=== PATIENT | male | born 1945 ===

== ENCOUNTER 2017-11-20 13:46 | Inpatient (IN) | payer MEDICARE, MEDICAID ==
[2017-11-20 13:47] VITALS: BMI 21.8
--- NOTE | 2017-11-20 14:28 | ED PDOC ---
HPI: General Adult Time Seen by Provider: 11/20/17 13:55 Chief Complaint (Nursing): GI Problem Chief Complaint (Provider): GI Problem History Per: Patient History/Exam Limitations: no limitations Onset/Duration Of Symptoms: Days Current Symptoms Are (Timing): Still Present Additional Complaint(s): 72 y/o male presents to the emergency department after he was sent from rehab for difficulty swallowing, failed video swallow evaluation, and unsuccessful nasogastric tube (NGT) insertion prior to arrival. Patient had cervical spine surgery for spinal central cord syndrome and admitted to incentive care unit ( ICU) under the care of Dr. Aren Dolan MD on 11/15/2017. Patient was seen in this facility on 11/17/2017 and diagnosed with cord compression syndrome after fall with syncope (resolved) post traumatic cervical myelopathy with quadriparesis and found with aspiration pneumonia. At this time, patient has neck pain, inability to swallow or eat due to cervical cord dysfunction and tetraplegia. Denies fever, chills, or weakness. Past Medical History Reviewed: Historical Data, Nursing Documentation, Vital Signs Vital Signs: Last Vital Signs Temp 98.3 F 11/21/17 07:21 Pulse 63 11/21/17 07:21 Resp 20 11/21/17 07:21 BP 184/74 H 11/21/17 07:21 Pulse Ox 98 11/21/17 07:21 - Medical History PMH: Seizures Denies: Chronic Kidney Disease (hx unknown) Comment Only: HIV (unknown) - Surgical History Other surgeries: Spine surgery - Family History Family History: States: Unknown Family Hx - Social History Current smoker - smoking cessation education provided: No Alcohol: None Drugs: Denies - Home Medications Home Medications: Ambulatory Orders Medication Instructions Recorded Ciprofloxacin 0.3% [Ciloxan 0.3% 1 drop OU Q4 bottle 11/17/17 Ophth SOLN] Enoxaparin [Lovenox] 40 mg SC DAILY syr 11/17/17 Polyethylene Glycol/Polyvinyl 2 drop OU Q2 PRN bottle 11/17/17 [Artificial Tears] Bisacodyl [Dulcolax] 10 mg RC PRN PRN 11/20/17 Nicotine [Nicoderm Cq] 1 patch TD DAILY 11/20/17 - Allergies Allergies/Adverse Reactions: Allergies Allergy/AdvReac Type Severity Reaction Status Date / Time No Known Allergies Allergy Verified 11/11/17 06:09 Review of Systems ROS Statement: Except As Marked, All Systems Reviewed And Found Negative (As per HPI, otherwise negative) Constitutional: Negative for: Fever, Chills ENT: Positive for: Other (Difficulty swallowing due to neurological dysphagia) Musculoskeletal: Positive for: Neck Pain (Inability to move due to fracture) Neurological: Negative for: Weakness Physical Exam - Reviewed Nursing Documentation Reviewed: Yes Vital Signs Reviewed: Yes - Physical Exam Appears: Positive for: Non-toxic, No Acute Distress Head Exam: Positive for: ATRAUMATIC, NORMAL INSPECTION, NORMOCEPHALIC Skin: Positive for: Normal Color, Warm, Dry Eye Exam: Positive for: Normal appearance, EOMI, PERRL Neck: Positive for: Limited ROM (due to fracture and decompressions of the cervical region). Negative for: Normal Cardiovascular/Chest: Positive for: Regular Rate, Rhythm. Negative for: Tachycardia Respiratory: Positive for: Normal Breath Sounds. Negative for: Rales, Wheezing , Respiratory Distress Gastrointestinal/Abdominal: Positive for: Soft. Negative for: Tenderness Extremity: Positive for: Other (Limited range of motion with a 1/5 strength to the upper and lower extremities bilaterally). Negative for: Normal ROM ( Limited range of motion with a 1/5 strength to the upper and lower extremities bilaterally) Neurologic/Psych: Positive for: Alert, Oriented (x3), Motor/Sensory Deficits (1/ 5 strenght on all extremities). Negative for: Cerebellar Tests, Aphasia, Facial Droop - Laboratory Results Result Diagrams: 11/20/17 14:35 11/20/17 14:35 - ECG O2 Sat by Pulse Oximetry: 99 (RA) Pulse Ox Interpretation: Normal Medical Decision Making Medical Decision Making: Time: 1420 Initial Impression: Neurological dysphagia, Failure to eat or swallow due to neurological dysphagia, Aspiration pneumonia, Tetraparesis, and cervical cord dysfunction status post cervical decompression. Initial Plan: --BMP --CBC w/ diff --Blood Culture --Chest x-ray --Reevaluation --Admission criteria include dysphagia, poor nutrition, and need for GI evaluation (consult will be requested by Dr Wang himself ) and need for IV nutrition TPN as well as IV antibiotics for aspiration pneumonia. Time: 1435 --Spoke to Dr. Wang who is covering for Dr. Dolan, who patient was admitted to originally, and agrees to admit the patient as inpatient in Med/Surg under his care. --Prealbumin --Clindamycin 600 mg in 50 ml IVPB --Dextrose 125 mls/hr IV --Admit to hospital routine: As inpatient in Med/Surg for Aspiration pneumonia, cervical cord dysfunctions, dyphagia, poor nutrition under the care of Dr. Isma Wang MD Scribe~Attestation: Documented by Sammie Villalpando, acting as a scribe for Summer Santillan MD. Provider Scribe~Attestation: All medical record entries made by the Scribe were at my direction and personally dictated by me. I have reviewed the chart and agree that the record accurately reflects my personal performance of the history, physical exam, medical decision making, and the department course for this patient. I have also personally directed, reviewed, and agree with the discharge instructions and disposition. Disposition - Clinical Impression Clinical Impression: Dysphagia, Aspiration pneumonia - Patient ED Disposition Is Patient to be Admitted: Yes (As inpatient in Med/Surg) Discussed With Dr.: Isma Wang Doctor Will See Patient In The: Hospital Counseled Patient/Family Regarding: Studies Performed, Diagnosis, Need For Followup - Disposition Disposition Time: 14:33 Condition: FAIR - Pt Status Changed To: Hospital Disposition Of: Inpatient - Admit Certification Admit to Inpatient:: After my assessment, the patient will require hospitalization for at least two midnights. This is because of the severity of symptoms shown, intensity of services needed, and/or the medical risk in this patient being treated as an outpatient. - POA Present On Arrival: None
[2017-11-20] MEDS ORDERED: Clindamycin 600mg/50ml NS 600 MG/50 ML BAG IVPB STA (14:29)
[2017-11-20] MEDS ORDERED: levoFLOXacin 500 mg in D5W 500 MG/100 ML BAG IVPB STA (14:38)
[2017-11-20] MEDS ORDERED: levoFLOXacin 500 mg in D5W 500 MG/100 ML BAG IVPB ONE (14:45)
[2017-11-20] MEDS: Dextrose 5%/0.45% NS 1,000 ML IV SCH ×2 (14:45→22:56)
--- NOTE | 2017-11-20 15:37 | RAD ---
PROCEDURE: CHEST RADIOGRAPH, 1 VIEW HISTORY: aspiration COMPARISON: Chest radiograph dated 11/19/2017. FINDINGS: LUNGS: Bibasilar atelectasis. PLEURA: Trace bilateral pleural effusions. CARDIOVASCULAR: Normal. OSSEOUS STRUCTURES: No significant abnormalities. VISUALIZED UPPER ABDOMEN: Normal. OTHER FINDINGS: None. IMPRESSION: Trace bilateral pleural effusions and/or atelectasis.
[2017-11-20 15:40] LABS: BASO # 0.1 K/uL (0.0-0.2); EOS # 0.1 K/uL (0.0-0.7); EOS % 0.7 % (0.0-4.0); LYMPH # 1.1 K/uL (1.0-4.3); LYMPH % 13.6 % (20.0-40.0); MEAN CELL VOLUME 87.8 fl (80.0-94.0); MEAN CORPUSCULAR HEMOGLOBIN 28.8 pg (27.0-31.0); MEAN CORPUSCULAR HGB CONC 32.8 g/dL (33.0-37.0); MEAN PLATELET VOLUME 7.3 fl (7.2-11.7); MONO % 12.2 % (0.0-10.0); NEUT # 5.9 K/uL (1.8-7.0); NEUT % 72.5 % (50.0-75.0); NRBC % 0.1 % (0.0-0.0); RBC 3.48 Mil/uL (4.40-5.90); RED CELL DISTRIBUTION WIDTH 13.4 % (11.5-14.5); WHITE BLOOD COUNT 8.2 K/uL (4.8-10.8)
[2017-11-20 15:51] LABS: ALBUMIN 2.7 g/dL (3.5-5.0); ALT/SGPT 25 U/L (21-72); AST/SGOT 27 U/L (17-59); BLOOD UREA NITROGEN 9 mg/dl (9-20); CALCIUM 8.4 mg/dL (8.4-10.2); GFR AFRICAN-AMERICAN > 60; GFR NON-AFRICAN AMERICAN > 60
[2017-11-20 16:11] LABS: ALB/GLOB RATIO 0.9 (1.0-2.1)
[2017-11-20] MEDS: Artificial Tears Opht Soln OU PRN (19:57)
[2017-11-20] MEDS: Ciprofloxacin 0.3% OPTH SOLN OU SCH (21:35)
[2017-11-21] MEDS: Ciprofloxacin 0.3% OPTH SOLN OU SCH ×6 (00:02→21:29)
[2017-11-21] MEDS: Dextrose 5%/0.45% NS 1,000 ML IV SCH ×3 (00:59→15:46)
[2017-11-21] MEDS ORDERED: levoFLOXacin 500 mg in D5W 500 MG/100 ML BAG IVPB SCH (09:00)
[2017-11-21] MEDS: levoFLOXacin 500 mg in D5W 500 MG/100 ML BAG IVPB SCH (09:17)
[2017-11-21] MEDS: Enoxaparin 40 mg Syringe SC SCH (09:18)
[2017-11-21] MEDS ORDERED: Multivitamin (MVI) 10 ML, Chromium/Copper/Manganese/Zinc 3 ML in Amino Acids/Dextrose 1... IV ONE (10:45)
[2017-11-21] MEDS: Enalaprilat 2.5 MG/2 ML IVP PRN (18:16)
--- NOTE | 2017-11-21 21:32 | HP ---
CHIEF COMPLAINT: Found with dysphagia in acute rehab unit. HISTORY OF PRESENT ILLNESS: This is a 72-year-old male who was recently admitted to acute rehab unit after suffering a seizure and fall and having fracture of cervical spine, which patient underwent surgery and after surgery, patient was transferred for acute rehab. In acute rehab unit, patient had swallowing evaluation done which they felt that patient to be n.p.o. as patient was aspirating. NG tube was attempted for patient's feeding, but was not successful. GI consult was requested to place NG tube, which was also unsuccessful in inserting NG tube and patient needed nutrition to participate in rehab. Also patient was found to have pneumonia, so patient was sent to the acute medical unit for further treatment. REVIEW OF SYSTEMS: Positive for feeling hungry and occasional cough. Review of systems, otherwise, is negative for headache, dizziness, syncope, loss of consciousness, chest pain, shortness of breath, nausea, vomiting, diarrhea, constipation. Review of systems also is positive for paraplegia related to cervical spine and basal ganglia infarct medical issue. Review of systems of all other organ systems is unremarkable. 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 PAST MEDICAL HISTORY: Significant for paraplegia and hypertension. PAST SURGICAL HISTORY: Remarkable for recent cervical spine surgery. PERSONAL HISTORY: Patient is currently nonsmoker, nondrinker. No substance abuse, but has history of the same in the past before hospital admission. FAMILY HISTORY: Noncontributory. MEDICATIONS: As per reconciliation sheet. ALLERGIES: THE PATIENT IS NOT ALLERGIC TO ANY MEDICATION. PHYSICAL EXAMINATION: GENERAL: Well-built, well-nourished 72-year-old male, in no acute distress. VITAL SIGNS: Temperature afebrile, pulse 80, respirations 18, blood pressure 183/77. HEENT: Patient is status post recent cervical spine surgery. No JVD. No thyromegaly. No lymphadenopathy. No nystagmus. Normocephalic, atraumatic skull, otherwise. HEART: S1 and S2 normal and regular. No significant murmur, gallop, or rub is heard. LUNGS: Exam showed good bilateral air exchange. No rales or rhonchi. ABDOMEN: Soft, nontender. No organomegaly. No fluid. Bowel sounds are plus. EXTREMITIES: No edema. No calf swelling. No tenderness. No acute ischemia. CENTRAL NERVOUS SYSTEM: Essentially unchanged and patient has functional paraplegia, although does have some movement in all the extremities, but it is essentially unchanged from patient's exam in acute rehab unit. DIAGNOSTIC DATA: Available diagnostic data reviewed. ADMITTING IMPRESSION: Dysphagia, pneumonia, paraplegia, cervical spine injury, basal ganglia infarct, hypertension uncontrolled. PLAN: As ordered. Case and plan discussed with patient. Isma Wang MD
[2017-11-22] MEDS: Enalaprilat 2.5 MG/2 ML IVP PRN (00:49)
[2017-11-22] MEDS: Ciprofloxacin 0.3% OPTH SOLN OU SCH ×6 (00:50→21:46)
[2017-11-22] MEDS ORDERED: Amino/Dex E 4.25/10 1000 ML 1,000 ML IV ONE ×2 (02:00→11:45)
[2017-11-22 06:20] LABS: HEMOGLOBIN 10.4 g/dL (12.0-18.0); MEAN CELL VOLUME 86.1 fl (80.0-94.0); MEAN CORPUSCULAR HEMOGLOBIN 29.6 pg (27.0-31.0); MEAN CORPUSCULAR HGB CONC 34.3 g/dL (33.0-37.0); RBC 3.51 Mil/uL (4.40-5.90); RED CELL DISTRIBUTION WIDTH 13.4 % (11.5-14.5)
[2017-11-22 07:18] LABS: ALT/SGPT 30 U/L (21-72); AST/SGOT 29 U/L (17-59); BLOOD UREA NITROGEN 10 mg/dl (9-20); CALCIUM 8.7 mg/dL (8.4-10.2); GFR AFRICAN-AMERICAN > 60; GFR NON-AFRICAN AMERICAN > 60
[2017-11-22 07:19] LABS: ALB/GLOB RATIO 0.8 (1.0-2.1)
[2017-11-22] MEDS: levoFLOXacin 500 mg in D5W 500 MG/100 ML BAG IVPB SCH (09:23)
[2017-11-22] MEDS: Enoxaparin 40 mg Syringe SC SCH (09:35)
[2017-11-22] MEDS ORDERED: Multivitamin (MVI) 10 ML, Chromium/Copper/Manganese/Zinc 3 ML in Amino/Dex E 4.25/10 10... IV ONE (11:45)
[2017-11-23] MEDS: Ciprofloxacin 0.3% OPTH SOLN OU SCH ×6 (00:18→21:36)
[2017-11-23 06:46] LABS: HEMOGLOBIN 10.4 g/dL (12.0-18.0); MEAN CELL VOLUME 87.6 fl (80.0-94.0); MEAN CORPUSCULAR HEMOGLOBIN 29.3 pg (27.0-31.0); MEAN CORPUSCULAR HGB CONC 33.5 g/dL (33.0-37.0); RBC 3.56 Mil/uL (4.40-5.90); RED CELL DISTRIBUTION WIDTH 13.6 % (11.5-14.5); WHITE BLOOD COUNT 9.5 K/uL (4.8-10.8)
[2017-11-23 07:12] LABS: ALB/GLOB RATIO 0.9 (1.0-2.1); ALT/SGPT 28 U/L (21-72); AST/SGOT 31 U/L (17-59); BLOOD UREA NITROGEN 14 mg/dl (9-20); CALCIUM 8.7 mg/dL (8.4-10.2); GFR AFRICAN-AMERICAN > 60; GFR NON-AFRICAN AMERICAN > 60
[2017-11-23] MEDS: levoFLOXacin 500 mg in D5W 500 MG/100 ML BAG IVPB SCH (08:19)
[2017-11-23] MEDS: Enoxaparin 40 mg Syringe SC SCH (08:21)
--- NOTE | 2017-11-23 08:55 | PN ---
DATE: 11/22/2017 SUBJECTIVE: The patient is seen and examined. Interim events noted. The patient feels okay. Feels hungry, but denies any specific complaint. Pain is adequately controlled. PHYSICAL EXAMINATION GENERAL: The patient is in no acute distress. VITAL SIGNS: Stable. HEART: S1 and S2 normal, regular. LUNGS: Good bilateral air exchange. ABDOMEN: Soft and nontender. EXTREMITIES: No calf swelling. No tenderness. No acute ischemia. CENTRAL NERVOUS SYSTEM: Essentially unchanged and the patient does have some movements in all four extremitates, but generalized weakness persists. DIAGNOSTIC DATA: Available diagnostic data reviewed. ASSESSMENT AND PLAN: Case was discussed with the patient and again with today. Overall, the patient is clinically stable. Case was also discussed with Gastroenterology. The patient might need a PEG if repeat swallowing evaluation is coming fail. Plan as ordered. Isma Wang MD
--- NOTE | 2017-11-23 09:11 | CP.PCM.PN ---
<Blanca Pimentel - Last Filed: 11/23/17 09:11> Subjective - Date & Time of Evaluation Date of Evaluation: 11/23/17 Time of Evaluation: 08:00 - Subjective Subjective: PGY 4 GI Follow-up Pt seen and examined bedside No complaints overnight Lethargic gettubf narcotics as inpt still NPO ROS: 10 point ROS conducted, neg other than above Objective - Vital Signs/Intake and Output Vital Signs (last 24 hours): Temp Pulse Resp BP Pulse Ox 97.7 F 53 L 18 135/61 98 11/23/17 08:17 11/23/17 08:17 11/23/17 08:17 11/23/17 08:17 11/23/17 08:17 Intake and Output: 11/23/17 11/23/17 06:59 18:59 Intake Total 920 Output Total 1250 Balance -330 - Medications Medications: Current Medications Artificial Tears (Artificial Tears) 2 drop OU Q2 PRN PRN Reason: Dry eyes Last Admin: 11/20/17 19:57 Dose: 2 drop Ciprofloxacin (Ciloxan 0.3% Ophth Soln) 1 drop OU Q4 [facility] Last Admin: 11/23/17 08:20 Dose: 1 drop Clonidine HCl (Catapres-Tts3 0.3 Mg/24 Hr) 1 patch TD Q7D [facility] Last Admin: 11/22/17 09:26 Dose: 1 patch Enalaprilat (Vasotec) 5 mg IVP Q6 PRN PRN Reason: hpn Last Admin: 11/22/17 00:49 Dose: 5 mg Enoxaparin Sodium (Lovenox) 40 mg SC DAILY DAILY PRN Reason: Protocol Last Admin: 11/23/17 08:21 Dose: 40 mg Fentanyl (Duragesic) 1 patch TD Q3D DAILY PRN Reason: Protocol Last Admin: 11/21/17 18:13 Dose: 1 patch Levofloxacin/Dextrose (Levaquin 500mg) 500 mg in 100 mls @ 100 mls/hr IVPB DAILY DAILY PRN Reason: Protocol Last Admin: 11/23/17 08:19 Dose: 100 mls/hr Nicotine (Nicoderm Cq) 1 patch TD DAILY [facility] Last Admin: 11/23/17 08:21 Dose: 1 patch - Labs Labs: 11/23/17 05:40 11/23/17 05:40 - Constitutional Appears: Well, No Acute Distress, Other (lethargic) - Head Exam Head Exam: ATRAUMATIC, NORMOCEPHALIC - Eye Exam Eye Exam: Normal appearance - ENT Exam ENT Exam: Mucous Membranes Moist - Neck Exam Additional comments: c- collar in place - Respiratory Exam Respiratory Exam: Clear to Ausculation Bilateral, NORMAL BREATHING PATTERN. absent: Rales, Rhonchi, Wheezes, Respiratory Distress - Cardiovascular Exam Cardiovascular Exam: REGULAR RHYTHM, +S1, +S2 - GI/Abdominal Exam GI & Abdominal Exam: Soft, Normal Bowel Sounds. absent: Guarding, Rigid, Tenderness, Organomegaly - Extremities Exam Extremities Exam: Full ROM, Normal Inspection. absent: Joint Swelling, Pedal Edema - Neurological Exam Neurological Exam: Oriented x3 Additional comments: lethargic - Psychiatric Exam Psychiatric exam: Normal Affect, Normal Mood - Skin Skin Exam: Dry, Intact, Normal Color, Warm Assessment and Plan - Assessment and Plan (Free Text) Assessment: This is a 72yM with difficulty swallowing and aspiration. 1. Aspiration 2. Poor nutrition 3. Posttraumatic cervical myelopathy s/p C4 cordectomy and C3-4 spinal fusion with instrumentation cervical decompression Plan: -Continue supportive care with aspiration precautions, pain control, physical therapy -Attempted to place NGT at bedside, not successful as pt unable to swallow and aspirating on water, NGT coiling in neck likely from edema -Continue TPN -Pt may need usp PEG tube if still aspirating and unable to place NGT or eat my mouth -decrease frequency or amount of narcotics so pt can be more alert therefore decrease incidence of aspiration -will sign off -please reconsult if PEG is needed D/W Dr. Desai <Mathew Desai - Last Filed: 11/23/17 11:42> Objective - Vital Signs/Intake and Output Vital Signs (last 24 hours): Temp Pulse Resp BP Pulse Ox 97.7 F 62 18 111/58 L 97 11/23/17 08:17 11/23/17 11:35 11/23/17 08:17 11/23/17 11:35 11/23/17 11:35 Intake and Output: 11/23/17 11/23/17 06:59 18:59 Intake Total 920 Output Total 1250 Balance -330 - Medications Medications: Current Medications Artificial Tears (Artificial Tears) 2 drop OU Q2 PRN PRN Reason: Dry eyes Last Admin: 11/20/17 19:57 Dose: 2 drop Ciprofloxacin (Ciloxan 0.3% Ophth Soln) 1 drop OU Q4 DAILY Last Admin: 11/23/17 08:20 Dose: 1 drop Clonidine HCl (Catapres-Tts3 0.3 Mg/24 Hr) 1 patch TD Q7D DAILY Last Admin: 11/22/17 09:26 Dose: 1 patch Enalaprilat (Vasotec) 5 mg IVP Q6 PRN PRN Reason: hpn Last Admin: 11/22/17 00:49 Dose: 5 mg Enoxaparin Sodium (Lovenox) 40 mg SC DAILY DAILY PRN Reason: Protocol Last Admin: 11/23/17 08:21 Dose: 40 mg Fentanyl (Duragesic) 1 patch TD Q3D DAILY PRN Reason: Protocol Last Admin: 11/21/17 18:13 Dose: 1 patch Levofloxacin/Dextrose (Levaquin 500mg) 500 mg in 100 mls @ 100 mls/hr IVPB DAILY DAILY PRN Reason: Protocol Last Admin: 11/23/17 08:19 Dose: 100 mls/hr Nicotine (Nicoderm Cq) 1 patch TD DAILY DAILY Last Admin: 11/23/17 08:21 Dose: 1 patch - Labs Labs: 11/23/17 05:40 11/23/17 05:40 Attending/Attestation - Attestation I have personally seen and examined this patient.: Yes I have fully participated in the care of the patient.: Yes I have reviewed all pertinent clinical information, including history, physical exam and plan: Yes Notes (Text): 11/23/17 11:41 72 year old male with dysphagia and aspiration due to cervical cord injury admitted for TPN. Per speech therapy, he may improve within the week and be able to eat a diet. Continue TPN in the short term. If the patient needs a PEG while he recovers, let us know. Thank you.
--- NOTE | 2017-11-23 10:59 | CP.PCM.PN ---
<Kelvin Knight - Last Filed: 11/23/17 21:54> Subjective - Date & Time of Evaluation Date of Evaluation: 11/23/17 Time of Evaluation: 07:40 - Subjective Subjective: Patient seen and examined bedside with Dr Wang, Patient lethargic, able to move left arm, more than right arm. Pt on TPN. no overnight events. Pending GI Peg tube by GI. Objective - Vital Signs/Intake and Output Vital Signs (last 24 hours): Temp Pulse Resp BP Pulse Ox 97.7 F 53 L 18 135/61 98 11/23/17 08:17 11/23/17 08:17 11/23/17 08:17 11/23/17 08:17 11/23/17 08:17 Intake and Output: 11/23/17 11/23/17 06:59 18:59 Intake Total 920 Output Total 1250 Balance -330 - Medications Medications: Current Medications Artificial Tears (Artificial Tears) 2 drop OU Q2 PRN PRN Reason: Dry eyes Last Admin: 11/20/17 19:57 Dose: 2 drop Ciprofloxacin (Ciloxan 0.3% Ophth Soln) 1 drop OU Q4 [facility] Last Admin: 11/23/17 08:20 Dose: 1 drop Clonidine HCl (Catapres-Tts3 0.3 Mg/24 Hr) 1 patch TD Q7D [facility] Last Admin: 11/22/17 09:26 Dose: 1 patch Enalaprilat (Vasotec) 5 mg IVP Q6 PRN PRN Reason: hpn Last Admin: 11/22/17 00:49 Dose: 5 mg Enoxaparin Sodium (Lovenox) 40 mg SC DAILY DAILY PRN Reason: Protocol Last Admin: 11/23/17 08:21 Dose: 40 mg Fentanyl (Duragesic) 1 patch TD Q3D DAILY PRN Reason: Protocol Last Admin: 11/21/17 18:13 Dose: 1 patch Levofloxacin/Dextrose (Levaquin 500mg) 500 mg in 100 mls @ 100 mls/hr IVPB DAILY DAILY PRN Reason: Protocol Last Admin: 11/23/17 08:19 Dose: 100 mls/hr Nicotine (Nicoderm Cq) 1 patch TD DAILY [facility] Last Admin: 11/23/17 08:21 Dose: 1 patch - Labs Labs: 11/23/17 05:40 11/23/17 05:40 - Constitutional Appears: Non-toxic, No Acute Distress - Eye Exam Eye Exam: Normal appearance - ENT Exam ENT Exam: Mucous Membranes Moist - Neck Exam Additional comments: neck collar in place - Respiratory Exam Respiratory Exam: Decreased Breath Sounds. absent: Rales, Rhonchi, Wheezes - Cardiovascular Exam Cardiovascular Exam: REGULAR RHYTHM, +S1, +S2 - GI/Abdominal Exam GI & Abdominal Exam: Soft, Normal Bowel Sounds. absent: Tenderness - Extremities Exam Extremities Exam: Normal Inspection. absent: Calf Tenderness, Pedal Edema - Neurological Exam Neuro motor strength exam: Left Upper Extremity: 2/1, Right Upper Extremity: 4, Left Lower Extremity: 4, Right Lower Extremity: 2/1 - Skin Skin Exam: Intact Assessment and Plan - Assessment and Plan (Free Text) Plan: (1) Cord compression syndrome Assessment & Plan: -secondary to posttraumatic cervical myelopathy with quadriparesis s/p C4 cordectomy and C3-4 spinal fusion with instrumentation cervical decompression -Neurology consult appreciated -Ortho surgery consult appreciated: Acute rehab -Continue PT Status: Acute 2) Aspiration PNA -during video swallow test -levaquin -NPO, TPN -GI Consult appreciated (3) DVT prophylaxis Assessment & Plan: Lovenox Status: Acute <Wang,Isma K - Last Filed: 12/07/17 11:59> Objective - Vital Signs/Intake and Output Vital Signs (last 24 hours): Temp Pulse Resp BP Pulse Ox 98.9 F 78 18 142/73 96 12/07/17 08:13 12/07/17 08:13 12/07/17 08:13 12/07/17 08:13 12/07/17 08:13 Intake and Output: 12/07/17 12/07/17 06:59 18:59 Intake Total 480 Output Total 400 Balance 80 - Medications Medications: Current Medications Clonidine HCl (Catapres-Tts3 0.3 Mg/24 Hr) 1 patch TD Q7D DAILY Last Admin: 12/06/17 13:35 Dose: 1 patch Dextrose (Dextrose 50% Inj) 25 ml IVP ONCE PRN PRN Reason: Hypoglycemia Diphenhydramine HCl (Benadryl) 25 mg IVP HS PRN PRN Reason: Insomnia Last Admin: 11/27/17 22:22 Dose: 25 mg Enalaprilat (Vasotec) 5 mg IVP Q6 PRN PRN Reason: hpn Last Admin: 11/22/17 00:49 Dose: 5 mg Heparin Sodium (Porcine) (Heparin) 5,000 units SC Q8 DAILY PRN Reason: Protocol Last Admin: 12/06/17 01:09 Dose: Not Given Pantoprazole Sodium (Protonix Susp) 40 mg PEG DAILY [facility] Last Admin: 12/07/17 08:41 Dose: Not Given Vitamin A (Vitamin A & D Oint Ud Foilpak) 1 ea TOP BID DAILY Last Admin: 12/07/17 08:17 Dose: 1 ea - Labs Labs: 12/07/17 05:55 12/07/17 05:55 PT 13.9 Seconds (9.8-13.1) H 12/06/17 05:55 INR 1.3 (0.9-1.2) H 12/06/17 05:55 Assessment and Plan - Assessment and Plan (Free Text) Assessment: Patient was personally seen and examined by me in rounds with residents. Available labs and diagnostic data reviewed. Case, Patient's condition and management plan discussed with residents in rounds. Agree with resident's progress note. Plan: As ordered.
--- NOTE | 2017-11-23 11:03 | RAD ---
HISTORY: f/u COMPARISON: Chest radiograph dated 11/20/2017 FINDINGS: LUNGS: No active pulmonary disease. PLEURA: No significant pleural effusion identified, no pneumothorax apparent. CARDIOVASCULAR: Normal. OSSEOUS STRUCTURES: No significant abnormalities. VISUALIZED UPPER ABDOMEN: Normal. OTHER FINDINGS: None. IMPRESSION: No active disease.
[2017-11-23] MEDS ORDERED: Multivitamin (MVI) 10 ML, Chromium/Copper/Manganese/Zinc 3 ML in Amino/Dex E 4.25/10 10... IV ONE (12:30)
[2017-11-24] MEDS: Ciprofloxacin 0.3% OPTH SOLN OU SCH ×6 (00:59→21:16)
[2017-11-24] MEDS ORDERED: Amino/Dex E 4.25/10 1000 ML 1,000 ML IV ONE (01:00)
[2017-11-24 06:04] LABS: MEAN CELL VOLUME 87.4 fl (80.0-94.0); MEAN CORPUSCULAR HEMOGLOBIN 28.7 pg (27.0-31.0); MEAN CORPUSCULAR HGB CONC 32.8 g/dL (33.0-37.0); RBC 3.47 Mil/uL (4.40-5.90); RED CELL DISTRIBUTION WIDTH 13.8 % (11.5-14.5); WHITE BLOOD COUNT 8.6 K/uL (4.8-10.8)
[2017-11-24 06:50] LABS: BLOOD UREA NITROGEN 23 mg/dl (9-20); CALCIUM 8.7 mg/dL (8.4-10.2); GFR AFRICAN-AMERICAN > 60; GFR NON-AFRICAN AMERICAN > 60; MAGNESIUM 2.2 MG/DL (1.6-2.3)
[2017-11-24] MEDS: levoFLOXacin 500 mg in D5W 500 MG/100 ML BAG IVPB SCH (09:45)
[2017-11-24] MEDS: Enoxaparin 40 mg Syringe SC SCH (09:46)
--- NOTE | 2017-11-24 10:03 | PQF GENQUE ---
Dr. Wang, Please clarify the etiology of the Dysphagia: if known; ie. >Condition is due to Basal Ganglia Infarct > Condition is a complication of surgery > Condition occurred in the post operative period, cause documented (please specify cause): i.e. due to Post Traumatic Cervical Myelopathy > Condition occurred in the post operative period, cause clinically unable to be determined > Condition incidental to surgery OR: Clinically unable to determine OR: Unknown ER note: ER: presents to the emergency department after he was sent from rehab for difficulty swallowing, failed video swallow evaluation, and unsuccessful nasogastric tube (NGT) insertion---At this time, patient has neck pain, inability to swallow or eat due to cervical cord dysfunction and tetraplegia H and P: --paraplegia related to cervical spine and basal ganglia infarct medical issue. 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 Impression: Dysphagia, pneumonia, paraplegia, cervical spine injury, basal ganglia infarct, hypertension uncontrolled. GI consult : 11/23 GI; with difficulty swallowing and aspiration. 1. Aspiration 2. Poor nutrition 3. Posttraumatic cervical myelopathy s/p C4 cordectomy and C3-4 spinal fusion with instrumentation cervical decompression This form is a permanent part of the medical record Clarification of your documentation is requested to better reflect the severity of illness and intensity of treatment of your patient. Indicators present [] Specify: [] [] Specify: [] [] Specify: [] [] Specify: [] Location in the medical record that reflects the above clinical findings: [] Treatment Provided: [] PHYSICIAN'S RESPONSE Based on your medical judgment of the clinical indicators outlined above please clarify the following: [] Practitioner response [] If unable to determine, please check the box, sign and date. Present On Admission (POA) Indicator: [] Present at the time of admission [] Not present at the time of admission [] Clinically Undetermined In responding to this query, please exercise your independent professional judgment. The fact that a question is asked does not imply that any particular answer is desired or expected. Thank you for your clarification on this documentation. If you have any questions please call. * Thank you, Annie Pina RN ext. #[phone] MTDD
[2017-11-24] MEDS ORDERED: AMINO ACIDS IV ONE (14:00)
[2017-11-24] MEDS ORDERED: MULTIVITAMIN IV ONE ×3 (14:00→14:15)
[2017-11-24] MEDS ORDERED: AMINO IV ONE (14:00)
[2017-11-24] MEDS ORDERED: ELECTROLYTES IV ONE ×2 (14:00→14:15)
[2017-11-24] MEDS ORDERED: DEXTROSE IV ONE (14:00)
[2017-11-24] MEDS ORDERED: DEX E IV ONE (14:00)
[2017-11-24] MEDS ORDERED: ZINC IV ONE (14:15)
[2017-11-24] MEDS ORDERED: MANGANESE IV ONE (14:15)
[2017-11-24] MEDS ORDERED: CHROMIUM IV ONE (14:15)
[2017-11-24] MEDS ORDERED: [UNRECOGNIZED DRUG - OTHER] IV ONE (14:15)
[2017-11-24] MEDS ORDERED: COPPER IV ONE (14:15)
[2017-11-24] MEDS: Vitamins A & D Oint UD Foilpak TOP SCH (18:06)
[2017-11-25] MEDS: Ciprofloxacin 0.3% OPTH SOLN OU SCH ×6 (02:22→20:32)
[2017-11-25] MEDS ORDERED: ELECTROLYTES IV ONE ×2 (02:30→16:00)
[2017-11-25] MEDS ORDERED: AMINO ACIDS IV ONE (02:30)
[2017-11-25] MEDS ORDERED: DEXTROSE IV ONE (02:30)
--- NOTE | 2017-11-25 07:50 | CP.PCM.PN ---
<Kelvin Knight - Last Filed: 11/25/17 14:40> Subjective - Date & Time of Evaluation Date of Evaluation: 11/25/17 Time of Evaluation: 07:30 - Subjective Subjective: Patient seen and examined bedside with Dr Wang, Patient awake, alert. Patient with mild improvement of movement for 4 ext. He denies chest pain, sOB, vomiting , dysuria, fever. Patient was explained that he did not pass swallow test yesterday and patient will need peg tube to feed him. Patient verbalized understanding and is agree to have peg tube. GI reconsulted. Objective - Vital Signs/Intake and Output Vital Signs (last 24 hours): Temp Pulse Resp BP Pulse Ox 97.7 F 66 20 116/66 99 11/25/17 07:21 11/25/17 07:21 11/25/17 07:21 11/25/17 07:21 11/25/17 07:21 Intake and Output: 11/25/17 11/25/17 06:59 18:59 Intake Total 984 Output Total 400 Balance 584 - Medications Medications: Current Medications Artificial Tears (Artificial Tears) 2 drop OU Q2 PRN PRN Reason: Dry eyes Last Admin: 11/20/17 19:57 Dose: 2 drop Ciprofloxacin (Ciloxan 0.3% Ophth Soln) 1 drop OU Q4 DAILY Last Admin: 11/25/17 05:32 Dose: 1 drop Clonidine HCl (Catapres-Tts3 0.3 Mg/24 Hr) 1 patch TD Q7D DAILY Last Admin: 11/22/17 09:26 Dose: 1 patch Enalaprilat (Vasotec) 5 mg IVP Q6 PRN PRN Reason: hpn Last Admin: 11/22/17 00:49 Dose: 5 mg Fentanyl (Duragesic) 1 patch TD Q3D DAILY PRN Reason: Protocol Last Admin: 11/24/17 20:34 Dose: 1 patch Levofloxacin/Dextrose (Levaquin 500mg) 500 mg in 100 mls @ 100 mls/hr IVPB DAILY DAILY PRN Reason: Protocol Last Admin: 11/24/17 09:45 Dose: 100 mls/hr Parenteral Electrolytes 20 ml/ (Amino Acids) 1,020 mls @ 82 mls/hr IV .[id number] ONE Stop: 11/25/17 14:56 Last Admin: 11/25/17 03:39 Dose: 82 mls/hr Nicotine (Nicoderm Cq) 1 patch TD DAILY [facility] Last Admin: 11/24/17 09:46 Dose: 1 patch Vitamin A (Vitamin A & D Oint Ud Foilpak) 1 ea TOP BID [facility] Last Admin: 11/24/17 18:06 Dose: 1 ea - Labs Labs: 11/24/17 05:55 11/24/17 04:00 - Constitutional Appears: Non-toxic, No Acute Distress - Head Exam Head Exam: ATRAUMATIC, NORMOCEPHALIC - Eye Exam Eye Exam: Normal appearance - ENT Exam ENT Exam: Mucous Membranes Moist - Neck Exam Additional comments: Collar neck placed - Respiratory Exam Respiratory Exam: Clear to Ausculation Bilateral. absent: Rales, Rhonchi - Cardiovascular Exam Cardiovascular Exam: REGULAR RHYTHM, +S1, +S2 - GI/Abdominal Exam GI & Abdominal Exam: Soft, Normal Bowel Sounds. absent: Tenderness - Extremities Exam Extremities Exam: Normal Inspection. 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 C3-4 spinal fusion with instrumentation POD # 10 cervical decompression -Neurology consult appreciated -Ortho surgery consult appreciated: Acute rehab -Continue PT Status: Acute 2) Aspiration PNA -during video swallow test -s/p levaquin -NPO, TPN -GI Consult suggested 3) Dysphagia -secondary to cervical spine trauma and quadriparesis --NPO, TPN -swallow test yesterday -GI Consult suggested (4) DVT prophylaxis Assessment & Plan: Lovenox <Wang,Isma K - Last Filed: 12/07/17 12:17> Objective - Vital Signs/Intake and Output Vital Signs (last 24 hours): Temp Pulse Resp BP Pulse Ox 98.9 F 78 18 142/73 96 12/07/17 08:13 12/07/17 08:13 12/07/17 08:13 12/07/17 08:13 12/07/17 08:13 Intake and Output: 12/07/17 12/07/17 06:59 18:59 Intake Total 480 Output Total 400 Balance 80 - Medications Medications: Current Medications Clonidine HCl (Catapres-Tts3 0.3 Mg/24 Hr) 1 patch TD Q7D [facility] Last Admin: 12/06/17 13:35 Dose: 1 patch Dextrose (Dextrose 50% Inj) 25 ml IVP ONCE PRN PRN Reason: Hypoglycemia Diphenhydramine HCl (Benadryl) 25 mg IVP HS PRN PRN Reason: Insomnia Last Admin: 11/27/17 22:22 Dose: 25 mg Enalaprilat (Vasotec) 5 mg IVP Q6 PRN PRN Reason: hpn Last Admin: 11/22/17 00:49 Dose: 5 mg Heparin Sodium (Porcine) (Heparin) 5,000 units SC Q8 DAILY PRN Reason: Protocol Last Admin: 12/06/17 01:09 Dose: Not Given Chromium/Copper/Manganese/Zinc 3 ml/ Multivitamins/Vitamin C 10 ml/ Amino Acids/ Electrolytes/Dextrose 1,013 mls @ 40 mls/hr IV .Q24H ONE Stop: 12/08/17 12:14 Pantoprazole Sodium (Protonix Susp) 40 mg PEG DAILY [facility] Last Admin: 12/07/17 08:41 Dose: Not Given Vitamin A (Vitamin A & D Oint Ud Foilpak) 1 ea TOP BID [facility] Last Admin: 12/07/17 08:17 Dose: 1 ea - Labs Labs: 12/07/17 05:55 12/07/17 05:55 PT 13.9 Seconds (9.8-13.1) H 12/06/17 05:55 INR 1.3 (0.9-1.2) H 12/06/17 05:55 Assessment and Plan - Assessment and Plan (Free Text) Assessment: Patient was personally seen and examined by me in rounds with residents. Available labs and diagnostic data reviewed. Case, Patient's condition and management plan discussed with residents in rounds. Agree with resident's progress note. Plan: As ordered.
[2017-11-25 08:01] LABS: HEMOGLOBIN 9.7 g/dL (12.0-18.0); MEAN CELL VOLUME 86.6 fl (80.0-94.0); MEAN CORPUSCULAR HEMOGLOBIN 29.3 pg (27.0-31.0); MEAN CORPUSCULAR HGB CONC 33.8 g/dL (33.0-37.0); RBC 3.32 Mil/uL (4.40-5.90); RED CELL DISTRIBUTION WIDTH 13.7 % (11.5-14.5)
[2017-11-25 08:23] LABS: LDL CHOLESTEROL 80 mg/dL (0-129)
[2017-11-25 08:28] LABS: BLOOD UREA NITROGEN 25 mg/dl (9-20); GFR AFRICAN-AMERICAN > 60; GFR NON-AFRICAN AMERICAN > 60; HDL CHOLESTEROL 25 MG/DL (30-70)
[2017-11-25 08:51] LABS: CALCIUM 8.8 mg/dL (8.4-10.2)
[2017-11-25] MEDS: levoFLOXacin 500 mg in D5W 500 MG/100 ML BAG IVPB SCH (09:16)
[2017-11-25] MEDS: Vitamins A & D Oint UD Foilpak TOP SCH ×2 (09:17→17:32)
[2017-11-25] MEDS ORDERED: Amino/Dex E 4.25/10 1000 ML 1,000 ML IV ONE (13:15)
[2017-11-25] MEDS ORDERED: Multivitamin (MVI) 10 ML, Chromium/Copper/Manganese/Zinc 3 ML in Amino/Dex E 4.25/10 10... IV ONE (13:15)
[2017-11-25 13:20] LABS: INR 1.3 (0.9-1.2); PROTHROMBIN TIME 14.2 Seconds (9.8-13.1)
--- NOTE | 2017-11-25 15:12 | CP.PCM.PN ---
<Blanca Pimentel - Last Filed: 11/25/17 15:12> Subjective - Date & Time of Evaluation Date of Evaluation: 11/25/17 Time of Evaluation: 13:00 - Subjective Subjective: PGY4 GI Follow-up/reconsult Pt seen and examined bedside denies any abd pain +BM no overnight events ROS: 10 point ROS conducted neg other than above Objective - Vital Signs/Intake and Output Vital Signs (last 24 hours): Temp Pulse Resp BP Pulse Ox 97.7 F 66 20 116/66 99 11/25/17 07:21 11/25/17 07:21 11/25/17 07:21 11/25/17 07:21 11/25/17 07:21 Intake and Output: 11/25/17 11/25/17 06:59 18:59 Intake Total 984 Output Total 400 Balance 584 - Medications Medications: Current Medications Artificial Tears (Artificial Tears) 2 drop OU Q2 PRN PRN Reason: Dry eyes Last Admin: 11/20/17 19:57 Dose: 2 drop Ciprofloxacin (Ciloxan 0.3% Ophth Soln) 1 drop OU Q4 DAILY Last Admin: 11/25/17 09:17 Dose: 1 drop Clonidine HCl (Catapres-Tts3 0.3 Mg/24 Hr) 1 patch TD Q7D DAILY Last Admin: 11/22/17 09:26 Dose: 1 patch Enalaprilat (Vasotec) 5 mg IVP Q6 PRN PRN Reason: hpn Last Admin: 11/22/17 00:49 Dose: 5 mg Fentanyl (Duragesic) 1 patch TD Q3D DAILY PRN Reason: Protocol Last Admin: 11/24/17 20:34 Dose: 1 patch Levofloxacin/Dextrose (Levaquin 500mg) 500 mg in 100 mls @ 100 mls/hr IVPB DAILY DAILY PRN Reason: Protocol Last Admin: 11/25/17 09:16 Dose: 100 mls/hr Multivitamins/Vitamin C 10 ml/Chromium/Copper/Manganese/Zinc 3 ml/ Amino Acids/ Electrolytes/Dextrose 1,013 mls @ 82 mls/hr IV .[id number] ONE Stop: 11/26/17 01:36 Amino Acids/Electrolytes/Dextrose (Clinimix E 4.25/10 1000 Ml) 1,000 mls @ 82 mls/hr IV .[id number] ONE Stop: 11/26/17 01:26 Nicotine (Nicoderm Cq) 1 patch TD DAILY [facility] Last Admin: 11/25/17 09:16 Dose: 1 patch Vitamin A (Vitamin A & D Oint Ud Foilpak) 1 ea TOP BID [facility] Last Admin: 11/25/17 09:17 Dose: 1 ea - Labs Labs: 11/25/17 07:08 11/25/17 07:08 PT 14.2 Seconds (9.8-13.1) H 11/25/17 13:02 INR 1.3 (0.9-1.2) H 11/25/17 13:02 - Constitutional Appears: Non-toxic, No Acute Distress - Head Exam Head Exam: ATRAUMATIC, NORMOCEPHALIC - Eye Exam Eye Exam: Normal appearance - ENT Exam ENT Exam: Mucous Membranes Moist, Normal Exam - Neck Exam Neck Exam: Normal Inspection - Respiratory Exam Respiratory Exam: Clear to Ausculation Bilateral, NORMAL BREATHING PATTERN. absent: Rales, Rhonchi, Wheezes - Cardiovascular Exam Cardiovascular Exam: REGULAR RHYTHM, +S1, +S2 - GI/Abdominal Exam GI & Abdominal Exam: Soft, Normal Bowel Sounds. absent: Guarding, Rigid, Tenderness - Neurological Exam Neurological Exam: Alert, Awake, Oriented x3 - Psychiatric Exam Psychiatric exam: Normal Affect, Normal Mood - Skin Skin Exam: Dry, Intact, Normal Color, Warm Assessment and Plan - Assessment and Plan (Free Text) Assessment: This is a 72yM with difficulty swallowing and aspiration. 1. Aspiration 2. Poor nutrition 3. Posttraumatic cervical myelopathy s/p C4 cordectomy and C3-4 spinal fusion with instrumentation cervical decompression Plan: -Continue supportive care with aspiration precautions, pain control, physical therapy -PEG placement tomorrow -Continue TPN -continue NPO -decrease frequency or amount of narcotics so pt can be more alert therefore decrease incidence of aspiration -check INR -consent given by pt and son D/W Dr. Desai <Mathew Desai - Last Filed: 11/25/17 15:26> Objective - Vital Signs/Intake and Output Vital Signs (last 24 hours): Temp Pulse Resp BP Pulse Ox 97.7 F 66 20 116/66 99 11/25/17 07:21 11/25/17 07:21 11/25/17 07:21 11/25/17 07:21 11/25/17 07:21 Intake and Output: 11/25/17 11/25/17 06:59 18:59 Intake Total 984 Output Total 400 Balance 584 - Medications Medications: Current Medications Artificial Tears (Artificial Tears) 2 drop OU Q2 PRN PRN Reason: Dry eyes Last Admin: 11/20/17 19:57 Dose: 2 drop Ciprofloxacin (Ciloxan 0.3% Ophth Soln) 1 drop OU Q4 DAILY Last Admin: 11/25/17 09:17 Dose: 1 drop Clonidine HCl (Catapres-Tts3 0.3 Mg/24 Hr) 1 patch TD Q7D DAILY Last Admin: 11/22/17 09:26 Dose: 1 patch Enalaprilat (Vasotec) 5 mg IVP Q6 PRN PRN Reason: hpn Last Admin: 11/22/17 00:49 Dose: 5 mg Fentanyl (Duragesic) 1 patch TD Q3D DAILY PRN Reason: Protocol Last Admin: 11/24/17 20:34 Dose: 1 patch Levofloxacin/Dextrose (Levaquin 500mg) 500 mg in 100 mls @ 100 mls/hr IVPB DAILY DAILY PRN Reason: Protocol Last Admin: 11/25/17 09:16 Dose: 100 mls/hr Multivitamins/Vitamin C 10 ml/Chromium/Copper/Manganese/Zinc 3 ml/ Amino Acids/ Electrolytes/Dextrose 1,013 mls @ 82 mls/hr IV .[id number] ONE Stop: 11/26/17 01:36 Amino Acids/Electrolytes/Dextrose (Clinimix E 4.25/10 1000 Ml) 1,000 mls @ 82 mls/hr IV .[id number] ONE Stop: 11/26/17 01:26 Nicotine (Nicoderm Cq) 1 patch TD DAILY DAILY Last Admin: 11/25/17 09:16 Dose: 1 patch Vitamin A (Vitamin A & D Oint Ud Foilpak) 1 ea TOP BID DAILY Last Admin: 11/25/17 09:17 Dose: 1 ea - Labs Labs: 11/25/17 07:08 11/25/17 07:08 PT 14.2 Seconds (9.8-13.1) H 11/25/17 13:02 INR 1.3 (0.9-1.2) H 11/25/17 13:02 Attending/Attestation - Attestation I have personally seen and examined this patient.: Yes I have fully participated in the care of the patient.: Yes I have reviewed all pertinent clinical information, including history, physical exam and plan: Yes Notes (Text): 11/25/17 15:24 72 year old male admitted with cervical cord injury c/b dysphagia and aspiration now in need of PEG. 1. Dysphagia Plan: -recommend PEG tomorrow -discussed the risks/benefits/alternatives of procedure with the patient and his son, including risks of bleeding, infection, perforation, as well as anasthesia -the patient is unable to sign for consent due to quadriplegia from cervical injury, he understands the procedure and would like to proceed -discussed with his son Emmanuel also who also agrees
[2017-11-25] MEDS ORDERED: COPPER IV ONE (16:00)
[2017-11-25] MEDS ORDERED: MANGANESE IV ONE (16:00)
[2017-11-25] MEDS ORDERED: CHROMIUM IV ONE (16:00)
[2017-11-25] MEDS ORDERED: [UNRECOGNIZED DRUG - OTHER] IV ONE (16:00)
[2017-11-25] MEDS ORDERED: MULTIVITAMIN IV ONE (16:00)
[2017-11-25] MEDS ORDERED: ZINC IV ONE (16:00)
[2017-11-25] MEDS ORDERED: Dextrose 5%/0.45% NS 1,000 ML IV SCH (16:30)
[2017-11-26] MEDS: Ciprofloxacin 0.3% OPTH SOLN OU SCH ×6 (01:00→21:21)
--- NOTE | 2017-11-26 08:27 | CP.PCM.PN ---
<Kelvin Knight - Last Filed: 11/26/17 13:08> Subjective - Date & Time of Evaluation Date of Evaluation: 11/26/17 Time of Evaluation: 07:15 - Subjective Subjective: Patient seen and examined bedside with Dr Wang, Patient awake, alert. Patient waiting for PEG tube placement today. He denies chest pain, SOB, vomiting, dysuria, fever. no overnight events Objective - Vital Signs/Intake and Output Vital Signs (last 24 hours): Temp Pulse Resp BP Pulse Ox 98.1 F 64 20 128/65 99 11/26/17 08:10 11/26/17 08:10 11/26/17 08:10 11/26/17 08:10 11/26/17 08:10 Intake and Output: 11/26/17 11/26/17 06:59 18:59 Intake Total 1100 902 Output Total 1500 1800 Balance -400 -898 - Medications Medications: Current Medications Artificial Tears (Artificial Tears) 2 drop OU Q2 PRN PRN Reason: Dry eyes Last Admin: 11/20/17 19:57 Dose: 2 drop Ciprofloxacin (Ciloxan 0.3% Ophth Soln) 1 drop OU Q4 [facility] Last Admin: 11/26/17 05:30 Dose: 1 drop Clonidine HCl (Catapres-Tts3 0.3 Mg/24 Hr) 1 patch TD Q7D DAILY Last Admin: 11/22/17 09:26 Dose: 1 patch Enalaprilat (Vasotec) 5 mg IVP Q6 PRN PRN Reason: hpn Last Admin: 11/22/17 00:49 Dose: 5 mg Fentanyl (Duragesic) 1 patch TD Q3D DAILY PRN Reason: Protocol Last Admin: 11/24/17 20:34 Dose: 1 patch Levofloxacin/Dextrose (Levaquin 500mg) 500 mg in 100 mls @ 100 mls/hr IVPB DAILY DAILY PRN Reason: Protocol Last Admin: 11/25/17 09:16 Dose: 100 mls/hr Nicotine (Nicoderm Cq) 1 patch TD DAILY DAILY Last Admin: 11/25/17 09:16 Dose: 1 patch Vitamin A (Vitamin A & D Oint Ud Foilpak) 1 ea TOP BID DAILY Last Admin: 11/25/17 17:32 Dose: 1 ea - Labs Labs: 11/25/17 07:08 11/25/17 07:08 PT 14.2 Seconds (9.8-13.1) H 11/25/17 13:02 INR 1.3 (0.9-1.2) H 11/25/17 13:02 - Constitutional Appears: Non-toxic, No Acute Distress - Head Exam Head Exam: ATRAUMATIC, NORMOCEPHALIC - Eye Exam Eye Exam: Normal appearance - ENT Exam ENT Exam: Mucous Membranes Moist - Neck Exam Additional comments: collar neck placed - Respiratory Exam Respiratory Exam: Clear to Ausculation Bilateral. absent: Rales, Wheezes, Stridor - Cardiovascular Exam Cardiovascular Exam: REGULAR RHYTHM, +S1, +S2 - GI/Abdominal Exam GI & Abdominal Exam: Soft. absent: Tenderness, Normal Bowel Sounds - Extremities Exam Extremities Exam: Normal Inspection. 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 and C3-4 spinal fusion with instrumentation POD # 10 cervical decompression -Neurology consult appreciated -Ortho surgery consult appreciated: Acute rehab -Continue PT Status: Acute 2) Aspiration PNA -during video swallow test -s/p levaquin -NPO, TPN -GI Consult suggested 3) Dysphagia -secondary to cervical spine trauma and quadriparesis --NPO, TPN -GI consult appreciated: Will go for PEG tube today (4) DVT prophylaxis Assessment & Plan: Lovenox <Wang,Isma K - Last Filed: 12/07/17 12:21> Objective - Vital Signs/Intake and Output Vital Signs (last 24 hours): Temp Pulse Resp BP Pulse Ox 98.9 F 78 18 142/73 96 12/07/17 08:13 12/07/17 08:13 12/07/17 08:13 12/07/17 08:13 12/07/17 08:13 Intake and Output: 12/07/17 12/07/17 06:59 18:59 Intake Total 480 Output Total 400 Balance 80 - Medications Medications: Current Medications Clonidine HCl (Catapres-Tts3 0.3 Mg/24 Hr) 1 patch TD Q7D [facility] Last Admin: 12/06/17 13:35 Dose: 1 patch Dextrose (Dextrose 50% Inj) 25 ml IVP ONCE PRN PRN Reason: Hypoglycemia Diphenhydramine HCl (Benadryl) 25 mg IVP HS PRN PRN Reason: Insomnia Last Admin: 11/27/17 22:22 Dose: 25 mg Enalaprilat (Vasotec) 5 mg IVP Q6 PRN PRN Reason: hpn Last Admin: 11/22/17 00:49 Dose: 5 mg Fat Emulsion Intravenous (Intralipid 20%) 250 ml IV DAILY [facility] Heparin Sodium (Porcine) (Heparin) 5,000 units SC Q8 DAILY PRN Reason: Protocol Last Admin: 12/06/17 01:09 Dose: Not Given Chromium/Copper/Manganese/Zinc 3 ml/ Multivitamins/Vitamin C 10 ml/ Amino Acids/ Electrolytes/Dextrose 1,013 mls @ 40 mls/hr IV .Q24H ONE Stop: 12/08/17 12:14 Pantoprazole Sodium (Protonix Susp) 40 mg PEG DAILY [facility] Last Admin: 12/07/17 08:41 Dose: Not Given Vitamin A (Vitamin A & D Oint Ud Foilpak) 1 ea TOP BID [facility] Last Admin: 12/07/17 08:17 Dose: 1 ea - Labs Labs: 12/07/17 05:55 12/07/17 05:55 PT 13.9 Seconds (9.8-13.1) H 12/06/17 05:55 INR 1.3 (0.9-1.2) H 12/06/17 05:55 Assessment and Plan - Assessment and Plan (Free Text) Assessment: Patient was personally seen and examined by me in rounds with residents. Available labs and diagnostic data reviewed. Case, Patient's condition and management plan discussed with residents in rounds. Agree with resident's progress note. Plan: As ordered.
[2017-11-26] MEDS: levoFLOXacin 500 mg in D5W 500 MG/100 ML BAG IVPB SCH (09:00)
[2017-11-26] MEDS: Vitamins A & D Oint UD Foilpak TOP SCH ×2 (09:00→17:20)
[2017-11-26] MEDS ORDERED: Sodium Chloride 0.9% 500 ML IV ONE (10:59)
[2017-11-26] MEDS ORDERED: cefTRIAXone (Rocephin) 2 gm Inj IVPB ONE (11:00)
--- NOTE | 2017-11-26 11:00 | PN ---
DATE: 11/24/2017 SUBJECTIVE: Patient is seen and examined. Interim events noted. Consults noted and appreciated. Gastroenterology followup and intervention noted and appreciated. The patient remains in regular medical floor on TPN. Feels okay. Denies any specific complaints. No chest pain. No shortness of breath. PHYSICAL EXAMINATION: GENERAL: The patient is in no acute distress. VITAL SIGNS: Stable. HEART: S1 and S2 normal and regular. LUNGS: Good bilateral air exchange. ABDOMEN: Soft and nontender. EXTREMITIES: No edema. No calf swelling. No tenderness. No acute ischemia. CENTRAL NERVOUS SYSTEM: Essentially unchanged. DIAGNOSTIC DATA: Available diagnostic data reviewed. ASSESSMENT AND PLAN: Overall, the patient is clinically stable, tolerating total parenteral nutrition without any complications. Plan as ordered. Isma Wang MD
[2017-11-26] MEDS ORDERED: Etomidate 20 mg/10ml Inj IV ONE (11:01)
[2017-11-26] MEDS ORDERED: Midazolam 2 MG/2 ML VIAL ONE (11:08)
--- NOTE | 2017-11-26 11:46 | CP.PCM.PN ---
<Blanca Pimentel - Last Filed: 11/26/17 11:48> Subjective - Date & Time of Evaluation Date of Evaluation: 11/26/17 Time of Evaluation: 11:30 - Subjective Subjective: PGY 4 GI Follow-up Pt seen and examined in endo suite No events overnight Keep NPO ROS: 10 point ROS conducted, neg other than above Objective - Vital Signs/Intake and Output Vital Signs (last 24 hours): Temp Pulse Resp BP Pulse Ox 97.4 F L 81 17 138/55 L 100 11/26/17 11:27 11/26/17 11:27 11/26/17 11:27 11/26/17 11:27 11/26/17 11:27 Intake and Output: 11/26/17 11/26/17 06:59 18:59 Intake Total 1100 1052 Output Total 1500 1800 Balance -400 -748 - Medications Medications: Current Medications Artificial Tears (Artificial Tears) 2 drop OU Q2 PRN PRN Reason: Dry eyes Last Admin: 11/20/17 19:57 Dose: 2 drop Ciprofloxacin (Ciloxan 0.3% Ophth Soln) 1 drop OU Q4 [facility] Last Admin: 11/26/17 09:01 Dose: 1 drop Clonidine HCl (Catapres-Tts3 0.3 Mg/24 Hr) 1 patch TD Q7D [facility] Last Admin: 11/22/17 09:26 Dose: 1 patch Enalaprilat (Vasotec) 5 mg IVP Q6 PRN PRN Reason: hpn Last Admin: 11/22/17 00:49 Dose: 5 mg Fentanyl (Duragesic) 1 patch TD Q3D DAILY PRN Reason: Protocol Last Admin: 11/24/17 20:34 Dose: 1 patch Levofloxacin/Dextrose (Levaquin 500mg) 500 mg in 100 mls @ 100 mls/hr IVPB DAILY DAILY PRN Reason: Protocol Last Admin: 11/26/17 09:00 Dose: 100 mls/hr Ceftriaxone Sodium 2 gm/ (Sodium Chloride) 100 mls @ 100 mls/hr IVPB ONCE ONE PRN Reason: Protocol Stop: 11/26/17 12:59 Nicotine (Nicoderm Cq) 1 patch TD DAILY [facility] Last Admin: 11/26/17 09:00 Dose: 1 patch Vitamin A (Vitamin A & D Oint Ud Foilpak) 1 ea TOP BID [facility] Last Admin: 11/26/17 09:00 Dose: 1 ea - Labs Labs: 11/25/17 07:08 11/25/17 07:08 PT 14.2 Seconds (9.8-13.1) H 11/25/17 13:02 INR 1.3 (0.9-1.2) H 11/25/17 13:02 - Constitutional Appears: Non-toxic, No Acute Distress - Head Exam Head Exam: ATRAUMATIC, NORMOCEPHALIC - Eye Exam Eye Exam: Normal appearance - ENT Exam Additional comments: c-collar present - Respiratory Exam Respiratory Exam: Clear to Ausculation Bilateral, NORMAL BREATHING PATTERN. absent: Rales, Rhonchi, Wheezes, Respiratory Distress - Cardiovascular Exam Cardiovascular Exam: REGULAR RHYTHM, +S1, +S2 - GI/Abdominal Exam GI & Abdominal Exam: Soft, Normal Bowel Sounds. absent: Guarding, Rigid, Tenderness, Organomegaly Additional comments: surgical scar below the epigastrum - Extremities Exam Extremities Exam: absent: Joint Swelling, Pedal Edema - Neurological Exam Neurological Exam: Awake - Psychiatric Exam Psychiatric exam: Normal Affect, Normal Mood - Skin Skin Exam: Dry, Intact, Normal Color, Warm Assessment and Plan - Assessment and Plan (Free Text) Assessment: This is a 72yM with difficulty swallowing and aspiration. POD #1 EGD; gastritis , severe pyloric stenosis, could not place PEG Pyloric stenosis Aspiration Poor nutrition Posttraumatic cervical myelopathy s/p C4 cordectomy and C3-4 spinal fusion with instrumentation cervical decompression Plan: -Continue supportive care with aspiration precautions, pain control, physical therapy -will need surgical eval -will get CT abd w/ IV contrast -DO NOT PLACE NG TUBE AND TUBE -if unable to get a surgical consult will reattempt 12/03/16 with possible dilatation -Protonix 40mg BID D/W Dr. Proctor <Jody Proctor MD - Last Filed: 11/26/17 17:02> Objective - Vital Signs/Intake and Output Vital Signs (last 24 hours): Temp Pulse Resp BP Pulse Ox 97.8 F 61 20 137/65 98 11/26/17 16:06 11/26/17 16:06 11/26/17 16:06 11/26/17 16:06 11/26/17 16:06 Intake and Output: 11/26/17 11/26/17 06:59 18:59 Intake Total 1100 1052 Output Total 1500 1800 Balance -400 -748 - Medications Medications: Current Medications Artificial Tears (Artificial Tears) 2 drop OU Q2 PRN PRN Reason: Dry eyes Last Admin: 11/20/17 19:57 Dose: 2 drop Ciprofloxacin (Ciloxan 0.3% Ophth Soln) 1 drop OU Q4 [facility] Last Admin: 11/26/17 13:22 Dose: 1 drop Clonidine HCl (Catapres-Tts3 0.3 Mg/24 Hr) 1 patch TD Q7D DAILY Last Admin: 11/22/17 09:26 Dose: 1 patch Enalaprilat (Vasotec) 5 mg IVP Q6 PRN PRN Reason: hpn Last Admin: 11/22/17 00:49 Dose: 5 mg Fentanyl (Duragesic) 1 patch TD Q3D DAILY PRN Reason: Protocol Last Admin: 11/24/17 20:34 Dose: 1 patch Levofloxacin/Dextrose (Levaquin 500mg) 500 mg in 100 mls @ 100 mls/hr IVPB DAILY DAILY PRN Reason: Protocol Last Admin: 11/26/17 09:00 Dose: 100 mls/hr Multivitamins/Vitamin C 10 ml/Chromium/Copper/Manganese/Zinc 3 ml/ Amino Acids/ Electrolytes/Dextrose 1,013 mls @ 82 mls/hr IV .[id number] ONE Stop: 11/27/17 03:51 Nicotine (Nicoderm Cq) 1 patch TD DAILY DAILY Last Admin: 11/26/17 09:00 Dose: 1 patch Pantoprazole Sodium (Protonix Inj) 40 mg IVP BID [facility] Vitamin A (Vitamin A & D Oint Ud Foilpak) 1 ea TOP BID DAILY Last Admin: 11/26/17 09:00 Dose: 1 ea - Labs Labs: 11/25/17 07:08 11/25/17 07:08 PT 14.2 Seconds (9.8-13.1) H 11/25/17 13:02 INR 1.3 (0.9-1.2) H 11/25/17 13:02 Attending/Attestation - Attestation I have personally seen and examined this patient.: Yes I have fully participated in the care of the patient.: Yes I have reviewed all pertinent clinical information, including history, physical exam and plan: Yes Notes (Text): 11/26/17 16:58 Patient s/p EGD for elective gastrostomy tube placement. Please see full report in chart. In a nutshell 72 yr old M with cervical decompression two weeks ago scheduled for PEG placement which was not placed when severe pyloric obstruction found during EGD. Likely due to PUD. Will need balloon dilatation prior to endoscopic PEJ placement which will be done next week. Alternatively surgical jejunostomy may be attempted. Pyloric and random gastric biopsies done to rule out H pylori. Will start PPI IV bid and use alternate means of nutrition like TPN/PPN. NGT placement will be futile as has pyloric obstruction from stenosis and edema. Discussed with surgery and primary attending. NPO.
[2017-11-26] MEDS ORDERED: cefTRIAXone 2 GM in Sodium Chloride 0.9% 100 ML IVPB ONE (12:00)
[2017-11-26] MEDS ORDERED: Lidocaine 1% Inj (20ml) ONE (14:16)
--- NOTE | 2017-11-26 14:42 | CP.PCM.CON ---
History of Present Illness - History of Present Illness History of Present Illness: General Surgery consult note for Dr. Andrea Oneal, PGY-1 Pt S & E at bedside. 72M w/PMH sig for recent cervical spine surgery consulted for enteral nutrition access. Pt with recent seizure/fall, cervical central cord syndrome s/p cervical spine surgery and discharged to rehab with noted dysphagia, aspiration pneumonia and re-admission to hospital. Pt recently taken for EGD by GI with findings of pyloric stenosis. General surgery consulted for possible Jejunostomy tube placement. Pt reports he has not been given anything to eat, inability to raise upper extremities, minimal movement of lower extremities. Denies N & V, F & C, cough, chest pain, SOB, changes in bowel or bladder habits , other complaints. PMH: HTN, hx DVT in bilateral legs, cervical central cord syndrome, hx seizure PSH: Cervical spine surgery, angioplasty of lower extremities, kidney surgery at age 7 (does not remember why) All: NKDA SH: Denies ETOH or illicit drug use, admits to tobacco use #2-3 cigarettes per day x 40 yrs Review of Systems - Review of Systems All systems: reviewed and no additional remarkable complaints except - Constitutional Constitutional: Weakness. absent: Chills, Fever, Headache - EENT Eyes: absent: Change in Vision Nose/Mouth/Throat: absent: Sore Throat - Cardiovascular Cardiovascular: absent: Chest Pain - Respiratory Respiratory: absent: Cough - Gastrointestinal Gastrointestinal: absent: Abdominal Pain, Change in Stool Character, Constipation, Diarrhea, Nausea, Vomiting - Genitourinary Genitourinary: absent: Change in Urinary Stream, Dysuria - Musculoskeletal Musculoskeletal: Muscle Weakness, Neck Pain (s/p surgery) - Integumentary Integumentary: absent: Rash - Neurological Neurological: Focal Weakness (upper extremities) Past Patient History - Past Medical History & Family History Past Medical History?: Yes - Past Social History Alcohol: None Drugs: Denies - CARDIAC Hx Hypertension: Yes - PULMONARY Hx Respiratory Disorders: No - NEUROLOGICAL Hx Seizures: Yes - HEENT Hx HEENT Problems: No (hx unknown) - RENAL Hx Chronic Kidney Disease: No (hx unknown) - ENDOCRINE/METABOLIC Hx Endocrine Disorders: No (hx unknown) - HEMATOLOGICAL/ONCOLOGICAL Hx Human Immunodeficiency Virus (HIV): (unknown) - INTEGUMENTARY Hx Dermatological Problems: No - MUSCULOSKELETAL/RHEUMATOLOGICAL Hx Falls: Yes (fell on the street) - GASTROINTESTINAL Hx Gastrointestinal Disorders: No - GENITOURINARY/GYNECOLOGICAL Hx Genitourinary Disorders: Yes Other/Comment: urinary retention - PSYCHIATRIC Hx Psychophysiologic Disorder: No Hx Substance Use: Yes (cocaine, marijuana) - SURGICAL HISTORY Hx Surgeries: No - ANESTHESIA Hx Anesthesia: No Meds Allergies/Adverse Reactions: Allergies Allergy/AdvReac Type Severity Reaction Status Date / Time No Known Allergies Allergy Verified 11/11/17 06:09 - Medications Medications: Current Medications Artificial Tears (Artificial Tears) 2 drop OU Q2 PRN PRN Reason: Dry eyes Last Admin: 11/20/17 19:57 Dose: 2 drop Ciprofloxacin (Ciloxan 0.3% Ophth Soln) 1 drop OU Q4 DAILY Last Admin: 11/26/17 13:22 Dose: 1 drop Clonidine HCl (Catapres-Tts3 0.3 Mg/24 Hr) 1 patch TD Q7D DAILY Last Admin: 11/22/17 09:26 Dose: 1 patch Enalaprilat (Vasotec) 5 mg IVP Q6 PRN PRN Reason: hpn Last Admin: 11/22/17 00:49 Dose: 5 mg Fentanyl (Duragesic) 1 patch TD Q3D DAILY PRN Reason: Protocol Last Admin: 11/24/17 20:34 Dose: 1 patch Levofloxacin/Dextrose (Levaquin 500mg) 500 mg in 100 mls @ 100 mls/hr IVPB DAILY DAILY PRN Reason: Protocol Last Admin: 11/26/17 09:00 Dose: 100 mls/hr Nicotine (Nicoderm Cq) 1 patch TD DAILY [facility] Last Admin: 11/26/17 09:00 Dose: 1 patch Pantoprazole Sodium (Protonix Inj) 40 mg IVP BID [facility] Vitamin A (Vitamin A & D Oint Ud Foilpak) 1 ea TOP BID [facility] Last Admin: 11/26/17 09:00 Dose: 1 ea Physical Exam - Constitutional Appears: Non-toxic, Cachectic - Head Exam Head Exam: ATRAUMATIC, NORMAL INSPECTION, NORMOCEPHALIC - Eye Exam Eye Exam: EOMI, Normal appearance - ENT Exam ENT Exam: Mucous Membranes Moist, Normal Exam - Neck Exam Neck exam: Negative for: Full Rom Additional comments: Neck with cervical soft collar in place, dressing visible under collar on anterior aspect of neck, with dried sanguinous strike through - Respiratory Exam Respiratory Exam: NORMAL BREATHING PATTERN - Cardiovascular Exam Cardiovascular Exam: REGULAR RHYTHM, +S1, +S2 - GI/Abdominal Exam GI & Abdominal Exam: Soft. absent: Distended, Firm, Guarding, Tenderness - Exam Additional comments: Mcgarry in place - Extremities Exam Extremities exam: Negative for: tenderness - Neurological Exam Neurological exam: Alert, Oriented x3 Additional comments: inability to move upper extremities, minimal movement of lower extremities - Psychiatric Exam Psychiatric exam: Normal Affect, Normal Mood - Skin Skin Exam: Dry, Intact, Normal Color, Warm Results - Vital Signs Recent Vital Signs: Last Vital Signs Temp 98 F 11/26/17 12:00 Pulse 70 11/26/17 12:00 Resp 20 11/26/17 12:00 BP 128/54 L 11/26/17 12:00 Pulse Ox 96 11/26/17 12:00 - Labs Result Diagrams: 11/25/17 07:08 11/25/17 07:08 Labs: Laboratory Results - last 24 hr 11/25/17 11/25/17 11/26/17 15:54 21:26 06:57 POC Glucose (mg/dL) 107 100 89 Assessment & Plan - Assessment and Plan (Free Text) Assessment: 72M w/PMH sig for recent cervical spine surgery consulted for enteral nutrition access- J tube placement Plan: FU CT ab Cont PPN Further recs as per attending and imaging results Will DW attending Kimmy, PGY-1 - Date & Time Date: 11/26/17 Time: 12:45
[2017-11-26] MEDS ORDERED: Multivitamin (MVI) 10 ML, Chromium/Copper/Manganese/Zinc 3 ML in Amino/Dex E 4.25/10 10... IV ONE (15:15)
[2017-11-26] MEDS ORDERED: Multivitamin (MVI) 10 ML, Trace Elements-Cr/Cu/Mn/Zn 3 ML in Amino/Dex E 4.25/10 1000 M... IV ONE (15:30)
[2017-11-26] MEDS ORDERED: Sodium Chloride 0.9% 50 ML IV ONE (21:16)
[2017-11-26] MEDS ORDERED: Iohexol 300 100 ML IJ ONE (21:16)
[2017-11-26] MEDS: DiphenhydrAMINE 50 mg/ml Inj IVP PRN (22:19)
--- NOTE | 2017-11-26 23:01 | CT ---
EXAM: CT Abdomen and Pelvis With Intravenous Contrast EXAM DATE/TIME: 11/26/2017 11:52 AM CLINICAL HISTORY: 72 years old, male; Signs and symptoms; Other: Aspiration pneumonia; Patient HX: Paraplegia. Dyspagia; Additional info: Pyloric stenosis. Sent patient , chuck. Doc. TECHNIQUE: Axial computed tomography images of the abdomen and pelvis with intravenous contrast. All CT scans at this facility use one or more dose reduction techniques, viz.: automated exposure control; ma/kV adjustment per patient size (including targeted exams where dose is matched to indication; i.e. head); or iterative reconstruction technique. Coronal and sagittal reformatted images were created and reviewed. CONTRAST: 90 mL of [id number] administered intravenously. COMPARISON: There are no prior studies for comparison. FINDINGS: Lower thorax: Heart size is normal. Lung bases are mildly hyperinflated. There is scarring at the lung bases. There is a small granuloma in left lower lobe ABDOMEN: Liver: There is fatty infiltration of the liver. Gallbladder and bile ducts: Gallbladder is partially distended.There is prominence of the common duct. Pancreas: unremarkable Spleen: There are capsular calcifications in the spleen. Adrenals: There is mild thickening of both adrenals Kidneys and ureters: There is focal renal scarring bilaterally. Kidneys and ureters are otherwise unremarkable. .There is no pelvocaliectasis or ureterectasis. Stomach and bowel: Stomach is partially distended with fluid and air. Antrum and duodenum are collapsed which limits evaluation. Bowel rotation is normal. Small bowel is mildly distended with air and fluid. Terminal ileum is mildly distended with air.There is no pericecal inflammation. There is moderate contrast and stool in the right and transverse colon. Left colon is incompletely opacified. There is moderate stool in the sigmoid and rectum. Appendix: See stomach and bowel PELVIS: Bladder: Urinary bladder is partially distended. There is a Mcgarry catheter. Reproductive: Prostate is enlarged. Seminal vessels are unremarkable. ABDOMEN and PELVIS: Intraperitoneal space: There is no free air or free fluid. Bones/joints: There are degenerative changes in the bony structures. Soft tissues: There is mild body wall edema. Vasculature: There are atherosclerotic calcifications in the aorta and iliacs. Aorta is mildly tortuous. There is noncalcified plaque in the distal aorta. Maximal infrarenal diameter is only 2.2 cm. Lymph nodes: There is no pathologic adenopathy. IMPRESSION: No acute solid visceral abnormality; distended small bowel more suggestive of ileus than obstruction; partially distended bladder with Mcgarry catheter; atherosclerotic disease; minimal dependent airspace disease at the lung bases, no focal consolidation Additional findings as described above.
[2017-11-27] MEDS: Ciprofloxacin 0.3% OPTH SOLN OU SCH ×6 (01:53→20:49)
--- NOTE | 2017-11-27 08:08 | CP.PCM.PN ---
<Melissa Oneal - Last Filed: 11/27/17 08:06> Subjective - Date & Time of Evaluation Date of Evaluation: 11/27/17 Time of Evaluation: 06:30 - Subjective Subjective: General Surgery progress note for Dr. Andrea Oneal, PGY-1 Pt S & E at bedside. Pt with neck pain overnight, hunger. Asking for solid food. Denies N & V, F & C, ab pain, other complaints overnight. Objective - Vital Signs/Intake and Output Vital Signs (last 24 hours): Temp Pulse Resp BP Pulse Ox 97.9 F 68 19 127/64 96 11/27/17 01:00 11/27/17 01:00 11/27/17 01:00 11/27/17 01:00 11/27/17 01:00 - Medications Medications: Current Medications Artificial Tears (Artificial Tears) 2 drop OU Q2 PRN PRN Reason: Dry eyes Last Admin: 11/20/17 19:57 Dose: 2 drop Ciprofloxacin (Ciloxan 0.3% Ophth Soln) 1 drop OU Q4 DAILY Last Admin: 11/27/17 05:27 Dose: 1 drop Clonidine HCl (Catapres-Tts3 0.3 Mg/24 Hr) 1 patch TD Q7D DAILY Last Admin: 11/22/17 09:26 Dose: 1 patch Diphenhydramine HCl (Benadryl) 25 mg IVP HS PRN PRN Reason: Insomnia Last Admin: 11/26/17 22:19 Dose: 25 mg Enalaprilat (Vasotec) 5 mg IVP Q6 PRN PRN Reason: hpn Last Admin: 11/22/17 00:49 Dose: 5 mg Fentanyl (Duragesic) 1 patch TD Q3D DAILY PRN Reason: Protocol Last Admin: 11/24/17 20:34 Dose: 1 patch Levofloxacin/Dextrose (Levaquin 500mg) 500 mg in 100 mls @ 100 mls/hr IVPB DAILY DAILY PRN Reason: Protocol Last Admin: 11/26/17 09:00 Dose: 100 mls/hr Nicotine (Nicoderm Cq) 1 patch TD DAILY DAILY Last Admin: 11/26/17 09:00 Dose: 1 patch Pantoprazole Sodium (Protonix Inj) 40 mg IVP BID DAILY Last Admin: 11/26/17 17:21 Dose: 40 mg Vitamin A (Vitamin A & D Oint Ud Foilpak) 1 ea TOP BID DAILY Last Admin: 11/26/17 17:20 Dose: 1 ea - Labs Labs: 11/25/17 07:08 11/25/17 07:08 PT 14.2 Seconds (9.8-13.1) H 11/25/17 13:02 INR 1.3 (0.9-1.2) H 11/25/17 13:02 - Constitutional Appears: Non-toxic, No Acute Distress, Cachectic - Head Exam Head Exam: ATRAUMATIC, NORMAL INSPECTION, NORMOCEPHALIC - Eye Exam Eye Exam: EOMI, Normal appearance - ENT Exam ENT Exam: Mucous Membranes Moist, Normal Exam - Neck Exam Additional comments: soft collar in place around neck. Anterior aspect of neck with dressing- some dried sanguinous strike through noted at edges. - Respiratory Exam Respiratory Exam: NORMAL BREATHING PATTERN. absent: Respiratory Distress - Cardiovascular Exam Cardiovascular Exam: REGULAR RHYTHM, +S1, +S2 - GI/Abdominal Exam GI & Abdominal Exam: Soft, Normal Bowel Sounds. absent: Distended, Firm, Guarding, Rigid Additional comments: well healed linear scar from umblicus to suprapubic area - Extremities Exam Extremities Exam: absent: Full ROM, Pedal Edema Additional comments: minimal movement of lower and upper extremities - Neurological Exam Neurological Exam: Alert, Awake, CN II-XII Intact, Oriented x3 - Psychiatric Exam Psychiatric exam: Normal Affect, Normal Mood - Skin Skin Exam: Dry, Intact, Normal Color, Warm Assessment and Plan - Assessment and Plan (Free Text) Assessment: 72M w/PMH sig for recent cervical spine surgery consulted for enteral nutrition access- J tube placement, currently on PPN Plan: CT ab neg for solid viscera abnormality, dilated small bowel, possible ileus Cont PPN No surgical indication for J-tube placement at this time Recommend dilatation of pyloric stricture as per GI Further recs as per attending GUERO attending Kimmy, PGY-1 <Carlos A Florence - Last Filed: 11/27/17 10:10> Objective - Vital Signs/Intake and Output Vital Signs (last 24 hours): Temp Pulse Resp BP Pulse Ox 98.6 F 66 18 136/63 97 11/27/17 08:19 11/27/17 08:19 11/27/17 08:19 11/27/17 08:19 11/27/17 08:19 - Medications Medications: Current Medications Artificial Tears (Artificial Tears) 2 drop OU Q2 PRN PRN Reason: Dry eyes Last Admin: 11/20/17 19:57 Dose: 2 drop Ciprofloxacin (Ciloxan 0.3% Ophth Soln) 1 drop OU Q4 [facility] Last Admin: 11/27/17 08:50 Dose: 1 drop Clonidine HCl (Catapres-Tts3 0.3 Mg/24 Hr) 1 patch TD Q7D DAILY Last Admin: 11/22/17 09:26 Dose: 1 patch Diphenhydramine HCl (Benadryl) 25 mg IVP HS PRN PRN Reason: Insomnia Last Admin: 11/26/17 22:19 Dose: 25 mg Enalaprilat (Vasotec) 5 mg IVP Q6 PRN PRN Reason: hpn Last Admin: 11/22/17 00:49 Dose: 5 mg Fentanyl (Duragesic) 1 patch TD Q3D DAILY PRN Reason: Protocol Last Admin: 11/24/17 20:34 Dose: 1 patch Levofloxacin/Dextrose (Levaquin 500mg) 500 mg in 100 mls @ 100 mls/hr IVPB DAILY DAILY PRN Reason: Protocol Last Admin: 11/27/17 08:51 Dose: 100 mls/hr Nicotine (Nicoderm Cq) 1 patch TD DAILY DAILY Last Admin: 11/27/17 08:51 Dose: 1 patch Pantoprazole Sodium (Protonix Inj) 40 mg IVP BID [facility] Last Admin: 11/27/17 08:52 Dose: 40 mg Vitamin A (Vitamin A & D Oint Ud Foilpak) 1 ea TOP BID DAILY Last Admin: 11/27/17 08:52 Dose: 1 ea - Labs Labs: 11/25/17 07:08 11/25/17 07:08 PT 14.2 Seconds (9.8-13.1) H 11/25/17 13:02 INR 1.3 (0.9-1.2) H 11/25/17 13:02 Assessment and Plan - Assessment and Plan (Free Text) Plan: as above, discussed at length and pt understands, needs to also decompress the stomach. jejunostomy tube will not resolve his issue with resolving the gastric outlet obstruction
[2017-11-27] MEDS: levoFLOXacin 500 mg in D5W 500 MG/100 ML BAG IVPB SCH (08:51)
[2017-11-27] MEDS: Vitamins A & D Oint UD Foilpak TOP SCH ×2 (08:52→16:40)
--- NOTE | 2017-11-27 10:59 | CP.PCM.PN ---
<Blanca Pimentel - Last Filed: 11/27/17 13:39> Subjective - Date & Time of Evaluation Date of Evaluation: 11/27/17 Time of Evaluation: 10:00 - Subjective Subjective: PGY4 GI Follow-up Pt seen and examined bedside complaining of hunger CT reviewed still NPO denies BM ROSL 10 point ROS conducted, neg other than above Objective - Vital Signs/Intake and Output Vital Signs (last 24 hours): Temp Pulse Resp BP Pulse Ox 98.6 F 66 18 136/63 97 11/27/17 08:19 11/27/17 08:19 11/27/17 08:19 11/27/17 08:19 11/27/17 08:19 - Medications Medications: Current Medications Artificial Tears (Artificial Tears) 2 drop OU Q2 PRN PRN Reason: Dry eyes Last Admin: 11/20/17 19:57 Dose: 2 drop Ciprofloxacin (Ciloxan 0.3% Ophth Soln) 1 drop OU Q4 [facility] Last Admin: 11/27/17 08:50 Dose: 1 drop Clonidine HCl (Catapres-Tts3 0.3 Mg/24 Hr) 1 patch TD Q7D [facility] Last Admin: 11/22/17 09:26 Dose: 1 patch Diphenhydramine HCl (Benadryl) 25 mg IVP HS PRN PRN Reason: Insomnia Last Admin: 11/26/17 22:19 Dose: 25 mg Enalaprilat (Vasotec) 5 mg IVP Q6 PRN PRN Reason: hpn Last Admin: 11/22/17 00:49 Dose: 5 mg Fentanyl (Duragesic) 1 patch TD Q3D DAILY PRN Reason: Protocol Last Admin: 11/24/17 20:34 Dose: 1 patch Levofloxacin/Dextrose (Levaquin 500mg) 500 mg in 100 mls @ 100 mls/hr IVPB DAILY DAILY PRN Reason: Protocol Last Admin: 11/27/17 08:51 Dose: 100 mls/hr Nicotine (Nicoderm Cq) 1 patch TD DAILY [facility] Last Admin: 11/27/17 08:51 Dose: 1 patch Pantoprazole Sodium (Protonix Inj) 40 mg IVP BID [facility] Last Admin: 11/27/17 08:52 Dose: 40 mg Vitamin A (Vitamin A & D Oint Ud Foilpak) 1 ea TOP BID [facility] Last Admin: 11/27/17 08:52 Dose: 1 ea - Labs Labs: 11/25/17 07:08 11/25/17 07:08 PT 14.2 Seconds (9.8-13.1) H 11/25/17 13:02 INR 1.3 (0.9-1.2) H 11/25/17 13:02 - Constitutional Appears: No Acute Distress, Cachectic, Chronically Ill - Head Exam Head Exam: ATRAUMATIC, NORMOCEPHALIC - Eye Exam Eye Exam: Normal appearance - ENT Exam ENT Exam: Mucous Membranes Moist - Neck Exam Neck Exam: Normal Inspection - Respiratory Exam Respiratory Exam: Clear to Ausculation Bilateral, NORMAL BREATHING PATTERN. absent: Rales, Rhonchi, Wheezes, Respiratory Distress - Cardiovascular Exam Cardiovascular Exam: REGULAR RHYTHM, +S1, +S2 - GI/Abdominal Exam GI & Abdominal Exam: Soft, Normal Bowel Sounds. absent: Guarding, Rigid, Tenderness, Organomegaly Additional comments: abd scar midabdomen - Extremities Exam Extremities Exam: absent: Joint Swelling, Pedal Edema - Neurological Exam Neurological Exam: Alert, Awake, Oriented x3 - Psychiatric Exam Psychiatric exam: Normal Affect, Normal Mood - Skin Skin Exam: Dry, Intact, Normal Color, Warm Assessment and Plan - Assessment and Plan (Free Text) Assessment: This is a 72yM with difficulty swallowing and aspiration. 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 Proctor <[facility] - Last Filed: 11/27/17 14:16> Objective - Vital Signs/Intake and Output Vital Signs (last 24 hours): Temp Pulse Resp BP Pulse Ox 98.6 F 66 18 136/63 97 11/27/17 08:19 11/27/17 08:19 11/27/17 08:19 11/27/17 08:19 11/27/17 08:19 - Medications Medications: Current Medications Artificial Tears (Artificial Tears) 2 drop OU Q2 PRN PRN Reason: Dry eyes Last Admin: 11/20/17 19:57 Dose: 2 drop Ciprofloxacin (Ciloxan 0.3% Ophth Soln) 1 drop OU Q4 [facility] Last Admin: 11/27/17 12:11 Dose: 1 drop Clonidine HCl (Catapres-Tts3 0.3 Mg/24 Hr) 1 patch TD Q7D [facility] Last Admin: 11/22/17 09:26 Dose: 1 patch Diphenhydramine HCl (Benadryl) 25 mg IVP HS PRN PRN Reason: Insomnia Last Admin: 11/26/17 22:19 Dose: 25 mg Enalaprilat (Vasotec) 5 mg IVP Q6 PRN PRN Reason: hpn Last Admin: 11/22/17 00:49 Dose: 5 mg Enoxaparin Sodium (Lovenox) 40 mg SC DAILY DAILY PRN Reason: Protocol Last Admin: 11/27/17 12:10 Dose: 40 mg Fentanyl (Duragesic) 1 patch TD Q3D DAILY PRN Reason: Protocol Last Admin: 11/24/17 20:34 Dose: 1 patch Levofloxacin/Dextrose (Levaquin 500mg) 500 mg in 100 mls @ 100 mls/hr IVPB DAILY DAILY PRN Reason: Protocol Last Admin: 11/27/17 08:51 Dose: 100 mls/hr Nicotine (Nicoderm Cq) 1 patch TD DAILY DAILY Last Admin: 11/27/17 08:51 Dose: 1 patch Pantoprazole Sodium (Protonix Inj) 40 mg IVP BID [facility] Last Admin: 11/27/17 08:52 Dose: 40 mg Vitamin A (Vitamin A & D Oint Ud Foilpak) 1 ea TOP BID [facility] Last Admin: 11/27/17 08:52 Dose: 1 ea - Labs Labs: 11/25/17 07:08 11/25/17 07:08 PT 14.2 Seconds (9.8-13.1) H 11/25/17 13:02 INR 1.3 (0.9-1.2) H 11/25/17 13:02 Attending/Attestation - Attestation I have personally seen and examined this patient.: Yes I have fully participated in the care of the patient.: Yes I have reviewed all pertinent clinical information, including history, physical exam and plan: Yes Notes (Text): 11/27/17 14:15 Patient seen at bedside this am and discussed with surgical service, primary attending and nursing staff. This is a 72 yr old M with cervical decompression two weeks ago scheduled for PEG placement which was not placed when severe pyloric obstruction found during EGD. Likely due to PUD. Will need balloon dilatation prior to endoscopic PEJ placement which will be done next week. Surgcal consult noted. Pyloric and random gastric biopsies done to rule out H pylori. Will start PPI IV bid and use alternate means of nutrition like TPN/ PPN. NGT placement will be futile as has pyloric obstruction from stenosis and edema. Will schedule for pyloric balloon expansion and J tube placement. DVT prophylaxis
[2017-11-27] MEDS ORDERED: Enoxaparin 40 mg Syringe SC SCH (12:00)
--- NOTE | 2017-11-27 13:51 | PN ---
DATE: 11/27/2017 SUBJECTIVE: The patient is seen and examined. Interim events noted. Consults noted and appreciated. Case was discussed with multiple consultants. Yesterday, the patient could not have PEG tube in. Case also discussed with surgeon today. The patient denies any specific medical complaint. No chest pain. No shortness of breath. PHYSICAL EXAMINATION: GENERAL: The patient is in no acute distress. VITAL SIGNS: Stable. HEART: S1 and S2, normal and regular. LUNGS: Good bilateral air exchange. ABDOMEN: Soft, nontender. No organomegaly. No fluids. Bowel sounds are plus. EXTREMITIES: No edema. No calf swelling. No tenderness. No acute ischemia. CENTRAL NERVOUS SYSTEM: Essentially unchanged. ASSESSMENT AND PLAN: The patient has peripherally inserted central catheter line done and we will continue total parenteral nutrition. According to surgeon, the patient has pyloric stenosis. The patient probably needs gastrojejunostomy and at this point, the patient is not planning for any surgery. Case also discussed with locomotive boilermaker. There will be a re-attempt made with pyloroplasty and then probably gastrostomy tube insertion. the patient will need total parenteral nutrition. Plan as ordered. This case and plan discussed with the patient. Isma Wang MD
[2017-11-27] MEDS ORDERED: Multivitamin (MVI) 10 ML, Chromium/Copper/Manganese/Zinc 3 ML in Amino/Dex E 4.25/10 10... IV ONE (15:30)
--- NOTE | 2017-11-27 20:42 | US ---
EXAM: US Duplex Left Upper Extremity Veins CLINICAL HISTORY: 72 years old, male; Device placement; Other: Immobile pt; Additional info: Rule out dvt TECHNIQUE: Real-time ultrasound scan of the veins of the left upper extremity with color Doppler flow, spectral waveform analysis and compression. COMPARISON: No relevant prior studies available. FINDINGS: Deep veins: Internal jugular vein not visualized due to neck brace. No DVT in the subclavian, axillary, or brachial veins. The veins demonstrate normal color flow, are normally compressible, with normal phasic flow and/or augmentation response. Superficial veins: Partial thrombosis of the left cephalic vein. IMPRESSION: Positive superficial venous thrombosis involving the left cephalic vein.
[2017-11-27] MEDS: DiphenhydrAMINE 50 mg/ml Inj IVP PRN (22:22)
[2017-11-27] MEDS ORDERED: Dextrose 50% SYRINGE Inj (50 ml) IVP PRN (22:24)
[2017-11-27] MEDS ORDERED: Enoxaparin 40 mg Syringe SC STA (23:00)
[2017-11-28] MEDS: Ciprofloxacin 0.3% OPTH SOLN OU SCH ×6 (01:26→21:14)
[2017-11-28] MEDS ORDERED: Amino/Dex E 4.25/10 1000 ML 1,000 ML IV ONE (04:00)
[2017-11-28] MEDS ORDERED: Enoxaparin 60 mg Syringe SC SCH (09:00)
[2017-11-28] MEDS: levoFLOXacin 500 mg in D5W 500 MG/100 ML BAG IVPB SCH (09:01)
[2017-11-28] MEDS: Enoxaparin 60 mg Syringe SC SCH ×2 (09:03→21:16)
[2017-11-28] MEDS: Vitamins A & D Oint UD Foilpak TOP SCH ×2 (09:03→16:55)
[2017-11-28] MEDS: Artificial Tears Opht Soln OU PRN (09:05)
--- NOTE | 2017-11-28 09:42 | PN ---
DATE: 11/28/2017 SUBJECTIVE: The patient is seen and examined. Interim events noted. Consults noted and appreciated. Gastroenterology and Surgery followup and intervention noted and appreciated. The patient remains in regular medical floor on TPN. The patient feels okay. Denies any new complaint of chest pain or shortness of breath. PHYSICAL EXAMINATION: GENERAL: The patient is in no acute distress. VITAL SIGNS: Stable. HEART: S1 and S2, normal and regular. LUNGS: Good bilateral air exchange. ABDOMEN: Soft, nontender. EXTREMITIES: No edema. No calf swelling. No tenderness. No acute ischemia. CENTRAL NERVOUS SYSTEM: Essentially unchanged. DIAGNOSTIC DATA: Available diagnostic data reviewed. ASSESSMENT AND PLAN: Overall, the patient's general medical condition is essentially unchanged. Tolerating total parenteral nutrition without any problem. The patient might need pyloroplasty and then gastrostomy tube placement. Case and plan discussed with the patient. Isma Wang MD
--- NOTE | 2017-11-28 14:16 | CP.PCM.PCO ---
Physician Communication Note - Physician Communication Note Physician Communication Note: Scheduled for EGD and balloon dilatation of pylorus with jejunostomy Wednesday
[2017-11-29] MEDS: Ciprofloxacin 0.3% OPTH SOLN OU SCH ×6 (00:27→22:46)
[2017-11-29] MEDS ORDERED: Multivitamin (MVI) 10 ML, Chromium/Copper/Manganese/Zinc 3 ML in Amino/Dex E 4.25/10 10... IV ONE (04:00)
[2017-11-29 06:40] LABS: HEMOGLOBIN 9.4 g/dL (12.0-18.0); MEAN CORPUSCULAR HEMOGLOBIN 29.6 pg (27.0-31.0); MEAN CORPUSCULAR HGB CONC 31.5 g/dL (33.0-37.0); RBC 3.17 Mil/uL (4.40-5.90); RED CELL DISTRIBUTION WIDTH 14.2 % (11.5-14.5); WHITE BLOOD COUNT 5.6 K/uL (4.8-10.8)
[2017-11-29 07:00] LABS: ALBUMIN 2.8 g/dL (3.5-5.0); ALT/SGPT 35 U/L (21-72); AST/SGOT 40 U/L (17-59); BLOOD UREA NITROGEN 13 mg/dl (9-20); CALCIUM 8.1 mg/dL (8.4-10.2); GFR AFRICAN-AMERICAN > 60; GFR NON-AFRICAN AMERICAN > 60
[2017-11-29 08:45] LABS: BLOOD UREA NITROGEN 16 mg/dl (9-20); CALCIUM 9.2 mg/dL (8.4-10.2); GFR AFRICAN-AMERICAN > 60; GFR NON-AFRICAN AMERICAN > 60
[2017-11-29] MEDS: Enoxaparin 60 mg Syringe SC SCH ×2 (09:19→22:48)
[2017-11-29] MEDS: Vitamins A & D Oint UD Foilpak TOP SCH ×2 (09:19→16:40)
[2017-11-29] MEDS: levoFLOXacin 500 mg in D5W 500 MG/100 ML BAG IVPB SCH (09:24)
[2017-11-29] MEDS: Artificial Tears Opht Soln OU PRN (13:48)
[2017-11-30] MEDS: Ciprofloxacin 0.3% OPTH SOLN OU SCH ×6 (01:51→20:54)
[2017-11-30] MEDS ORDERED: Multivitamin (MVI) 10 ML, Chromium/Copper/Manganese/Zinc 3 ML in Amino/Dex E 4.25/10 10... IV ONE (04:00)
[2017-11-30 06:35] LABS: HEMOGLOBIN 10.3 g/dL (12.0-18.0); MEAN CELL VOLUME 86.1 fl (80.0-94.0); MEAN CORPUSCULAR HEMOGLOBIN 29.6 pg (27.0-31.0); MEAN CORPUSCULAR HGB CONC 34.4 g/dL (33.0-37.0); RBC 3.49 Mil/uL (4.40-5.90); RED CELL DISTRIBUTION WIDTH 13.1 % (11.5-14.5); WHITE BLOOD COUNT 6.2 K/uL (4.8-10.8)
[2017-11-30 06:43] LABS: ALB/GLOB RATIO 0.9 (1.0-2.1); ALBUMIN 3.2 g/dL (3.5-5.0); ALT/SGPT 36 U/L (21-72); AST/SGOT 34 U/L (17-59); BLOOD UREA NITROGEN 16 mg/dl (9-20); CALCIUM 9.1 mg/dL (8.4-10.2); GFR AFRICAN-AMERICAN > 60; GFR NON-AFRICAN AMERICAN > 60
[2017-11-30] MEDS: Vitamins A & D Oint UD Foilpak TOP SCH ×2 (08:54→16:17)
[2017-11-30] MEDS: Enoxaparin 60 mg Syringe SC SCH ×2 (08:55→20:53)
[2017-11-30] MEDS: levoFLOXacin 500 mg in D5W 500 MG/100 ML BAG IVPB SCH (08:55)
--- NOTE | 2017-11-30 09:02 | VASCULAR ---
PROCEDURE: PERIPHERALLY INSERTED CENTRAL VENOUS CATHETER INSERTION CLINICAL HISTORY: 72-year-old male requiring TPN and intravenous antibiotics is referred to Interventional Radiology for PICC insertion. PROCEDURE: 1. Focused ultrasound of the right upper extremity vasculature. 2. Ultrasound-guided access. 3. Insertion of peripherally inserted central venous catheter. 4. Fluoroscopic localization of catheter tip. PRE-PROCEDURE FINDINGS: 1. Patent right basilic vein. POST-PROCEDURE FINDINGS: 1. Placement of 5 Mexican double lumen PICC. 2. Catheter length: 46 cm. 3. Catheter tip at cavoatrial junction. INTERVENTIONAL RADIOLOGIST: Harinder Dorman M.D. (the attending was present for the entire procedure) ANESTHESIA: None. MEDICATION: Lidocaine 1% for local subcutaneous analgesia. COMPLICATIONS: None. RADIATION DOSE: Fluoroscopy Time: 9.7 Cumulative Dose: 0.97 mGy PROCEDURE DESCRIPTION AND FINDINGS: The risks, benefits, alternatives and possible complications of the procedure were fully discussed; all questions were answered and informed consent was obtained. The patient was brought into the interventional suite and a pre-procedure 'time-out' was performed. The patient was placed on the fluoroscopy table in the supine position. The right upper extremity was prepped and draped in the usual sterile fashion. Maximum sterile barrier precautions were maintained throughout the entire procedure. Preliminary ultrasound images of the right upper extremity vasculature demonstrate patency of the right basilic vein. Following subcutaneous infiltration of 1% lidocaine for local analgesia, under ultrasound guidance, a 21-gauge needle was advanced into the right basilic vein with real-time visualization of needle entry. The ultrasound images were permanently recorded and submitted to the PACS. A 0.018 guidewire was advanced centrally to the cavoatrial junction. A 5.55 Mexican peel-away sheath was advanced over the guidewire. After obtaining length measurement, a 5 Mexican double-lumen PICC was placed with the tip of the catheter at the cavoatrial junction. The total length of the catheter is 46 cm. The hub of the PICC was secured to the skin using a sterile adhesive bandage. The patient tolerated the procedure well without immediate post-procedure complications and was transferred back to the floor in stable condition. IMPRESSION: SUCCESSFUL INSERTION OF RIGHT UPPER EXTREMITY PICC. PICC OK TO USE.
--- NOTE | 2017-11-30 09:59 | PN ---
DATE: 11/29/2017 SUBJECTIVE: Patient seen and examined. Interim events noted. Consults noted and appreciated. Gastroenterology followup and plan noted and appreciated. Patient is tentatively scheduled for pyloroplasty and PEG placement on Wednesday. Patient is awake, responsive. Feels okay. Denies any specific complaints of chest pain or shortness of breath. Moves all extremities, although generalized weakness persists. PHYSICAL EXAMINATION: GENERAL: Patient is in no acute distress. VITAL SIGNS: Stable. HEART: S1 and S2, normal and regular. LUNGS: Good bilateral air exchange. ABDOMEN: Soft, nontender. EXTREMITIES: No edema. No calf swelling. No tenderness. No acute ischemia. CENTRAL NERVOUS SYSTEM: Essentially unchanged. 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 DIAGNOSTIC DATA: Available diagnostic data reviewed. Sugar is , which obviously is a and correspondingly sodium is also 124, less likely in spite of the infusion. Patient looks clinically stable. ASSESSMENT AND PLAN: Overall, patient is clinically stable. Plan as ordered. Isma Wang MD
--- NOTE | 2017-11-30 18:00 | CP.PCM.PN ---
<Lazara Cazares - Last Filed: 11/30/17 17:44> Subjective - Date & Time of Evaluation Date of Evaluation: 11/30/17 Time of Evaluation: 07:35 - Subjective Subjective: Patient seen and examined at bedside with Dr. Wang. Awake, alert, follows commands. Objective - Vital Signs/Intake and Output Vital Signs (last 24 hours): Temp Pulse Resp BP Pulse Ox 97.6 F 63 14 107/60 98 11/30/17 17:00 11/30/17 17:00 11/30/17 17:00 11/30/17 17:00 11/30/17 17:00 Intake and Output: 11/30/17 11/30/17 06:59 18:59 Output Total 1250 Balance -1250 - Medications Medications: Current Medications Artificial Tears (Artificial Tears) 2 drop OU Q2 PRN PRN Reason: Dry eyes Last Admin: 11/29/17 13:48 Dose: 2 drop Ciprofloxacin (Ciloxan 0.3% Ophth Soln) 1 drop OU Q4 [facility] Last Admin: 11/30/17 16:17 Dose: 1 drop Clonidine HCl (Catapres-Tts3 0.3 Mg/24 Hr) 1 patch TD Q7D [facility] Last Admin: 11/29/17 10:11 Dose: 1 patch Dextrose (Dextrose 50% Inj) 25 ml IVP ONCE PRN PRN Reason: Hypoglycemia Diphenhydramine HCl (Benadryl) 25 mg IVP HS PRN PRN Reason: Insomnia Last Admin: 11/27/17 22:22 Dose: 25 mg Enalaprilat (Vasotec) 5 mg IVP Q6 PRN PRN Reason: hpn Last Admin: 11/22/17 00:49 Dose: 5 mg Enoxaparin Sodium (Lovenox) 60 mg SC Q12 DAILY PRN Reason: Protocol Last Admin: 11/30/17 08:55 Dose: 60 mg Levofloxacin/Dextrose (Levaquin 500mg) 500 mg in 100 mls @ 100 mls/hr IVPB DAILY DAILY PRN Reason: Protocol Last Admin: 11/30/17 08:55 Dose: 100 mls/hr Lorazepam (Ativan) 0.5 mg IM PRN PRN PRN Reason: Agitation Nicotine (Nicoderm Cq) 1 patch TD DAILY [facility] Last Admin: 01/02/18 08:54 Dose: 1 patch Pantoprazole Sodium (Protonix Inj) 40 mg IVP BID [facility] Last Admin: 11/30/17 16:17 Dose: 40 mg Vitamin A (Vitamin A & D Oint Ud Foilpak) 1 ea TOP BID [facility] Last Admin: 11/30/17 16:17 Dose: 1 ea - Labs Labs: 11/30/17 05:55 11/30/17 05:55 PT 14.2 Seconds (9.8-13.1) H 11/25/17 13:02 INR 1.3 (0.9-1.2) H 11/25/17 13:02 - Constitutional Appears: Chronically Ill - Head Exam Head Exam: ATRAUMATIC, NORMOCEPHALIC - Eye Exam Eye Exam: EOMI - ENT Exam ENT Exam: Mucous Membranes Moist - Neck Exam Neck Exam: Full ROM - Respiratory Exam Respiratory Exam: NORMAL BREATHING PATTERN. absent: Respiratory Distress - Cardiovascular Exam Cardiovascular Exam: REGULAR RHYTHM, +S1, +S2 - GI/Abdominal Exam GI & Abdominal Exam: Soft. absent: Tenderness - Extremities Exam Additional comments: lower extremities strenght 4/5, can bend knees and move bilateral lower extremities against gravity; Upper extremities: strength 2/5, left forearm contracted - Neurological Exam Neurological Exam: Alert, Awake - Psychiatric Exam Psychiatric exam: Normal Affect, Normal Mood - Skin Skin Exam: Dry, Warm Assessment and Plan - Assessment and Plan (Free Text) Assessment: Assessment/Plan 1. 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 Aspiration Pneumonia -observed: video swallow test -Levofloxacin 500mg IVP QD -NPO, TPN 3. Dysphagia -secondary to cervical spine trauma and quadriparesis -EGD showed gastritis, severe pyloric stenosis, could not place PEG -continue with NPO, TPN, aspiration precautions, pain control, physical therapy , PPI 40mg IV BID -GI Consult appreciated: Do not place NG tube; patient scheduled for EGD and balloon dilatation of pylorus with jejunostomy 12/03/17 4. DVT prophylaxis -Lovenox 60mg SC Q12 <Wang,Isma K - Last Filed: 12/07/17 12:27> Objective - Vital Signs/Intake and Output Vital Signs (last 24 hours): Temp Pulse Resp BP Pulse Ox 98.9 F 78 18 142/73 96 12/07/17 08:13 12/07/17 08:13 12/07/17 08:13 12/07/17 08:13 12/07/17 08:13 Intake and Output: 12/07/17 12/07/17 06:59 18:59 Intake Total 480 Output Total 400 Balance 80 - Medications Medications: Current Medications Clonidine HCl (Catapres-Tts3 0.3 Mg/24 Hr) 1 patch TD Q7D [facility] Last Admin: 12/06/17 13:35 Dose: 1 patch Dextrose (Dextrose 50% Inj) 25 ml IVP ONCE PRN PRN Reason: Hypoglycemia Diphenhydramine HCl (Benadryl) 25 mg IVP HS PRN PRN Reason: Insomnia Last Admin: 11/27/17 22:22 Dose: 25 mg Enalaprilat (Vasotec) 5 mg IVP Q6 PRN PRN Reason: hpn Last Admin: 11/22/17 00:49 Dose: 5 mg Fat Emulsion Intravenous (Intralipid 20%) 250 ml IV DAILY [facility] Heparin Sodium (Porcine) (Heparin) 5,000 units SC Q8 DAILY PRN Reason: Protocol Last Admin: 12/06/17 01:09 Dose: Not Given Chromium/Copper/Manganese/Zinc 3 ml/ Multivitamins/Vitamin C 10 ml/ Amino Acids/ Electrolytes/Dextrose 1,013 mls @ 40 mls/hr IV .Q24H ONE Stop: 12/08/17 12:14 Pantoprazole Sodium (Protonix Susp) 40 mg PEG DAILY [facility] Last Admin: 12/07/17 08:41 Dose: Not Given Vitamin A (Vitamin A & D Oint Ud Foilpak) 1 ea TOP BID [facility] Last Admin: 12/07/17 08:17 Dose: 1 ea - Labs Labs: 12/07/17 05:55 12/07/17 05:55 PT 13.9 Seconds (9.8-13.1) H 12/06/17 05:55 INR 1.3 (0.9-1.2) H 12/06/17 05:55 Assessment and Plan - Assessment and Plan (Free Text) Assessment: Patient was personally seen and examined by me in rounds with residents. Available labs and diagnostic data reviewed. Case, Patient's condition and management plan discussed with residents in rounds. Agree with resident's progress note. Plan: As ordered.
--- NOTE | 2017-11-30 18:28 | CP.PCM.PN ---
<Blanca Pimentel - Last Filed: 11/30/17 18:35> Subjective - Date & Time of Evaluation Date of Evaluation: 11/30/17 Time of Evaluation: 18:30 - Subjective Subjective: PGY4 GI Follow-up Pt seen and examined bedside complaining of hunger still NPO denies BM ROSL 10 point ROS conducted, neg other than above Objective - Vital Signs/Intake and Output Vital Signs (last 24 hours): Temp Pulse Resp BP Pulse Ox 97.6 F 63 14 107/60 98 11/30/17 17:00 11/30/17 17:00 11/30/17 17:00 11/30/17 17:00 11/30/17 17:00 Intake and Output: 11/30/17 11/30/17 06:59 18:59 Intake Total 851 Output Total 1250 400 Balance -1250 451 - Medications Medications: Current Medications Artificial Tears (Artificial Tears) 2 drop OU Q2 PRN PRN Reason: Dry eyes Last Admin: 11/29/17 13:48 Dose: 2 drop Ciprofloxacin (Ciloxan 0.3% Ophth Soln) 1 drop OU Q4 DAILY Last Admin: 11/30/17 16:17 Dose: 1 drop Clonidine HCl (Catapres-Tts3 0.3 Mg/24 Hr) 1 patch TD Q7D DAILY Last Admin: 11/29/17 10:11 Dose: 1 patch Dextrose (Dextrose 50% Inj) 25 ml IVP ONCE PRN PRN Reason: Hypoglycemia Diphenhydramine HCl (Benadryl) 25 mg IVP HS PRN PRN Reason: Insomnia Last Admin: 11/27/17 22:22 Dose: 25 mg Enalaprilat (Vasotec) 5 mg IVP Q6 PRN PRN Reason: hpn Last Admin: 11/22/17 00:49 Dose: 5 mg Enoxaparin Sodium (Lovenox) 60 mg SC Q12 DAILY PRN Reason: Protocol Last Admin: 11/30/17 08:55 Dose: 60 mg Levofloxacin/Dextrose (Levaquin 500mg) 500 mg in 100 mls @ 100 mls/hr IVPB DAILY DAILY PRN Reason: Protocol Last Admin: 11/30/17 08:55 Dose: 100 mls/hr Lorazepam (Ativan) 0.5 mg IM PRN PRN PRN Reason: Agitation Nicotine (Nicoderm Cq) 1 patch TD DAILY [facility] Last Admin: 11/30/17 08:54 Dose: 1 patch Pantoprazole Sodium (Protonix Inj) 40 mg IVP BID [facility] Last Admin: 11/30/17 16:17 Dose: 40 mg Vitamin A (Vitamin A & D Oint Ud Foilpak) 1 ea TOP BID [facility] Last Admin: 11/30/17 16:17 Dose: 1 ea - Labs Labs: 11/30/17 05:55 11/30/17 05:55 PT 14.2 Seconds (9.8-13.1) H 11/25/17 13:02 INR 1.3 (0.9-1.2) H 11/25/17 13:02 - Constitutional Appears: Well, No Acute Distress, Chronically Ill - Head Exam Head Exam: ATRAUMATIC, NORMOCEPHALIC - Eye Exam Eye Exam: Normal appearance - ENT Exam ENT Exam: Mucous Membranes Moist - Respiratory Exam Respiratory Exam: Clear to Ausculation Bilateral, NORMAL BREATHING PATTERN. absent: Rhonchi, Wheezes, Respiratory Distress - Cardiovascular Exam Cardiovascular Exam: REGULAR RHYTHM, +S1, +S2 - GI/Abdominal Exam GI & Abdominal Exam: Soft, Normal Bowel Sounds. absent: Tenderness, Diminished Bowel Sounds, Hyperactive Bowel Sounds - Extremities Exam Extremities Exam: absent: Joint Swelling, Pedal Edema - Neurological Exam Neurological Exam: Alert, Awake, Oriented x3 - Psychiatric Exam Psychiatric exam: Normal Affect, Normal Mood - Skin Skin Exam: Dry, Intact, Normal Color, Warm Assessment and Plan - Assessment and Plan (Free Text) Assessment: this is a 72yM with difficulty swallowing and aspiration. s/p EGD; gastritis, severe pyloric stenosis, could not place PEG Pyloric stenosis Aspiration Poor nutrition Posttraumatic cervical myelopathy s/p C4 cordectomy and C3-4 spinal fusion with instrumentation cervical decompression Acute DVT Plan: -Continue supportive care with aspiration precautions, pain control, physical therapy -continue PPI 40mg IV BID -CT abd reviewed: no obvious pyloric lesion noted or obstruction -DO NOT PLACE NG TUBE AND TUBE -continue TPN for now -will have to reattempt PEG with possible pylorus dilatation this wednesday -will have to stop anticoag prior to procedure, risk and benefits will need to be discussed with pt D/W Dr. Proctor <Jody Proctor MD - Last Filed: 11/30/17 19:00> Objective - Vital Signs/Intake and Output Vital Signs (last 24 hours): Temp Pulse Resp BP Pulse Ox 97.6 F 63 14 107/60 98 11/30/17 17:00 11/30/17 17:00 11/30/17 17:00 11/30/17 17:00 11/30/17 17:00 Intake and Output: 11/30/17 11/30/17 06:59 18:59 Intake Total 851 Output Total 1250 400 Balance -1250 451 - Medications Medications: Current Medications Artificial Tears (Artificial Tears) 2 drop OU Q2 PRN PRN Reason: Dry eyes Last Admin: 11/29/17 13:48 Dose: 2 drop Ciprofloxacin (Ciloxan 0.3% Ophth Soln) 1 drop OU Q4 [facility] Last Admin: 11/30/17 16:17 Dose: 1 drop Clonidine HCl (Catapres-Tts3 0.3 Mg/24 Hr) 1 patch TD Q7D [facility] Last Admin: 11/29/17 10:11 Dose: 1 patch Dextrose (Dextrose 50% Inj) 25 ml IVP ONCE PRN PRN Reason: Hypoglycemia Diphenhydramine HCl (Benadryl) 25 mg IVP HS PRN PRN Reason: Insomnia Last Admin: 11/27/17 22:22 Dose: 25 mg Enalaprilat (Vasotec) 5 mg IVP Q6 PRN PRN Reason: hpn Last Admin: 11/22/17 00:49 Dose: 5 mg Enoxaparin Sodium (Lovenox) 60 mg SC Q12 DAILY PRN Reason: Protocol Last Admin: 11/30/17 08:55 Dose: 60 mg Levofloxacin/Dextrose (Levaquin 500mg) 500 mg in 100 mls @ 100 mls/hr IVPB DAILY DAILY PRN Reason: Protocol Last Admin: 11/30/17 08:55 Dose: 100 mls/hr Lorazepam (Ativan) 0.5 mg IM PRN PRN PRN Reason: Agitation Nicotine (Nicoderm Cq) 1 patch TD DAILY [facility] Last Admin: 11/30/17 08:54 Dose: 1 patch Pantoprazole Sodium (Protonix Inj) 40 mg IVP BID [facility] Last Admin: 11/30/17 16:17 Dose: 40 mg Vitamin A (Vitamin A & D Oint Ud Foilpak) 1 ea TOP BID [facility] Last Admin: 11/30/17 16:17 Dose: 1 ea - Labs Labs: 11/30/17 05:55 11/30/17 05:55 PT 14.2 Seconds (9.8-13.1) H 11/25/17 13:02 INR 1.3 (0.9-1.2) H 11/25/17 13:02 Attending/Attestation - Attestation I have personally seen and examined this patient.: Yes I have fully participated in the care of the patient.: Yes I have reviewed all pertinent clinical information, including history, physical exam and plan: Yes Notes (Text): 11/30/17 18:59 Patient seen at bedside this am with GI fellow. This is a 72 yr old M with cervical decompression two weeks ago scheduled for PEG placement which was not placed when severe pyloric obstruction found during EGD last week. Likely due to PUD. Will need balloon dilatation prior to endoscopic PEJ placement which will be later this week. Surgical consult noted. Pyloric and random gastric biopsies done to rule out H pylori. Will start PPI IV bid and use alternate means of nutrition like TPN/PPN. NGT placement will be futile as has pyloric obstruction from stenosis and edema. Will schedule for pyloric balloon expansion and J tube placement. DVT prophylaxis
[2017-12-01] MEDS: Ciprofloxacin 0.3% OPTH SOLN OU SCH ×6 (01:40→21:37)
[2017-12-01 07:04] LABS: HEMOGLOBIN 9.8 g/dL (12.0-18.0); MEAN CELL VOLUME 86.9 fl (80.0-94.0); MEAN CORPUSCULAR HEMOGLOBIN 29.5 pg (27.0-31.0); RBC 3.3 Mil/uL (4.40-5.90); RED CELL DISTRIBUTION WIDTH 13.5 % (11.5-14.5); WHITE BLOOD COUNT 5.3 K/uL (4.8-10.8)
[2017-12-01 07:18] LABS: ALB/GLOB RATIO 0.9 (1.0-2.1); ALBUMIN 3.1 g/dL (3.5-5.0); ALT/SGPT 37 U/L (21-72); AST/SGOT 33 U/L (17-59); BLOOD UREA NITROGEN 20 mg/dl (9-20); CALCIUM 9.2 mg/dL (8.4-10.2); GFR AFRICAN-AMERICAN > 60; GFR NON-AFRICAN AMERICAN > 60
[2017-12-01] MEDS: Vitamins A & D Oint UD Foilpak TOP SCH ×2 (08:36→16:42)
[2017-12-01] MEDS: Enoxaparin 60 mg Syringe SC SCH (08:36)
[2017-12-01] MEDS: levoFLOXacin 500 mg in D5W 500 MG/100 ML BAG IVPB SCH (08:38)
[2017-12-01] MEDS ORDERED: CHROMIUM IV ONE (09:00)
[2017-12-01] MEDS ORDERED: ZINC IV ONE (09:00)
[2017-12-01] MEDS ORDERED: MANGANESE IV ONE (09:00)
[2017-12-01] MEDS ORDERED: MULTIVITAMIN IV ONE (09:00)
[2017-12-01] MEDS ORDERED: COPPER IV ONE (09:00)
[2017-12-01] MEDS ORDERED: [UNRECOGNIZED DRUG - OTHER] IV ONE (09:00)
--- NOTE | 2017-12-01 09:07 | PN ---
DATE: 11/28/2017 SUBJECTIVE: The patient is seen and examined. Interim events noted. The patient feels much better. Complains of joint pain right shoulder, but no chest pain or shortness of breath. PHYSICAL EXAMINATION: GENERAL: The patient is in no acute distress. VITAL SIGNS: Stable. HEART: S1 and S2, normal and regular. LUNGS: Good bilateral air exchange. ABDOMEN: Soft, nontender. EXTREMITIES: No edema. No calf swelling. No tenderness. No acute ischemia. The patient has chronic arthritis. There is no sign of acute joint injury. ASSESSMENT AND PLAN: Overall, the patient is medically stable. Plan as ordered. Isma Wang MD
--- NOTE | 2017-12-01 09:42 | CP.PCM.PN ---
<Blanca Pimentel - Last Filed: 12/01/17 09:59> Subjective - Date & Time of Evaluation Date of Evaluation: 12/01/17 Time of Evaluation: 09:30 - Subjective Subjective: PGY4 GI Follow-up Pt seen and examined bedside No overnight events Still NPO ROS: 10 point ROS conducted, neg other than above Objective - Vital Signs/Intake and Output Vital Signs (last 24 hours): Temp Pulse Resp BP Pulse Ox 98.2 F 61 18 117/52 L 99 12/01/17 08:25 12/01/17 08:25 12/01/17 08:25 12/01/17 08:25 12/01/17 08:25 - Medications Medications: Current Medications Artificial Tears (Artificial Tears) 2 drop OU Q2 PRN PRN Reason: Dry eyes Last Admin: 11/29/17 13:48 Dose: 2 drop Ciprofloxacin (Ciloxan 0.3% Ophth Soln) 1 drop OU Q4 [facility] Last Admin: 12/01/17 08:37 Dose: 1 drop Clonidine HCl (Catapres-Tts3 0.3 Mg/24 Hr) 1 patch TD Q7D [facility] Last Admin: 11/29/17 10:11 Dose: 1 patch Dextrose (Dextrose 50% Inj) 25 ml IVP ONCE PRN PRN Reason: Hypoglycemia Diphenhydramine HCl (Benadryl) 25 mg IVP HS PRN PRN Reason: Insomnia Last Admin: 11/27/17 22:22 Dose: 25 mg Enalaprilat (Vasotec) 5 mg IVP Q6 PRN PRN Reason: hpn Last Admin: 11/22/17 00:49 Dose: 5 mg Enoxaparin Sodium (Lovenox) 60 mg SC Q12 DAILY PRN Reason: Protocol Last Admin: 12/01/17 08:36 Dose: 60 mg Fentanyl (Duragesic) 1 patch TD Q3D DAILY PRN Reason: Protocol Levofloxacin/Dextrose (Levaquin 500mg) 500 mg in 100 mls @ 100 mls/hr IVPB DAILY DAILY PRN Reason: Protocol Last Admin: 12/01/17 08:38 Dose: 100 mls/hr Chromium/Copper/Manganese/Zinc 3 ml/ Multivitamins/Vitamin C 10 ml/ Amino Acids/ Electrolytes/Dextrose 1,013 mls @ 82 mls/hr IV .[id number] ONE Stop: 12/01/17 21:21 Lorazepam (Ativan) 0.5 mg IM PRN PRN PRN Reason: Agitation Nicotine (Nicoderm Cq) 1 patch TD DAILY [facility] Last Admin: 12/01/17 08:37 Dose: 1 patch Pantoprazole Sodium (Protonix Inj) 40 mg IVP BID [facility] Last Admin: 12/01/17 08:36 Dose: 40 mg Vitamin A (Vitamin A & D Oint Ud Foilpak) 1 ea TOP BID [facility] Last Admin: 12/01/17 08:36 Dose: 1 ea - Labs Labs: 12/01/17 06:20 12/01/17 06:20 PT 14.2 Seconds (9.8-13.1) H 11/25/17 13:02 INR 1.3 (0.9-1.2) H 11/25/17 13:02 - Constitutional Appears: Well, No Acute Distress - Head Exam Head Exam: ATRAUMATIC, NORMOCEPHALIC - Eye Exam Eye Exam: Normal appearance - ENT Exam ENT Exam: Mucous Membranes Moist - Respiratory Exam Respiratory Exam: Clear to Ausculation Bilateral, NORMAL BREATHING PATTERN. absent: Rales, Rhonchi, Wheezes, Respiratory Distress - Cardiovascular Exam Cardiovascular Exam: REGULAR RHYTHM, +S1, +S2 - GI/Abdominal Exam GI & Abdominal Exam: Soft, Normal Bowel Sounds. absent: Guarding, Rigid, Tenderness, Organomegaly Additional comments: scar on the right midclavicular line - Extremities Exam Extremities Exam: absent: Joint Swelling, Pedal Edema - Neurological Exam Neurological Exam: Alert, Awake, Oriented x3 - Psychiatric Exam Psychiatric exam: Flat Affect, Normal Mood - Skin Skin Exam: Dry, Intact, Normal Color, Warm Assessment and Plan - Assessment and Plan (Free Text) Assessment: This is a 72yM with difficulty swallowing and aspiration. s/p EGD; gastritis, severe pyloric stenosis, could not place PEG Pyloric stenosis Aspiration Poor nutrition Posttraumatic cervical myelopathy s/p C4 cordectomy and C3-4 spinal fusion with instrumentation cervical decompression Acute DVT Plan: -Continue supportive care with aspiration precautions, pain control, physical therapy -continue PPI 40mg IV BID -CT abd reviewed: no obvious pyloric lesion noted or obstruction -DO NOT PLACE NG TUBE AND TUBE -continue TPN for now -will have to reattempt PEG with possible pylorus dilatation this wednesday or PEJ -spoke with primary team and recommended stopping lovenox, risk and benefits explained to the pt, as well as by the primary team D/W Dr. Proctor <Jody Proctor MD - Last Filed: 12/01/17 12:42> Objective - Vital Signs/Intake and Output Vital Signs (last 24 hours): Temp Pulse Resp BP Pulse Ox 98.2 F 61 18 117/52 L 99 12/01/17 08:25 12/01/17 08:25 12/01/17 08:25 12/01/17 08:25 12/01/17 08:25 - Medications Medications: Current Medications Artificial Tears (Artificial Tears) 2 drop OU Q2 PRN PRN Reason: Dry eyes Last Admin: 11/29/17 13:48 Dose: 2 drop Ciprofloxacin (Ciloxan 0.3% Ophth Soln) 1 drop OU Q4 [facility] Last Admin: 12/01/17 08:37 Dose: 1 drop Clonidine HCl (Catapres-Tts3 0.3 Mg/24 Hr) 1 patch TD Q7D [facility] Last Admin: 11/29/17 10:11 Dose: 1 patch Dextrose (Dextrose 50% Inj) 25 ml IVP ONCE PRN PRN Reason: Hypoglycemia Diphenhydramine HCl (Benadryl) 25 mg IVP HS PRN PRN Reason: Insomnia Last Admin: 11/27/17 22:22 Dose: 25 mg Enalaprilat (Vasotec) 5 mg IVP Q6 PRN PRN Reason: hpn Last Admin: 11/22/17 00:49 Dose: 5 mg Fentanyl (Duragesic) 1 patch TD Q3D DAILY PRN Reason: Protocol Last Admin: 12/01/17 10:35 Dose: 1 patch Heparin Sodium (Porcine) (Heparin) 5,000 units SC Q8 DAILY PRN Reason: Protocol Levofloxacin/Dextrose (Levaquin 500mg) 500 mg in 100 mls @ 100 mls/hr IVPB DAILY DAILY PRN Reason: Protocol Last Admin: 12/01/17 08:38 Dose: 100 mls/hr Chromium/Copper/Manganese/Zinc 3 ml/ Multivitamins/Vitamin C 10 ml/ Amino Acids/ Electrolytes/Dextrose 1,013 mls @ 82 mls/hr IV .[id number] ONE Stop: 12/01/17 21:21 Last Admin: 12/01/17 10:11 Dose: 82 mls/hr Lorazepam (Ativan) 0.5 mg IM PRN PRN PRN Reason: Agitation Nicotine (Nicoderm Cq) 1 patch TD DAILY [facility] Last Admin: 12/01/17 08:37 Dose: 1 patch Pantoprazole Sodium (Protonix Inj) 40 mg IVP BID [facility] Last Admin: 12/01/17 08:36 Dose: 40 mg Vitamin A (Vitamin A & D Oint Ud Foilpak) 1 ea TOP BID [facility] Last Admin: 12/01/17 08:36 Dose: 1 ea - Labs Labs: 12/01/17 06:20 12/01/17 06:20 PT 14.2 Seconds (9.8-13.1) H 11/25/17 13:02 INR 1.3 (0.9-1.2) H 11/25/17 13:02 Attending/Attestation - Attestation I have personally seen and examined this patient.: Yes I have fully participated in the care of the patient.: Yes I have reviewed all pertinent clinical information, including history, physical exam and plan: Yes Notes (Text): 12/01/17 12:41 Patient seen at bedside this am with GI fellow. This is a 72 yr old M with cervical decompression two weeks ago scheduled for PEG placement which was not placed when severe pyloric obstruction found during EGD last week. Likely due to PUD. Will need balloon dilatation prior to endoscopic PEJ placement which will be later this week. Surgical consult noted. Pyloric and random gastric biopsies done to rule out H pylori. Will start PPI IV bid and use alternate means of nutrition like TPN/PPN. NGT placement will be futile as has pyloric obstruction from stenosis and edema. Will schedule for pyloric balloon expansion and J tube placement. DVT prophylaxis
--- NOTE | 2017-12-01 12:18 | CP.PCM.PN ---
Subjective - Date & Time of Evaluation Date of Evaluation: 12/01/17 Time of Evaluation: 07:10 - Subjective Subjective: Patient seen and examined at bedside with attending-Dr. Wang. Patient awake, alert, verbal, following commands. Denies chest pain, SOB or dizziness. Objective - Vital Signs/Intake and Output Vital Signs (last 24 hours): Temp Pulse Resp BP Pulse Ox 98.2 F 61 18 117/52 L 99 12/01/17 08:25 12/01/17 08:25 12/01/17 08:25 12/01/17 08:25 12/01/17 08:25 - Medications Medications: Current Medications Artificial Tears (Artificial Tears) 2 drop OU Q2 PRN PRN Reason: Dry eyes Last Admin: 11/29/17 13:48 Dose: 2 drop Ciprofloxacin (Ciloxan 0.3% Ophth Soln) 1 drop OU Q4 [facility] Last Admin: 12/01/17 08:37 Dose: 1 drop Clonidine HCl (Catapres-Tts3 0.3 Mg/24 Hr) 1 patch TD Q7D [facility] Last Admin: 11/29/17 10:11 Dose: 1 patch Dextrose (Dextrose 50% Inj) 25 ml IVP ONCE PRN PRN Reason: Hypoglycemia Diphenhydramine HCl (Benadryl) 25 mg IVP HS PRN PRN Reason: Insomnia Last Admin: 11/27/17 22:22 Dose: 25 mg Enalaprilat (Vasotec) 5 mg IVP Q6 PRN PRN Reason: hpn Last Admin: 11/22/17 00:49 Dose: 5 mg Fentanyl (Duragesic) 1 patch TD Q3D DAILY PRN Reason: Protocol Last Admin: 12/01/17 10:35 Dose: 1 patch Heparin Sodium (Porcine) (Heparin) 5,000 units SC Q8 DAILY PRN Reason: Protocol Levofloxacin/Dextrose (Levaquin 500mg) 500 mg in 100 mls @ 100 mls/hr IVPB DAILY DAILY PRN Reason: Protocol Last Admin: 12/01/17 08:38 Dose: 100 mls/hr Chromium/Copper/Manganese/Zinc 3 ml/ Multivitamins/Vitamin C 10 ml/ Amino Acids/ Electrolytes/Dextrose 1,013 mls @ 82 mls/hr IV .[id number] ONE Stop: 12/01/17 21:21 Last Admin: 12/01/17 10:11 Dose: 82 mls/hr Lorazepam (Ativan) 0.5 mg IM PRN PRN PRN Reason: Agitation Nicotine (Nicoderm Cq) 1 patch TD DAILY [facility] Last Admin: 12/01/17 08:37 Dose: 1 patch Pantoprazole Sodium (Protonix Inj) 40 mg IVP BID [facility] Last Admin: 12/01/17 08:36 Dose: 40 mg Vitamin A (Vitamin A & D Oint Ud Foilpak) 1 ea TOP BID [facility] Last Admin: 12/01/17 08:36 Dose: 1 ea - Labs Labs: 12/01/17 06:20 12/01/17 06:20 PT 14.2 Seconds (9.8-13.1) H 11/25/17 13:02 INR 1.3 (0.9-1.2) H 11/25/17 13:02 - Constitutional Appears: Chronically Ill - Head Exam Head Exam: ATRAUMATIC, NORMOCEPHALIC - Eye Exam Eye Exam: EOMI, PERRL - ENT Exam ENT Exam: Mucous Membranes Moist - Neck Exam Additional comments: in neck brace - Respiratory Exam Respiratory Exam: Clear to Ausculation Bilateral, NORMAL BREATHING PATTERN - Cardiovascular Exam Cardiovascular Exam: REGULAR RHYTHM, +S1, +S2 - GI/Abdominal Exam GI & Abdominal Exam: Soft, Normal Bowel Sounds. absent: Tenderness - Extremities Exam Extremities Exam: absent: Pedal Edema Additional comments: bilateral lower extremities strength 4/5, bilateral upper extremities strength 2 /5 - Neurological Exam Neurological Exam: Alert, Awake, Oriented x3 - Psychiatric Exam Psychiatric exam: Flat Affect, Normal Mood - Skin Skin Exam: Dry, Intact, Normal Color, Warm Assessment and Plan - Assessment and Plan (Free Text) Assessment: 1. 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 Aspiration Pneumonia -observed: video swallow test -Levofloxacin 500mg IVP QD -NPO, TPN 3. Dysphagia -secondary to cervical spine trauma and quadriparesis -EGD showed gastritis, severe pyloric stenosis, could not place PEG -continue with NPO, TPN, aspiration precautions, pain control, physical therapy , PPI 40mg IV BID -GI Consult appreciated: Do not place NG tube; patient scheduled for reattempt PEG with possible pylorus dilatation or PEJ 12/03/17 4. Acute superficial venous thrombus of left cephalic vein -stable, patient s/p therapeutic Lovenox treatment -per GI recommendation and in preparation for scheduled GI procedure 12/03/16, discontinued Lovenox 5. DVT prophylaxis -Heparin 5,000 units SC Q8, will hold dose 12/02/16 at night in due to GI procedure scheduled for 12/03/16
[2017-12-02] MEDS: Ciprofloxacin 0.3% OPTH SOLN OU SCH ×6 (00:36→20:45)
[2017-12-02 06:43] LABS: HEMOGLOBIN 9.6 g/dL (12.0-18.0); MEAN CELL VOLUME 87.6 fl (80.0-94.0); MEAN CORPUSCULAR HEMOGLOBIN 28.9 pg (27.0-31.0); MEAN CORPUSCULAR HGB CONC 32.9 g/dL (33.0-37.0); RBC 3.32 Mil/uL (4.40-5.90); RED CELL DISTRIBUTION WIDTH 13.6 % (11.5-14.5); WHITE BLOOD COUNT 5.8 K/uL (4.8-10.8)
[2017-12-02 07:01] LABS: ALB/GLOB RATIO 0.9 (1.0-2.1); ALT/SGPT 39 U/L (21-72); AST/SGOT 29 U/L (17-59); BLOOD UREA NITROGEN 17 mg/dl (9-20); GFR AFRICAN-AMERICAN > 60; GFR NON-AFRICAN AMERICAN > 60
[2017-12-02] MEDS: Vitamins A & D Oint UD Foilpak TOP SCH ×2 (08:28→16:18)
[2017-12-02] MEDS: levoFLOXacin 500 mg in D5W 500 MG/100 ML BAG IVPB SCH (08:31)
--- NOTE | 2017-12-02 11:18 | RAD ---
HISTORY: f/u COMPARISON: 11/23/2017 FINDINGS: LUNGS: No active pulmonary disease. PLEURA: No significant pleural effusion identified, no pneumothorax apparent. CARDIOVASCULAR: Normal heart size. Right PICC catheter appears to terminate in the region of the juncture of the superior vena cava and brachiocephalic vein. OSSEOUS STRUCTURES: No significant abnormalities. VISUALIZED UPPER ABDOMEN: Normal. OTHER FINDINGS: None. IMPRESSION: Right PICC catheter as above. No infiltrate.
[2017-12-02] MEDS ORDERED: Multivitamin (MVI) 10 ML, Chromium/Copper/Manganese/Zinc 3 ML in Amino/Dex E 4.25/25 10... IV ONE (11:30)
--- NOTE | 2017-12-02 12:15 | CP.PCM.PN ---
<Blanca Pimentel - Last Filed: 12/02/17 12:17> Subjective - Date & Time of Evaluation Date of Evaluation: 12/02/17 Time of Evaluation: 12:15 - Subjective Subjective: PGY4 GI Follow-up Pt seen and examined bedside No overnight events Still NPO ROS: 10 point ROS conducted, neg other than above Objective - Vital Signs/Intake and Output Vital Signs (last 24 hours): Temp Pulse Resp BP Pulse Ox 97.5 F L 58 L 20 102/50 L 99 12/02/17 08:01 12/02/17 08:01 12/02/17 08:01 12/02/17 08:01 12/02/17 08:01 Intake and Output: 12/02/17 12/02/17 06:59 18:59 Intake Total 1082 Output Total 450 Balance 632 - Medications Medications: Current Medications Artificial Tears (Artificial Tears) 2 drop OU Q2 PRN PRN Reason: Dry eyes Last Admin: 11/29/17 13:48 Dose: 2 drop Ciprofloxacin (Ciloxan 0.3% Ophth Soln) 1 drop OU Q4 DAILY Last Admin: 12/02/17 08:30 Dose: 1 drop Clonidine HCl (Catapres-Tts3 0.3 Mg/24 Hr) 1 patch TD Q7D DAILY Last Admin: 11/29/17 10:11 Dose: 1 patch Dextrose (Dextrose 50% Inj) 25 ml IVP ONCE PRN PRN Reason: Hypoglycemia Diphenhydramine HCl (Benadryl) 25 mg IVP HS PRN PRN Reason: Insomnia Last Admin: 11/27/17 22:22 Dose: 25 mg Enalaprilat (Vasotec) 5 mg IVP Q6 PRN PRN Reason: hpn Last Admin: 11/22/17 00:49 Dose: 5 mg Fentanyl (Duragesic) 1 patch TD Q3D DAILY PRN Reason: Protocol Last Admin: 12/01/17 10:35 Dose: 1 patch Heparin Sodium (Porcine) (Heparin) 5,000 units SC Q8 DAILY PRN Reason: Protocol Last Admin: 12/02/17 08:23 Dose: 5,000 units Levofloxacin/Dextrose (Levaquin 500mg) 500 mg in 100 mls @ 100 mls/hr IVPB DAILY DAILY PRN Reason: Protocol Last Admin: 12/02/17 08:31 Dose: 100 mls/hr Dextrose/Sodium Chloride (Dextrose 5%-0.9% Ns 500 Ml) 1,000 mls @ 100 mls/hr IV .Q10H [facility] Stop: 12/03/17 10:27 Last Admin: 12/02/17 11:15 Dose: 100 mls/hr Multivitamins/Vitamin C 10 ml/Chromium/Copper/Manganese/Zinc 3 ml/ Amino Acids/ Electrolytes/Dextrose 1,013 mls @ 40 mls/hr IV .Q24H [facility] Stop: 12/03/17 11:29 Lorazepam (Ativan) 0.5 mg IM PRN PRN PRN Reason: Agitation Nicotine (Nicoderm Cq) 1 patch TD DAILY [facility] Last Admin: 12/02/17 08:24 Dose: 1 patch Pantoprazole Sodium (Protonix Inj) 40 mg IVP BID [facility] Last Admin: 12/02/17 08:25 Dose: 40 mg Vitamin A (Vitamin A & D Oint Ud Foilpak) 1 ea TOP BID [facility] Last Admin: 12/02/17 08:28 Dose: 1 ea - Labs Labs: 12/02/17 06:15 12/02/17 06:15 PT 14.2 Seconds (9.8-13.1) H 11/25/17 13:02 INR 1.3 (0.9-1.2) H 11/25/17 13:02 - Constitutional Appears: Non-toxic, No Acute Distress - Head Exam Head Exam: ATRAUMATIC, NORMOCEPHALIC - Eye Exam Eye Exam: Normal appearance - ENT Exam ENT Exam: Mucous Membranes Moist - Respiratory Exam Respiratory Exam: Clear to Ausculation Bilateral, NORMAL BREATHING PATTERN. absent: Rales, Rhonchi, Wheezes, Respiratory Distress - Cardiovascular Exam Cardiovascular Exam: REGULAR RHYTHM, +S1, +S2 - GI/Abdominal Exam GI & Abdominal Exam: Soft, Normal Bowel Sounds. absent: Guarding, Rigid, Tenderness, Hyperactive Bowel Sounds, Organomegaly - Extremities Exam Extremities Exam: absent: Joint Swelling, Pedal Edema - Neurological Exam Neurological Exam: Alert, Awake, Oriented x3 - Psychiatric Exam Psychiatric exam: Normal Affect, Normal Mood - Skin Skin Exam: Dry, Intact, Normal Color, Warm Assessment and Plan - Assessment and Plan (Free Text) Assessment: This is a 72yM with difficulty swallowing and aspiration. s/p EGD; gastritis, severe pyloric stenosis, could not place PEG Pyloric stenosis Aspiration Poor nutrition Posttraumatic cervical myelopathy s/p C4 cordectomy and C3-4 spinal fusion with instrumentation cervical decompression Acute DVT Plan: -Continue supportive care with aspiration precautions, pain control, physical therapy -continue PPI 40mg IV BID -CT abd reviewed: no obvious pyloric lesion noted or obstruction -DO NOT PLACE NG TUBE AND TUBE -continue TPN for now -PEG vs PEJ scheduled for tomorrow 12pm -will get phone consent from son and him -risk and benefits explained and he verbalizes understanding D/W Dr. Proctor <Jody Proctor MD - Last Filed: 12/02/17 16:29> Objective - Vital Signs/Intake and Output Vital Signs (last 24 hours): Temp Pulse Resp BP Pulse Ox 98.2 F 53 L 20 112/66 100 12/02/17 16:25 12/02/17 16:25 12/02/17 16:25 12/02/17 16:25 12/02/17 16:25 Intake and Output: 12/02/17 12/02/17 06:59 18:59 Intake Total 1082 Output Total 450 Balance 632 - Medications Medications: Current Medications Artificial Tears (Artificial Tears) 2 drop OU Q2 PRN PRN Reason: Dry eyes Last Admin: 11/29/17 13:48 Dose: 2 drop Ciprofloxacin (Ciloxan 0.3% Ophth Soln) 1 drop OU Q4 [facility] Last Admin: 12/02/17 16:18 Dose: 1 drop Clonidine HCl (Catapres-Tts3 0.3 Mg/24 Hr) 1 patch TD Q7D [facility] Last Admin: 11/29/17 10:11 Dose: 1 patch Dextrose (Dextrose 50% Inj) 25 ml IVP ONCE PRN PRN Reason: Hypoglycemia Diphenhydramine HCl (Benadryl) 25 mg IVP HS PRN PRN Reason: Insomnia Last Admin: 11/27/17 22:22 Dose: 25 mg Enalaprilat (Vasotec) 5 mg IVP Q6 PRN PRN Reason: hpn Last Admin: 11/22/17 00:49 Dose: 5 mg Fentanyl (Duragesic) 1 patch TD Q3D DAILY PRN Reason: Protocol Last Admin: 12/01/17 10:35 Dose: 1 patch Heparin Sodium (Porcine) (Heparin) 5,000 units SC Q8 [facility] PRN Reason: Protocol Last Admin: 12/02/17 16:17 Dose: 5,000 units Levofloxacin/Dextrose (Levaquin 500mg) 500 mg in 100 mls @ 100 mls/hr IVPB DAILY DAILY PRN Reason: Protocol Last Admin: 12/02/17 08:31 Dose: 100 mls/hr Dextrose/Sodium Chloride (Dextrose 5%-0.9% Ns 500 Ml) 1,000 mls @ 100 mls/hr IV .Q10H [facility] Stop: 12/03/17 10:27 Last Admin: 12/02/17 11:15 Dose: 100 mls/hr Multivitamins/Vitamin C 10 ml/Chromium/Copper/Manganese/Zinc 3 ml/ Amino Acids/ Electrolytes/Dextrose 1,013 mls @ 40 mls/hr IV .Q24H [facility] Stop: 12/03/17 11:29 Last Admin: 12/02/17 12:08 Dose: 40 mls/hr Lorazepam (Ativan) 0.5 mg IM PRN PRN PRN Reason: Agitation Nicotine (Nicoderm Cq) 1 patch TD DAILY [facility] Last Admin: 12/02/17 08:24 Dose: 1 patch Pantoprazole Sodium (Protonix Inj) 40 mg IVP BID [facility] Last Admin: 12/02/17 16:18 Dose: 40 mg Vitamin A (Vitamin A & D Oint Ud Foilpak) 1 ea TOP BID [facility] Last Admin: 12/02/17 16:18 Dose: 1 ea - Labs Labs: 12/02/17 06:15 12/02/17 06:15 PT 14.2 Seconds (9.8-13.1) H 11/25/17 13:02 INR 1.3 (0.9-1.2) H 11/25/17 13:02 Attending/Attestation - Attestation I have personally seen and examined this patient.: Yes I have fully participated in the care of the patient.: Yes I have reviewed all pertinent clinical information, including history, physical exam and plan: Yes Notes (Text): 12/02/17 16:28 Patient seen at bedside this am with GI fellow. This is a 72 yr old M with cervical decompression two weeks ago scheduled for PEG placement which was not placed when severe pyloric obstruction found during EGD last week. Likely due to PUD. Will need balloon dilatation prior to endoscopic PEJ placement which will be later this week. Surgical consult noted. Pyloric and random gastric biopsies done to rule out H pylori which are unremarkable. Continue PPI IV bid and continue alternate means of nutrition like TPN/PPN. Will schedule for pyloric balloon expansion and J tube placement for am. NPO past midnight. Hold lovenox. Discussed with CHANGE ADVISOR. DVT prophylaxis
--- NOTE | 2017-12-02 12:34 | CP.PCM.PN ---
<Lazara Cazares - Last Filed: 12/02/17 17:22> Subjective - Date & Time of Evaluation Date of Evaluation: 12/02/17 Time of Evaluation: 07:25 - Subjective Subjective: Patient seen and examined at bedside with attending Dr. Wang. Patient alert, awake, verbal, following commands, displayed minimal increase in strength if bilateral upper extremities when prompted-able to lift against gravity only. No other concerns or complaints at this time. Objective - Vital Signs/Intake and Output Vital Signs (last 24 hours): Temp Pulse Resp BP Pulse Ox 97.5 F L 58 L 20 102/50 L 99 12/02/17 08:01 12/02/17 08:01 12/02/17 08:01 12/02/17 08:01 12/02/17 08:01 Intake and Output: 12/02/17 12/02/17 06:59 18:59 Intake Total 1082 Output Total 450 Balance 632 - Medications Medications: Current Medications Artificial Tears (Artificial Tears) 2 drop OU Q2 PRN PRN Reason: Dry eyes Last Admin: 11/29/17 13:48 Dose: 2 drop Ciprofloxacin (Ciloxan 0.3% Ophth Soln) 1 drop OU Q4 DAILY Last Admin: 12/02/17 12:22 Dose: 1 drop Clonidine HCl (Catapres-Tts3 0.3 Mg/24 Hr) 1 patch TD Q7D DAILY Last Admin: 11/29/17 10:11 Dose: 1 patch Dextrose (Dextrose 50% Inj) 25 ml IVP ONCE PRN PRN Reason: Hypoglycemia Diphenhydramine HCl (Benadryl) 25 mg IVP HS PRN PRN Reason: Insomnia Last Admin: 11/27/17 22:22 Dose: 25 mg Enalaprilat (Vasotec) 5 mg IVP Q6 PRN PRN Reason: hpn Last Admin: 11/22/17 00:49 Dose: 5 mg Fentanyl (Duragesic) 1 patch TD Q3D DAILY PRN Reason: Protocol Last Admin: 12/01/17 10:35 Dose: 1 patch Heparin Sodium (Porcine) (Heparin) 5,000 units SC Q8 DAILY PRN Reason: Protocol Last Admin: 12/02/17 08:23 Dose: 5,000 units Levofloxacin/Dextrose (Levaquin 500mg) 500 mg in 100 mls @ 100 mls/hr IVPB DAILY DAILY PRN Reason: Protocol Last Admin: 12/02/17 08:31 Dose: 100 mls/hr Dextrose/Sodium Chloride (Dextrose 5%-0.9% Ns 500 Ml) 1,000 mls @ 100 mls/hr IV .Q10H [facility] Stop: 12/03/17 10:27 Last Admin: 12/02/17 11:15 Dose: 100 mls/hr Multivitamins/Vitamin C 10 ml/Chromium/Copper/Manganese/Zinc 3 ml/ Amino Acids/ Electrolytes/Dextrose 1,013 mls @ 40 mls/hr IV .Q24H [facility] Stop: 12/03/17 11:29 Last Admin: 12/02/17 12:08 Dose: 40 mls/hr Lorazepam (Ativan) 0.5 mg IM PRN PRN PRN Reason: Agitation Nicotine (Nicoderm Cq) 1 patch TD DAILY [facility] Last Admin: 12/02/17 08:24 Dose: 1 patch Pantoprazole Sodium (Protonix Inj) 40 mg IVP BID [facility] Last Admin: 12/02/17 08:25 Dose: 40 mg Vitamin A (Vitamin A & D Oint Ud Foilpak) 1 ea TOP BID [facility] Last Admin: 12/02/17 08:28 Dose: 1 ea - Labs Labs: 12/02/17 06:15 12/02/17 06:15 PT 14.2 Seconds (9.8-13.1) H 11/25/17 13:02 INR 1.3 (0.9-1.2) H 11/25/17 13:02 - Constitutional Appears: Chronically Ill - Head Exam Head Exam: ATRAUMATIC, NORMOCEPHALIC - Eye Exam Eye Exam: EOMI, PERRL - ENT Exam ENT Exam: Mucous Membranes Moist - Neck Exam Additional comments: in neck brace - Respiratory Exam Respiratory Exam: Clear to Ausculation Bilateral, NORMAL BREATHING PATTERN - Cardiovascular Exam Cardiovascular Exam: REGULAR RHYTHM, +S1, +S2 - GI/Abdominal Exam GI & Abdominal Exam: Soft, Normal Bowel Sounds. absent: Tenderness - Extremities Exam Extremities Exam: absent: Pedal Edema Additional comments: bilateral upper extremities strength 3/5, bilateral lower extremities 4/5 - Neurological Exam Neurological Exam: Alert, Awake, CN II-XII Intact, Oriented x3 - Psychiatric Exam Psychiatric exam: Normal Affect, Normal Mood - Skin Skin Exam: Dry, Normal Color, Warm Assessment and Plan - Assessment and Plan (Free Text) Assessment: 1. 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 Aspiration Pneumonia -observed: video swallow test -Levofloxacin 500mg IVP QD -NPO, TPN 3. Dysphagia -secondary to cervical spine trauma and quadriparesis -EGD showed gastritis, severe pyloric stenosis, could not place PEG -continue with NPO, TPN, aspiration precautions, pain control, physical therapy , PPI 40mg IV BID -GI Consult appreciated: Do not place NG tube; patient scheduled for reattempt PEG with possible pylorus dilatation or PEJ 12/03/17 4. Acute superficial venous thrombus of left cephalic vein -stable, patient s/p therapeutic Lovenox treatment -per GI recommendation and in preparation for scheduled GI procedure 12/03/16, discontinued Lovenox 5. DVT prophylaxis -Heparin 5,000 units SC Q8, will hold today in evening due to GI procedure scheduled for 12/03/16 <Isma Wang K - Last Filed: 12/07/17 12:52> Objective - Vital Signs/Intake and Output Vital Signs (last 24 hours): Temp Pulse Resp BP Pulse Ox 98.9 F 78 18 142/73 96 12/07/17 08:13 12/07/17 08:13 12/07/17 08:13 12/07/17 08:13 12/07/17 08:13 Intake and Output: 12/07/17 12/07/17 06:59 18:59 Intake Total 480 Output Total 400 Balance 80 - Medications Medications: Current Medications Clonidine HCl (Catapres-Tts3 0.3 Mg/24 Hr) 1 patch TD Q7D DAILY Last Admin: 12/06/17 13:35 Dose: 1 patch Dextrose (Dextrose 50% Inj) 25 ml IVP ONCE PRN PRN Reason: Hypoglycemia Diphenhydramine HCl (Benadryl) 25 mg IVP HS PRN PRN Reason: Insomnia Last Admin: 11/27/17 22:22 Dose: 25 mg Enalaprilat (Vasotec) 5 mg IVP Q6 PRN PRN Reason: hpn Last Admin: 11/22/17 00:49 Dose: 5 mg Fat Emulsion Intravenous (Intralipid 20%) 250 ml IV DAILY [facility] Heparin Sodium (Porcine) (Heparin) 5,000 units SC Q8 DAILY PRN Reason: Protocol Last Admin: 12/06/17 01:09 Dose: Not Given Chromium/Copper/Manganese/Zinc 3 ml/ Multivitamins/Vitamin C 10 ml/ Amino Acids/ Electrolytes/Dextrose 1,013 mls @ 40 mls/hr IV .Q24H [facility] Stop: 12/08/17 12:14 Pantoprazole Sodium (Protonix Susp) 40 mg PEG DAILY [facility] Last Admin: 12/07/17 08:41 Dose: Not Given Vitamin A (Vitamin A & D Oint Ud Foilpak) 1 ea TOP BID [facility] Last Admin: 12/07/17 08:17 Dose: 1 ea - Labs Labs: 12/07/17 05:55 12/07/17 05:55 PT 13.9 Seconds (9.8-13.1) H 12/06/17 05:55 INR 1.3 (0.9-1.2) H 12/06/17 05:55
[2017-12-03] MEDS: Ciprofloxacin 0.3% OPTH SOLN OU SCH ×6 (01:00→21:02)
--- NOTE | 2017-12-03 07:52 | CP.PCM.PN ---
Subjective - Date & Time of Evaluation Date of Evaluation: 12/03/17 Time of Evaluation: 07:35 - Subjective Subjective: Patient seen and examined at bedside with attending -Dr. Dolan. Awake, alert, cooperative, verbal. No concerns or complaints at this time. Objective - Vital Signs/Intake and Output Vital Signs (last 24 hours): Temp Pulse Resp BP Pulse Ox 98.5 F 64 18 121/62 98 12/03/17 00:32 12/03/17 00:32 12/03/17 00:32 12/03/17 00:32 12/03/17 00:32 Intake and Output: 12/03/17 12/03/17 06:59 18:59 Intake Total 480 Output Total 350 Balance 130 - Medications Medications: Current Medications Artificial Tears (Artificial Tears) 2 drop OU Q2 PRN PRN Reason: Dry eyes Last Admin: 11/29/17 13:48 Dose: 2 drop Ciprofloxacin (Ciloxan 0.3% Ophth Soln) [address] [facility] Last Admin: 12/03/17 05:32 Dose: 1 drop Clonidine HCl (Catapres-Tts3 0.3 Mg/24 Hr) 1 patch TD Q7D DAILY Last Admin: 11/29/17 10:11 Dose: 1 patch Dextrose (Dextrose 50% Inj) 25 ml IVP ONCE PRN PRN Reason: Hypoglycemia Diphenhydramine HCl (Benadryl) 25 mg IVP HS PRN PRN Reason: Insomnia Last Admin: 11/27/17 22:22 Dose: 25 mg Enalaprilat (Vasotec) 5 mg IVP Q6 PRN PRN Reason: hpn Last Admin: 11/22/17 00:49 Dose: 5 mg Fentanyl (Duragesic) 1 patch TD Q3D DAILY PRN Reason: Protocol Last Admin: 12/01/17 10:35 Dose: 1 patch Heparin Sodium (Porcine) (Heparin) 5,000 units SC Q8 DAILY PRN Reason: Protocol Last Admin: 12/02/17 16:17 Dose: 5,000 units Levofloxacin/Dextrose (Levaquin 500mg) 500 mg in 100 mls @ 100 mls/hr IVPB DAILY DAILY PRN Reason: Protocol Last Admin: 12/02/17 08:31 Dose: 100 mls/hr Dextrose/Sodium Chloride (Dextrose 5%-0.9% Ns 500 Ml) 1,000 mls @ 100 mls/hr IV .Q10H [facility] Stop: 12/03/17 10:27 Last Admin: 12/02/17 20:30 Dose: Not Given Multivitamins/Vitamin C 10 ml/Chromium/Copper/Manganese/Zinc 3 ml/ Amino Acids/ Electrolytes/Dextrose 1,013 mls @ 40 mls/hr IV .Q24H [facility] Stop: 12/03/17 11:29 Last Admin: 12/02/17 12:08 Dose: 40 mls/hr Lorazepam (Ativan) 0.5 mg IM PRN PRN PRN Reason: Agitation Nicotine (Nicoderm Cq) [address] [facility] Last Admin: 12/02/17 08:24 Dose: 1 patch Pantoprazole Sodium (Protonix Inj) [address] [facility] Last Admin: 12/02/17 16:18 Dose: 40 mg Vitamin A (Vitamin A & D Oint Ud Foilpak) [address] [facility] Last Admin: 12/02/17 16:18 Dose: 1 ea - Labs Labs: 12/02/17 06:15 12/02/17 06:15 PT 14.2 Seconds (9.8-13.1) H 11/25/17 13:02 INR 1.3 (0.9-1.2) H 11/25/17 13:02 - Constitutional Appears: Chronically Ill - Head Exam Head Exam: ATRAUMATIC, NORMOCEPHALIC - Eye Exam Eye Exam: EOMI, PERRL - ENT Exam ENT Exam: Mucous Membranes Moist - Neck Exam Additional comments: in neck brace - Respiratory Exam Respiratory Exam: NORMAL BREATHING PATTERN - Cardiovascular Exam Cardiovascular Exam: REGULAR RHYTHM, +S1, +S2 - GI/Abdominal Exam GI & Abdominal Exam: Soft, Normal Bowel Sounds. absent: Tenderness - Extremities Exam Extremities Exam: absent: Pedal Edema Additional comments: bilateral upper extremities strength 3/5, bilateral lower extremities 4/5 - Neurological Exam Neurological Exam: Alert, Awake, Oriented x3 - Psychiatric Exam Psychiatric exam: Normal Affect, Normal Mood - Skin Skin Exam: Dry, Normal Color, Warm Assessment and Plan - Assessment and Plan (Free Text) Assessment: 1. 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 Aspiration Pneumonia -observed: video swallow test -Levofloxacin 500mg IVP QD -NPO, TPN 3. Dysphagia -secondary to cervical spine trauma and quadriparesis -EGD showed gastritis, severe pyloric stenosis, could not place PEG -continue with NPO, TPN, aspiration precautions, pain control, physical therapy , PPI 40mg IV BID -GI Consult appreciated: Do not place NG tube; patient scheduled for reattempt PEG with possible pylorus dilatation or PEJ 12/03/17 4. Acute superficial venous thrombus of left cephalic vein -stable, patient s/p therapeutic Lovenox treatment -per GI recommendation and in preparation for scheduled GI procedure 12/03/16, discontinued Lovenox 5. DVT prophylaxis -Heparin 5,000 units SC Q8, held today due to GI procedure scheduled for today
[2017-12-03] MEDS: Vitamins A & D Oint UD Foilpak TOP SCH ×2 (08:13→16:06)
[2017-12-03] MEDS: levoFLOXacin 500 mg in D5W 500 MG/100 ML BAG IVPB SCH (08:14)
[2017-12-03 08:25] LABS: INR 1.2 (0.9-1.2); PROTHROMBIN TIME 13.6 Seconds (9.8-13.1)
[2017-12-03] MEDS ORDERED: Iohexol 240 (50 ml) ONE (12:36)
[2017-12-03] MEDS ORDERED: Multivitamin (MVI) 10 ML, Trace Elements-Cr/Cu/Mn/Zn 3 ML in Amino/Dex E 4.25/25 1000ml... IV ONE (12:45)
[2017-12-03] MEDS ORDERED: Desflurane Inhalation Anesthetic Liq (240 ml) ONE (12:52)
[2017-12-03] MEDS ORDERED: Benzocaine/Butamben/Tetracai 14-2-2% TOP Spray TOP ONE (12:53)
[2017-12-03] MEDS ORDERED: Phenylephrine 10 mg/ml Inj ONE (12:53)
[2017-12-03] MEDS ORDERED: Succinylcholine 200 mg/10 ml Inj IV ONE (13:23)
[2017-12-03] MEDS ORDERED: Etomidate 20 mg/10ml Inj IV ONE (13:24)
[2017-12-03] MEDS ORDERED: Propofol 10 mg/ml Inj (20 ML) ONE (13:28)
[2017-12-03] MEDS: Multivitamin (MVI) 10 ML, Trace Elements-Cr/Cu/Mn/Zn 3 ML in Amino/Dex E 4.25/25 1000ml... IV ONE ×2 (13:40→15:55)
[2017-12-03] MEDS ORDERED: Rocuronium 10 mg/ml (5 ml) ONE (13:43)
[2017-12-03] MEDS ORDERED: Lactated Ringer's 1,000 ML IV ONE (13:44)
--- NOTE | 2017-12-03 17:57 | CP.PCM.PCO ---
Physician Communication Note - Physician Communication Note Physician Communication Note: Procedure cancelled today. Rescheduled for Wednesday at [facility]
[2017-12-04] MEDS: Ciprofloxacin 0.3% OPTH SOLN OU SCH ×6 (00:29→21:00)
[2017-12-04 08:15] LABS: HEMOGLOBIN 8.6 g/dL (12.0-18.0); MEAN CELL VOLUME 87.3 fl (80.0-94.0); MEAN CORPUSCULAR HEMOGLOBIN 29.5 pg (27.0-31.0); MEAN CORPUSCULAR HGB CONC 33.8 g/dL (33.0-37.0); RBC 2.93 Mil/uL (4.40-5.90); RED CELL DISTRIBUTION WIDTH 13.3 % (11.5-14.5)
[2017-12-04 08:31] LABS: ALB/GLOB RATIO 0.8 (1.0-2.1); ALBUMIN 2.3 g/dL (3.5-5.0); ALT/SGPT 34 U/L (21-72); AST/SGOT 23 U/L (17-59); BLOOD UREA NITROGEN 10 mg/dl (9-20); CALCIUM 7.4 mg/dL (8.4-10.2); GFR AFRICAN-AMERICAN > 60; GFR NON-AFRICAN AMERICAN > 60
[2017-12-04] MEDS: Vitamins A & D Oint UD Foilpak TOP SCH ×2 (09:27→17:20)
[2017-12-04] MEDS: levoFLOXacin 500 mg in D5W 500 MG/100 ML BAG IVPB SCH (11:02)
[2017-12-04] MEDS ORDERED: Multivitamin (MVI) 10 ML, Chromium/Copper/Manganese/Zinc 3 ML in Amino/Dex E 4.25/25 10... IV ONE (12:00)
--- NOTE | 2017-12-04 17:51 | CP.PCM.PN ---
Subjective - Date & Time of Evaluation Date of Evaluation: 12/04/17 Time of Evaluation: 11:00 - Subjective Subjective: Patient remains stable Awaiting for pEG insertion Has no chest pain or SOB. Noted slightly low potassium. Objective - Vital Signs/Intake and Output Vital Signs (last 24 hours): Temp Pulse Resp BP Pulse Ox 94 F L 65 20 103/54 L 100 12/04/17 17:14 12/04/17 17:14 12/04/17 17:14 12/04/17 17:14 12/04/17 17:14 Intake and Output: 12/04/17 12/04/17 06:59 18:59 Intake Total 130 Output Total 400 Balance -270 - Medications Medications: Current Medications Artificial Tears (Artificial Tears) 2 drop OU Q2 PRN PRN Reason: Dry eyes Last Admin: 11/29/17 13:48 Dose: 2 drop Ciprofloxacin (Ciloxan 0.3% Ophth Soln) 1 drop OU Q4 [facility] Last Admin: 12/04/17 17:15 Dose: 1 drop Clonidine HCl (Catapres-Tts3 0.3 Mg/24 Hr) 1 patch TD Q7D [facility] Last Admin: 11/29/17 10:11 Dose: 1 patch Dextrose (Dextrose 50% Inj) 25 ml IVP ONCE PRN PRN Reason: Hypoglycemia Diphenhydramine HCl (Benadryl) 25 mg IVP HS PRN PRN Reason: Insomnia Last Admin: 11/27/17 22:22 Dose: 25 mg Enalaprilat (Vasotec) 5 mg IVP Q6 PRN PRN Reason: hpn Last Admin: 11/22/17 00:49 Dose: 5 mg Heparin Sodium (Porcine) (Heparin) 5,000 units SC Q8 DAILY PRN Reason: Protocol Last Admin: 12/04/17 17:15 Dose: 5,000 units Levofloxacin/Dextrose (Levaquin 500mg) 500 mg in 100 mls @ 100 mls/hr IVPB DAILY DAILY PRN Reason: Protocol Last Admin: 12/04/17 11:02 Dose: 100 mls/hr Multivitamins/Vitamin C 10 ml/Chromium/Copper/Manganese/Zinc 3 ml/ Amino Acids/ Electrolytes/Dextrose 1,013 mls @ 40 mls/hr IV .Q24H ONE Stop: 12/05/17 11:59 Last Admin: 12/04/17 17:13 Dose: 40 mls/hr Lorazepam (Ativan) 0.5 mg IM PRN PRN PRN Reason: Agitation Nicotine (Nicoderm Cq) 1 patch TD DAILY [facility] Last Admin: 12/04/17 09:18 Dose: 1 patch Pantoprazole Sodium (Protonix Inj) 40 mg IVP BID [facility] Last Admin: 12/04/17 17:20 Dose: 40 mg Vitamin A (Vitamin A & D Oint Ud Foilpak) 1 ea TOP BID [facility] Last Admin: 12/04/17 17:20 Dose: 1 ea - Labs Labs: 12/04/17 05:30 12/04/17 05:30 PT 13.6 Seconds (9.8-13.1) H 12/03/17 07:28 INR 1.2 (0.9-1.2) 12/03/17 07:28
[2017-12-05] MEDS: Ciprofloxacin 0.3% OPTH SOLN OU SCH ×6 (00:54→20:48)
[2017-12-05] MEDS: Vitamins A & D Oint UD Foilpak TOP SCH ×2 (10:03→16:51)
[2017-12-05] MEDS: levoFLOXacin 500 mg in D5W 500 MG/100 ML BAG IVPB SCH (10:15)
--- NOTE | 2017-12-05 12:05 | CP.PCM.PN ---
Subjective - Date & Time of Evaluation Date of Evaluation: 12/05/17 Time of Evaluation: 12:02 - Subjective Subjective: Patient remains stable Anxious about tomorrow's procedure. Objective - Vital Signs/Intake and Output Vital Signs (last 24 hours): Temp Pulse Resp BP Pulse Ox 97.6 F 65 18 157/76 H 100 12/05/17 08:21 12/05/17 08:21 12/05/17 08:21 12/05/17 08:21 12/05/17 08:21 Intake and Output: 12/05/17 12/05/17 06:59 18:59 Intake Total 980 Output Total 700 Balance 280 - Medications Medications: Current Medications Artificial Tears (Artificial Tears) 2 drop OU Q2 PRN PRN Reason: Dry eyes Last Admin: 11/29/17 13:48 Dose: 2 drop Ciprofloxacin (Ciloxan 0.3% Ophth Soln) 1 drop OU Q4 [facility] Last Admin: 12/05/17 10:02 Dose: 1 drop Clonidine HCl (Catapres-Tts3 0.3 Mg/24 Hr) 1 patch TD Q7D [facility] Last Admin: 11/29/17 10:11 Dose: 1 patch Dextrose (Dextrose 50% Inj) 25 ml IVP ONCE PRN PRN Reason: Hypoglycemia Diphenhydramine HCl (Benadryl) 25 mg IVP HS PRN PRN Reason: Insomnia Last Admin: 11/27/17 22:22 Dose: 25 mg Enalaprilat (Vasotec) 5 mg IVP Q6 PRN PRN Reason: hpn Last Admin: 11/22/17 00:49 Dose: 5 mg Heparin Sodium (Porcine) (Heparin) 5,000 units SC Q8 DAILY PRN Reason: Protocol Last Admin: 12/05/17 10:06 Dose: 5,000 units Levofloxacin/Dextrose (Levaquin 500mg) 500 mg in 100 mls @ 100 mls/hr IVPB DAILY DAILY PRN Reason: Protocol Last Admin: 12/05/17 10:15 Dose: 100 mls/hr Lorazepam (Ativan) 0.5 mg IM PRN PRN PRN Reason: Agitation Nicotine (Nicoderm Cq) 1 patch TD DAILY [facility] Last Admin: 12/05/17 10:03 Dose: 1 patch Pantoprazole Sodium (Protonix Inj) 40 mg IVP BID [facility] Last Admin: 12/05/17 10:06 Dose: 40 mg Vitamin A (Vitamin A & D Oint Ud Foilpak) 1 ea TOP BID [facility] Last Admin: 12/05/17 10:03 Dose: 1 ea - Labs Labs: 12/04/17 05:30 12/04/17 05:30 PT 13.6 Seconds (9.8-13.1) H 12/03/17 07:28 INR 1.2 (0.9-1.2) 12/03/17 07:28
[2017-12-05 12:52] LABS: IRON 16 ug/dL (49-181)
[2017-12-05 13:02] LABS: TOTAL IRON BINDING CAPACITY 178 ug/dL (250-450)
[2017-12-05 13:06] LABS: % IRON SATURATION 9 % (20-55)
[2017-12-05] MEDS: Multivitamin (MVI) 10 ML, Trace Elements-Cr/Cu/Mn/Zn 3 ML in Amino/Dex E 4.25/25 1000ml... IV ONE (16:58)
[2017-12-05] MEDS: Dextrose 5%/0.45% NS 1,000 ML IV SCH (22:27)
[2017-12-06 06:27] LABS: BASO % 0.4 % (0.0-2.0); EOS # 0.3 K/uL (0.0-0.7); LYMPH # 1.6 K/uL (1.0-4.3); LYMPH % 30.2 % (20.0-40.0); MEAN CELL VOLUME 87.2 fl (80.0-94.0); MEAN CORPUSCULAR HGB CONC 33.3 g/dL (33.0-37.0); MEAN PLATELET VOLUME 7.8 fl (7.2-11.7); MONO # 0.8 K/uL (0.0-0.8); MONO % 15.2 % (0.0-10.0); NEUT # 2.6 K/uL (1.8-7.0); NEUT % 49.2 % (50.0-75.0); RBC 3.1 Mil/uL (4.40-5.90); RED CELL DISTRIBUTION WIDTH 13.3 % (11.5-14.5); WHITE BLOOD COUNT 5.2 K/uL (4.8-10.8)
[2017-12-06 06:31] LABS: ALB/GLOB RATIO 0.9 (1.0-2.1); ALBUMIN 2.9 g/dL (3.5-5.0); ALT/SGPT 34 U/L (21-72); AST/SGOT 26 U/L (17-59); BLOOD UREA NITROGEN 9 mg/dl (9-20); CALCIUM 8.9 mg/dL (8.4-10.2); GFR AFRICAN-AMERICAN > 60; GFR NON-AFRICAN AMERICAN > 60
[2017-12-06 06:40] LABS: INR 1.3 (0.9-1.2); PROTHROMBIN TIME 13.9 Seconds (9.8-13.1)
[2017-12-06] MEDS: Vitamins A & D Oint UD Foilpak TOP SCH ×2 (08:11→16:35)
[2017-12-06] MEDS: Dextrose 5%/0.45% NS 1,000 ML IV SCH (11:09)
[2017-12-06] MEDS: levoFLOXacin 500 mg in D5W 500 MG/100 ML BAG IVPB SCH (12:35)
[2017-12-06] MEDS: Multivitamin (MVI) 10 ML, Trace Elements-Cr/Cu/Mn/Zn 3 ML in Amino/Dex E 4.25/25 1000ml... IV ONE (12:49)
[2017-12-06] MEDS ORDERED: DiphenhydrAMINE 50 mg/ml Inj IVP STA (22:43)
[2017-12-07 06:28] LABS: BASO # 0.1 K/uL (0.0-0.2); BASO % 0.8 % (0.0-2.0); EOS % 0.6 % (0.0-4.0); HEMOGLOBIN 10.4 g/dL (12.0-18.0); LYMPH # 0.6 K/uL (1.0-4.3); LYMPH % 7.4 % (20.0-40.0); MEAN CELL VOLUME 87.1 fl (80.0-94.0); MEAN CORPUSCULAR HEMOGLOBIN 28.3 pg (27.0-31.0); MEAN CORPUSCULAR HGB CONC 32.5 g/dL (33.0-37.0); MEAN PLATELET VOLUME 7.9 fl (7.2-11.7); MONO # 0.8 K/uL (0.0-0.8); MONO % 9.1 % (0.0-10.0); NEUT # 6.9 K/uL (1.8-7.0); NEUT % 82.1 % (50.0-75.0); PLATELET COUNT 272 K/uL (130-400); RBC 3.67 Mil/uL (4.40-5.90); RED CELL DISTRIBUTION WIDTH 13.5 % (11.5-14.5); WHITE BLOOD COUNT 8.4 K/uL (4.8-10.8)
[2017-12-07 06:57] LABS: ALB/GLOB RATIO 0.9 (1.0-2.1); ALBUMIN 3.2 g/dL (3.5-5.0); ALT/SGPT 34 U/L (21-72); AST/SGOT 27 U/L (17-59); BLOOD UREA NITROGEN 12 mg/dl (9-20); CALCIUM 9.2 mg/dL (8.4-10.2); GFR AFRICAN-AMERICAN > 60; GFR NON-AFRICAN AMERICAN > 60
--- NOTE | 2017-12-07 08:10 | CP.PCM.PN ---
<Blanca Pimentel - Last Filed: 12/07/17 08:16> Subjective - Date & Time of Evaluation Date of Evaluation: 12/07/17 Time of Evaluation: 07:30 - Subjective Subjective: PGY 4 GI Follow-up Pt seen and examined bedside complaining of abd discomfort Denies any pain No other complaints Denies any BM ROS: 10 point ROS conducted neg other than above Objective - Vital Signs/Intake and Output Vital Signs (last 24 hours): Temp Pulse Resp BP Pulse Ox 97.9 F 80 20 130/72 97 12/06/17 23:26 12/06/17 23:26 12/06/17 23:26 12/06/17 23:26 12/06/17 23:26 Intake and Output: 12/07/17 12/07/17 06:59 18:59 Intake Total 480 Output Total 400 Balance 80 - Medications Medications: Current Medications Clonidine HCl (Catapres-Tts3 0.3 Mg/24 Hr) 1 patch TD Q7D [facility] Last Admin: 12/06/17 13:35 Dose: 1 patch Dextrose (Dextrose 50% Inj) 25 ml IVP ONCE PRN PRN Reason: Hypoglycemia Diphenhydramine HCl (Benadryl) 25 mg IVP HS PRN PRN Reason: Insomnia Last Admin: 11/27/17 22:22 Dose: 25 mg Enalaprilat (Vasotec) 5 mg IVP Q6 PRN PRN Reason: hpn Last Admin: 11/22/17 00:49 Dose: 5 mg Heparin Sodium (Porcine) (Heparin) 5,000 units SC Q8 DAILY PRN Reason: Protocol Last Admin: 12/06/17 01:09 Dose: Not Given Levofloxacin/Dextrose (Levaquin 500mg) 500 mg in 100 mls @ 100 mls/hr IVPB DAILY DAILY PRN Reason: Protocol Last Admin: 12/06/17 12:35 Dose: 100 mls/hr Pantoprazole Sodium (Protonix Inj) 40 mg IVP BID [facility] Last Admin: 12/06/17 16:35 Dose: 40 mg Vitamin A (Vitamin A & D Oint Ud Foilpak) 1 ea TOP BID [facility] Last Admin: 12/06/17 16:35 Dose: 1 ea - Labs Labs: 12/07/17 05:55 12/07/17 05:55 PT 13.9 Seconds (9.8-13.1) H 12/06/17 05:55 INR 1.3 (0.9-1.2) H 12/06/17 05:55 - Constitutional Appears: Well, No Acute Distress - Head Exam Head Exam: ATRAUMATIC, NORMOCEPHALIC - Eye Exam Eye Exam: Normal appearance - ENT Exam ENT Exam: Mucous Membranes Moist - Neck Exam Neck Exam: Normal Inspection - Respiratory Exam Respiratory Exam: Clear to Ausculation Bilateral, NORMAL BREATHING PATTERN. absent: Rales, Rhonchi, Wheezes, Respiratory Distress - Cardiovascular Exam Cardiovascular Exam: REGULAR RHYTHM, +S1, +S2 - GI/Abdominal Exam GI & Abdominal Exam: Soft, Normal Bowel Sounds. absent: Guarding, Rigid, Tenderness Additional comments: PEJ in place, at 3cm, no induration or discharge from site - Extremities Exam Extremities Exam: absent: Joint Swelling, Pedal Edema - Neurological Exam Neurological Exam: Alert, Awake, Oriented x3 - Psychiatric Exam Psychiatric exam: Normal Affect, Normal Mood - Skin Skin Exam: Dry, Intact, Normal Color, Warm Assessment and Plan - Assessment and Plan (Free Text) Assessment: This is a 72yM with difficulty swallowing and aspiration. 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 Proctor <Hitesh ZAMORANO,[facility] - Last Filed: 12/07/17 13:55> Objective - Vital Signs/Intake and Output Vital Signs (last 24 hours): Temp Pulse Resp BP Pulse Ox 98.9 F 78 18 142/73 96 12/07/17 08:13 12/07/17 08:13 12/07/17 08:13 12/07/17 08:13 12/07/17 08:13 Intake and Output: 12/07/17 12/07/17 06:59 18:59 Intake Total 480 Output Total 400 Balance 80 - Medications Medications: Current Medications Clonidine HCl (Catapres-Tts3 0.3 Mg/24 Hr) 1 patch TD Q7D [facility] Last Admin: 12/06/17 13:35 Dose: 1 patch Dextrose (Dextrose 50% Inj) 25 ml IVP ONCE PRN PRN Reason: Hypoglycemia Diphenhydramine HCl (Benadryl) 25 mg IVP HS PRN PRN Reason: Insomnia Last Admin: 11/27/17 22:22 Dose: 25 mg Enalaprilat (Vasotec) 5 mg IVP Q6 PRN PRN Reason: hpn Last Admin: 11/22/17 00:49 Dose: 5 mg Enoxaparin Sodium (Lovenox) 60 mg SC Q12 DAILY PRN Reason: Protocol Fat Emulsion Intravenous (Intralipid 20%) 250 ml IV DAILY [facility] Chromium/Copper/Manganese/Zinc 3 ml/ Multivitamins/Vitamin C 10 ml/ Amino Acids/ Electrolytes/Dextrose 1,013 mls @ 40 mls/hr IV .Q24H ONE Stop: 12/08/17 12:14 Pantoprazole Sodium (Protonix Susp) 40 mg PEG DAILY [facility] Last Admin: 12/07/17 08:41 Dose: Not Given Vitamin A (Vitamin A & D Oint Ud Foilpak) 1 ea TOP BID [facility] Last Admin: 12/07/17 08:17 Dose: 1 ea - Labs Labs: 12/07/17 05:55 12/07/17 05:55 PT 13.9 Seconds (9.8-13.1) H 12/06/17 05:55 INR 1.3 (0.9-1.2) H 12/06/17 05:55 Attending/Attestation - Attestation I have personally seen and examined this patient.: Yes I have fully participated in the care of the patient.: Yes I have reviewed all pertinent clinical information, including history, physical exam and plan: Yes Notes (Text): 12/07/17 13:53 Patient seen with GI fellow on rounds this am. This is a 72 yr old M with difficulty swallowing and aspiration, s/p PEJ POD #1 due to Posttraumatic cervical myelopathy s/p C4 cordectomy and C3-4 spinal fusion with instrumentation cervical decompression. Aspiration precautions and local PEJ care. H pylori biopsies normal. Start feeds at 20cc/hr and advance as tolerated as per nutrition. Local PEJ care. Thnak you for letting us participate in the care of your patient
[2017-12-07] MEDS: levoFLOXacin 500 mg in D5W 500 MG/100 ML BAG IVPB SCH (08:16)
[2017-12-07] MEDS: Vitamins A & D Oint UD Foilpak TOP SCH ×2 (08:17→17:17)
[2017-12-07] MEDS: Pantoprazole 40 mg Susp UD PEG SCH (08:41)
[2017-12-07 11:18] LABS: EOSINOPHIL 2 % (0-7); LYMPHOCYTE 5 % (20-50); MONOCYTE 11 % (0-10); NEUTROPHIL 81 % (42-75); REACTIVE LYMPHOCYTES 1 % (0-0); TOTAL CELLS COUNTED 100
[2017-12-07 11:21] LABS: PLATELET ESTIMATE NORMAL (NORMAL)
[2017-12-07 11:22] LABS: HYPOCHROMIC SLIGHT; OVALOCYTES SLIGHT; PLATELET CLUMPS PRESENT; SCHISTOCYTES SLIGHT; TARGET CELLS SLIGHT; TEARDROP CELLS SLIGHT
[2017-12-07] MEDS ORDERED: CHROMIUM IV ONE (12:15)
[2017-12-07] MEDS ORDERED: MULTIVITAMIN IV ONE (12:15)
[2017-12-07] MEDS ORDERED: [UNRECOGNIZED DRUG - OTHER] IV ONE (12:15)
[2017-12-07] MEDS ORDERED: MANGANESE IV ONE (12:15)
[2017-12-07] MEDS ORDERED: COPPER IV ONE (12:15)
[2017-12-07] MEDS ORDERED: ZINC IV ONE (12:15)
--- NOTE | 2017-12-07 12:54 | CP.PCM.PN ---
Subjective - Date & Time of Evaluation Date of Evaluation: 12/07/17 Time of Evaluation: 11:20 - Subjective Subjective: Patient seen and examined at bedside with attending-Dr. Dolan. Awake, alert, cooperative, reports he feels a little better after having PEJ placed . Denies abdominal pain, SOB, chest pain, nausea or dizziness. Objective - Vital Signs/Intake and Output Vital Signs (last 24 hours): Temp Pulse Resp BP Pulse Ox 98.9 F 78 18 142/73 96 12/07/17 08:13 12/07/17 08:13 12/07/17 08:13 12/07/17 08:13 12/07/17 08:13 Intake and Output: 12/07/17 12/07/17 06:59 18:59 Intake Total 480 Output Total 400 Balance 80 - Medications Medications: Current Medications Clonidine HCl (Catapres-Tts3 0.3 Mg/24 Hr) 1 patch TD Q7D [facility] Last Admin: 12/06/17 13:35 Dose: 1 patch Dextrose (Dextrose 50% Inj) 25 ml IVP ONCE PRN PRN Reason: Hypoglycemia Diphenhydramine HCl (Benadryl) 25 mg IVP HS PRN PRN Reason: Insomnia Last Admin: 11/27/17 22:22 Dose: 25 mg Enalaprilat (Vasotec) 5 mg IVP Q6 PRN PRN Reason: hpn Last Admin: 11/22/17 00:49 Dose: 5 mg Fat Emulsion Intravenous (Intralipid 20%) 250 ml IV DAILY [facility] Heparin Sodium (Porcine) (Heparin) 5,000 units SC Q8 DAILY PRN Reason: Protocol Last Admin: 12/06/17 01:09 Dose: Not Given Chromium/Copper/Manganese/Zinc 3 ml/ Multivitamins/Vitamin C 10 ml/ Amino Acids/ Electrolytes/Dextrose 1,013 mls @ 40 mls/hr IV .Q24H ONE Stop: 12/08/17 12:14 Pantoprazole Sodium (Protonix Susp) 40 mg PEG DAILY [facility] Last Admin: 12/07/17 08:41 Dose: Not Given Vitamin A (Vitamin A & D Oint Ud Foilpak) 1 ea TOP BID [facility] Last Admin: 12/07/17 08:17 Dose: 1 ea - Labs Labs: 12/07/17 05:55 12/07/17 05:55 PT 13.9 Seconds (9.8-13.1) H 12/06/17 05:55 INR 1.3 (0.9-1.2) H 12/06/17 05:55 - Constitutional Appears: No Acute Distress - Head Exam Head Exam: ATRAUMATIC, NORMOCEPHALIC - Eye Exam Eye Exam: EOMI, PERRL - ENT Exam ENT Exam: Mucous Membranes Moist - Neck Exam Neck Exam: absent: Lymphadenopathy (increased range of motion) - Respiratory Exam Respiratory Exam: Clear to Ausculation Bilateral, NORMAL BREATHING PATTERN - Cardiovascular Exam Cardiovascular Exam: REGULAR RHYTHM, +S1, +S2 - GI/Abdominal Exam GI & Abdominal Exam: Soft (PEJ in place, no discharge from insertion site), Normal Bowel Sounds - Extremities Exam Extremities Exam: absent: Calf Tenderness, Pedal Edema Additional comments: bilateral upper extremities strength 3/5, bilateral lower extremities strength 4 /5. - Neurological Exam Neurological Exam: Alert, Awake, Oriented x3 - Psychiatric Exam Psychiatric exam: Normal Affect, Normal Mood - Skin Skin Exam: Dry, Intact, Warm Assessment and Plan - Assessment and Plan (Free Text) Assessment: 1. Cord compression syndrome -secondary to posttraumatic cervical myelopathy with quadriparesis -s/p C4 cordectomy and C3-4 spinal fusion with instrumentation POD # 20 cervical decompression -Neurology consult appreciated: continue present management, when patient clinically stable, may start PO diet -Continue physical and occupational therapy, out of bed to chair 2. Dysphagia -secondary to cervical spine trauma and quadriparesis -patient is POD # 1 s/p PEJ placement -will start PEJ feeds today, will repeat swallow at later date 3. Aspiration Pneumonia -observed: video swallow test -s/p Levofloxacin 500mg IVP QD x 14 days -NPO, will start PEJ feed and repeat swallow at later date 4. Acute superficial venous thrombus of left cephalic vein -stable, patient s/p therapeutic Lovenox treatment 5. DVT prophylaxis -Heparin 5,000 units SC Q8
[2017-12-07] MEDS: Enoxaparin 60 mg Syringe SC SCH (21:19)
[2017-12-08] MEDS: DiphenhydrAMINE 50 mg/ml Inj IVP PRN (00:32)
[2017-12-08 06:22] LABS: HEMOGLOBIN 10.3 g/dL (12.0-18.0); MEAN CELL VOLUME 87.3 fl (80.0-94.0); MEAN CORPUSCULAR HEMOGLOBIN 28.6 pg (27.0-31.0); MEAN CORPUSCULAR HGB CONC 32.7 g/dL (33.0-37.0); RBC 3.59 Mil/uL (4.40-5.90); RED CELL DISTRIBUTION WIDTH 13.5 % (11.5-14.5)
[2017-12-08 06:36] LABS: ALB/GLOB RATIO 0.9 (1.0-2.1); ALBUMIN 3.2 g/dL (3.5-5.0); ALT/SGPT 34 U/L (21-72); AST/SGOT 26 U/L (17-59); BLOOD UREA NITROGEN 16 mg/dl (9-20); CALCIUM 9.1 mg/dL (8.4-10.2); GFR AFRICAN-AMERICAN > 60; GFR NON-AFRICAN AMERICAN > 60; MAGNESIUM 1.8 MG/DL (1.6-2.3)
[2017-12-08] MEDS: Vitamins A & D Oint UD Foilpak TOP SCH ×2 (08:46→17:41)
[2017-12-08] MEDS: Enoxaparin 60 mg Syringe SC SCH ×2 (08:46→21:32)
[2017-12-08] MEDS: Pantoprazole 40 mg Susp UD PEG SCH (08:46)
[2017-12-09] MEDS: Vitamins A & D Oint UD Foilpak TOP SCH ×2 (08:31→16:18)
[2017-12-09] MEDS: Enoxaparin 60 mg Syringe SC SCH (08:31)
[2017-12-09] MEDS: Pantoprazole 40 mg Susp UD PEG SCH (09:00)
[2017-12-09] MEDS ORDERED: Enoxaparin 60 mg Syringe SC SCH (10:45)
[2017-12-09] MEDS ORDERED: Sodium Chloride 0.9% 1,000 ML IV SCH (10:45)
[2017-12-09 16:20] VITALS: BP 116/63; PULSE 73; RESP 20; TEMP 98.1; O2SAT 95
== END 2017-12-09 18:00 | DRG 177 ==
LOC: H.ER 13:46 → H.ERHOLD 14:33 → H.MEDSURG1 16:40
PROVIDERS: ADMIT Family Medicine; ATTEND Family Medicine
PROC: 0DB48ZX Excision of Esophagogastric Junction, Via Natural or Artificial Opening Endoscopic, Diagnostic (ICD-10-PCS; 2017-11-26)
PROC: 02HV33Z Insertion of Infusion Device into Superior Vena Cava, Percutaneous Approach (ICD-10-PCS; 2017-11-26)
PROC: B518ZZA Fluoroscopy of Superior Vena Cava, Guidance (ICD-10-PCS; 2017-11-26)
PROC: B548ZZA Ultrasonography of Superior Vena Cava, Guidance (ICD-10-PCS; 2017-11-26)
PROC: 3E04329 Introduction of Other Anti-infective into Central Vein, Percutaneous Approach (ICD-10-PCS; 2017-11-26)
PROC: 0DH63UZ Insertion of Feeding Device into Stomach, Percutaneous Approach (ICD-10-PCS; principal; 2017-12-03)
PROC: 3E0G76Z Introduction of Nutritional Substance into Upper GI, Via Natural or Artificial Opening (ICD-10-PCS; 2017-12-03)
DX: J69.0 Pneumonitis due to inhalation of food and vomit (principal); S14.124A Central cord syndrome at C4 level of cervical spinal cord, initial encounter; G82.52 Quadriplegia, C1-C4 incomplete; G95.89 Other specified diseases of spinal cord; K31.1 Adult hypertrophic pyloric stenosis; I82.612 Acute embolism and thrombosis of superficial veins of left upper extremity; I69.391 Dysphagia following cerebral infarction; R13.19 Other dysphagia; K29.50 Unspecified chronic gastritis without bleeding; K27.9 Peptic ulcer, site unspecified, unspecified as acute or chronic, without hemorrhage or perforation; I10 Essential (primary) hypertension; R33.8 Other retention of urine; Z91.81 History of falling; Z86.718 Personal history of other venous thrombosis and embolism; Z87.891 Personal history of nicotine dependence

== ENCOUNTER 2017-12-09 17:08 | Inpatient (IN) | payer MEDICARE, MEDICAID ==
[2017-12-09] MEDS ORDERED: DiphenhydrAMINE 50 mg/ml Inj IVP PRN (18:47)
[2017-12-09] MEDS ORDERED: Sodium Chloride 0.9% 1,000 ML IV SCH (19:00)
[2017-12-09] MEDS: Sodium Chloride 0.9% 1,000 ML IV SCH (21:02)
[2017-12-09] MEDS: Enoxaparin 60 mg Syringe SC SCH (21:03)
[2017-12-10] MEDS: Pantoprazole 40 mg Susp UD PEG SCH (08:00)
[2017-12-10] MEDS: Vitamin A/D oint 60G TP SCH ×2 (08:00→16:38)
[2017-12-10] MEDS: Enoxaparin 60 mg Syringe SC SCH ×2 (08:00→21:05)
[2017-12-10] MEDS: Sodium Chloride 0.9% 1,000 ML IV SCH ×2 (08:53→22:22)
[2017-12-10] MEDS ORDERED: Barium Sulfate Susp 0.1% w/v, 0.1% w/w 450 mL Bottle PO ONE (13:00)
--- NOTE | 2017-12-10 14:35 | CP.PCM.HP ---
History of Present Illness - History of Present Illness History of Present Illness: 72 yr old M POD # 23 s/p C4 cordectomy and C3-4 spinal fusion with instrumentation/cervical decompression secondary to posttraumatic cervical myelopathy with quadriparesis. PMHx includes seizure disorder and drug abuse. Patient is POD # 4 s/p PEJ placement. Patient is admitted to acute rehab for PT/ OT and deconditioning. PMHx: seizure disorder and drug abuse SurgHx: Appendectomy, Right knee, C3-4 spinal fusion with instrumentation/ cervical decompression, PEJ FMHx: non-contributory SocHx: Denies ETOH, uses cocaine for the last 4 years, last time 11/08/17, smoker 6-7 cig for 60 yrs Medications: see medication reconciliation Allergies: NKDA Present on Admission - Present on Admission Any Indicators Present on Admission: No History of DVT/PE: No History of Uncontrolled Diabetes: No Urinary Catheter: No Decubitus Ulcer Present: No History Surgical Site Infection Following: None Review of Systems - Review of Systems All systems: reviewed and no additional remarkable complaints except (for what is mentioned in the HPI) - Constitutional Constitutional: absent: Chills, Fatigue - EENT Eyes: absent: Blurred Vision, Change in Vision Ears: absent: Dizziness Nose/Mouth/Throat: absent: Nasal Congestion, Nasal Discharge - Cardiovascular Cardiovascular: absent: Chest Pain, Dyspnea - Respiratory Respiratory: absent: Cough, Hemoptysis - Gastrointestinal Gastrointestinal: absent: Abdominal Pain - Genitourinary Genitourinary: absent: Difficulty Urinating, Dysuria - Musculoskeletal Musculoskeletal: absent: Neck Pain - Integumentary Integumentary: absent: Bleeding Lesions - Neurological Neurological: absent: Headaches, Syncope - Psychiatric Psychiatric: absent: Anxiety - Hematologic/Lymphatic Hematologic: absent: Easy Bleeding, Easy Bruising Past Patient History - Past Medical History & Family History Past Medical History?: Yes - Past Social History Smoking Status: Former Smoker - CARDIAC Hx Congestive Heart Failure: No Hx Hypercholesterolemia: No - PULMONARY Hx Chronic Obstructive Pulmonary Disease (COPD): No Other/Comment: Aspiration Pneumonia - NEUROLOGICAL Hx Neurological Disorder: Yes HX Cerebrovascular Accident: Yes Hx Seizures: Yes Other/Comment: Cervical spine surgery - HEENT Hx HEENT Problems: No (hx unknown) - RENAL Hx Renal Failure: No - ENDOCRINE/METABOLIC Hx Diabetes Mellitus Type 1: No Hx Diabetes Mellitus Type 2: No Hx Hypothyroidism: No - HEMATOLOGICAL/ONCOLOGICAL Hx Blood Disorders: Yes Hx AIDS: (unknown) Hx Anemia: Yes Hx Human Immunodeficiency Virus (HIV): (unknown) - INTEGUMENTARY Hx Dermatological Problems: No - MUSCULOSKELETAL/RHEUMATOLOGICAL Hx Arthritis: No Hx Falls: No Hx Rheumatoid Arthritis: No - GASTROINTESTINAL Hx Ileostomy: Yes Other/Comment: s/p appendectomy - GENITOURINARY/GYNECOLOGICAL Hx Genitourinary Disorders: Yes Other/Comment: urinary retention - PSYCHIATRIC Hx Psychophysiologic Disorder: Yes Hx Depression: Yes Hx Substance Use: Yes (Cocaine, Marijuana) - SURGICAL HISTORY Hx Appendectomy: Yes - ANESTHESIA Hx Anesthesia: Yes Hx Anesthesia Reactions: No Hx Malignant Hyperthermia: No Meds Allergies/Adverse Reactions: Allergies Allergy/AdvReac Type Severity Reaction Status Date / Time No Known Allergies Allergy Verified 18 18:20 Physical Exam - Constitutional Appears: No Acute Distress - Head Exam Head Exam: ATRAUMATIC, NORMOCEPHALIC - Eye Exam Eye Exam: EOMI, PERRL - ENT Exam ENT Exam: Mucous Membranes Moist - Neck Exam Additional comments: neck in soft brace - Respiratory Exam Respiratory Exam: Clear to Auscultation Bilateral, NORMAL BREATHING PATTERN - Cardiovascular Exam Cardiovascular Exam: REGULAR RHYTHM, +S1, +S2 - GI/Abdominal Exam GI & Abdominal Exam: Normal Bowel Sounds, Soft (PEJ in place, no discharge or erythema) - Extremities Exam Extremities exam: Negative for: pedal edema Additional comments: bilateral upper extremities strength 3/5, bilateral lower extremities 4/5 - Neurological Exam Neurological exam: Alert, CN II-XII Intact, Oriented x3 - Psychiatric Exam Psychiatric exam: Normal Affect, Normal Mood - Skin Skin Exam: Dry, Warm Results - Vital Signs Recent Vital Signs: Last Vital Signs Temp 98.4 F 12/10/17 07:42 Pulse 69 12/10/17 07:42 Resp 18 12/10/17 07:42 BP 125/56 L 12/10/17 07:42 Pulse Ox 95 12/10/17 07:42 Assessment & Plan - Assessment and Plan (Free Text) Assessment: 72 yr old M admitted to acute rehab on POD # 23 s/p C4 cordectomy and C3-4 spinal fusion with instrumentation/cervical decompression secondary to posttraumatic cervical myelopathy with quadriparesis and POD# 4 s/p PEJ placement. Patient is medically stable for PT/OT. 1. Cord compression syndrome -secondary to posttraumatic cervical myelopathy with quadriparesis -s/p C4 cordectomy and C3-4 spinal fusion with instrumentation POD # 23 cervical decompression -Neurology consult appreciated: continue present management, when patient clinically stable, may start PO diet -Continue physical and occupational therapy, out of bed to chair 2. Dysphagia -secondary to cervical spine trauma and quadriparesis -patient is POD # 4 s/p PEJ placement -continuous PEJ feeds, today patient passed repeat video swallow evaluation -additional nutrition with PO pureed diet, nectar thick fluids, will do calorie count and d/c TPN if patient can tolerate PO diet well 3. Acute superficial venous thrombus of left cephalic vein -stable, patient s/p therapeutic Lovenox treatment 4. DVT prophylaxis -Lovenox 45mg SC Q12 - Date & Time Date: 12/10/17 Time: 10:00
[2017-12-10] MEDS: Ammonium Lactate 12% Cream (140 g) TOP SCH ×2 (14:51→16:38)
--- NOTE | 2017-12-10 16:26 | CP.PCM.CON ---
History of Present Illness - History of Present Illness History of Present Illness: Dr Spencer PMR consultation on Nic Jeffers born 1945 who has been admitted again to [facility] acute rehabilitation following seizure activity with a fall. He was unresponsive and intubated in the field. Diagnosed with cervical cord compression and underwent a C3-[address] Pang. 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 On aspiration precautions and video swallow is to be done. + Mcgarry cath is present. Incontinent of stool. Had been NPO and was unstable and transferred to acute floor and now back. Just cleared by speech to begin food. +PEG and IV Review of Systems - Constitutional Constitutional: absent: Chills, Excessive Sweating - EENT Eyes: absent: Blurred Vision Ears: absent: Decreased Hearing, Ear Discharge Nose/Mouth/Throat: absent: Nasal Congestion - Cardiovascular Cardiovascular: absent: Chest Pain - Respiratory Respiratory: absent: Dyspnea, Hemoptysis - Gastrointestinal Gastrointestinal: Fecal Incontinence. absent: Belching - Musculoskeletal Musculoskeletal: absent: Back Pain - Integumentary Integumentary: absent: Bleeding Lesions - Neurological Neurological: Numbness, Weakness. absent: Memory Loss - Psychiatric Psychiatric: absent: Visual Hallucinations Past Patient History - Past Medical History & Family History Past Medical History?: Yes - Past Social History Smoking Status: Former Smoker Home Situation {Lives}: With Family - CARDIAC Hx Hypertension: Yes - PULMONARY Hx Chronic Obstructive Pulmonary Disease (COPD): No Other/Comment: Aspiration Pneumonia - NEUROLOGICAL Hx Neurological Disorder: Yes HX Cerebrovascular Accident: Yes Hx Seizures: Yes Other/Comment: Cervical spine surgery - HEENT Hx HEENT Problems: No (hx unknown) - RENAL Hx Renal Failure: No - ENDOCRINE/METABOLIC Hx Diabetes Mellitus Type 1: No Hx Diabetes Mellitus Type 2: No Hx Hypothyroidism: No - HEMATOLOGICAL/ONCOLOGICAL Hx Blood Disorders: Yes Hx AIDS: (unknown) Hx Anemia: Yes Hx Human Immunodeficiency Virus (HIV): (unknown) - INTEGUMENTARY Hx Dermatological Problems: No - MUSCULOSKELETAL/RHEUMATOLOGICAL Hx Arthritis: No Hx Falls: No Hx Rheumatoid Arthritis: No - GASTROINTESTINAL Hx Ileostomy: Yes Other/Comment: s/p appendectomy - GENITOURINARY/GYNECOLOGICAL Hx Genitourinary Disorders: Yes Other/Comment: urinary retention - PSYCHIATRIC Hx Psychophysiologic Disorder: Yes Hx Depression: Yes Hx Substance Use: Yes (Cocaine, Marijuana) - SURGICAL HISTORY Hx Appendectomy: Yes - ANESTHESIA Hx Anesthesia: Yes Hx Anesthesia Reactions: No Hx Malignant Hyperthermia: No Meds Allergies/Adverse Reactions: Allergies Allergy/AdvReac Type Severity Reaction Status Date / Time No Known Allergies Allergy Verified 12/09/17 18:20 - Medications Medications: Current Medications Clonidine HCl (Catapres-Tts3 0.3 Mg/24 Hr) 1 patch TD Q7D [facility] Last Admin: 12/09/17 20:59 Dose: 1 patch Diphenhydramine HCl (Benadryl) 25 mg IVP HS PRN PRN Reason: Insomnia Enalapril Maleate (Vasotec) 10 mg GT BID PRN PRN Reason: FOR SBP > 160/90 Enoxaparin Sodium (Lovenox) 45 mg SC Q12 [facility] PRN Reason: Protocol Last Admin: 12/10/17 08:00 Dose: 45 mg Sodium Chloride (Sodium Chloride 0.9%) 1,000 mls @ 75 mls/hr IV .[id number] [facility] Stop: 12/16/17 20:16 Last Admin: 12/10/17 08:53 Dose: 75 mls/hr Lactic Acid (Lac-Hydrin 12% Cream (140 G)) 2 ea TOP BID [facility] Last Admin: 12/10/17 14:51 Dose: 1 applic Pantoprazole Sodium (Protonix Susp) 40 mg PEG DAILY [facility] Last Admin: 12/10/17 08:00 Dose: 40 mg Vitamin A (Vitamin A&D) 1 applic TP BID [facility] Last Admin: 12/10/17 08:00 Dose: 1 applic Physical Exam - Constitutional Appears: Non-toxic - Head Exam Head Exam: ATRAUMATIC, NORMAL INSPECTION - Eye Exam Eye Exam: EOMI - ENT Exam ENT Exam: Mucous Membranes Moist - Respiratory Exam Respiratory Exam: NORMAL BREATHING PATTERN - Cardiovascular Exam Cardiovascular Exam: Tachycardia (mild) - GI/Abdominal Exam GI & Abdominal Exam: Soft (+PEG). absent: Distended - Extremities Exam Extremities exam: Negative for: calf tenderness - Neurological Exam Neurological exam: Alert, CN II-XII Intact, Oriented x3 - Psychiatric Exam Psychiatric exam: Normal Affect, Normal Mood Results - Vital Signs Recent Vital Signs: Last Vital Signs Temp 98.4 F 12/10/17 07:42 Pulse 69 12/10/17 07:42 Resp 18 12/10/17 07:42 BP 125/56 L 12/10/17 07:42 Pulse Ox 95 12/10/17 07:42 Assessment & Plan - Assessment and Plan (Free Text) Assessment: left shoulder3-/5 right shoulder 1/5 bilateral hands with trace movement and some swelling. will get isotoner gloves and do massage trace movemet in LE as well can get heels off the bed bilaterally. PT/OT to continue to help increase functional independence Team conference for d/c planning Pain: controlled Vascular: no evidence of DVT GI: No evidence of constipation or diarrhea. +PEG. Patient is an excellent acute rehabilitation candidate and will have focused pain management, , PT, OT and recreational therapy to help facilitate a safe and appropriate d/c plan impairment code 04.230
--- NOTE | 2017-12-10 16:42 | PCM.OPOC ---
Physiatry Overall Plan of Care - Overall Plan of Care Estimated Length of Stay in Weeks: 3 Rehab Impairment: Mobility, Gait, Speech, Balance, Coordination Etiologic Diagnosis: Other (SCI) - Anticipated Interventions Physical Therapy:: Yes Occupational Therapy:: Yes Speech Therapy:: Yes Recreational Therapy:: Yes - Therapy Goals Bed Mobility: Minimal Assistance Ambulation: Moderate Assistance Functional Positional Changes:: Minimal Assistance - Discharge Plan Identification of Barriers to Discharge: Home Situation Discharge Destination: Subacute
--- NOTE | 2017-12-10 18:08 | RAD ---
PROCEDURE: Modified barium swallow study. HISTORY: dysphagia COMPARISON: None available. TECHNIQUE: Under fluoroscopic guidance, barium meals of various consistency were administered to the patient by the speech pathologist. 119 seconds of fluoro time was utilized with a total DLP dose of 7.12 mGy. FINDINGS: A significant improvement in cervical prevertebral postoperative edema was encountered parotid initiating the examination. A [id number] oral delay was encountered. No penetration or aspiration was observed during this study. IMPRESSION: No penetration or aspiration observed. Please refer to the detailed report and recommendations of the speech pathologist.
[2017-12-10] MEDS: Artificial Tears Opht Soln OU PRN (22:22)
[2017-12-11] MEDS: Pantoprazole 40 mg Susp UD PEG SCH (08:19)
[2017-12-11] MEDS: Vitamin A/D oint 60G TP SCH ×2 (08:19→16:48)
[2017-12-11] MEDS: Enoxaparin 60 mg Syringe SC SCH ×2 (08:20→20:43)
[2017-12-11] MEDS: Ammonium Lactate 12% Cream (140 g) TOP SCH ×2 (08:20→16:48)
[2017-12-11 08:23] LABS: HEMOGLOBIN 8.7 g/dL (12.0-18.0); MEAN CELL VOLUME 87.2 fl (80.0-94.0); MEAN CORPUSCULAR HEMOGLOBIN 29.3 pg (27.0-31.0); MEAN CORPUSCULAR HGB CONC 33.6 g/dL (33.0-37.0); RBC 2.98 Mil/uL (4.40-5.90); RED CELL DISTRIBUTION WIDTH 13.8 % (11.5-14.5)
[2017-12-11 08:37] LABS: BLOOD UREA NITROGEN 15 mg/dl (9-20); CALCIUM 8.1 mg/dL (8.4-10.2); GFR AFRICAN-AMERICAN > 60; GFR NON-AFRICAN AMERICAN > 60
[2017-12-11] MEDS: Sodium Chloride 0.9% 1,000 ML IV SCH (14:25)
[2017-12-11] MEDS: Artificial Tears Opht Soln OU PRN (14:59)
[2017-12-12] MEDS: Sodium Chloride 0.9% 1,000 ML IV SCH ×2 (04:08→17:42)
[2017-12-12] MEDS: Vitamin A/D oint 60G TP SCH ×2 (09:13→17:11)
[2017-12-12] MEDS: Enoxaparin 60 mg Syringe SC SCH ×2 (09:13→21:26)
[2017-12-12] MEDS: Ammonium Lactate 12% Cream (140 g) TOP SCH ×2 (09:13→17:09)
[2017-12-12] MEDS: Ferrous Sulfate 300 mg/5 mL Liq UD GT SCH (09:14)
[2017-12-12] MEDS: Pantoprazole 40 mg Susp UD PEG SCH (09:15)
[2017-12-12] MEDS: CYANOCOBALAMIN 500 MCG TAB PO SCH (09:15)
[2017-12-12 13:51] VITALS: BMI 19.4
[2017-12-12] MEDS: Artificial Tears Opht Soln OU PRN (17:09)
--- NOTE | 2017-12-12 22:48 | CP.PCM.PN ---
Subjective - Date & Time of Evaluation Date of Evaluation: 12/11/17 Time of Evaluation: 15:00 - Subjective Subjective: patient has shown good improvement. Tolerates current food consistency Able to raise upper ext but still remains weak. Objective - Vital Signs/Intake and Output Vital Signs (last 24 hours): Temp Pulse Resp BP Pulse Ox 98.1 F 72 20 132/66 100 12/12/17 20:38 12/12/17 20:38 12/12/17 20:38 12/12/17 20:38 12/12/17 20:38 Intake and Output: 12/12/17 12/13/17 18:59 06:59 Intake Total 4180 Output Total 2780 Balance 1400 - Medications Medications: Current Medications Artificial Tears (Artificial Tears) 2 drop OU Q2 PRN PRN Reason: Dry eyes Last Admin: 12/12/17 17:09 Dose: 2 drop Clonidine HCl (Catapres-Tts3 0.3 Mg/24 Hr) 1 patch TD Q7D [facility] Last Admin: 12/09/17 20:59 Dose: 1 patch Cyanocobalamin (Vitamin B12) 250 mcg PO DAILY [facility] Last Admin: 12/12/17 09:15 Dose: 250 mcg Diphenhydramine HCl (Benadryl) 25 mg IVP HS PRN PRN Reason: Insomnia Enalapril Maleate (Vasotec) 10 mg GT BID PRN PRN Reason: FOR SBP > 160/90 Enoxaparin Sodium (Lovenox) 45 mg SC Q12 DAILY PRN Reason: Protocol Last Admin: 12/12/17 21:26 Dose: 45 mg Ferrous Sulfate (Feosol Liq) 300 mg GT DAILY [facility] Last Admin: 12/12/17 09:14 Dose: 300 mg Sodium Chloride (Sodium Chloride 0.9%) 1,000 mls @ 75 mls/hr IV .[id number] [facility] Stop: 12/16/17 20:16 Last Admin: 12/12/17 17:42 Dose: 75 mls/hr Lactic Acid (Lac-Hydrin 12% Cream (140 G)) 2 ea TOP BID [facility] Last Admin: 12/12/17 17:09 Dose: 1 applic Nicotine (Nicoderm Cq) 1 patch TD DAILY [facility] Last Admin: 12/12/17 09:14 Dose: 1 patch Pantoprazole Sodium (Protonix Susp) 40 mg PEG DAILY [facility] Last Admin: 12/12/17 09:15 Dose: 40 mg Vitamin A (Vitamin A&D) 1 applic TP BID [facility] Last Admin: 12/12/17 17:11 Dose: 1 applic - Labs Labs: 12/11/17 08:03 12/11/17 08:03
--- NOTE | 2017-12-12 22:49 | CP.PCM.PN ---
Subjective - Date & Time of Evaluation Date of Evaluation: 12/12/17 Time of Evaluation: 15:30 - Subjective Subjective: Patient remains stable Has no chest pain or SOB. Objective - Vital Signs/Intake and Output Vital Signs (last 24 hours): Temp Pulse Resp BP Pulse Ox 98.1 F 72 20 132/66 100 12/12/17 20:38 12/12/17 20:38 12/12/17 20:38 12/12/17 20:38 12/12/17 20:38 Intake and Output: 12/12/17 12/13/17 18:59 06:59 Intake Total 4180 Output Total 2780 Balance 1400 - Medications Medications: Current Medications Artificial Tears (Artificial Tears) 2 drop OU Q2 PRN PRN Reason: Dry eyes Last Admin: 12/12/17 17:09 Dose: 2 drop Clonidine HCl (Catapres-Tts3 0.3 Mg/24 Hr) 1 patch TD Q7D [facility] Last Admin: 12/09/17 20:59 Dose: 1 patch Cyanocobalamin (Vitamin B12) 250 mcg PO DAILY [facility] Last Admin: 12/12/17 09:15 Dose: 250 mcg Diphenhydramine HCl (Benadryl) 25 mg IVP HS PRN PRN Reason: Insomnia Enalapril Maleate (Vasotec) 10 mg GT BID PRN PRN Reason: FOR SBP > 160/90 Enoxaparin Sodium (Lovenox) 45 mg SC Q12 DAILY PRN Reason: Protocol Last Admin: 12/12/17 21:26 Dose: 45 mg Ferrous Sulfate (Feosol Liq) 300 mg GT DAILY [facility] Last Admin: 12/12/17 09:14 Dose: 300 mg Sodium Chloride (Sodium Chloride 0.9%) 1,000 mls @ 75 mls/hr IV .[id number] [facility] Stop: 12/16/17 20:16 Last Admin: 12/12/17 17:42 Dose: 75 mls/hr Lactic Acid (Lac-Hydrin 12% Cream (140 G)) 2 ea TOP BID [facility] Last Admin: 12/12/17 17:09 Dose: 1 applic Nicotine (Nicoderm Cq) 1 patch TD DAILY [facility] Last Admin: 12/12/17 09:14 Dose: 1 patch Pantoprazole Sodium (Protonix Susp) 40 mg PEG DAILY [facility] Last Admin: 12/12/17 09:15 Dose: 40 mg Vitamin A (Vitamin A&D) 1 applic TP BID DAILY Last Admin: 12/12/17 17:11 Dose: 1 applic - Labs Labs: 12/11/17 08:03 12/11/17 08:03
[2017-12-13] MEDS: Sodium Chloride 0.9% 1,000 ML IV SCH ×2 (04:24→17:05)
[2017-12-13] MEDS: Artificial Tears Opht Soln OU PRN ×2 (08:32→21:31)
[2017-12-13] MEDS: Enoxaparin 60 mg Syringe SC SCH ×2 (08:33→21:30)
[2017-12-13] MEDS: Vitamin A/D oint 60G TP SCH ×2 (08:33→17:25)
[2017-12-13] MEDS: CYANOCOBALAMIN 500 MCG TAB PO SCH (08:34)
[2017-12-13] MEDS: Ammonium Lactate 12% Cream (140 g) TOP SCH ×2 (08:34→17:25)
[2017-12-13] MEDS: Pantoprazole 40 mg Susp UD PEG SCH (08:35)
[2017-12-13] MEDS: Ferrous Sulfate 300 mg/5 mL Liq UD GT SCH (08:36)
[2017-12-14 06:10] LABS: HEMOGLOBIN 8.9 g/dL (12.0-18.0); MEAN CELL VOLUME 87.9 fl (80.0-94.0); MEAN CORPUSCULAR HEMOGLOBIN 29.3 pg (27.0-31.0); MEAN CORPUSCULAR HGB CONC 33.3 g/dL (33.0-37.0); RBC 3.05 Mil/uL (4.40-5.90); RED CELL DISTRIBUTION WIDTH 13.5 % (11.5-14.5); WHITE BLOOD COUNT 5.8 K/uL (4.8-10.8)
[2017-12-14 06:23] LABS: BLOOD UREA NITROGEN 10 mg/dl (9-20); CALCIUM 8.5 mg/dL (8.4-10.2); GFR AFRICAN-AMERICAN > 60; GFR NON-AFRICAN AMERICAN > 60
[2017-12-14] MEDS: Sodium Chloride 0.9% 1,000 ML IV SCH ×3 (06:33→20:18)
[2017-12-14] MEDS: Artificial Tears Opht Soln OU PRN (09:07)
[2017-12-14] MEDS: Vitamin A/D oint 60G TP SCH ×2 (09:08→17:44)
[2017-12-14] MEDS: Ammonium Lactate 12% Cream (140 g) TOP SCH ×2 (09:08→17:44)
[2017-12-14] MEDS: Enoxaparin 60 mg Syringe SC SCH ×2 (09:08→21:12)
[2017-12-14] MEDS: Pantoprazole 40 mg Susp UD PEG SCH (09:09)
[2017-12-14] MEDS: Ferrous Sulfate 300 mg/5 mL Liq UD GT SCH (09:09)
[2017-12-14] MEDS: CYANOCOBALAMIN 500 MCG TAB PO SCH (09:10)
--- NOTE | 2017-12-14 12:19 | CP.PCM.PN ---
Subjective - Date & Time of Evaluation Date of Evaluation: 12/14/17 Time of Evaluation: 10:00 - Subjective Subjective: Patient seen and examined with attending-Dr. Dolan. Patient in PT area, alert, awake, cooperative with PT, was able to perform standing exercises with assistance from 2 PT staff members. Tolerating soft PO diet and nectar thick liquids. Objective - Vital Signs/Intake and Output Vital Signs (last 24 hours): Temp Pulse Resp BP Pulse Ox 97.7 F 61 20 145/66 99 12/14/17 09:00 12/14/17 09:00 12/14/17 09:00 12/14/17 09:00 12/13/17 20:22 Intake and Output: 12/14/17 12/14/17 06:59 18:59 Intake Total 2120 Output Total 1800 Balance 320 - Medications Medications: Current Medications Artificial Tears (Artificial Tears) 2 drop OU Q2 PRN PRN Reason: Dry eyes Last Admin: 12/14/17 09:07 Dose: 2 drop Clonidine HCl (Catapres-Tts3 0.3 Mg/24 Hr) 1 patch TD Q7D [facility] Last Admin: 12/09/17 20:59 Dose: 1 patch Cyanocobalamin (Vitamin B12) 250 mcg PO DAILY [facility] Last Admin: 12/14/17 09:10 Dose: 250 mcg Diphenhydramine HCl (Benadryl) 25 mg IVP HS PRN PRN Reason: Insomnia Enalapril Maleate (Vasotec) 10 mg GT BID PRN PRN Reason: FOR SBP > 160/90 Enoxaparin Sodium (Lovenox) 45 mg SC Q12 DAILY PRN Reason: Protocol Last Admin: 12/14/17 09:08 Dose: 45 mg Ferrous Sulfate (Feosol Liq) 300 mg GT DAILY [facility] Last Admin: 12/14/17 09:09 Dose: 300 mg Sodium Chloride (Sodium Chloride 0.9%) 1,000 mls @ 75 mls/hr IV .[id number] [facility] Stop: 12/16/17 20:16 Last Admin: 12/14/17 06:33 Dose: 75 mls/hr Lactic Acid (Lac-Hydrin 12% Cream (140 G)) 2 ea TOP BID [facility] Last Admin: 12/14/17 09:08 Dose: 1 applic Nicotine (Nicoderm Cq) 1 patch TD DAILY [facility] Last Admin: 12/14/17 09:09 Dose: 1 patch Pantoprazole Sodium (Protonix Susp) 40 mg PEG DAILY [facility] Last Admin: 12/14/17 09:09 Dose: 40 mg Vitamin A (Vitamin A&D) 1 applic TP BID [facility] Last Admin: 12/14/17 09:08 Dose: 1 applic - Labs Labs: 12/14/17 05:30 12/14/17 05:30 - Constitutional Appears: No Acute Distress - Head Exam Head Exam: ATRAUMATIC, NORMOCEPHALIC - Eye Exam Eye Exam: EOMI - ENT Exam ENT Exam: Mucous Membranes Moist - Neck Exam Additional comments: in soft neck brace - Respiratory Exam Respiratory Exam: NORMAL BREATHING PATTERN - Cardiovascular Exam Cardiovascular Exam: REGULAR RHYTHM, +S1, +S2 - GI/Abdominal Exam GI & Abdominal Exam: Soft, Normal Bowel Sounds. absent: Tenderness Additional comments: PEJ tube in place, no discharge, no erythema - Extremities Exam Additional comments: strength 3/5 in bilateral lower and upper extremities - Neurological Exam Neurological Exam: Alert, Awake, CN II-XII Intact, Oriented x3 - Psychiatric Exam Psychiatric exam: Normal Affect, Normal Mood - Skin Skin Exam: Dry, Normal Color, Warm Assessment and Plan - Assessment and Plan (Free Text) Assessment: 72 yr old M admitted to acute rehab on POD # 27 s/p C4 cordectomy and C3-4 spinal fusion with instrumentation/cervical decompression secondary to posttraumatic cervical myelopathy with quadriparesis and POD# 8 s/p PEJ placement. Patient is participating in daily PT/OT. 1. Cord compression syndrome -secondary to posttraumatic cervical myelopathy with quadriparesis -s/p C4 cordectomy and C3-4 spinal fusion with instrumentation POD # 27 cervical decompression -Continue physical and occupational therapy, out of bed to chair 2. Dysphagia -secondary to cervical spine trauma and quadriparesis -patient is POD # 8 s/p PEJ placement -continuous PEJ feeds, today patient passed repeat video swallow evaluation -additional nutrition with PO pureed diet, nectar thick fluids, will do calorie count and d/c TPN if patient can tolerate PO diet well -Pantoprazole 40mg PEG QD 3. Acute superficial venous thrombus of left cephalic vein -stable, patient s/p therapeutic Lovenox treatment 4. DVT prophylaxis -Lovenox 45mg SC Q12
--- NOTE | 2017-12-14 13:07 | PSY.TMCNF ---
Nursing - Vital Signs Vital Signs (Last 8 hours): Vital Signs 12/14/17 09:00 Temperature 97.7 F Pulse Rate 61 Respiratory 20 Rate Blood Pressure 145/66 Pain: 0 - Precautions: Precautions: Fall Prevention, Aspiration, Pressure Ulcer - Medications/Other Issues Comment: Pt at high nutritional risk. goals: 1. Tube feeding to meet at least 75% of nutrient needs - MET, continue. 2. PT to consume at least 50% meals without s/s aspiration or GI upset x 3-5 days (met, continue). Follow-up due on 12/19/2017 - Consults Comment: Dr. Spencer - Skin Incision Site: anterior cervical Incision: Healing Well, Sutures Intact Incision Line Treatment: HARRIET - Bladder Management Bladder Pattern: Retention Voiding Method: Indwelling Catheter Bladder Management: Dependent Frequency of Accidents: 0 - Bowel Management Bowel Pattern: Incontinent Bowel Management: Dependent Frequency of Accidents: >5 - Transfers Transfers: Dependent - ADL's ADL's: Dependent - Patient/Family Teaching Comments: Care post SCI , aspiration precautions, Skin care and safety precautions - Goals/Time Frame Comments: Per multidisciplinaty care plan and goals - Provider Provider: Torri MOHRN RN CRRN Physical Therapy - Bed Mobility Bed Mobility: Verbal Cues, Maximum Assistance - Transfers Wheelchair to Mat: Verbal Cues, Maximum Assistance Sit to Stand: Verbal Cues, Maximum Assistance Comment: lateral t/f mod/max. SPT max A/dep. pull to stand max A in // bars. Pt is currently unable to propel w/c secondary to sensorimotor deficits BUE, laine hands - Ambulation Level of Assistance: Dependent - Stair Negotiation Stairs: Level of Assistance: Not Tested Stairs: Assistive Devices: Francisco walker - Standing Balance Static Stand: Moderate Assistance Dynamic Stand: Maximal Assistance, Dependent - Pain Pain (assessed during therapy session): 0 - Insight/Carryover Insight/Carryover: Fair - Patient/Family Education Comment: -educated on OT/rehab goals/program. -adls/transfers/mobility training. -BUE management/positioning. -bed/w/c positioning - Assessment/Plan Assessment: Pt is a 72 year old male with dx: C4-C5 spinal cord dysfunction, CVA. *Precautions: w/c and bed alarms/falls, cardiac, cervical collar at all times, B laptray. Pt is limited by impaired BUE/BLES AROM/strength/impaired gross motor function, impaired sitting/standing balance/endurance, impaired sensation BUES/BLES, impaired safety awareness, impaired endurance/activity tolerance---which impact on self care, functional transfers/mobility and Iadls. Pt will continue skilled OT to address functional impairments as needed to maxmize function in self care using adaptive/compensatory strategies/devices. Pt continues to make steady gains in BUE strength/postural control, functional mobility/transfers, feeding. Goal: Min assist and verbal cues overall with adls , transfers/mobility with assistive devices - Goals Timeframe: 10 days Goals: -FEEDING: CS/setup with assistive devices. -TRANSFERS: bed<->w/c<-> commode<->other surfaces with Modertae assist andverbal cues. -BED MOBILITY: supine<->sit with min assist and verbal cues; roll B sides with CS/ Supervision with bedrails. -UPPER BODY DRESSING: Moderate assist and verbal cues. - STATIC SITTING, unsupported: CS/Supervision and verbal cues as needed for adls/ mobility/transfer function. -DYNAMIC SITTING: Min assist and verbal cues for min displacement for adl function. -BUE strength: increase to 1/2 grade throughout to 3-/5 to 3+/5 throughout respectively for improved adls - Provider Therapist: Ana Lucero PT, DPT License Number: [id number] Occupational Therapy - Arousal/Attention/Orientation Patient Orientation: Person, Place, Time, Appropriate to Age, Appropriate to Situation - ADL/IADL Self Feeding: Minimal Assistance, Moderate Assistance Grooming: Verbal Cues, Set-up Help, Maximum Assistance Bathing-Upper Extremity: Dependent Bathing-Lower Extremity: Dependent Dressing-Upper Extremity: Dependent Dressing-Lower Extremity: Dependent - Sitting Balance Static Sitting: Minimal Assistance Dynamic Sitting: Reaches across midline, Reaches within base of support, Minimal Assistance, Moderate Assistance Comment: setaed at edge of bed - Transfers Wheelchair to Bed Transfers: Verbal Cues, Set-up Help, Maximum Assistance Toilet Transfers: Verbal Cues, Set-up Help, Maximum Assistance Comment: shower transfers not assessed - Pain Pain (assessed during therapy session): 0 - Insight/Carryover Insight/Carryover: Fair - Patient/Family Education Comment: -educated on OT/rehab goals/program. -adls/transfers/mobility training. -BUE management/positioning. -bed/w/c positioning - Assessment/Plan Assessment: Pt is a 72 year old male with dx: C4-C5 spinal cord dysfunction, CVA. *Precautions: w/c and bed alarms/falls, cardiac, cervical collar at all times, B laptray. Pt is limited by impaired BUE/BLES AROM/strength/impaired gross motor function, impaired sitting/standing balance/endurance, impaired sensation BUES/BLES, impaired safety awareness, impaired endurance/activity tolerance---which impact on self care, functional transfers/mobility and Iadls. Pt will continue skilled OT to address functional impairments as needed to maxmize function in self care using adaptive/compensatory strategies/devices. Pt continues to make steady gains in BUE strength/postural control, functional mobility/transfers, feeding. Goal: Min assist and verbal cues overall with adls , transfers/mobility with assistive devices - Goals Timeframe: 10 days Goals: -FEEDING: CS/setup with assistive devices. -TRANSFERS: bed<->w/c<-> commode<->other surfaces with Modertae assist andverbal cues. -BED MOBILITY: supine<->sit with min assist and verbal cues; roll B sides with CS/ Supervision with bedrails. -UPPER BODY DRESSING: Moderate assist and verbal cues. - STATIC SITTING, unsupported: CS/Supervision and verbal cues as needed for adls/ mobility/transfer function. -DYNAMIC SITTING: Min assist and verbal cues for min displacement for adl function. -BUE strength: increase to 1/2 grade throughout to 3-/5 to 3+/5 throughout respectively for improved adls - Provider Therapist: Tatyana Rudd OTR/L License Number: [id number] Speech Therapy - Consult Information Patient on Program: Yes Medical Diagnosis: cervical cord compression s/p C3-C5 ACDF Treatment Diagnosis: -mild-moderate cognitive linguistic deficits. -moderate voice disorder. -moderate pharyngeal dysphagia - Assessment Problem Solving Impairment: Mild Memory Impairment: Mild Speech/Articulation Impairment: Moderate Comment: voice deficits Dysphagia/Swallowing Impairment: Moderate - Plan Assessment: Pt is a 72 year old male with dx: C4-C5 spinal cord dysfunction, CVA. *Precautions: w/c and bed alarms/falls, cardiac, cervical collar at all times, B laptray. Pt is limited by impaired BUE/BLES AROM/strength/impaired gross motor function, impaired sitting/standing balance/endurance, impaired sensation BUES/BLES, impaired safety awareness, impaired endurance/activity tolerance---which impact on self care, functional transfers/mobility and Iadls. Pt will continue skilled OT to address functional impairments as needed to maxmize function in self care using adaptive/compensatory strategies/devices. Pt continues to make steady gains in BUE strength/postural control, functional mobility/transfers, feeding. Goal: Min assist and verbal cues overall with adls , transfers/mobility with assistive devices - Provider Therapist: Sahra Yuen License Number: [id number] Recreational Therapy - Participation Participation: Participates in Individual and/or Group Sessions - Attendance Attendance: Daily - Activities Leisure Activities: Television - Socialization Level of Socialization: Initiates/interacts freely with care givers and peer - Diversional Time Diversional Time: television - Assessment Assessment/Plan: Pt is a 72 year old male with dx: C4-C5 spinal cord dysfunction , CVA. *Precautions: w/c and bed alarms/falls, cardiac, cervical collar at all times, B laptray. Pt is limited by impaired BUE/BLES AROM/strength/impaired gross motor function, impaired sitting/standing balance/endurance, impaired sensation BUES/BLES, impaired safety awareness, impaired endurance/activity tolerance---which impact on self care, functional transfers/mobility and Iadls. Pt will continue skilled OT to address functional impairments as needed to maxmize function in self care using adaptive/compensatory strategies/devices. Pt continues to make steady gains in BUE strength/postural control, functional mobility/transfers, feeding. Goal: Min assist and verbal cues overall with adls , transfers/mobility with assistive devices - Provider Therapist: Vickie Ogden, [employer] MONITOR #[id number] Nutrition - Current Diet Current Diet/ Supplement/ Feedings: pureed nectar thick liquids heart healthy diet. Jevity 1.2 40 ml/hr via Jejunostomy tube continous from 8 PM to 6 AM. 200 ml water flush every 6 hours hours 0600, 1200,1800, 0000. - Appetite Percent Meal Consumed: 75-100% - Comments Comments: Care post SCI , aspiration precautions, Skin care and safety precautions - Assessment/Goals/Time Frame Assessment/Goals/Time Frame: Pt at high nutritional risk. goals: 1. Tube feeding to meet at least 75% of nutrient needs - MET, continue. 2. PT to consume at least 50% meals without s/s aspiration or GI upset x 3-5 days (met, continue). Follow-up due on 12/19/2017 - Provider Provider: Muriel Melgar RD Case Management - Discharge Plan Discharge Plan: Subacute care Rehabilitation Plan - Discharge Plan Estimated Date of Discharge: 01/14/18 Discharge to: Subacute
--- NOTE | 2017-12-14 13:29 | CP.PCM.PN ---
Subjective - Date & Time of Evaluation Date of Evaluation: 12/14/17 Time of Evaluation: 13:28 - Subjective Subjective: Patient seen in room in good spirits denies sob/cp or fever minimal gains in strength but some functional improvements continue current care Objective - Vital Signs/Intake and Output Vital Signs (last 24 hours): Temp Pulse Resp BP Pulse Ox 97.7 F 61 20 145/66 99 12/14/17 09:00 12/14/17 09:00 12/14/17 09:00 12/14/17 09:00 12/13/17 20:22 Intake and Output: 12/14/17 12/14/17 06:59 18:59 Intake Total 2120 Output Total 1800 Balance 320 - Medications Medications: Current Medications Artificial Tears (Artificial Tears) 2 drop OU Q2 PRN PRN Reason: Dry eyes Last Admin: 12/14/17 09:07 Dose: 2 drop Clonidine HCl (Catapres-Tts3 0.3 Mg/24 Hr) 1 patch TD Q7D [facility] Last Admin: 12/09/17 20:59 Dose: 1 patch Cyanocobalamin (Vitamin B12) 250 mcg PO DAILY [facility] Last Admin: 12/14/17 09:10 Dose: 250 mcg Diphenhydramine HCl (Benadryl) 25 mg IVP HS PRN PRN Reason: Insomnia Enalapril Maleate (Vasotec) 10 mg GT BID PRN PRN Reason: FOR SBP > 160/90 Enoxaparin Sodium (Lovenox) 45 mg SC Q12 DAILY PRN Reason: Protocol Last Admin: 12/14/17 09:08 Dose: 45 mg Ferrous Sulfate (Feosol Liq) 300 mg GT DAILY [facility] Last Admin: 12/14/17 09:09 Dose: 300 mg Sodium Chloride (Sodium Chloride 0.9%) 1,000 mls @ 75 mls/hr IV .[id number] [facility] Stop: 12/16/17 20:16 Last Admin: 12/14/17 06:33 Dose: 75 mls/hr Lactic Acid (Lac-Hydrin 12% Cream (140 G)) 2 ea TOP BID [facility] Last Admin: 12/14/17 09:08 Dose: 1 applic Nicotine (Nicoderm Cq) 1 patch TD DAILY [facility] Last Admin: 12/14/17 09:09 Dose: 1 patch Pantoprazole Sodium (Protonix Susp) 40 mg PEG DAILY [facility] Last Admin: 12/14/17 09:09 Dose: 40 mg Vitamin A (Vitamin A&D) 1 applic TP BID [facility] Last Admin: 12/14/17 09:08 Dose: 1 applic - Labs Labs: 12/14/17 05:30 12/14/17 05:30
[2017-12-15] MEDS: Ammonium Lactate 12% Cream (140 g) TOP SCH ×2 (08:26→16:44)
[2017-12-15] MEDS: Enoxaparin 60 mg Syringe SC SCH ×2 (08:26→21:51)
[2017-12-15] MEDS: Pantoprazole 40 mg Susp UD PEG SCH (08:27)
[2017-12-15] MEDS: CYANOCOBALAMIN 500 MCG TAB PO SCH (08:27)
[2017-12-15] MEDS: Vitamin A/D oint 60G TP SCH ×2 (08:27→16:43)
[2017-12-15] MEDS: Ferrous Sulfate 300 mg/5 mL Liq UD GT SCH (08:28)
--- NOTE | 2017-12-15 14:47 | CP.PCM.PN ---
Subjective - Date & Time of Evaluation Date of Evaluation: 12/15/17 Time of Evaluation: 10:15 - Subjective Subjective: Patient seen and examined at bedside with attending-Dr. Dolan. Awake, alert, cooperative with exam. Denies chest pain, SOB, dizziness, nausea or vomiting. Objective - Vital Signs/Intake and Output Vital Signs (last 24 hours): Temp Pulse Resp BP Pulse Ox 97.5 F L 55 L 19 148/55 L 98 12/15/17 08:38 12/15/17 08:38 12/15/17 08:38 12/15/17 08:38 12/15/17 08:38 Intake and Output: 12/15/17 12/15/17 06:59 18:59 Intake Total 1700 Output Total 2000 Balance -300 - Medications Medications: Current Medications Artificial Tears (Artificial Tears) 2 drop OU Q2 PRN PRN Reason: Dry eyes Last Admin: 12/14/17 09:07 Dose: 2 drop Clonidine HCl (Catapres-Tts3 0.3 Mg/24 Hr) 1 patch TD Q7D [facility] Last Admin: 12/09/17 20:59 Dose: 1 patch Cyanocobalamin (Vitamin B12) 250 mcg PO DAILY [facility] Last Admin: 12/15/17 08:27 Dose: 250 mcg Diphenhydramine HCl (Benadryl) 25 mg IVP HS PRN PRN Reason: Insomnia Enalapril Maleate (Vasotec) 10 mg GT BID PRN PRN Reason: FOR SBP > 160/90 Enoxaparin Sodium (Lovenox) 45 mg SC Q12 DAILY PRN Reason: Protocol Last Admin: 12/15/17 08:26 Dose: 45 mg Ferrous Sulfate (Feosol Liq) 300 mg GT DAILY [facility] Last Admin: 12/15/17 08:28 Dose: 300 mg Sodium Chloride (Sodium Chloride 0.9%) 1,000 mls @ 75 mls/hr IV .[id number] [facility] Stop: 12/16/17 20:16 Last Admin: 12/14/17 20:18 Dose: Not Given Lactic Acid (Lac-Hydrin 12% Cream (140 G)) 2 ea TOP BID [facility] Last Admin: 12/15/17 08:26 Dose: 1 applic Nicotine (Nicoderm Cq) 1 patch TD DAILY [facility] Last Admin: 12/15/17 08:27 Dose: 1 patch Pantoprazole Sodium (Protonix Susp) 40 mg PEG DAILY [facility] Last Admin: 12/15/17 08:27 Dose: 40 mg Vitamin A (Vitamin A&D) 1 applic TP BID [facility] Last Admin: 12/15/17 08:27 Dose: 1 applic - Labs Labs: 12/14/17 05:30 12/14/17 05:30 - Constitutional Appears: No Acute Distress - Head Exam Head Exam: ATRAUMATIC, NORMOCEPHALIC - Eye Exam Eye Exam: EOMI - ENT Exam ENT Exam: Mucous Membranes Moist - Neck Exam Additional comments: in soft neck brace - Respiratory Exam Respiratory Exam: NORMAL BREATHING PATTERN - Cardiovascular Exam Cardiovascular Exam: REGULAR RHYTHM, +S1, +S2 - GI/Abdominal Exam GI & Abdominal Exam: Soft, Normal Bowel Sounds Additional comments: no discharge or tenderness surrounding PEJ tube - Extremities Exam Extremities Exam: absent: Pedal Edema Additional comments: bilaterally upper and lower extremity strength 3/5 - Neurological Exam Neurological Exam: Alert, Awake, Oriented x3 - Psychiatric Exam Psychiatric exam: Normal Affect, Normal Mood - Skin Skin Exam: Dry, Warm Assessment and Plan - Assessment and Plan (Free Text) Assessment: 72 yr old M admitted to acute rehab on POD # 28 s/p C4 cordectomy and C3-4 spinal fusion with instrumentation/cervical decompression 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 Patient is participating in daily PT/OT. 1. Cord compression syndrome -secondary to posttraumatic cervical myelopathy with quadriparesis -s/p C4 cordectomy and C3-4 spinal fusion with instrumentation, cervical decompression -Continue physical and occupational therapy, out of bed to chair 2. Dysphagia -secondary to cervical spine trauma and quadriparesis -patient is s/p PEJ placement -continuous PEJ feeds, today patient passed repeat video swallow evaluation -additional nutrition with PO pureed diet, nectar thick fluids, will do calorie count and repeat swallow e-vals in a few days -Pantoprazole 40mg PEG QD 3. Acute superficial venous thrombus of left cephalic vein -stable, patient s/p therapeutic Lovenox treatment 4. DVT prophylaxis -Lovenox 45mg SC Q12
--- NOTE | 2017-12-15 16:07 | CP.PCM.PN ---
Subjective - Date & Time of Evaluation Date of Evaluation: 12/15/17 Time of Evaluation: 16:06 - Subjective Subjective: Patient is doing nicely and has improved standing endurance and skill pain is controlled making daily gains excellent acute rehab candidate Objective - Vital Signs/Intake and Output Vital Signs (last 24 hours): Temp Pulse Resp BP Pulse Ox 97.5 F L 55 L 19 148/55 L 98 12/15/17 08:38 12/15/17 08:38 12/15/17 08:38 12/15/17 08:38 12/15/17 08:38 Intake and Output: 12/15/17 12/15/17 06:59 18:59 Intake Total 1700 Output Total 2000 Balance -300 - Medications Medications: Current Medications Artificial Tears (Artificial Tears) 2 drop OU Q2 PRN PRN Reason: Dry eyes Last Admin: 12/14/17 09:07 Dose: 2 drop Clonidine HCl (Catapres-Tts3 0.3 Mg/24 Hr) 1 patch TD Q7D [facility] Last Admin: 12/09/17 20:59 Dose: 1 patch Cyanocobalamin (Vitamin B12) 250 mcg PO DAILY [facility] Last Admin: 12/15/17 08:27 Dose: 250 mcg Diphenhydramine HCl (Benadryl) 25 mg IVP HS PRN PRN Reason: Insomnia Enalapril Maleate (Vasotec) 10 mg GT BID PRN PRN Reason: FOR SBP > 160/90 Enoxaparin Sodium (Lovenox) 45 mg SC Q12 DAILY PRN Reason: Protocol Last Admin: 12/15/17 08:26 Dose: 45 mg Ferrous Sulfate (Feosol Liq) 300 mg GT DAILY [facility] Last Admin: 12/15/17 08:28 Dose: 300 mg Sodium Chloride (Sodium Chloride 0.9%) 1,000 mls @ 75 mls/hr IV .[id number] [facility] Stop: 12/16/17 20:16 Last Admin: 12/14/17 20:18 Dose: Not Given Lactic Acid (Lac-Hydrin 12% Cream (140 G)) 2 ea TOP BID [facility] Last Admin: 12/15/17 08:26 Dose: 1 applic Nicotine (Nicoderm Cq) 1 patch TD DAILY [facility] Last Admin: 12/15/17 08:27 Dose: 1 patch Pantoprazole Sodium (Protonix Susp) 40 mg PEG DAILY [facility] Last Admin: 12/15/17 08:27 Dose: 40 mg Vitamin A (Vitamin A&D) 1 applic TP BID [facility] Last Admin: 12/15/17 08:27 Dose: 1 applic - Labs Labs: 12/14/17 05:30 12/14/17 05:30
[2017-12-15] MEDS: Sodium Chloride 0.9% 1,000 ML IV SCH (16:40)
[2017-12-16] MEDS: Sodium Chloride 0.9% 1,000 ML IV SCH ×2 (00:33→10:53)
[2017-12-16] MEDS: Enoxaparin 60 mg Syringe SC SCH ×2 (08:32→21:35)
[2017-12-16] MEDS: Ferrous Sulfate 300 mg/5 mL Liq UD GT SCH (08:32)
[2017-12-16] MEDS: Ammonium Lactate 12% Cream (140 g) TOP SCH ×2 (08:33→16:49)
[2017-12-16] MEDS: Pantoprazole 40 mg Susp UD PEG SCH (08:34)
[2017-12-16] MEDS: CYANOCOBALAMIN 500 MCG TAB PO SCH (08:36)
[2017-12-16] MEDS: Vitamin A/D oint 60G TP SCH ×2 (08:58→16:49)
[2017-12-16] MEDS ORDERED: Vitamins A & D Oint UD Foilpak TOP SCH (09:00)
--- NOTE | 2017-12-16 15:17 | CP.PCM.PN ---
Subjective - Date & Time of Evaluation Date of Evaluation: 12/16/17 Time of Evaluation: 10:47 - Subjective Subjective: Patient seen and examined at bedside with attending- Dr. Dolan. Awake and alert. Reports he feels more tired today but will do PT. Has minimal appetite. Denies chest pain, SOB or dizziness. Objective - Vital Signs/Intake and Output Vital Signs (last 24 hours): Temp Pulse Resp BP Pulse Ox 97.3 F L 78 21 157/72 H 96 12/16/17 09:09 12/16/17 09:09 12/16/17 09:09 12/16/17 09:09 12/16/17 09:09 Intake and Output: 12/16/17 12/16/17 06:59 18:59 Intake Total 1700 Output Total 2700 Balance -1000 - Medications Medications: Current Medications Artificial Tears (Artificial Tears) 2 drop OU Q2 PRN PRN Reason: Dry eyes Last Admin: 12/14/17 09:07 Dose: 2 drop Clonidine HCl (Catapres-Tts3 0.3 Mg/24 Hr) 1 patch TD Q7D [facility] Last Admin: 12/09/17 20:59 Dose: 1 patch Cyanocobalamin (Vitamin B12) 250 mcg PO DAILY [facility] Last Admin: 12/16/17 08:36 Dose: 250 mcg Diphenhydramine HCl (Benadryl) 25 mg IVP HS PRN PRN Reason: Insomnia Enalapril Maleate (Vasotec) 10 mg GT BID PRN PRN Reason: FOR SBP > 160/90 Enoxaparin Sodium (Lovenox) 45 mg SC Q12 DAILY PRN Reason: Protocol Last Admin: 12/16/17 08:32 Dose: 45 mg Ferrous Sulfate (Feosol Liq) 300 mg GT DAILY [facility] Last Admin: 12/16/17 08:32 Dose: 300 mg Sodium Chloride (Sodium Chloride 0.9%) 1,000 mls @ 75 mls/hr IV .[id number] [facility] Stop: 12/17/17 10:47 Last Admin: 12/16/17 10:53 Dose: Not Given Lactic Acid (Lac-Hydrin 12% Cream (140 G)) 2 ea TOP BID [facility] Last Admin: 12/16/17 08:33 Dose: 1 applic Nicotine (Nicoderm Cq) 1 patch TD DAILY [facility] Last Admin: 12/16/17 08:33 Dose: 1 patch Pantoprazole Sodium (Protonix Susp) 40 mg PEG DAILY [facility] Last Admin: 12/16/17 08:34 Dose: 40 mg Vitamin A (Vitamin A&D) 1 applic TP BID [facility] Last Admin: 12/16/17 08:58 Dose: 1 applic - Labs Labs: 12/14/17 05:30 12/14/17 05:30 - Constitutional Appears: No Acute Distress, Cachectic - Head Exam Head Exam: ATRAUMATIC, NORMOCEPHALIC - Eye Exam Eye Exam: EOMI - ENT Exam ENT Exam: Mucous Membranes Moist - Neck Exam Additional comments: in soft neck brace - Respiratory Exam Respiratory Exam: NORMAL BREATHING PATTERN - Cardiovascular Exam Cardiovascular Exam: REGULAR RHYTHM, +S1, +S2 - GI/Abdominal Exam GI & Abdominal Exam: Soft, Normal Bowel Sounds Additional comments: PEJ tube in place, no discharge or erythema - Extremities Exam Extremities Exam: absent: Pedal Edema Additional comments: BL upper and lower extremity strength 3/5 - Neurological Exam Neurological Exam: Alert, Awake, Oriented x3 - Psychiatric Exam Psychiatric exam: Normal Affect, Normal Mood - Skin Skin Exam: Dry, Warm Assessment and Plan - Assessment and Plan (Free Text) Assessment: 72 yr old M admitted to acute rehab on POD # 29 s/p C4 cordectomy and C3-4 spinal fusion with instrumentation/cervical decompression 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 Patient was more fatigued today but participated in PT/OT. 1. Cord compression syndrome -secondary to posttraumatic cervical myelopathy with quadriparesis -s/p C4 cordectomy and C3-4 spinal fusion with instrumentation, cervical decompression -Continue physical and occupational therapy, out of bed to chair 2. Dysphagia -secondary to cervical spine trauma and quadriparesis -patient is s/p PEJ placement -continuous PEJ feeds, patient passed repeat video swallow evaluation -additional nutrition with PO pureed diet, nectar thick fluids, will do calorie count and repeat swallow e-vals at later time -Pantoprazole 40mg PEG QD 3. Acute superficial venous thrombus of left cephalic vein -stable, patient s/p therapeutic Lovenox treatment 4. DVT prophylaxis -Lovenox 45mg SC Q12
--- NOTE | 2017-12-16 16:50 | CP.PCM.PN ---
Subjective - Date & Time of Evaluation Date of Evaluation: 12/16/17 Time of Evaluation: 16:49 - Subjective Subjective: patient seen in the room doing ok could lift up arm to shake my hand increased finger strength He is very thin and I discussed with him to starting on anabolic steroids Objective - Vital Signs/Intake and Output Vital Signs (last 24 hours): Temp Pulse Resp BP Pulse Ox 97.3 F L 78 21 157/72 H 96 12/16/17 09:09 12/16/17 09:09 12/16/17 09:09 12/16/17 09:09 12/16/17 09:09 Intake and Output: 12/16/17 12/16/17 06:59 18:59 Intake Total 1700 Output Total 2700 Balance -1000 - Medications Medications: Current Medications Artificial Tears (Artificial Tears) 2 drop OU Q2 PRN PRN Reason: Dry eyes Last Admin: 12/14/17 09:07 Dose: 2 drop Clonidine HCl (Catapres-Tts3 0.3 Mg/24 Hr) 1 patch TD Q7D [facility] Last Admin: 12/09/17 20:59 Dose: 1 patch Cyanocobalamin (Vitamin B12) 250 mcg PO DAILY [facility] Last Admin: 12/16/17 08:36 Dose: 250 mcg Diphenhydramine HCl (Benadryl) 25 mg IVP HS PRN PRN Reason: Insomnia Enalapril Maleate (Vasotec) 10 mg GT BID PRN PRN Reason: FOR SBP > 160/90 Enoxaparin Sodium (Lovenox) 45 mg SC Q12 DAILY PRN Reason: Protocol Last Admin: 12/16/17 08:32 Dose: 45 mg Ferrous Sulfate (Feosol Liq) 300 mg GT DAILY [facility] Last Admin: 12/16/17 08:32 Dose: 300 mg Sodium Chloride (Sodium Chloride 0.9%) 1,000 mls @ 75 mls/hr IV .[id number] [facility] Stop: 12/17/17 10:47 Last Admin: 12/16/17 10:53 Dose: Not Given Lactic Acid (Lac-Hydrin 12% Cream (140 G)) 2 ea TOP BID [facility] Last Admin: 12/16/17 08:33 Dose: 1 applic Nicotine (Nicoderm Cq) 1 patch TD DAILY [facility] Last Admin: 12/16/17 08:33 Dose: 1 patch Pantoprazole Sodium (Protonix Susp) 40 mg PEG DAILY [facility] Last Admin: 12/16/17 08:34 Dose: 40 mg Vitamin A (Vitamin A&D) 1 applic TP BID [facility] Last Admin: 12/16/17 08:58 Dose: 1 applic - Labs Labs: 12/14/17 05:30 12/14/17 05:30
[2017-12-17] MEDS: Sodium Chloride 0.9% 1,000 ML IV SCH (03:52)
[2017-12-17 07:39] LABS: HEMOGLOBIN 8.7 g/dL (12.0-18.0); MEAN CELL VOLUME 88.4 fl (80.0-94.0); MEAN CORPUSCULAR HGB CONC 32.8 g/dL (33.0-37.0); RED CELL DISTRIBUTION WIDTH 13.9 % (11.5-14.5); WHITE BLOOD COUNT 4.8 K/uL (4.8-10.8)
[2017-12-17] MEDS: Enoxaparin 60 mg Syringe SC SCH ×2 (08:00→20:47)
[2017-12-17] MEDS: Pantoprazole 40 mg Susp UD PEG SCH (08:01)
[2017-12-17] MEDS: Ferrous Sulfate 300 mg/5 mL Liq UD GT SCH (08:02)
[2017-12-17] MEDS: CYANOCOBALAMIN 500 MCG TAB PO SCH (08:04)
[2017-12-17] MEDS: Ammonium Lactate 12% Cream (140 g) TOP SCH ×2 (08:04→17:05)
[2017-12-17] MEDS: Vitamin A/D oint 60G TP SCH ×2 (08:04→17:05)
[2017-12-17 08:20] LABS: BLOOD UREA NITROGEN 8 mg/dl (9-20); CALCIUM 8.6 mg/dL (8.4-10.2); GFR AFRICAN-AMERICAN > 60; GFR NON-AFRICAN AMERICAN > 60
--- NOTE | 2017-12-17 13:56 | CP.PCM.PN ---
Subjective - Date & Time of Evaluation Date of Evaluation: 12/17/17 Time of Evaluation: 09:00 - Subjective Subjective: Patient seen and examined at bedside with attending-Dr. Dolan. In no acute distress. Denies SOB, chest pain, nausea or vomiting. Reports appetite is gradually increasing. Tolerating PT. Objective - Vital Signs/Intake and Output Vital Signs (last 24 hours): Temp Pulse Resp BP Pulse Ox 97.5 F L 59 L 18 156/69 H 100 12/17/17 08:00 12/17/17 08:00 12/17/17 08:00 12/17/17 08:00 12/17/17 08:00 Intake and Output: 12/17/17 12/17/17 06:59 18:59 Intake Total 1980 Output Total 1600 Balance 380 - Medications Medications: Current Medications Artificial Tears (Artificial Tears) 2 drop OU Q2 PRN PRN Reason: Dry eyes Last Admin: 12/14/17 09:07 Dose: 2 drop Clonidine HCl (Catapres-Tts3 0.3 Mg/24 Hr) 1 patch TD Q7D [facility] Last Admin: 12/16/17 18:42 Dose: 1 patch Cyanocobalamin (Vitamin B12) 250 mcg PO DAILY [facility] Last Admin: 12/17/17 08:04 Dose: 250 mcg Diphenhydramine HCl (Benadryl) 25 mg IVP HS PRN PRN Reason: Insomnia Enalapril Maleate (Vasotec) 10 mg PO BID PRN PRN Reason: FOR SBP > 160/90 Enoxaparin Sodium (Lovenox) 45 mg SC Q12 [facility] PRN Reason: Protocol Last Admin: 12/17/17 08:00 Dose: 45 mg Ferrous Sulfate (Feosol Liq) 300 mg PO DAILY [facility] Lactic Acid (Lac-Hydrin 12% Cream (140 G)) 2 ea TOP BID [facility] Last Admin: 12/17/17 08:04 Dose: 1 applic Nicotine (Nicoderm Cq) 1 patch TD DAILY [facility] Last Admin: 12/17/17 08:01 Dose: 1 patch Oxandrolone (Oxandrin) 5 mg PO BID [facility] Last Admin: 12/17/17 07:59 Dose: 5 mg Pantoprazole Sodium (Protonix Susp) 40 mg PO DAILY [facility] Vitamin A (Vitamin A&D) 1 applic TP BID [facility] Last Admin: 12/17/17 08:04 Dose: 1 applic - Labs Labs: 12/17/17 07:00 12/17/17 04:00 - Constitutional Appears: Non-toxic, Cachectic - Head Exam Head Exam: ATRAUMATIC, NORMOCEPHALIC - Eye Exam Eye Exam: EOMI - ENT Exam ENT Exam: Mucous Membranes Moist - Neck Exam Additional comments: able to turn head towards left and right, almost full 90 degrees - Respiratory Exam Respiratory Exam: NORMAL BREATHING PATTERN - Cardiovascular Exam Cardiovascular Exam: REGULAR RHYTHM, +S1, +S2 - GI/Abdominal Exam GI & Abdominal Exam: Soft, Normal Bowel Sounds. absent: Tenderness Additional comments: PEJ tube in place, no discharge or erythema - Extremities Exam Extremities Exam: absent: Pedal Edema Additional comments: gradual increased in ROM of bilateral upper extremities, strength in b/l upper and lower extremities is 3/5. - Neurological Exam Neurological Exam: Alert, Awake, Oriented x3 - Psychiatric Exam Psychiatric exam: Normal Affect, Normal Mood - Skin Skin Exam: Dry, Normal Color, Warm Assessment and Plan - Assessment and Plan (Free Text) Assessment: 72 yr old M admitted to acute rehab on POD # 29 s/p C4 cordectomy and C3-4 spinal fusion with instrumentation/cervical decompression 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 Patient was more fatigued today but participated in PT/OT. 1. Cord compression syndrome -secondary to posttraumatic cervical myelopathy with quadriparesis -s/p C4 cordectomy and C3-4 spinal fusion with instrumentation, cervical decompression -Continue physical and occupational therapy, out of bed to chair 2. Dysphagia -secondary to cervical spine trauma and quadriparesis -patient is s/p PEJ placement -patient passed repeat video swallow evaluation -continue with PO pureed diet, liquid advanced to thin liquids, will do calorie count and repeat swallow e-vals at later time -Pantoprazole 40mg PO QD 3. Acute superficial venous thrombus of left cephalic vein -stable, patient s/p therapeutic Lovenox treatment 4. DVT prophylaxis -Lovenox 45mg SC Q12
[2017-12-18] MEDS: Enoxaparin 60 mg Syringe SC SCH ×2 (08:37→21:24)
[2017-12-18] MEDS: Ferrous Sulfate 300 mg/5 mL Liq UD PO SCH (08:37)
[2017-12-18] MEDS: Pantoprazole 40 mg Susp UD PO SCH (08:38)
[2017-12-18] MEDS: Ammonium Lactate 12% Cream (140 g) TOP SCH ×2 (08:38→17:28)
[2017-12-18] MEDS: Vitamin A/D oint 60G TP SCH ×2 (08:38→17:28)
[2017-12-18] MEDS: CYANOCOBALAMIN 500 MCG TAB PO SCH (08:40)
--- NOTE | 2017-12-18 14:40 | CP.PCM.PN ---
Subjective - Date & Time of Evaluation Date of Evaluation: 12/18/17 Time of Evaluation: 14:31 - Subjective Subjective: patient seen in room doing ok no untoward side effects with oxandrin notes an early increase in PO intake continue current care Objective - Vital Signs/Intake and Output Vital Signs (last 24 hours): Temp Pulse Resp BP Pulse Ox 96.4 F L 68 18 148/71 99 12/18/17 08:02 12/18/17 08:02 12/18/17 08:02 12/18/17 08:02 12/18/17 08:02 Intake and Output: 12/18/17 12/18/17 06:59 18:59 Intake Total 800 Output Total 1200 Balance -400 - Medications Medications: Current Medications Artificial Tears (Artificial Tears) 2 drop OU Q2 PRN PRN Reason: Dry eyes Last Admin: 12/14/17 09:07 Dose: 2 drop Clonidine HCl (Catapres-Tts3 0.3 Mg/24 Hr) 1 patch TD Q7D [facility] Last Admin: 12/16/17 18:42 Dose: 1 patch Cyanocobalamin (Vitamin B12) 250 mcg PO DAILY [facility] Last Admin: 12/18/17 08:40 Dose: 250 mcg Diphenhydramine HCl (Benadryl) 25 mg IVP HS PRN PRN Reason: Insomnia Enalapril Maleate (Vasotec) 10 mg PO BID PRN PRN Reason: FOR SBP > 160/90 Enoxaparin Sodium (Lovenox) 45 mg SC Q12 DAILY PRN Reason: Protocol Last Admin: 12/18/17 08:37 Dose: 45 mg Ferrous Sulfate (Feosol Liq) 300 mg PO DAILY [facility] Last Admin: 12/18/17 08:37 Dose: 300 mg Lactic Acid (Lac-Hydrin 12% Cream (140 G)) 2 ea TOP BID [facility] Last Admin: 12/18/17 08:38 Dose: 1 applic Nicotine (Nicoderm Cq) 1 patch TD DAILY [facility] Last Admin: 12/18/17 08:38 Dose: 1 patch Oxandrolone (Oxandrin) 5 mg PO BID [facility] Last Admin: 12/18/17 08:37 Dose: 5 mg Pantoprazole Sodium (Protonix Susp) 40 mg PO DAILY [facility] Last Admin: 12/18/17 08:38 Dose: 40 mg Vitamin A (Vitamin A&D) 1 applic TP BID [facility] Last Admin: 12/18/17 08:38 Dose: 1 applic - Labs Labs: 12/17/17 07:00 12/17/17 04:00
[2017-12-19] MEDS: Ferrous Sulfate 300 mg/5 mL Liq UD PO SCH (08:35)
[2017-12-19] MEDS: Enoxaparin 60 mg Syringe SC SCH ×2 (08:35→21:46)
[2017-12-19] MEDS: Vitamin A/D oint 60G TP SCH ×2 (08:35→16:59)
[2017-12-19] MEDS: CYANOCOBALAMIN 500 MCG TAB PO SCH (08:35)
[2017-12-19] MEDS: Pantoprazole 40 mg Susp UD PO SCH (08:35)
[2017-12-19] MEDS: Ammonium Lactate 12% Cream (140 g) TOP SCH ×2 (08:35→16:59)
--- NOTE | 2017-12-19 14:51 | CP.PCM.PN ---
Subjective - Date & Time of Evaluation Date of Evaluation: 12/18/17 Time of Evaluation: 10:10 - Subjective Subjective: Patient remains stable Has no chest pain or SOB Tolerates po feeding Objective - Vital Signs/Intake and Output Vital Signs (last 24 hours): Temp Pulse Resp BP Pulse Ox 97.2 F L 58 L 18 153/62 H 100 12/19/17 07:51 12/19/17 07:51 12/19/17 07:51 12/19/17 07:51 12/19/17 07:51 Intake and Output: 12/19/17 12/19/17 06:59 18:59 Intake Total 400 Output Total 2300 Balance -1900 - Medications Medications: Current Medications Artificial Tears (Artificial Tears) 2 drop OU Q2 PRN PRN Reason: Dry eyes Last Admin: 12/14/17 09:07 Dose: 2 drop Clonidine HCl (Catapres-Tts3 0.3 Mg/24 Hr) 1 patch TD Q7D [facility] Last Admin: 12/16/17 18:42 Dose: 1 patch Cyanocobalamin (Vitamin B12) 250 mcg PO DAILY [facility] Last Admin: 12/19/17 08:35 Dose: 250 mcg Diphenhydramine HCl (Benadryl) 25 mg IVP HS PRN PRN Reason: Insomnia Enalapril Maleate (Vasotec) 10 mg PO BID PRN PRN Reason: FOR SBP > 160/90 Enoxaparin Sodium (Lovenox) 45 mg SC Q12 [facility] PRN Reason: Protocol Last Admin: 12/19/17 08:35 Dose: 45 mg Ferrous Sulfate (Feosol Liq) 300 mg PO DAILY [facility] Last Admin: 12/19/17 08:35 Dose: 300 mg Lactic Acid (Lac-Hydrin 12% Cream (140 G)) 2 ea TOP BID [facility] Last Admin: 12/19/17 08:35 Dose: 1 applic Nicotine (Nicoderm Cq) 1 patch TD DAILY [facility] Last Admin: 12/19/17 08:34 Dose: 1 patch Oxandrolone (Oxandrin) 5 mg PO BID [facility] Last Admin: 12/19/17 08:35 Dose: 5 mg Pantoprazole Sodium (Protonix Susp) 40 mg PO DAILY [facility] Last Admin: 12/19/17 08:35 Dose: 40 mg Vitamin A (Vitamin A&D) 1 applic TP BID [facility] Last Admin: 12/19/17 08:35 Dose: 1 applic - Labs Labs: 12/17/17 07:00 12/17/17 04:00 - Head Exam Head Exam: NORMAL INSPECTION - Eye Exam Eye Exam: Normal appearance - ENT Exam ENT Exam: Mucous Membranes Moist - Respiratory Exam Respiratory Exam: Clear to Ausculation Bilateral - Cardiovascular Exam Cardiovascular Exam: REGULAR RHYTHM - GI/Abdominal Exam GI & Abdominal Exam: Normal Bowel Sounds Assessment and Plan (1) Gait abnormality Status: Acute (2) Dysphagia Status: Acute - Assessment and Plan (Free Text) Plan: Cont meds Cont tx Cont PT advance diet
--- NOTE | 2017-12-19 14:53 | CP.PCM.PN ---
Subjective - Date & Time of Evaluation Date of Evaluation: 12/19/17 Time of Evaluation: 14:51 - Subjective Subjective: Patient remains stable Has no chest pain or SOB afebrile tolerates po feeding Objective - Vital Signs/Intake and Output Vital Signs (last 24 hours): Temp Pulse Resp BP Pulse Ox 97.2 F L 58 L 18 153/62 H 100 12/19/17 07:51 12/19/17 07:51 12/19/17 07:51 12/19/17 07:51 12/19/17 07:51 Intake and Output: 12/19/17 12/19/17 06:59 18:59 Intake Total 400 Output Total 2300 Balance -1900 - Medications Medications: Current Medications Artificial Tears (Artificial Tears) 2 drop OU Q2 PRN PRN Reason: Dry eyes Last Admin: 12/14/17 09:07 Dose: 2 drop Clonidine HCl (Catapres-Tts3 0.3 Mg/24 Hr) 1 patch TD Q7D [facility] Last Admin: 12/16/17 18:42 Dose: 1 patch Cyanocobalamin (Vitamin B12) 250 mcg PO DAILY [facility] Last Admin: 12/19/17 08:35 Dose: 250 mcg Diphenhydramine HCl (Benadryl) 25 mg IVP HS PRN PRN Reason: Insomnia Enalapril Maleate (Vasotec) 10 mg PO BID PRN PRN Reason: FOR SBP > 160/90 Enoxaparin Sodium (Lovenox) 45 mg SC Q12 DAILY PRN Reason: Protocol Last Admin: 12/19/17 08:35 Dose: 45 mg Ferrous Sulfate (Feosol Liq) 300 mg PO DAILY [facility] Last Admin: 12/19/17 08:35 Dose: 300 mg Lactic Acid (Lac-Hydrin 12% Cream (140 G)) 2 ea TOP BID [facility] Last Admin: 12/19/17 08:35 Dose: 1 applic Nicotine (Nicoderm Cq) 1 patch TD DAILY [facility] Last Admin: 12/19/17 08:34 Dose: 1 patch Oxandrolone (Oxandrin) 5 mg PO BID [facility] Last Admin: 12/19/17 08:35 Dose: 5 mg Pantoprazole Sodium (Protonix Susp) 40 mg PO DAILY [facility] Last Admin: 12/19/17 08:35 Dose: 40 mg Vitamin A (Vitamin A&D) 1 applic TP BID [facility] Last Admin: 12/19/17 08:35 Dose: 1 applic - Labs Labs: 12/17/17 07:00 12/17/17 04:00 - Head Exam Head Exam: NORMAL INSPECTION - Eye Exam Eye Exam: Normal appearance - ENT Exam ENT Exam: Mucous Membranes Moist - Respiratory Exam Respiratory Exam: Clear to Ausculation Bilateral - Cardiovascular Exam Cardiovascular Exam: REGULAR RHYTHM - GI/Abdominal Exam GI & Abdominal Exam: Normal Bowel Sounds - Neurological Exam Neurological Exam: CN II-XII Intact, Oriented x3 - Psychiatric Exam Psychiatric exam: Normal Mood Assessment and Plan (1) Gait abnormality Status: Acute (2) Dysphagia Status: Acute - Assessment and Plan (Free Text) Plan: Cont med Cont tx cont PT po feeding
[2017-12-20 06:11] LABS: HEMOGLOBIN 9.7 g/dL (12.0-18.0); MEAN CELL VOLUME 88.8 fl (80.0-94.0); MEAN CORPUSCULAR HEMOGLOBIN 28.5 pg (27.0-31.0); MEAN CORPUSCULAR HGB CONC 32.1 g/dL (33.0-37.0); RBC 3.4 Mil/uL (4.40-5.90); RED CELL DISTRIBUTION WIDTH 14.1 % (11.5-14.5); WHITE BLOOD COUNT 5.5 K/uL (4.8-10.8)
[2017-12-20 06:22] LABS: BLOOD UREA NITROGEN 8 mg/dl (9-20); CALCIUM 8.9 mg/dL (8.4-10.2); GFR AFRICAN-AMERICAN > 60; GFR NON-AFRICAN AMERICAN > 60
[2017-12-20] MEDS: Vitamin A/D oint 60G TP SCH ×2 (08:55→17:36)
[2017-12-20] MEDS: Ammonium Lactate 12% Cream (140 g) TOP SCH ×2 (08:55→17:36)
[2017-12-20] MEDS: Enoxaparin 60 mg Syringe SC SCH ×2 (08:55→21:48)
[2017-12-20] MEDS: Pantoprazole 40 mg Susp UD PO SCH (08:56)
[2017-12-20] MEDS: CYANOCOBALAMIN 500 MCG TAB PO SCH (08:56)
[2017-12-20] MEDS: Ferrous Sulfate 300 mg/5 mL Liq UD PO SCH (08:57)
[2017-12-21] MEDS: Pantoprazole 40 mg Susp UD PO SCH (08:13)
[2017-12-21] MEDS: CYANOCOBALAMIN 500 MCG TAB PO SCH (08:13)
[2017-12-21] MEDS: Vitamin A/D oint 60G TP SCH ×2 (08:13→17:26)
[2017-12-21] MEDS: Ammonium Lactate 12% Cream (140 g) TOP SCH ×2 (08:13→17:26)
[2017-12-21] MEDS: Ferrous Sulfate 300 mg/5 mL Liq UD PO SCH (08:14)
[2017-12-21] MEDS: Enoxaparin 60 mg Syringe SC SCH ×2 (08:14→21:19)
--- NOTE | 2017-12-21 13:19 | PSY.TMCNF ---
Nursing - Vital Signs Vital Signs (Last 8 hours): Vital Signs 12/21/17 12/21/17 08:50 09:00 Temperature 98.0 F 98.0 F Pulse Rate 52 L 52 L Respiratory 19 19 Rate Blood Pressure 137/61 137/61 O2 Sat by Pulse 97 Oximetry Pain: 0 - Precautions: Precautions: Fall Prevention, Aspiration, Pressure Ulcer - Medications/Other Issues Comment: -Refuses to wear Z Boots when in bed. - Refuses to wear AE Hose - Consults Comment: Dr. Spencer - Skin Incision Site: anterior cervical Incision: Healing Well, Sutures Intact Incision Line Treatment: HARRIET - Wound Upper Buttock Wound Type: Other Wound Shape: Irregular Wound Edges: Closed Periwound: Intact Wound General Appearance: Asymptomatic, Open to air, Clean/Dry Wound Dressing Status: Open to air - Toileting Toileting: Dependent - Bladder Management Bladder Pattern: Retention Voiding Method: Indwelling Catheter Bladder Management: Dependent Frequency of Accidents: 0 - Bowel Management Bowel Pattern: Incontinent Bowel Management: Dependent Frequency of Accidents: >5 - Transfers Transfers: Dependent - ADL's ADL's: Dependent - Patient/Family Teaching Comments: - Care post spinal injury and safety precautions, aspiration , safety and spinal precautions. - Skin breakdown prevention - Goals/Time Frame Comments: Per multidisciplinary care plan and goals. - Provider Provider: Torri YEPEZ RN CRRN Physical Therapy - Bed Mobility Bed Mobility: Supervision, Verbal Cues, Contact Guard, Maximum Assistance Comment: -rolling with use of bed rails and technique of lifting contralateral LE into flexion to assist to generate motion. -able to bridge but requires assistance to stabilize knees to prevent LE external rotation. -pull to industrial relations representative // bars with mod to max A; patient able to assist with initiation and terminal extension but requires increased assistance during middle portion of stand due to weakness. -poor eccentric control on descent requiring max A for stand to sit. -max A for SPT without device; patient assist with reaching and weight acceptance - Transfers Wheelchair to Mat: Maximum Assistance Sit to Stand: Moderate Assistance, Maximum Assistance Comment: pull to stand // bars - Ambulation Level of Assistance: Maximum Assistance Distance (ft.): 6 Orthoses: n/a Comment: 6 feet with maximal assistance of 1 in // bars with close WC follow. - requires assistance to weight shift, stabilize stance LE and to generate adequate swing good foot positioning upon contact. -increased assistance on LLE for flexion in swing compared to RLE; patient assisting with initiation and effort of gait. -close WC follow for safety - Stair Negotiation Stairs: Level of Assistance: Not Tested - Standing Balance Static Stand: Moderate Assistance Dynamic Stand: Moderate Assistance, Maximal Assistance - Pain Pain (assessed during therapy session): 3 Comment: -intermittent BUE/shoulder soreness - Insight/Carryover Insight/Carryover: Fair - Patient/Family Education Comment: -safety, therapy schedule, therapy goals, POC, importance of OOB, deleterious effects of bed rest, SCI recovery, spinal precautions, benefits of FRANSISCO tights, repositioning - Assessment/Plan Assessment: Mr. Jeffers continues to make progress in therapy. Patient has improving activation in LEs and is tolerating e-stim to B tibialis anterior region well. Patient has improving independence with bed/mat mobility and improved standing tolerance in // bars. Pt is limited by fatigue and poor motivation. PT continues to recommend skilled therapy services to maximize safety and independence with all mobility s/p SCI and decompression procedure. - Goals Timeframe: 10 days Goals: propel WC x 25 feet with max A. ambulate in // bars x 10 feet with mod A. sit to/from stand with mod A. SPT with mod A of 1. rolling with distant supervision. supine to sit with mod A of 1. sit to supine with max A of 1. scooting via bridging with mod A of 1 - Provider License Number: [id number] Occupational Therapy - Arousal/Attention/Orientation Patient Orientation: Person, Place, Time, Appropriate to Age, Appropriate to Situation - ADL/IADL Self Feeding: Supervision, Verbal Cues, Set-up Help, Minimal Assistance Grooming: Verbal Cues, Set-up Help, Moderate Assistance, Maximum Assistance Bathing-Upper Extremity: Dependent Bathing-Lower Extremity: Dependent Dressing-Upper Extremity: Verbal Cues, Set-up Help, Moderate Assistance, Maximum Assistance Dressing-Lower Extremity: Dependent - Sitting Balance Static Sitting: Minimal Assistance Dynamic Sitting: Reaches across midline, Reaches within base of support, Minimal Assistance, Moderate Assistance Comment: setaed at edge of bed - Transfers Wheelchair to Bed Transfers: Verbal Cues, Set-up Help, Maximum Assistance Toilet Transfers: Verbal Cues, Set-up Help, Maximum Assistance Comment: shower transfers/bench: max assist and verbal cues for pivot transfers - Wheelchair Management Level of Assistance: Dependent - Upper Extremity Status Right Upper Extremity Comment: PROM is WFLS, but AROM limited by impaired strength/gross motor coordination Left Upper Extremity Comment: PROM is WFLS, but AROM limited by impaired strength/gross motor coordination - Pain Pain (assessed during therapy session): 3 Comment: -intermittent BUE/shoulder soreness - Insight/Carryover Insight/Carryover: Fair - Patient/Family Education Comment: -safety, therapy schedule, therapy goals, POC, importance of OOB, deleterious effects of bed rest, SCI recovery, spinal precautions, benefits of FRANSISCO tights, repositioning - Assessment/Plan Assessment: Mr. Jeffers continues to make progress in therapy. Patient has improving activation in LEs and is tolerating e-stim to B tibialis anterior region well. Patient has improving independence with bed/mat mobility and improved standing tolerance in // bars. Pt is limited by fatigue and poor motivation. PT continues to recommend skilled therapy services to maximize safety and independence with all mobility s/p SCI and decompression procedure. - Goals Timeframe: 10 days Goals: propel WC x 25 feet with max A. ambulate in // bars x 10 feet with mod A. sit to/from stand with mod A. SPT with mod A of 1. rolling with distant supervision. supine to sit with mod A of 1. sit to supine with max A of 1. 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 -mild-moderate pharyngeal dysphagia - Assessment Problem Solving Impairment: Mild Memory Impairment: Mild Speech/Articulation Impairment: Moderate Comment: voice deficits Dysphagia/Swallowing Impairment: Moderate Comment: finely chopped solids/thin liquids - Plan Assessment: Mr. Jeffers continues to make progress in therapy. Patient has improving activation in LEs and is tolerating e-stim to B tibialis anterior region well. Patient has improving independence with bed/mat mobility and improved standing tolerance in // bars. Pt is limited by fatigue and poor motivation. PT continues to recommend skilled therapy services to maximize safety and independence with all mobility s/p SCI and decompression procedure. - Provider Therapist: Sahra Yuen License Number: [id number] Recreational Therapy - Participation Participation: Participates in Individual and/or Group Sessions - Attendance Attendance: Daily - Activities Leisure Activities: Cards and Games - Socialization Level of Socialization: Initiates/interacts freely with care givers and peer - Diversional Time Diversional Time: television - Assessment Assessment/Plan: Mr. Jeffers continues to make progress in therapy. Patient has improving activation in LEs and is tolerating e-stim to B tibialis anterior region well. Patient has improving independence with bed/mat mobility and improved standing tolerance in // bars. Pt is limited by fatigue and poor motivation. PT continues to recommend skilled therapy services to maximize safety and independence with all mobility s/p SCI and decompression procedure. - Provider Therapist: Vickie Ogden, FORENSIC ANALYST #[id number] Nutrition - Current Diet Current Diet/ Supplement/ Feedings: pureed heart healtlhy thin liquids - Appetite Percent Meal Consumed: 75-100% - Comments Comments: - Care post spinal injury and safety precautions, aspiration , safety and spinal precautions. - Skin breakdown prevention - Assessment/Goals/Time Frame Assessment/Goals/Time Frame: -Refuses to wear Z Boots when in bed. - Refuses to wear AE Hose - Provider Provider: Muriel Melgar RD Case Management - Psychosocial Assessment Support Systems: Emmanuel Jeffers (cox monett)- [phone] Psychological Interventions/Needs: Patient is alert and oriented x3 and able to verbalize needs. Discharge Concerns: Patient currently requiring mod-max A for all functional mobility and on mechanically altered diet with PEG still in place. Patient/Family Meeting: CM met with patient and rehab team Intervention/Goal/Outcome:: 1. Plan: JOHNIE > LTC? dependent on progress in acute rehab. 2. Tentative discharge date: 01/14/2018. 3. continued emotional support - Discharge Plan Discharge Plan: Subacute care, [facility] - Provider Provider: MIKE Funk, LOAN SERVICING REPRESENTATIVE License Number: [id number] Rehabilitation Plan - Treatment Plan Treatment Plan: Physical Therapy, Occupational Therapy, Speech, Dietary, Patient /Family Education - Discharge Plan Estimated Date of Discharge: 01/14/18 Discharge to: Subacute
--- NOTE | 2017-12-21 13:32 | CP.PCM.PN ---
Subjective - Date & Time of Evaluation Date of Evaluation: 12/21/17 Time of Evaluation: 13:31 - Subjective Subjective: Patient seen in PT doing ok discussed importance to be patient with progress he is making tangible gains daily greatly improved PO intake with the steroid as well continue current care Objective - Vital Signs/Intake and Output Vital Signs (last 24 hours): Temp Pulse Resp BP Pulse Ox 98.0 F 52 L 19 137/61 97 12/21/17 09:00 12/21/17 09:00 12/21/17 09:00 12/21/17 09:00 12/21/17 08:50 Intake and Output: 12/21/17 12/21/17 06:59 18:59 Intake Total 500 Output Total 1200 Balance -700 - Medications Medications: Current Medications Artificial Tears (Artificial Tears) 2 drop OU Q2 PRN PRN Reason: Dry eyes Last Admin: 12/14/17 09:07 Dose: 2 drop Clonidine HCl (Catapres-Tts3 0.3 Mg/24 Hr) 1 patch TD Q7D [facility] Last Admin: 12/16/17 18:42 Dose: 1 patch Cyanocobalamin (Vitamin B12) 250 mcg PO DAILY [facility] Last Admin: 12/21/17 08:13 Dose: 250 mcg Diphenhydramine HCl (Benadryl) 25 mg IVP HS PRN PRN Reason: Insomnia Enalapril Maleate (Vasotec) 10 mg PO BID PRN PRN Reason: FOR SBP > 160/90 Enoxaparin Sodium (Lovenox) 45 mg SC Q12 DAILY PRN Reason: Protocol Last Admin: 12/21/17 08:14 Dose: 45 mg Ferrous Sulfate (Feosol Liq) 300 mg PO DAILY [facility] Last Admin: 12/21/17 08:14 Dose: 300 mg Lactic Acid (Lac-Hydrin 12% Cream (140 G)) 2 ea TOP BID [facility] Last Admin: 12/21/17 08:13 Dose: 1 applic Nicotine (Nicoderm Cq) 1 patch TD DAILY [facility] Last Admin: 12/21/17 08:14 Dose: 1 patch Oxandrolone (Oxandrin) 5 mg PO BID [facility] Last Admin: 12/21/17 08:13 Dose: 5 mg Pantoprazole Sodium (Protonix Susp) 40 mg PO DAILY [facility] Last Admin: 12/21/17 08:13 Dose: 40 mg Vitamin A (Vitamin A&D) 1 applic TP BID DAILY Last Admin: 12/21/17 08:13 Dose: 1 applic - Labs Labs: 12/20/17 05:35 12/20/17 05:35
[2017-12-22] MEDS: Ferrous Sulfate 300 mg/5 mL Liq UD PO SCH (08:47)
[2017-12-22] MEDS: Ammonium Lactate 12% Cream (140 g) TOP SCH ×2 (08:47→17:02)
[2017-12-22] MEDS: Pantoprazole 40 mg Susp UD PO SCH (08:49)
[2017-12-22] MEDS: Vitamin A/D oint 60G TP SCH ×2 (08:49→17:02)
[2017-12-22] MEDS: CYANOCOBALAMIN 500 MCG TAB PO SCH (08:49)
[2017-12-22] MEDS: Enoxaparin 60 mg Syringe SC SCH (08:50)
--- NOTE | 2017-12-22 16:32 | CP.PCM.PN ---
Subjective - Date & Time of Evaluation Date of Evaluation: 12/22/17 Time of Evaluation: 11:05 - Subjective Subjective: Patient seen and examined with attending- Dr. Dolan. Patient participating in PT, has good appetite. Objective - Vital Signs/Intake and Output Vital Signs (last 24 hours): Temp Pulse Resp BP Pulse Ox 97.5 F L 82 21 113/50 L 96 12/22/17 10:00 12/22/17 10:00 12/22/17 10:00 12/22/17 10:00 12/22/17 10:00 Intake and Output: 12/22/17 12/22/17 06:59 18:59 Intake Total 600 Output Total 1000 Balance -400 - Medications Medications: Current Medications Artificial Tears (Artificial Tears) 2 drop OU Q2 PRN PRN Reason: Dry eyes Last Admin: 12/14/17 09:07 Dose: 2 drop Clonidine HCl (Catapres-Tts3 0.3 Mg/24 Hr) 1 patch TD Q7D [facility] Last Admin: 12/16/17 18:42 Dose: 1 patch Cyanocobalamin (Vitamin B12) 250 mcg PO DAILY [facility] Last Admin: 12/22/17 08:49 Dose: 250 mcg Diphenhydramine HCl (Benadryl) 25 mg IVP HS PRN PRN Reason: Insomnia Enalapril Maleate (Vasotec) 10 mg PO BID PRN PRN Reason: FOR SBP > 160/90 Ferrous Sulfate (Feosol Liq) 300 mg PO DAILY [facility] Last Admin: 12/22/17 08:47 Dose: 300 mg Lactic Acid (Lac-Hydrin 12% Cream (140 G)) 2 ea TOP BID [facility] Last Admin: 12/22/17 08:47 Dose: 1 applic Nicotine (Nicoderm Cq) 1 patch TD DAILY [facility] Last Admin: 12/22/17 08:48 Dose: 1 patch Oxandrolone (Oxandrin) 5 mg PO BID [facility] Last Admin: 12/22/17 08:51 Dose: 5 mg Pantoprazole Sodium (Protonix Susp) 40 mg PO DAILY [facility] Last Admin: 12/22/17 08:49 Dose: 40 mg Vitamin A (Vitamin A&D) 1 applic TP BID [facility] Last Admin: 12/22/17 08:49 Dose: 1 applic - Labs Labs: 12/20/17 05:35 12/20/17 05:35 - Constitutional Appears: No Acute Distress - Head Exam Head Exam: ATRAUMATIC - Eye Exam Eye Exam: EOMI Pupil Exam: PERRL - ENT Exam ENT Exam: Mucous Membranes Moist - Respiratory Exam Respiratory Exam: NORMAL BREATHING PATTERN - Cardiovascular Exam Cardiovascular Exam: REGULAR RHYTHM - GI/Abdominal Exam GI & Abdominal Exam: Soft, Normal Bowel Sounds - Extremities Exam Additional comments: left heel stage 1 pressure ulcer - Neurological Exam Neurological Exam: Alert, Awake, Oriented x3 - Psychiatric Exam Psychiatric exam: Normal Affect, Normal Mood - Skin Skin Exam: Dry, Warm Assessment and Plan - Assessment and Plan (Free Text) Assessment: 72 yr old M admitted to acute rehab s/p C4 cordectomy and C3-4 spinal fusion with instrumentation/cervical decompression 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 Patient doing well with PT/OT. 1. Cord compression syndrome -secondary to posttraumatic cervical myelopathy with quadriparesis -s/p C4 cordectomy and C3-4 spinal fusion with instrumentation, cervical decompression -Continue physical and occupational therapy, out of bed to chair 2. Dysphagia -secondary to cervical spine trauma and quadriparesis -patient is s/p PEJ placement -patient passed repeat video swallow evaluation -diet advanced to finely chopped, liquid advanced to thin liquids, will do calorie count and repeat swallow e-vals at later time -Pantoprazole 40mg PO QD 3. Acute superficial venous thrombus of left cephalic vein -stable, patient s/p therapeutic Lovenox treatment 4. Left heel stage 1 pressure ulcer -wound care -reemphasized to patient importance of soft booties while in bed 5. DVT prophylaxis -Lovenox 45mg SC Q12
[2017-12-22] MEDS: Enoxaparin 40 mg Syringe SC SCH (21:39)
[2017-12-23] MEDS ORDERED: Silver Sulfadiazine 1% Cream (20 gm) TOP SCH (06:00)
[2017-12-23 06:34] LABS: HEMOGLOBIN 9.4 g/dL (12.0-18.0); MEAN CELL VOLUME 88.6 fl (80.0-94.0); MEAN CORPUSCULAR HEMOGLOBIN 29.2 pg (27.0-31.0); MEAN CORPUSCULAR HGB CONC 32.9 g/dL (33.0-37.0); RBC 3.23 Mil/uL (4.40-5.90); RED CELL DISTRIBUTION WIDTH 14.9 % (11.5-14.5); WHITE BLOOD COUNT 5.5 K/uL (4.8-10.8)
[2017-12-23 07:00] LABS: BLOOD UREA NITROGEN 16 mg/dl (9-20); CALCIUM 8.9 mg/dL (8.4-10.2); GFR AFRICAN-AMERICAN > 60; GFR NON-AFRICAN AMERICAN > 60
[2017-12-23] MEDS: Ferrous Sulfate 300 mg/5 mL Liq UD PO SCH (08:55)
[2017-12-23] MEDS: CYANOCOBALAMIN 500 MCG TAB PO SCH (08:55)
[2017-12-23] MEDS: Enoxaparin 40 mg Syringe SC SCH ×2 (08:55→21:45)
[2017-12-23] MEDS: Vitamin A/D oint 60G TP SCH ×2 (08:56→17:35)
[2017-12-23] MEDS: Pantoprazole 40 mg Susp UD PO SCH (08:56)
[2017-12-23] MEDS: Ammonium Lactate 12% Cream (140 g) TOP SCH ×2 (08:56→17:34)
--- NOTE | 2017-12-23 14:17 | CP.PCM.PN ---
Subjective - Date & Time of Evaluation Date of Evaluation: 12/23/17 Time of Evaluation: 10:30 - Subjective Subjective: Patient seen and examined at bedside with attending- Dr. Dolan. Awake, alert, reports good appetite. Discussed with patient importance of positional changes and being out of bed to chair. Patient agreeable to staying out of bed longer. Tolerating PT well. Objective - Vital Signs/Intake and Output Vital Signs (last 24 hours): Temp Pulse Resp BP Pulse Ox 97.6 F 59 L 21 143/58 L 100 12/23/17 09:42 12/23/17 09:42 12/23/17 09:42 12/23/17 09:42 12/23/17 09:42 Intake and Output: 12/23/17 12/23/17 06:59 18:59 Intake Total 600 Output Total 1000 Balance -400 - Medications Medications: Current Medications Artificial Tears (Artificial Tears) 2 drop OU Q2 PRN PRN Reason: Dry eyes Last Admin: 12/14/17 09:07 Dose: 2 drop Clonidine HCl (Catapres-Tts3 0.3 Mg/24 Hr) 1 patch TD Q7D [facility] Last Admin: 12/16/17 18:42 Dose: 1 patch Cyanocobalamin (Vitamin B12) 250 mcg PO DAILY [facility] Last Admin: 12/23/17 08:55 Dose: 250 mcg Diphenhydramine HCl (Benadryl) 25 mg IVP HS PRN PRN Reason: Insomnia Enalapril Maleate (Vasotec) 10 mg PO BID PRN PRN Reason: FOR SBP > 160/90 Enoxaparin Sodium (Lovenox) 40 mg SC Q12 [facility] PRN Reason: Protocol Last Admin: 12/23/17 08:55 Dose: 40 mg Ferrous Sulfate (Feosol Liq) 300 mg PO DAILY [facility] Last Admin: 12/23/17 08:55 Dose: 300 mg Lactic Acid (Lac-Hydrin 12% Cream (140 G)) 2 ea TOP BID [facility] Last Admin: 12/23/17 08:56 Dose: 1 applic Nicotine (Nicoderm Cq) 1 patch TD DAILY [facility] Last Admin: 12/23/17 08:54 Dose: 1 patch Oxandrolone (Oxandrin) 5 mg PO BID [facility] Last Admin: 12/23/17 08:56 Dose: 5 mg Pantoprazole Sodium (Protonix Susp) 40 mg PO DAILY [facility] Last Admin: 12/23/17 08:56 Dose: 40 mg Silver Sulfadiazine (Silvadene 1% 20 Gm) 1 ea TOP 0600,1800 [facility] Last Admin: 12/23/17 06:40 Dose: 1 ea Vitamin A (Vitamin A&D) 1 applic TP BID [facility] Last Admin: 12/23/17 08:56 Dose: 1 applic - Labs Labs: 12/23/17 05:20 12/23/17 05:20 - Constitutional Appears: No Acute Distress, Cachectic - Head Exam Head Exam: ATRAUMATIC, NORMOCEPHALIC - Eye Exam Eye Exam: EOMI - ENT Exam ENT Exam: Mucous Membranes Moist - Neck Exam Neck Exam: Full ROM - Respiratory Exam Respiratory Exam: NORMAL BREATHING PATTERN - Cardiovascular Exam Cardiovascular Exam: REGULAR RHYTHM, +S1, +S2 - GI/Abdominal Exam GI & Abdominal Exam: Soft, Normal Bowel Sounds. 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 Patient doing well with PT/OT. 1. Cord compression syndrome -secondary to posttraumatic cervical myelopathy with quadriparesis -s/p C4 cordectomy and C3-4 spinal fusion with instrumentation, cervical decompression -Continue physical and occupational therapy, out of bed to chair 2. Dysphagia -secondary to cervical spine trauma and quadriparesis -patient is s/p PEJ placement -patient passed repeat video swallow evaluation -diet advanced to finely chopped, liquid advanced to thin liquids, will do calorie count and repeat swallow e-vals at later time -Pantoprazole 40mg PO QD 3. Acute superficial venous thrombus of left cephalic vein -stable, patient s/p therapeutic Lovenox treatment 4. Sacral decubitus ulcer stage 2 and Left heel stage 1 pressure ulcer -wound care -silver sulfadiazine, out of bed to chair -reemphasized to patient importance of pillows behind back, positional changes Q2 and soft booties while in bed 5. DVT prophylaxis -Lovenox 45mg SC Q12
--- NOTE | 2017-12-23 17:40 | CP.PCM.PN ---
Subjective - Date & Time of Evaluation Date of Evaluation: 12/23/17 Time of Evaluation: 17:39 - Subjective Subjective: Patient seen in room improved UE and LE strength noted left unstageable heel. some mild bogginess. There is no erythema or odor I do not want to deroof at this point. No need for active treatment outside of pressure relief The sacrum has a stage II and will treat with Proshield q shift continue PT/OT Objective - Vital Signs/Intake and Output Vital Signs (last 24 hours): Temp Pulse Resp BP Pulse Ox 97.6 F 59 L 21 143/58 L 100 12/23/17 09:42 12/23/17 09:42 12/23/17 09:42 12/23/17 09:42 12/23/17 09:42 Intake and Output: 12/23/17 12/23/17 06:59 18:59 Intake Total 600 Output Total 1000 Balance -400 - Medications Medications: Current Medications Artificial Tears (Artificial Tears) 2 drop OU Q2 PRN PRN Reason: Dry eyes Last Admin: 12/14/17 09:07 Dose: 2 drop Clonidine HCl (Catapres-Tts3 0.3 Mg/24 Hr) 1 patch TD Q7D [facility] Last Admin: 12/16/17 18:42 Dose: 1 patch Cyanocobalamin (Vitamin B12) 250 mcg PO DAILY [facility] Last Admin: 12/23/17 08:55 Dose: 250 mcg Diphenhydramine HCl (Benadryl) 25 mg IVP HS PRN PRN Reason: Insomnia Enalapril Maleate (Vasotec) 10 mg PO BID PRN PRN Reason: FOR SBP > 160/90 Enoxaparin Sodium (Lovenox) 40 mg SC Q12 [facility] PRN Reason: Protocol Last Admin: 12/23/17 08:55 Dose: 40 mg Ferrous Sulfate (Feosol Liq) 300 mg PO DAILY [facility] Last Admin: 12/23/17 08:55 Dose: 300 mg Lactic Acid (Lac-Hydrin 12% Cream (140 G)) 2 ea TOP BID [facility] Last Admin: 12/23/17 08:56 Dose: 1 applic Nicotine (Nicoderm Cq) 1 patch TD DAILY [facility] Last Admin: 12/23/17 08:54 Dose: 1 patch Oxandrolone (Oxandrin) 5 mg PO BID [facility] Last Admin: 12/23/17 08:56 Dose: 5 mg Pantoprazole Sodium (Protonix Susp) 40 mg PO DAILY [facility] Last Admin: 12/23/17 08:56 Dose: 40 mg Silver Sulfadiazine (Silvadene 1% 20 Gm) 1 ea TOP 0600,1800 [facility] Last Admin: 12/23/17 06:40 Dose: 1 ea Vitamin A (Vitamin A&D) 1 applic TP BID [facility] Last Admin: 12/23/17 08:56 Dose: 1 applic - Labs Labs: 12/23/17 05:20 12/23/17 05:20
[2017-12-23] MEDS: Proshield Plus GEL TOP SCH (18:33)
[2017-12-24] MEDS: Proshield Plus GEL TOP SCH ×2 (07:02→17:21)
[2017-12-24] MEDS: Vitamin A/D oint 60G TP SCH ×2 (08:16→17:22)
[2017-12-24] MEDS: Ammonium Lactate 12% Cream (140 g) TOP SCH ×2 (08:18→17:22)
[2017-12-24] MEDS: Enoxaparin 40 mg Syringe SC SCH ×2 (08:18→21:33)
[2017-12-24] MEDS: Ferrous Sulfate 300 mg/5 mL Liq UD PO SCH (08:18)
[2017-12-24] MEDS: Pantoprazole 40 mg Susp UD PO SCH (08:19)
[2017-12-24] MEDS: CYANOCOBALAMIN 500 MCG TAB PO SCH (08:20)
--- NOTE | 2017-12-24 14:36 | CP.PCM.PN ---
Subjective - Date & Time of Evaluation Date of Evaluation: 12/24/17 Time of Evaluation: 11:00 - Subjective Subjective: Patient seen and examined at bedside with attending-Dr. Dolan. Patient reports left shoulder pain and stiffness, has good appetite, is participating in PT, normal urine and stool output. Objective - Vital Signs/Intake and Output Vital Signs (last 24 hours): Temp Pulse Resp BP Pulse Ox 97.9 F 62 20 139/61 99 12/24/17 09:09 12/24/17 09:09 12/24/17 09:09 12/24/17 09:09 12/24/17 09:09 Intake and Output: 12/24/17 12/24/17 06:59 18:59 Intake Total 360 Output Total 1200 Balance -840 - Medications Medications: Current Medications Artificial Tears (Artificial Tears) 2 drop OU Q2 PRN PRN Reason: Dry eyes Last Admin: 12/14/17 09:07 Dose: 2 drop Clonidine HCl (Catapres-Tts3 0.3 Mg/24 Hr) 1 patch TD Q7D [facility] Last Admin: 12/23/17 18:32 Dose: 1 patch Cyanocobalamin (Vitamin B12) 250 mcg PO DAILY [facility] Last Admin: 12/24/17 08:20 Dose: 250 mcg Dimethicone (Proshield Plus Skin Protectant) 1 applic TOP 0600,1800 [facility] Last Admin: 12/24/17 07:02 Dose: 1 applic Diphenhydramine HCl (Benadryl) 25 mg IVP HS PRN PRN Reason: Insomnia Enalapril Maleate (Vasotec) 10 mg PO BID PRN PRN Reason: FOR SBP > 160/90 Enoxaparin Sodium (Lovenox) 40 mg SC Q12 [facility] PRN Reason: Protocol Last Admin: 12/24/17 08:18 Dose: 40 mg Ferrous Sulfate (Feosol Liq) 300 mg PO DAILY [facility] Last Admin: 12/24/17 08:18 Dose: 300 mg Lactic Acid (Lac-Hydrin 12% Cream (140 G)) 2 ea TOP BID [facility] Last Admin: 12/24/17 08:18 Dose: 1 applic Nicotine (Nicoderm Cq) 1 patch TD DAILY [facility] Last Admin: 12/24/17 08:18 Dose: 1 patch Oxandrolone (Oxandrin) 5 mg PO BID [facility] Last Admin: 12/24/17 08:15 Dose: 5 mg Pantoprazole Sodium (Protonix Susp) 40 mg PO DAILY [facility] Last Admin: 12/24/17 08:19 Dose: 40 mg Vitamin A (Vitamin A&D) 1 applic TP BID [facility] Last Admin: 12/24/17 08:16 Dose: 1 applic - Labs Labs: 12/23/17 05:20 12/23/17 05:20 - Constitutional Appears: No Acute Distress, Cachectic, Chronically Ill - Head Exam Head Exam: ATRAUMATIC, NORMOCEPHALIC - Eye Exam Eye Exam: EOMI - ENT Exam ENT Exam: Mucous Membranes Moist - Neck Exam Neck Exam: Full ROM - Respiratory Exam Respiratory Exam: Clear to Ausculation Bilateral, NORMAL BREATHING PATTERN - Cardiovascular Exam Cardiovascular Exam: REGULAR RHYTHM, +S1, +S2 - GI/Abdominal Exam GI & Abdominal Exam: Soft, Normal Bowel Sounds. absent: Tenderness - Extremities Exam Extremities Exam: absent: Calf Tenderness, Pedal Edema Additional comments: strength and ROM improving - Neurological Exam Neurological Exam: Alert, Awake, CN II-XII Intact, Oriented x3 - Psychiatric Exam Psychiatric exam: Normal Affect, Normal Mood - Skin Skin Exam: Dry, Warm Additional comments: left heel ulcer stage 1, sacral decubitus ulcer stage 2 Assessment and Plan - Assessment and Plan (Free Text) Assessment: -continue present management -Tylenol 650mg PO PRN for pain
[2017-12-24] MEDS: Artificial Tears Opht Soln OU PRN (21:32)
[2017-12-25] MEDS: Proshield Plus GEL TOP SCH ×2 (06:37→17:42)
[2017-12-25] MEDS: Vitamin A/D oint 60G TP SCH ×2 (09:41→17:42)
[2017-12-25] MEDS: Enoxaparin 40 mg Syringe SC SCH ×2 (09:41→21:24)
[2017-12-25] MEDS: Ferrous Sulfate 300 mg/5 mL Liq UD PO SCH (09:42)
[2017-12-25] MEDS: Ammonium Lactate 12% Cream (140 g) TOP SCH ×2 (09:42→17:41)
[2017-12-25] MEDS: Pantoprazole 40 mg Susp UD PO SCH (09:42)
[2017-12-25] MEDS: CYANOCOBALAMIN 500 MCG TAB PO SCH (10:00)
--- NOTE | 2017-12-25 16:11 | CP.PCM.PN ---
Subjective - Date & Time of Evaluation Date of Evaluation: 12/25/17 Time of Evaluation: 16:08 - Subjective Subjective: Patient seen in room doing very well and has no pain at the time now able to move legs much better and right hand only the left arm is lagging compared the other extremities making good improvements Objective - Vital Signs/Intake and Output Vital Signs (last 24 hours): Temp Pulse Resp BP Pulse Ox 97.9 F 69 19 126/49 L 98 12/25/17 08:13 12/25/17 08:13 12/25/17 08:13 12/25/17 08:13 12/25/17 08:13 Intake and Output: 12/25/17 12/25/17 06:59 18:59 Intake Total 350 Output Total 1000 Balance -650 - Medications Medications: Current Medications Acetaminophen (Tylenol 325mg Tab) 650 mg PO Q6 PRN PRN Reason: Pain, moderate (4-7) Artificial Tears (Artificial Tears) 2 drop OU Q2 PRN PRN Reason: Dry eyes Last Admin: 12/24/17 21:32 Dose: 2 drop Clonidine HCl (Catapres-Tts3 0.3 Mg/24 Hr) 1 patch TD Q7D [facility] Last Admin: 12/23/17 18:32 Dose: 1 patch Cyanocobalamin (Vitamin B12) 250 mcg PO DAILY [facility] Last Admin: 12/25/17 10:00 Dose: 250 mcg Dimethicone (Proshield Plus Skin Protectant) 1 applic TOP 0600,1800 [facility] Last Admin: 12/25/17 06:37 Dose: 1 applic Diphenhydramine HCl (Benadryl) 25 mg IVP HS PRN PRN Reason: Insomnia Enalapril Maleate (Vasotec) 10 mg PO BID PRN PRN Reason: FOR SBP > 160/90 Enoxaparin Sodium (Lovenox) 40 mg SC Q12 DAILY PRN Reason: Protocol Last Admin: 12/25/17 09:41 Dose: 40 mg Ferrous Sulfate (Feosol Liq) 300 mg PO DAILY [facility] Last Admin: 12/25/17 09:42 Dose: 300 mg Lactic Acid (Lac-Hydrin 12% Cream (140 G)) 2 ea TOP BID [facility] Last Admin: 12/25/17 09:42 Dose: 1 applic Nicotine (Nicoderm Cq) 1 patch TD DAILY [facility] Last Admin: 12/25/17 09:40 Dose: 1 patch Oxandrolone (Oxandrin) 5 mg PO BID [facility] Last Admin: 12/25/17 09:44 Dose: 5 mg Pantoprazole Sodium (Protonix Susp) 40 mg PO DAILY [facility] Last Admin: 12/25/17 09:42 Dose: 40 mg Vitamin A (Vitamin A&D) 1 applic TP BID [facility] Last Admin: 12/25/17 09:41 Dose: 1 applic - Labs Labs: 12/23/17 05:20 12/23/17 05:20
[2017-12-26] MEDS: Proshield Plus GEL TOP SCH ×2 (06:30→17:21)
[2017-12-26 06:58] LABS: HEMOGLOBIN 8.8 g/dL (12.0-18.0); MEAN CELL VOLUME 89.4 fl (80.0-94.0); MEAN CORPUSCULAR HEMOGLOBIN 28.4 pg (27.0-31.0); MEAN CORPUSCULAR HGB CONC 31.7 g/dL (33.0-37.0); RBC 3.1 Mil/uL (4.40-5.90); RED CELL DISTRIBUTION WIDTH 15.1 % (11.5-14.5); WHITE BLOOD COUNT 13.2 K/uL (4.8-10.8)
[2017-12-26 07:10] LABS: BLOOD UREA NITROGEN 17 mg/dl (9-20); GFR AFRICAN-AMERICAN > 60; GFR NON-AFRICAN AMERICAN > 60
[2017-12-26] MEDS: Ferrous Sulfate 300 mg/5 mL Liq UD PO SCH (08:56)
[2017-12-26] MEDS: Enoxaparin 40 mg Syringe SC SCH ×2 (08:56→21:35)
[2017-12-26] MEDS: Ammonium Lactate 12% Cream (140 g) TOP SCH ×2 (08:56→17:23)
[2017-12-26] MEDS: Vitamin A/D oint 60G TP SCH ×2 (08:58→17:22)
[2017-12-26] MEDS: CYANOCOBALAMIN 500 MCG TAB PO SCH (08:58)
[2017-12-26] MEDS: Pantoprazole 40 mg Susp UD PO SCH (08:59)
[2017-12-26] MEDS: Artificial Tears Opht Soln OU PRN (13:53)
--- NOTE | 2017-12-26 20:15 | CP.PCM.PN ---
Subjective - Date & Time of Evaluation Date of Evaluation: 12/26/17 Time of Evaluation: 20:14 - Subjective Subjective: Patient seen in the room nurse's note that his appetite continues to be good with oxandrin still with luz cath. Not continent of stool with no sesnsation that he has gone and obviously will not yet be ready for removal of cath and not able to do self cath yet continue current care Objective - Vital Signs/Intake and Output Vital Signs (last 24 hours): Temp Pulse Resp BP Pulse Ox 97.8 F 68 21 129/76 97 12/26/17 17:33 12/26/17 10:00 12/26/17 10:00 12/26/17 10:00 12/26/17 10:00 Intake and Output: 12/26/17 12/27/17 18:59 06:59 Intake Total 550 Output Total 600 Balance -50 - Medications Medications: Current Medications Acetaminophen (Tylenol 325mg Tab) 650 mg PO Q6 PRN PRN Reason: Pain, moderate (4-7) Last Admin: 12/26/17 17:33 Dose: 650 mg Artificial Tears (Artificial Tears) 2 drop OU Q2 PRN PRN Reason: Dry eyes Last Admin: 12/26/17 13:53 Dose: 2 drop Clonidine HCl (Catapres-Tts3 0.3 Mg/24 Hr) 1 patch TD Q7D [facility] Last Admin: 12/23/17 18:32 Dose: 1 patch Cyanocobalamin (Vitamin B12) 250 mcg PO DAILY [facility] Dimethicone (Proshield Plus Skin Protectant) 1 applic TOP 0600,1800 [facility] Last Admin: 12/26/17 17:21 Dose: 1 applic Diphenhydramine HCl (Benadryl) 25 mg IVP HS PRN PRN Reason: Insomnia Enalapril Maleate (Vasotec) 10 mg PO BID PRN PRN Reason: FOR SBP > 160/90 Enoxaparin Sodium (Lovenox) 40 mg SC Q12 [facility] PRN Reason: Protocol Last Admin: 12/26/17 08:56 Dose: 40 mg Ferrous Sulfate (Feosol Liq) 300 mg PO DAILY [facility] Last Admin: 12/26/17 08:56 Dose: 300 mg Lactic Acid (Lac-Hydrin 12% Cream (140 G)) 2 ea TOP BID [facility] Last Admin: 12/26/17 17:23 Dose: 1 applic Nicotine (Nicoderm Cq) 1 patch TD DAILY [facility] Last Admin: 12/26/17 08:57 Dose: 1 patch Oxandrolone (Oxandrin) 5 mg PO BID [facility] Last Admin: 12/26/17 17:27 Dose: 5 mg Pantoprazole Sodium (Protonix Susp) 40 mg PO DAILY [facility] Last Admin: 12/26/17 08:59 Dose: 40 mg Vitamin A (Vitamin A&D) 1 applic TP BID [facility] Last Admin: 12/26/17 17:22 Dose: 1 applic - Labs Labs: 12/26/17 05:25 12/26/17 05:25
[2017-12-27] MEDS: Proshield Plus GEL TOP SCH ×2 (06:22→17:56)
[2017-12-27 06:55] LABS: HEMOGLOBIN 9.3 g/dL (12.0-18.0); MEAN CELL VOLUME 88.7 fl (80.0-94.0); MEAN CORPUSCULAR HEMOGLOBIN 29.5 pg (27.0-31.0); MEAN CORPUSCULAR HGB CONC 33.2 g/dL (33.0-37.0); RBC 3.16 Mil/uL (4.40-5.90); RED CELL DISTRIBUTION WIDTH 14.8 % (11.5-14.5); WHITE BLOOD COUNT 7.2 K/uL (4.8-10.8)
[2017-12-27 07:00] LABS: ALB/GLOB RATIO 0.9 (1.0-2.1); ALBUMIN 2.9 g/dL (3.5-5.0); ALT/SGPT 40 U/L (21-72); AST/SGOT 25 U/L (17-59); BLOOD UREA NITROGEN 17 mg/dl (9-20); CALCIUM 9.1 mg/dL (8.4-10.2); GFR AFRICAN-AMERICAN > 60; GFR NON-AFRICAN AMERICAN > 60
[2017-12-27] MEDS: Artificial Tears Opht Soln OU PRN (08:42)
[2017-12-27] MEDS: Ferrous Sulfate 300 mg/5 mL Liq UD PO SCH (08:42)
[2017-12-27] MEDS: Ammonium Lactate 12% Cream (140 g) TOP SCH ×2 (08:43→17:56)
[2017-12-27] MEDS: Enoxaparin 40 mg Syringe SC SCH ×2 (08:43→21:08)
[2017-12-27] MEDS: CYANOCOBALAMIN 500 MCG TAB PO SCH (08:44)
[2017-12-27] MEDS: Vitamin A/D oint 60G TP SCH ×2 (08:44→17:57)
[2017-12-27] MEDS: Pantoprazole 40 mg Susp UD PO SCH (08:55)
[2017-12-27 10:09] LABS: URINE BACTERIA OCC (<OCC); URINE BILIRUBIN NEGATIVE (NEGATIVE); URINE BLOOD LARGE (NEGATIVE); URINE CLARITY CLOUDY (Clear); URINE COLOR YELLOW (YELLOW); URINE GLUCOSE (UA) NEG (Normal); URINE LEUKOCYTE ESTERASE SMALL Leu/uL (Negative); URINE NITRATE NEGATIVE (NEGATIVE); URINE PROTEIN 30 mg/dL (NEGATIVE); URINE UROBILINOGEN 0.2-1.0 mg/dL (0.2-1.0)
--- NOTE | 2017-12-27 10:54 | RAD ---
HISTORY: Elevated white count. COMPARISON: 12/02/2017 FINDINGS: LUNGS: No active pulmonary disease. PLEURA: No significant pleural effusion identified, no pneumothorax apparent. CARDIOVASCULAR: No radiographic findings to suggest acute or significant cardiovascular disease. PICC line in satisfactory position OSSEOUS STRUCTURES: No significant abnormalities. VISUALIZED UPPER ABDOMEN: Normal. OTHER FINDINGS: None. IMPRESSION: No active disease. No significant interval change compared to the prior examination(s).
--- NOTE | 2017-12-27 18:57 | CP.PCM.PN ---
Subjective - Date & Time of Evaluation Date of Evaluation: 12/27/17 Time of Evaluation: 18:56 - Subjective Subjective: Patient seen in room notes a very tough workout today happy with progress appetite is still very good with oxandrin continue current care Objective - Vital Signs/Intake and Output Vital Signs (last 24 hours): Temp Pulse Resp BP Pulse Ox 97.2 F L 59 L 18 151/72 H 99 12/27/17 07:38 12/27/17 07:38 12/27/17 07:38 12/27/17 07:38 12/27/17 07:38 Intake and Output: 12/27/17 12/27/17 06:59 18:59 Intake Total 600 650 Output Total 900 700 Balance -300 -50 - Medications Medications: Current Medications Acetaminophen (Tylenol 325mg Tab) 650 mg PO Q6 PRN PRN Reason: Pain, moderate (4-7) Last Admin: 12/27/17 08:47 Dose: 650 mg Artificial Tears (Artificial Tears) 2 drop OU Q2 PRN PRN Reason: Dry eyes Last Admin: 12/27/17 08:42 Dose: 2 drop Clonidine HCl (Catapres-Tts3 0.3 Mg/24 Hr) 1 patch TD Q7D [facility] Last Admin: 12/23/17 18:32 Dose: 1 patch Cyanocobalamin (Vitamin B12) 250 mcg PO DAILY [facility] Last Admin: 12/27/17 08:44 Dose: 250 mcg Dimethicone (Proshield Plus Skin Protectant) 1 applic TOP 0600,1800 [facility] Last Admin: 12/27/17 17:56 Dose: 1 applic Diphenhydramine HCl (Benadryl) 25 mg IVP HS PRN PRN Reason: Insomnia Enalapril Maleate (Vasotec) 10 mg PO BID PRN PRN Reason: FOR SBP > 160/90 Enoxaparin Sodium (Lovenox) 40 mg SC Q12 DAILY PRN Reason: Protocol Last Admin: 12/27/17 08:43 Dose: 40 mg Ferrous Sulfate (Feosol Liq) 300 mg PO DAILY [facility] Last Admin: 12/27/17 08:42 Dose: 300 mg Lactic Acid (Lac-Hydrin 12% Cream (140 G)) 2 ea TOP BID [facility] Last Admin: 12/27/17 17:56 Dose: 1 applic Nicotine (Nicoderm Cq) 1 patch TD DAILY [facility] Last Admin: 12/27/17 08:45 Dose: 1 patch Oxandrolone (Oxandrin) 5 mg PO BID [facility] Last Admin: 12/27/17 17:58 Dose: 5 mg Pantoprazole Sodium (Protonix Susp) 40 mg PO DAILY [facility] Last Admin: 12/27/17 08:55 Dose: 40 mg Vitamin A (Vitamin A&D) 1 applic TP BID [facility] Last Admin: 12/27/17 17:57 Dose: 1 applic - Labs Labs: 12/27/17 05:30 12/27/17 05:30
--- NOTE | 2017-12-28 00:05 | CP.PCM.PN ---
Subjective - Date & Time of Evaluation Date of Evaluation: 12/25/17 Time of Evaluation: 10:00 - Subjective Subjective: Patient has been doing a lot better. Has no chest pain or SOB. Objective - Vital Signs/Intake and Output Vital Signs (last 24 hours): Temp Pulse Resp BP Pulse Ox 98.0 F 62 20 148/74 99 12/27/17 20:02 12/27/17 20:02 12/27/17 20:02 12/27/17 20:02 12/27/17 20:02 Intake and Output: 12/27/17 12/28/17 18:59 06:59 Intake Total 650 Output Total 700 Balance -50 - Medications Medications: Current Medications Acetaminophen (Tylenol 325mg Tab) 650 mg PO Q6 PRN PRN Reason: Pain, moderate (4-7) Last Admin: 12/27/17 08:47 Dose: 650 mg Artificial Tears (Artificial Tears) 2 drop OU Q2 PRN PRN Reason: Dry eyes Last Admin: 12/27/17 08:42 Dose: 2 drop Clonidine HCl (Catapres-Tts3 0.3 Mg/24 Hr) 1 patch TD Q7D [facility] Last Admin: 12/23/17 18:32 Dose: 1 patch Cyanocobalamin (Vitamin B12) 250 mcg PO DAILY [facility] Last Admin: 12/27/17 08:44 Dose: 250 mcg Dimethicone (Proshield Plus Skin Protectant) 1 applic TOP 0600,1800 [facility] Last Admin: 12/27/17 17:56 Dose: 1 applic Diphenhydramine HCl (Benadryl) 25 mg IVP HS PRN PRN Reason: Insomnia Enalapril Maleate (Vasotec) 10 mg PO BID PRN PRN Reason: FOR SBP > 160/90 Enoxaparin Sodium (Lovenox) 40 mg SC Q12 [facility] PRN Reason: Protocol Last Admin: 12/27/17 21:08 Dose: 40 mg Ferrous Sulfate (Feosol Liq) 300 mg PO DAILY [facility] Last Admin: 12/27/17 08:42 Dose: 300 mg Lactic Acid (Lac-Hydrin 12% Cream (140 G)) 2 ea TOP BID [facility] Last Admin: 12/27/17 17:56 Dose: 1 applic Nicotine (Nicoderm Cq) 1 patch TD DAILY [facility] Last Admin: 12/27/17 08:45 Dose: 1 patch Oxandrolone (Oxandrin) 5 mg PO BID [facility] Last Admin: 12/27/17 17:58 Dose: 5 mg Pantoprazole Sodium (Protonix Susp) 40 mg PO DAILY [facility] Last Admin: 12/27/17 08:55 Dose: 40 mg Vitamin A (Vitamin A&D) 1 applic TP BID [facility] Last Admin: 12/27/17 17:57 Dose: 1 applic - Labs Labs: 12/27/17 05:30 12/27/17 05:30 Assessment and Plan (1) Gait abnormality Status: Acute (2) Dysphagia Status: Acute
--- NOTE | 2017-12-28 00:09 | CP.PCM.PN ---
Subjective - Date & Time of Evaluation Date of Evaluation: 12/26/17 Time of Evaluation: 10:30 - Subjective Subjective: Patient has better appetite. still with upper ext weakness. Objective - Vital Signs/Intake and Output Vital Signs (last 24 hours): Temp Pulse Resp BP Pulse Ox 98.0 F 62 20 148/74 99 12/27/17 20:02 12/27/17 20:02 12/27/17 20:02 12/27/17 20:02 12/27/17 20:02 Intake and Output: 12/27/17 12/28/17 18:59 06:59 Intake Total 650 Output Total 700 Balance -50 - Medications Medications: Current Medications Acetaminophen (Tylenol 325mg Tab) 650 mg PO Q6 PRN PRN Reason: Pain, moderate (4-7) Last Admin: 12/27/17 08:47 Dose: 650 mg Artificial Tears (Artificial Tears) 2 drop OU Q2 PRN PRN Reason: Dry eyes Last Admin: 12/27/17 08:42 Dose: 2 drop Clonidine HCl (Catapres-Tts3 0.3 Mg/24 Hr) 1 patch TD Q7D [facility] Last Admin: 12/23/17 18:32 Dose: 1 patch Cyanocobalamin (Vitamin B12) 250 mcg PO DAILY [facility] Last Admin: 12/27/17 08:44 Dose: 250 mcg Dimethicone (Proshield Plus Skin Protectant) 1 applic TOP 0600,1800 [facility] Last Admin: 12/27/17 17:56 Dose: 1 applic Diphenhydramine HCl (Benadryl) 25 mg IVP HS PRN PRN Reason: Insomnia Enalapril Maleate (Vasotec) 10 mg PO BID PRN PRN Reason: FOR SBP > 160/90 Enoxaparin Sodium (Lovenox) 40 mg SC Q12 [facility] PRN Reason: Protocol Last Admin: 12/27/17 21:08 Dose: 40 mg Ferrous Sulfate (Feosol Liq) 300 mg PO DAILY [facility] Last Admin: 12/27/17 08:42 Dose: 300 mg Lactic Acid (Lac-Hydrin 12% Cream (140 G)) 2 ea TOP BID [facility] Last Admin: 12/27/17 17:56 Dose: 1 applic Nicotine (Nicoderm Cq) 1 patch TD DAILY [facility] Last Admin: 12/27/17 08:45 Dose: 1 patch Oxandrolone (Oxandrin) 5 mg PO BID [facility] Last Admin: 12/27/17 17:58 Dose: 5 mg Pantoprazole Sodium (Protonix Susp) 40 mg PO DAILY [facility] Last Admin: 12/27/17 08:55 Dose: 40 mg Vitamin A (Vitamin A&D) 1 applic TP BID [facility] Last Admin: 12/27/17 17:57 Dose: 1 applic - Labs Labs: 12/27/17 05:30 12/27/17 05:30 Assessment and Plan (1) Gait abnormality Status: Acute (2) Dysphagia Status: Acute
--- NOTE | 2017-12-28 00:10 | CP.PCM.PN ---
Subjective - Date & Time of Evaluation Date of Evaluation: 12/27/17 Time of Evaluation: 10:40 - Subjective Subjective: Patient remains stable. Objective - Vital Signs/Intake and Output Vital Signs (last 24 hours): Temp Pulse Resp BP Pulse Ox 98.0 F 62 20 148/74 99 12/27/17 20:02 12/27/17 20:02 12/27/17 20:02 12/27/17 20:02 12/27/17 20:02 Intake and Output: 12/27/17 12/28/17 18:59 06:59 Intake Total 650 Output Total 700 Balance -50 - Medications Medications: Current Medications Acetaminophen (Tylenol 325mg Tab) 650 mg PO Q6 PRN PRN Reason: Pain, moderate (4-7) Last Admin: 12/27/17 08:47 Dose: 650 mg Artificial Tears (Artificial Tears) 2 drop OU Q2 PRN PRN Reason: Dry eyes Last Admin: 12/27/17 08:42 Dose: 2 drop Clonidine HCl (Catapres-Tts3 0.3 Mg/24 Hr) 1 patch TD Q7D [facility] Last Admin: 12/23/17 18:32 Dose: 1 patch Cyanocobalamin (Vitamin B12) 250 mcg PO DAILY [facility] Last Admin: 12/27/17 08:44 Dose: 250 mcg Dimethicone (Proshield Plus Skin Protectant) 1 applic TOP 0600,1800 [facility] Last Admin: 12/27/17 17:56 Dose: 1 applic Diphenhydramine HCl (Benadryl) 25 mg IVP HS PRN PRN Reason: Insomnia Enalapril Maleate (Vasotec) 10 mg PO BID PRN PRN Reason: FOR SBP > 160/90 Enoxaparin Sodium (Lovenox) 40 mg SC Q12 [facility] PRN Reason: Protocol Last Admin: 12/27/17 21:08 Dose: 40 mg Ferrous Sulfate (Feosol Liq) 300 mg PO DAILY [facility] Last Admin: 12/27/17 08:42 Dose: 300 mg Lactic Acid (Lac-Hydrin 12% Cream (140 G)) 2 ea TOP BID [facility] Last Admin: 12/27/17 17:56 Dose: 1 applic Nicotine (Nicoderm Cq) 1 patch TD DAILY [facility] Last Admin: 12/27/17 08:45 Dose: 1 patch Oxandrolone (Oxandrin) 5 mg PO BID [facility] Last Admin: 12/27/17 17:58 Dose: 5 mg Pantoprazole Sodium (Protonix Susp) 40 mg PO DAILY [facility] Last Admin: 12/27/17 08:55 Dose: 40 mg Vitamin A (Vitamin A&D) 1 applic TP BID [facility] Last Admin: 12/27/17 17:57 Dose: 1 applic - Labs Labs: 12/27/17 05:30 12/27/17 05:30 Assessment and Plan (1) Gait abnormality Status: Acute (2) Dysphagia Status: Acute
[2017-12-28] MEDS: Proshield Plus GEL TOP SCH ×2 (05:54→17:24)
[2017-12-28] MEDS: Vitamin A/D oint 60G TP SCH ×2 (08:38→17:23)
[2017-12-28] MEDS: Ferrous Sulfate 300 mg/5 mL Liq UD PO SCH (08:38)
[2017-12-28] MEDS: CYANOCOBALAMIN 500 MCG TAB PO SCH (08:38)
[2017-12-28] MEDS: Enoxaparin 40 mg Syringe SC SCH ×2 (08:39→21:32)
[2017-12-28] MEDS: Pantoprazole 40 mg Susp UD PO SCH (08:39)
[2017-12-28] MEDS: Ammonium Lactate 12% Cream (140 g) TOP SCH ×2 (08:39→17:23)
--- NOTE | 2017-12-28 13:28 | PSY.TMCNF ---
Nursing - Vital Signs Vital Signs (Last 8 hours): Vital Signs 12/28/17 12/28/17 08:28 09:00 Temperature 98.2 F 98.2 F Pulse Rate 60 60 Respiratory 19 19 Rate Blood Pressure 129/61 129/61 O2 Sat by Pulse 98 Oximetry Pain: 0 - Precautions: Precautions: Fall Prevention, Aspiration, Pressure Ulcer - Medications/Other Issues Comment: Pt at moderate nutritional risk. 1. Pt to consume 75-100% of meals. Follow-up due on 01/03/2018 - Consults Comment: Dr. 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 - Wound Upper Buttock Wound Type: Pressure Ulcer Wound Stage: STAGE II Wound Shape: Irregular Wound Edges: Closed Tunneling: No Undermining: No Wound Bed Greatest Portion: Pale [place] Periwound: Intact Wound Drainage Amount: None Wound General Appearance: Asymptomatic, Open to air, Clean/Dry Wound Dressing Status: Open to air Dressing Changed: No Wound Primary Dressing Type: Open to air Left Heel Wound Type: Other Wound Stage: Suspected Deep Tissue Injury Wound Edges: Closed Wound Primary Dressing Type: Open to air Comment: Skin prep applied - Toileting Toileting: Dependent - Bladder Management Voiding Method: Indwelling Catheter - Bowel Management Bowel Pattern: Incontinent Bowel Management: Dependent Frequency of Accidents: >5 - Transfers Transfers: Dependent - ADL's ADL's: Dependent - Pain Management Comments: Tylenol PRN - Patient/Family Teaching Comments: - Care post spinal injury and safety precautions, aspiration , safety and spinal precautions. - Skin breakdown prevention - Goals/Time Frame Comments: Per multidisciplinary care plan and goals. - Provider Provider: Amy Somers RN Physical Therapy - Bed Mobility Bed Mobility: Moderate Assistance, Maximum Assistance - Transfers Wheelchair to Mat: Maximum Assistance Sit to Stand: Moderate Assistance, Maximum Assistance - Ambulation Level of Assistance: Moderate Assistance, Maximum Assistance Distance (ft.): 10 Orthoses: B dorsiflexion wraps Comment: -10 feet // bars with WC follow. -mod/max A for weight shifting. - use of B dorsiflexion wraps. -CGA for swing phase on RLE. -[facility]aiser for swing phase on LLE. -requires assistance for placement of foot and cues to increase hip flexion due to lack of dorsiflexion in swing. -uses hyperextension during dynamic gait for stability in stance due to continued weakness in/neuromotor control dysfunction in quadriceps - Stair Negotiation Stairs: Level of Assistance: Not Tested - Standing Balance Static Stand: Moderate Assistance Dynamic Stand: Maximal Assistance - Pain Pain (assessed during therapy session): 6 Management Techniques: Massage, Distraction, Relaxation Techniques, Exercise, Inactivity Comment: L shoulder - Insight/Carryover Insight/Carryover: Good - Patient/Family Education Comment: -safety, therapy schedule, therapy goals, pressure relief, importance of mobility in bed, SCI recovery, spinal precautions, importance of OOB - Assessment/Plan Assessment: Mr. Jeffers continues to make slow steady progress in therapies. Patient has improving neuro-motor control with ability to accept weight and ability to stand for short periods of time with good mechanics and reduced assistance. Patient continues to require rest breaks and motivation but has improving tolerance to exercise. PT recommends continued skilled therapies to maximize safety and independence with all mobility s/p SCI. PT continues to recommend discharge to [facility] upon completion of full length of stay in acute rehab. - Goals Timeframe: 7 days Goals: -propel WC x 25 feet with max A. -ambulate in // bars x 10 feet with mod A. -sit to/from stand with mod A. -SPT with mod A of 1. -rolling with distant supervision. -supine to sit with mod A of 1. -sit to supine with max A of 1. -scooting via bridging with mod A of 1 - Provider Therapist: Ana Lucero PT, DPT License Number: [id number] Occupational Therapy - Arousal/Attention/Orientation Patient Orientation: Person, Place, Time, Appropriate to Age, Appropriate to Situation - ADL/IADL Self Feeding: Supervision, Verbal Cues, Set-up Help, Minimal Assistance Grooming: Verbal Cues, Set-up Help, Moderate Assistance, Maximum Assistance Bathing-Upper Extremity: Dependent Bathing-Lower Extremity: Dependent Dressing-Upper Extremity: Verbal Cues, Set-up Help, Moderate Assistance, Maximum Assistance Dressing-Lower Extremity: Dependent Comment: Pt limited by pain & fatique - Sitting Balance Static Sitting: Minimal Assistance Dynamic Sitting: Reaches across midline, Reaches within base of support, Minimal Assistance, Moderate Assistance Comment: seated at edge of mat - Transfers Wheelchair to Bed Transfers: Verbal Cues, Set-up Help, Moderate Assistance, Maximum Assistance Toilet Transfers: Verbal Cues, Set-up Help, Moderate Assistance, Maximum Assistance Comment: shower transfers/bench: max assist and verbal cues for pivot transfers - Wheelchair Management Level of Assistance: Dependent - Upper Extremity Status Right Upper Extremity Comment: PROM is WFLS, but AROM limited by impaired strength/gross motor coordination Left Upper Extremity Comment: PROM is WFLS, but AROM limited by impaired strength/gross motor coordination - Pain Pain (assessed during therapy session): 6 Alleviating Techniques: Massage, Distraction, Relaxation Techniques, Exercise, Inactivity Comment: L shoulder - Insight/Carryover Insight/Carryover: Good - Patient/Family Education Comment: -safety, therapy schedule, therapy goals, pressure relief, importance of mobility in bed, SCI recovery, spinal precautions, importance of OOB - Assessment/Plan Assessment: Mr. Jeffers continues to make slow steady progress in therapies. Patient has improving neuro-motor control with ability to accept weight and ability to stand for short periods of time with good mechanics and reduced assistance. Patient continues to require rest breaks and motivation but has improving tolerance to exercise. PT recommends continued skilled therapies to maximize safety and independence with all mobility s/p SCI. PT continues to recommend discharge to [facility] upon completion of full length of stay in acute rehab. - Goals Timeframe: 7 days Goals: -propel WC x 25 feet with max A. -ambulate in // bars x 10 feet with mod A. -sit to/from stand with mod A. -SPT with mod A of 1. -rolling with distant supervision. -supine to sit with mod A of 1. -sit to supine with max A of 1. 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 -mild-moderate pharyngeal dysphagia - Assessment Problem Solving Impairment: Mild Memory Impairment: Mild Speech/Articulation Impairment: Mild Comment: voice deficits Dysphagia/Swallowing Impairment: Moderate Comment: bite size solids/thin liquids - Plan Assessment: Mr. Jeffers continues to make slow steady progress in therapies. Patient has improving neuro-motor control with ability to accept weight and ability to stand for short periods of time with good mechanics and reduced assistance. Patient continues to require rest breaks and motivation but has improving tolerance to exercise. PT recommends continued skilled therapies to maximize safety and independence with all mobility s/p SCI. PT continues to recommend discharge to [facility] upon completion of full length of stay in acute rehab. - Provider Therapist: Latasha Jones License Number: [id number] Recreational Therapy - Participation Participation: Participates in Individual and/or Group Sessions - Attendance Attendance: 3-5 times per week - Activities Leisure Activities: Cards and Games - Socialization Level of Socialization: Initiates/interacts freely with care givers and peer - Diversional Time Diversional Time: television - Assessment Assessment/Plan: Mr. Jeffers continues to make slow steady progress in therapies. Patient has improving neuro-motor control with ability to accept weight and ability to stand for short periods of time with good mechanics and reduced assistance. Patient continues to require rest breaks and motivation but has improving tolerance to exercise. PT recommends continued skilled therapies to maximize safety and independence with all mobility s/p SCI. PT continues to recommend discharge to [facility] upon completion of full length of stay in acute rehab. - Provider Therapist: Vickie Ogden, [employer] #[id number] Nutrition - Current Diet Current Diet/ Supplement/ Feedings: Mech altered(finely chopped) thin liquids ensure plus 8 ounces 2 per day - Appetite Percent Meal Consumed: 75-100% - Comments Comments: - Care post spinal injury and safety precautions, aspiration , safety and spinal precautions. - Skin breakdown prevention - Assessment/Goals/Time Frame Assessment/Goals/Time Frame: Pt at moderate nutritional risk. 1. Pt to consume 75-100% of meals. Follow-up due on 01/03/2018 - Provider Provider: Muriel Melgar RD Case Management - Psychosocial Assessment Support Systems: Emmanuel Jeffers ([facility])- [phone] Psychological Interventions/Needs: Patient is alert and oriented x3 and able to verbalize needs. Discharge Concerns: Patient currently requiring mod-max A for all functional mobility and on mechanically altered diet with PEG still in place. Patient/Family Meeting: CM met with patient and rehab team Intervention/Goal/Outcome:: 1. Plan: JOHNIE > LTC? dependent on progress in acute rehab. 2. Tentative discharge date: 01/14/2018. 3. continued emotional support - Discharge Plan Discharge Plan: Subacute care, senior living care - Provider Provider: MIKE Funk, [employer] License Number: [id number] Rehabilitation Plan - Treatment Plan Treatment Plan: Physical Therapy, Occupational Therapy, Speech, Dietary, Patient /Family Education - Discharge Plan Estimated Date of Discharge: 01/14/18 Discharge to: Subacute
--- NOTE | 2017-12-28 13:48 | CP.PCM.PN ---
Subjective - Date & Time of Evaluation Date of Evaluation: 12/28/17 Time of Evaluation: 13:47 - Subjective Subjective: patient seen in room no pain issue now had a decrease in PO intake but no other changes really motivated and continues to make solid gains in spite of limited function now can be supervision with bed mobility so wounds are improving nicely continue current care Objective - Vital Signs/Intake and Output Vital Signs (last 24 hours): Temp Pulse Resp BP Pulse Ox 98.2 F 60 19 129/61 98 12/28/17 09:00 12/28/17 09:00 12/28/17 09:00 12/28/17 09:00 12/28/17 08:28 Intake and Output: 12/28/17 12/28/17 06:59 18:59 Intake Total 550 Output Total 600 Balance -50 - Medications Medications: Current Medications Acetaminophen (Tylenol 325mg Tab) 650 mg PO Q6 PRN PRN Reason: Pain, moderate (4-7) Last Admin: 12/27/17 08:47 Dose: 650 mg Artificial Tears (Artificial Tears) 2 drop OU Q2 PRN PRN Reason: Dry eyes Last Admin: 12/27/17 08:42 Dose: 2 drop Clonidine HCl (Catapres-Tts3 0.3 Mg/24 Hr) 1 patch TD Q7D [facility] Last Admin: 12/23/17 18:32 Dose: 1 patch Cyanocobalamin (Vitamin B12) 250 mcg PO DAILY [facility] Last Admin: 12/28/17 08:38 Dose: 250 mcg Dimethicone (Proshield Plus Skin Protectant) 1 applic TOP 0600,1800 [facility] Last Admin: 12/28/17 05:54 Dose: 1 applic Diphenhydramine HCl (Benadryl) 25 mg IVP HS PRN PRN Reason: Insomnia Enalapril Maleate (Vasotec) 10 mg PO BID PRN PRN Reason: FOR SBP > 160/90 Enoxaparin Sodium (Lovenox) 40 mg SC Q12 [facility] PRN Reason: Protocol Last Admin: 12/28/17 08:39 Dose: 40 mg Ferrous Sulfate (Feosol Liq) 300 mg PO DAILY [facility] Last Admin: 12/28/17 08:38 Dose: 300 mg Lactic Acid (Lac-Hydrin 12% Cream (140 G)) 2 ea TOP BID [facility] Last Admin: 12/28/17 08:39 Dose: 1 applic Nicotine (Nicoderm Cq) 1 patch TD DAILY [facility] Last Admin: 12/28/17 08:39 Dose: 1 patch Oxandrolone (Oxandrin) 5 mg PO BID [facility] Last Admin: 12/28/17 08:38 Dose: 5 mg Pantoprazole Sodium (Protonix Susp) 40 mg PO DAILY [facility] Last Admin: 12/28/17 08:39 Dose: 40 mg Vitamin A (Vitamin A&D) 1 applic TP BID [facility] Last Admin: 12/28/17 08:38 Dose: 1 applic - Labs Labs: 12/27/17 05:30 12/27/17 05:30
--- NOTE | 2017-12-28 17:40 | CP.PCM.PN ---
Subjective - Date & Time of Evaluation Date of Evaluation: 12/28/17 Time of Evaluation: 10:15 - Subjective Subjective: Patient seen and examined at bedside with attending - Dr. Dolan. Reports good appetite and tolerating PT well. Urinary and stool incontinence remain. Objective - Vital Signs/Intake and Output Vital Signs (last 24 hours): Temp Pulse Resp BP Pulse Ox 98.2 F 60 19 129/61 98 12/28/17 09:00 12/28/17 09:00 12/28/17 09:00 12/28/17 09:00 12/28/17 08:28 Intake and Output: 12/28/17 12/28/17 06:59 18:59 Intake Total 550 Output Total 600 Balance -50 - Medications Medications: Current Medications Acetaminophen (Tylenol 325mg Tab) 650 mg PO Q6 PRN PRN Reason: Other Artificial Tears (Artificial Tears) 2 drop OU Q2 PRN PRN Reason: Dry eyes Last Admin: 12/27/17 08:42 Dose: 2 drop Clonidine HCl (Catapres-Tts3 0.3 Mg/24 Hr) 1 patch TD Q7D [facility] Last Admin: 12/23/17 18:32 Dose: 1 patch Cyanocobalamin (Vitamin B12) 250 mcg PO DAILY [facility] Last Admin: 12/28/17 08:38 Dose: 250 mcg Dimethicone (Proshield Plus Skin Protectant) 1 applic TOP 0600,1800 [facility] Last Admin: 12/28/17 17:24 Dose: 1 applic Diphenhydramine HCl (Benadryl) 25 mg IVP HS PRN PRN Reason: Insomnia Enalapril Maleate (Vasotec) 10 mg PO BID PRN PRN Reason: FOR SBP > 160/90 Enoxaparin Sodium (Lovenox) 40 mg SC Q12 [facility] PRN Reason: Protocol Last Admin: 12/28/17 08:39 Dose: 40 mg Ferrous Sulfate (Feosol Liq) 300 mg PO DAILY [facility] Last Admin: 12/28/17 08:38 Dose: 300 mg Lactic Acid (Lac-Hydrin 12% Cream (140 G)) 2 ea TOP BID [facility] Last Admin: 12/28/17 17:23 Dose: 1 applic Nicotine (Nicoderm Cq) 1 patch TD DAILY [facility] Last Admin: 12/28/17 08:39 Dose: 1 patch Oxandrolone (Oxandrin) 5 mg PO BID [facility] Last Admin: 12/28/17 17:22 Dose: 5 mg Pantoprazole Sodium (Protonix Susp) 40 mg PO DAILY [facility] Last Admin: 12/28/17 08:39 Dose: 40 mg Vitamin A (Vitamin A&D) 1 applic TP BID [facility] Last Admin: 12/28/17 17:23 Dose: 1 applic - Labs Labs: 12/27/17 05:30 12/27/17 05:30 - Constitutional Appears: Cachectic, Chronically Ill - Head Exam Head Exam: ATRAUMATIC, NORMOCEPHALIC - Eye Exam Eye Exam: EOMI - ENT Exam ENT Exam: Mucous Membranes Moist - Neck Exam Neck Exam: Full ROM - Respiratory Exam Respiratory Exam: NORMAL BREATHING PATTERN - Cardiovascular Exam Cardiovascular Exam: REGULAR RHYTHM, +S1, +S2 - GI/Abdominal Exam GI & Abdominal Exam: Soft, Normal Bowel Sounds. absent: Tenderness - Extremities Exam Extremities Exam: absent: Calf Tenderness - Neurological Exam Neurological Exam: Alert, Awake, CN II-XII Intact, Oriented x3 - Psychiatric Exam Psychiatric exam: Normal Affect, Normal Mood - Skin Skin Exam: Dry, Normal Color, Warm Assessment and Plan - Assessment and Plan (Free Text) Assessment: Gait abnormality persists, patient has urinary and stool incontinence. -continue present management -change luz catheter
[2017-12-29] MEDS: Proshield Plus GEL TOP SCH ×2 (06:23→17:06)
[2017-12-29 06:54] LABS: HEMOGLOBIN 9.2 g/dL (12.0-18.0); MEAN CELL VOLUME 88.5 fl (80.0-94.0); MEAN CORPUSCULAR HEMOGLOBIN 28.7 pg (27.0-31.0); MEAN CORPUSCULAR HGB CONC 32.4 g/dL (33.0-37.0); RBC 3.22 Mil/uL (4.40-5.90); WHITE BLOOD COUNT 5.7 K/uL (4.8-10.8)
[2017-12-29 07:24] LABS: BLOOD UREA NITROGEN 17 mg/dl (9-20); CALCIUM 8.9 mg/dL (8.4-10.2); GFR AFRICAN-AMERICAN > 60; GFR NON-AFRICAN AMERICAN > 60
[2017-12-29] MEDS: Ammonium Lactate 12% Cream (140 g) TOP SCH ×2 (08:32→17:04)
[2017-12-29] MEDS: Enoxaparin 40 mg Syringe SC SCH ×2 (08:35→21:25)
[2017-12-29] MEDS: Ferrous Sulfate 300 mg/5 mL Liq UD PO SCH (08:36)
[2017-12-29] MEDS: Pantoprazole 40 mg Susp UD PO SCH (08:36)
[2017-12-29] MEDS: Vitamin A/D oint 60G TP SCH ×2 (08:37→17:05)
[2017-12-29] MEDS: CYANOCOBALAMIN 500 MCG TAB PO SCH (08:37)
[2017-12-29] MEDS: Artificial Tears Opht Soln OU PRN (08:47)
--- NOTE | 2017-12-29 18:01 | CP.PCM.PN ---
Subjective - Date & Time of Evaluation Date of Evaluation: 12/29/17 Time of Evaluation: 10:10 - Subjective Subjective: Patient seen and examined at bedside with attending-Dr. Dolan. Denies fever, chills, chest pain or dizziness. Patient reports he does not feel when he voids or has a bowel movement. Appetite is good. Objective - Vital Signs/Intake and Output Vital Signs (last 24 hours): Temp Pulse Resp BP Pulse Ox 97.5 F L 62 21 116/42 L 98 12/29/17 09:06 12/29/17 09:06 12/29/17 09:06 12/29/17 09:06 12/29/17 09:06 Intake and Output: 12/29/17 12/29/17 06:59 18:59 Intake Total 550 Output Total 600 Balance -50 - Medications Medications: Current Medications Acetaminophen (Tylenol 325mg Tab) 650 mg PO Q6 PRN PRN Reason: Other Last Admin: 12/29/17 10:55 Dose: 650 mg Artificial Tears (Artificial Tears) 2 drop OU Q2 PRN PRN Reason: Dry eyes Last Admin: 12/29/17 08:47 Dose: 2 drop Ciprofloxacin (Cipro) 250 mg PO Q12 DAILY PRN Reason: Protocol Stop: 12/31/17 21:01 Last Admin: 12/29/17 13:02 Dose: 250 mg Clonidine HCl (Catapres-Tts3 0.3 Mg/24 Hr) 1 patch TD Q7D [facility] Last Admin: 12/23/17 18:32 Dose: 1 patch Cyanocobalamin (Vitamin B12) 250 mcg PO DAILY [facility] Last Admin: 12/29/17 08:37 Dose: 250 mcg Dimethicone (Proshield Plus Skin Protectant) 1 applic TOP 0600,1800 [facility] Last Admin: 12/29/17 17:06 Dose: 1 applic Diphenhydramine HCl (Benadryl) 25 mg IVP HS PRN PRN Reason: Insomnia Enalapril Maleate (Vasotec) 10 mg PO BID PRN PRN Reason: FOR SBP > 160/90 Enoxaparin Sodium (Lovenox) 40 mg SC Q12 DAILY PRN Reason: Protocol Last Admin: 12/29/17 08:35 Dose: 40 mg Ferrous Sulfate (Feosol Liq) 300 mg PO DAILY [facility] Last Admin: 12/29/17 08:36 Dose: 300 mg Lactic Acid (Lac-Hydrin 12% Cream (140 G)) 2 ea TOP BID [facility] Last Admin: 12/29/17 17:04 Dose: 1 applic Nicotine (Nicoderm Cq) 1 patch TD DAILY [facility] Last Admin: 12/29/17 08:38 Dose: 1 patch Oxandrolone (Oxandrin) 5 mg PO BID [facility] Last Admin: 12/29/17 17:05 Dose: 5 mg Pantoprazole Sodium (Protonix Susp) 40 mg PO DAILY [facility] Last Admin: 12/29/17 08:36 Dose: 40 mg Vitamin A (Vitamin A&D) 1 applic TP BID [facility] Last Admin: 12/29/17 17:05 Dose: 1 applic - Labs Labs: 12/29/17 05:25 12/29/17 05:25 - Constitutional Appears: No Acute Distress - Head Exam Head Exam: ATRAUMATIC, NORMOCEPHALIC - Eye Exam Eye Exam: EOMI, PERRL - ENT Exam ENT Exam: Mucous Membranes Moist - Neck Exam Neck Exam: Full ROM - Respiratory Exam Respiratory Exam: NORMAL BREATHING PATTERN - Cardiovascular Exam Cardiovascular Exam: REGULAR RHYTHM, +S1, +S2 - GI/Abdominal Exam GI & Abdominal Exam: Soft, Normal Bowel Sounds. absent: Tenderness - Extremities Exam Extremities Exam: Full ROM - Neurological Exam Neurological Exam: Alert, Awake, CN II-XII Intact, Oriented x3 - Psychiatric Exam Psychiatric exam: Normal Affect, Normal Mood - Skin Skin Exam: Dry, Intact, Warm Assessment and Plan - Assessment and Plan (Free Text) Assessment: -continue current management -Urine culture 12/29/17 positive for enterococcus faecalis -start Ciprofloxacin 250mg PO Q12 x 3 days -repeat UA and urine culture
[2017-12-29 19:22] LABS: URINE BACTERIA RARE (<OCC); URINE BILIRUBIN NEGATIVE (NEGATIVE); URINE BLOOD NEGATIVE (NEGATIVE); URINE CLARITY CLOUDY (Clear); URINE COLOR YELLOW (YELLOW); URINE GLUCOSE (UA) NEG (Normal); URINE LEUKOCYTE ESTERASE LARGE Leu/uL (Negative); URINE NITRATE NEGATIVE (NEGATIVE); URINE PROTEIN 30 mg/dL (NEGATIVE); URINE UROBILINOGEN 0.2-1.0 mg/dL (0.2-1.0)
[2017-12-30] MEDS: Proshield Plus GEL TOP SCH ×2 (06:04→18:23)
[2017-12-30] MEDS: Pantoprazole 40 mg Susp UD PO SCH (08:20)
[2017-12-30] MEDS: Ferrous Sulfate 300 mg/5 mL Liq UD PO SCH (08:21)
[2017-12-30] MEDS: Enoxaparin 40 mg Syringe SC SCH ×2 (08:21→20:35)
[2017-12-30] MEDS: Ammonium Lactate 12% Cream (140 g) TOP SCH ×2 (08:21→16:51)
[2017-12-30] MEDS: Vitamin A/D oint 60G TP SCH ×2 (08:25→16:52)
[2017-12-30] MEDS: CYANOCOBALAMIN (VITAMIN B-12) 250 MCG TABLET PO SCH (12:36)
[2017-12-30] MEDS: CYANOCOBALAMIN 500 MCG TAB PO SCH (12:41)
--- NOTE | 2017-12-30 12:44 | CP.PCM.PN ---
Subjective - Date & Time of Evaluation Date of Evaluation: 12/30/17 Time of Evaluation: 12:41 - Subjective Subjective: 72 YO M seen and examined doing well at bedside. Pain is controlled with medication. Denies chest pain, SOB, N/V/D. Appetite is good Objective - Vital Signs/Intake and Output Vital Signs (last 24 hours): Temp Pulse Resp BP Pulse Ox 97.3 F L 62 19 149/73 99 12/30/17 08:33 12/30/17 08:33 12/30/17 08:33 12/30/17 08:33 12/30/17 08:33 Intake and Output: 12/30/17 12/30/17 06:59 18:59 Intake Total 400 Output Total 900 Balance -500 - Medications Medications: Current Medications Acetaminophen (Tylenol 325mg Tab) 650 mg PO Q6 PRN PRN Reason: Other Last Admin: 12/30/17 12:36 Dose: 650 mg Artificial Tears (Artificial Tears) 2 drop OU Q2 PRN PRN Reason: Dry eyes Last Admin: 12/29/17 08:47 Dose: 2 drop Ciprofloxacin (Cipro) 250 mg PO Q12 [facility] PRN Reason: Protocol Stop: 12/31/17 21:01 Last Admin: 12/30/17 08:20 Dose: 250 mg Clonidine HCl (Catapres-Tts3 0.3 Mg/24 Hr) 1 patch TD Q7D [facility] Last Admin: 12/23/17 18:32 Dose: 1 patch Dimethicone (Proshield Plus Skin Protectant) 1 applic TOP 0600,1800 [facility] Last Admin: 12/30/17 06:04 Dose: 1 applic Diphenhydramine HCl (Benadryl) 25 mg IVP HS PRN PRN Reason: Insomnia Enalapril Maleate (Vasotec) 10 mg PO BID PRN PRN Reason: FOR SBP > 160/90 Enoxaparin Sodium (Lovenox) 40 mg SC Q12 [facility] PRN Reason: Protocol Last Admin: 12/30/17 08:21 Dose: 40 mg Ferrous Sulfate (Feosol Liq) 300 mg PO DAILY [facility] Last Admin: 12/30/17 08:21 Dose: 300 mg Lactic Acid (Lac-Hydrin 12% Cream (140 G)) 2 ea TOP BID [facility] Last Admin: 12/30/17 08:21 Dose: 1 applic Nicotine (Nicoderm Cq) 1 patch TD DAILY [facility] Last Admin: 12/30/17 08:21 Dose: 1 patch Oxandrolone (Oxandrin) 5 mg PO BID [facility] Last Admin: 12/30/17 08:20 Dose: 5 mg Pantoprazole Sodium (Protonix Susp) 40 mg PO DAILY [facility] Last Admin: 12/30/17 08:20 Dose: 40 mg Saccharomyces Boulardii (Florastor) 250 mg PO BID [facility] Vitamin A (Vitamin A&D) 1 applic TP BID [facility] Last Admin: 12/30/17 08:25 Dose: 1 applic - Labs Labs: 12/29/17 05:25 12/29/17 05:25 - Constitutional Appears: No Acute Distress - Head Exam Head Exam: NORMAL INSPECTION - Eye Exam Eye Exam: Normal appearance - ENT Exam ENT Exam: Mucous Membranes Moist - Respiratory Exam Respiratory Exam: Clear to Ausculation Bilateral. absent: Rhonchi, Wheezes - Cardiovascular Exam Cardiovascular Exam: REGULAR RHYTHM, +S1, +S2 - Neurological Exam Neurological Exam: Alert, Awake, CN II-XII Intact - Skin Skin Exam: Warm Additional comments: stage 1 sacral ulcer Stage 1 left heal ulcer Assessment and Plan - Assessment and Plan (Free Text) Assessment: -continue current management -Urine culture 12/29/17 positive for enterococcus faecalis -Continue Ciprofloxacin 250mg PO Q12 x 2 days -repeat UA and urine culture
[2017-12-30] MEDS: Saccharomyces Boulardi 250 mg Cap PO SCH (16:51)
[2017-12-31] MEDS: Proshield Plus GEL TOP SCH ×2 (06:24→17:13)
[2017-12-31] MEDS: Artificial Tears Opht Soln OU PRN (06:25)
--- NOTE | 2017-12-31 08:41 | CP.PCM.CON ---
History of Present Illness - History of Present Illness History of Present Illness: Pt is a 72 year old [place] male admitted to [facility] and refered to the quality analyst/technical writer for evaluation. Pt reported having a fall-spinal cord compression, and CVA. Other medical issues denied. See medical record for complete medical history and list of medications. Social History: Pt reported living in a hotel prior to admission with homelessness for one year prior to the above. Pt was and 2x. He has four children and reported close and positive relationships with three of the four. Pt close to grandchildren as well. 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 Psych history denied. Pt reported a history of alcohol abuse 25+ years ago and more recent drug abuse (crack/cocaine). Pt spoke of his current depression due to physical limitations, fear of being a burden, dependant on others with the desire to help his chidlren vs. them help him. Pt tearful on interview, expressed frustration/depression. He expressed "Hope" and optimism that things would improve. MSE: Pt alert, oriented x3, relevant/coherent, affect constricted, mood depressed, no suicidal plan, no homicidal ideation, no psychosis. DX: Depression with medical condition plan: Continued Sup therapy Thank you for this referral, Dr. Cope Past Patient History - Past Medical History & Family History Past Medical History?: Yes - Past Social History Smoking Status: Former Smoker - CARDIAC Hx Congestive Heart Failure: No Hx Hypercholesterolemia: No - PULMONARY Hx Chronic Obstructive Pulmonary Disease (COPD): No Other/Comment: Aspiration Pneumonia - NEUROLOGICAL Hx Neurological Disorder: Yes HX Cerebrovascular Accident: Yes Hx Seizures: Yes Other/Comment: Cervical spine surgery - HEENT Hx HEENT Problems: No (hx unknown) - RENAL Hx Renal Failure: No - ENDOCRINE/METABOLIC Hx Diabetes Mellitus Type 1: No Hx Diabetes Mellitus Type 2: No Hx Hypothyroidism: No - HEMATOLOGICAL/ONCOLOGICAL Hx Blood Disorders: Yes Hx AIDS: (unknown) Hx Anemia: Yes Hx Human Immunodeficiency Virus (HIV): (unknown) - INTEGUMENTARY Hx Dermatological Problems: No - MUSCULOSKELETAL/RHEUMATOLOGICAL Hx Arthritis: No Hx Falls: No Hx Rheumatoid Arthritis: No - GASTROINTESTINAL Hx Ileostomy: Yes Other/Comment: s/p appendectomy - GENITOURINARY/GYNECOLOGICAL Hx Genitourinary Disorders: Yes Other/Comment: urinary retention - PSYCHIATRIC Hx Psychophysiologic Disorder: Yes Hx Depression: Yes Hx Substance Use: Yes (Cocaine, Marijuana) - SURGICAL HISTORY Hx Appendectomy: Yes - ANESTHESIA Hx Anesthesia: Yes Hx Anesthesia Reactions: No Hx Malignant Hyperthermia: No Meds Allergies/Adverse Reactions: Allergies Allergy/AdvReac Type Severity Reaction Status Date / Time No Known Allergies Allergy Verified 12/09/17 18:20 - Medications Medications: Current Medications Acetaminophen (Tylenol 325mg Tab) 650 mg PO Q6 PRN PRN Reason: Other Last Admin: 12/30/17 12:36 Dose: 650 mg Artificial Tears (Artificial Tears) 2 drop OU Q2 PRN PRN Reason: Dry eyes Last Admin: 12/31/17 06:25 Dose: 2 drop Ciprofloxacin (Cipro) 250 mg PO Q12 [facility] PRN Reason: Protocol Stop: 12/31/17 21:01 Last Admin: 12/30/17 20:34 Dose: 250 mg Clonidine HCl (Catapres-Tts3 0.3 Mg/24 Hr) 1 patch TD Q7D [facility] Last Admin: 12/30/17 18:23 Dose: 1 patch Dimethicone (Proshield Plus Skin Protectant) 1 applic TOP 0600,1800 [facility] Last Admin: 12/31/17 06:24 Dose: 1 applic Diphenhydramine HCl (Benadryl) 25 mg IVP HS PRN PRN Reason: Insomnia Enalapril Maleate (Vasotec) 10 mg PO BID PRN PRN Reason: FOR SBP > 160/90 Enoxaparin Sodium (Lovenox) 40 mg SC Q12 [facility] PRN Reason: Protocol Last Admin: 12/30/17 20:35 Dose: 40 mg Ferrous Sulfate (Feosol Liq) 300 mg PO DAILY [facility] Last Admin: 12/30/17 08:21 Dose: 300 mg Lactic Acid (Lac-Hydrin 12% Cream (140 G)) 2 ea TOP BID [facility] Last Admin: 12/30/17 16:51 Dose: 1 applic Nicotine (Nicoderm Cq) 1 patch TD DAILY [facility] Last Admin: 12/30/17 08:21 Dose: 1 patch Oxandrolone (Oxandrin) 5 mg PO BID [facility] Last Admin: 12/30/17 16:51 Dose: 5 mg Pantoprazole Sodium (Protonix Susp) 40 mg PO DAILY [facility] Last Admin: 12/30/17 08:20 Dose: 40 mg Saccharomyces Boulardii (Florastor) 250 mg PO BID [facility] Last Admin: 12/30/17 16:51 Dose: 250 mg Vitamin A (Vitamin A&D) 1 applic TP BID [facility] Last Admin: 12/30/17 16:52 Dose: 1 applic Results - Vital Signs Recent Vital Signs: Last Vital Signs Temp 97.9 F 12/31/17 07:46 Pulse 75 12/31/17 07:46 Resp 19 12/31/17 07:46 BP 138/71 12/31/17 07:46 Pulse Ox 97 12/31/17 07:46 - Labs Result Diagrams: 12/29/17 05:25 12/29/17 05:25
[2017-12-31] MEDS: Vitamin A/D oint 60G TP SCH ×2 (08:49→16:54)
[2017-12-31] MEDS: Enoxaparin 40 mg Syringe SC SCH ×2 (08:49→21:36)
[2017-12-31] MEDS: CYANOCOBALAMIN (VITAMIN B-12) 250 MCG TABLET PO SCH (08:50)
[2017-12-31] MEDS: Pantoprazole 40 mg Susp UD PO SCH (08:50)
[2017-12-31] MEDS: Ferrous Sulfate 300 mg/5 mL Liq UD PO SCH (08:50)
[2017-12-31] MEDS: Ammonium Lactate 12% Cream (140 g) TOP SCH ×2 (08:50→16:54)
[2017-12-31] MEDS: Saccharomyces Boulardi 250 mg Cap PO SCH ×2 (08:51→16:54)
[2017-12-31] MEDS: Bacitracin OINT 15GM TOP SCH (16:54)
[2018-01-01] MEDS: Proshield Plus GEL TOP SCH ×2 (05:31→17:28)
[2018-01-01 07:02] LABS: HEMOGLOBIN 9.2 g/dL (12.0-18.0); MEAN CELL VOLUME 87.8 fl (80.0-94.0); MEAN CORPUSCULAR HEMOGLOBIN 29.5 pg (27.0-31.0); MEAN CORPUSCULAR HGB CONC 33.6 g/dL (33.0-37.0); RBC 3.13 Mil/uL (4.40-5.90); WHITE BLOOD COUNT 9.6 K/uL (4.8-10.8)
[2018-01-01 07:17] LABS: BLOOD UREA NITROGEN 19 mg/dl (9-20); CALCIUM 9.1 mg/dL (8.4-10.2); GFR AFRICAN-AMERICAN > 60; GFR NON-AFRICAN AMERICAN > 60
[2018-01-01] MEDS: Vitamin A/D oint 60G TP SCH ×2 (08:27→17:28)
[2018-01-01] MEDS: Ferrous Sulfate 300 mg/5 mL Liq UD PO SCH (08:28)
[2018-01-01] MEDS: Saccharomyces Boulardi 250 mg Cap PO SCH ×2 (08:28→17:29)
[2018-01-01] MEDS: Ammonium Lactate 12% Cream (140 g) TOP SCH ×2 (08:28→17:29)
[2018-01-01] MEDS: Bacitracin OINT 15GM TOP SCH ×3 (08:29→17:29)
[2018-01-01] MEDS: Enoxaparin 40 mg Syringe SC SCH ×2 (08:29→21:11)
[2018-01-01] MEDS: CYANOCOBALAMIN (VITAMIN B-12) 250 MCG TABLET PO SCH (08:30)
[2018-01-01] MEDS: Pantoprazole 40 mg Susp UD PO SCH (08:30)
[2018-01-02] MEDS: Proshield Plus GEL TOP SCH ×2 (06:45→17:14)
[2018-01-02] MEDS: CYANOCOBALAMIN (VITAMIN B-12) 250 MCG TABLET PO SCH (08:35)
[2018-01-02] MEDS: Saccharomyces Boulardi 250 mg Cap PO SCH ×2 (08:35→17:02)
[2018-01-02] MEDS: Ferrous Sulfate 300 mg/5 mL Liq UD PO SCH (08:35)
[2018-01-02] MEDS: Lidocaine 5% Patch TD SCH (08:37)
[2018-01-02] MEDS: Enoxaparin 40 mg Syringe SC SCH ×2 (08:40→21:39)
[2018-01-02] MEDS: Ammonium Lactate 12% Cream (140 g) TOP SCH ×2 (08:46→17:04)
[2018-01-02] MEDS: Bacitracin OINT 15GM TOP SCH ×3 (08:46→17:03)
[2018-01-02] MEDS: Pantoprazole 40 mg Susp UD PO SCH (08:51)
[2018-01-02] MEDS: Vitamin A/D oint 60G TP SCH ×2 (08:52→17:05)
[2018-01-03] MEDS: Proshield Plus GEL TOP SCH ×2 (05:39→17:41)
[2018-01-03] MEDS: Vitamin A/D oint 60G TP SCH ×2 (08:32→17:42)
[2018-01-03] MEDS: Ammonium Lactate 12% Cream (140 g) TOP SCH ×2 (08:32→17:42)
[2018-01-03] MEDS: Bacitracin OINT 15GM TOP SCH ×3 (08:32→17:41)
[2018-01-03] MEDS: Ferrous Sulfate 300 mg/5 mL Liq UD PO SCH (08:33)
[2018-01-03] MEDS: CYANOCOBALAMIN (VITAMIN B-12) 250 MCG TABLET PO SCH (08:33)
[2018-01-03] MEDS: Enoxaparin 40 mg Syringe SC SCH ×2 (08:34→21:56)
[2018-01-03] MEDS: Saccharomyces Boulardi 250 mg Cap PO SCH ×2 (08:34→17:39)
[2018-01-03] MEDS: Pantoprazole 40 mg Susp UD PO SCH (08:35)
[2018-01-03] MEDS: Lidocaine 5% Patch TD SCH (08:35)
--- NOTE | 2018-01-03 19:38 | CP.PCM.PN ---
Subjective - Date & Time of Evaluation Date of Evaluation: 01/03/18 Time of Evaluation: 19:38 - Subjective Subjective: Patient seen in room stable decrease in hand coordination and ROM will discuss with OT to start paraffin treatment and ROM continue current care Objective - Vital Signs/Intake and Output Vital Signs (last 24 hours): Temp Pulse Resp BP Pulse Ox 97.7 F 76 18 134/65 96 01/03/18 08:49 01/03/18 08:49 01/03/18 08:49 01/03/18 08:49 01/03/18 08:49 - Medications Medications: Current Medications Acetaminophen (Tylenol 325mg Tab) 650 mg PO Q6 PRN PRN Reason: Other Last Admin: 01/01/18 08:27 Dose: 650 mg Acetaminophen (Tylenol 325mg Tab) 650 mg PO Q6 PRN PRN Reason: Fever >100 degrees. Artificial Tears (Artificial Tears) 2 drop OU Q2 PRN PRN Reason: Dry eyes Last Admin: 12/31/17 06:25 Dose: 2 drop Bacitracin (Bacitracin Oint) 1 applic TOP TID [facility] Stop: 01/05/18 13:34 Last Admin: 01/03/18 17:41 Dose: 1 applic Ciprofloxacin (Cipro) 250 mg PO Q12 [facility] PRN Reason: Protocol Stop: 01/05/18 21:01 Last Admin: 01/03/18 08:33 Dose: 250 mg Clonidine HCl (Catapres-Tts3 0.3 Mg/24 Hr) 1 patch TD Q7D [facility] Last Admin: 12/30/17 18:23 Dose: 1 patch Dimethicone (Proshield Plus Skin Protectant) 1 applic TOP 0600,1800 [facility] Last Admin: 01/03/18 17:41 Dose: 1 applic Diphenhydramine HCl (Benadryl) 25 mg IVP HS PRN PRN Reason: Insomnia Enalapril Maleate (Vasotec) 10 mg PO BID PRN PRN Reason: FOR SBP > 160/90 Enoxaparin Sodium (Lovenox) 40 mg SC Q12 [facility] PRN Reason: Protocol Last Admin: 01/03/18 08:34 Dose: 40 mg Ferrous Sulfate (Feosol) 325 mg PO DAILY [facility] Lactic Acid (Lac-Hydrin 12% Cream (140 G)) 2 ea TOP BID [facility] Last Admin: 01/03/18 17:42 Dose: 1 applic Lidocaine (Lidoderm) 1 ea TD DAILY [facility] Last Admin: 01/03/18 08:35 Dose: 1 ea Lidocaine (Lidoderm) 1 ea TD DAILY [facility] Nicotine (Nicoderm Cq) 1 patch TD DAILY [facility] Last Admin: 01/03/18 08:35 Dose: 1 patch Oxandrolone (Oxandrin) 5 mg PO BID [facility] Last Admin: 01/03/18 17:38 Dose: 5 mg Pantoprazole Sodium (Protonix Ec Tab) 40 mg PO DAILY [facility] Saccharomyces Boulardii (Florastor) 250 mg PO BID [facility] Last Admin: 01/03/18 17:39 Dose: 250 mg Tamsulosin HCl (Flomax) 0.4 mg PO HS [facility] Vitamin A (Vitamin A&D) 1 applic TP BID [facility] Last Admin: 01/03/18 17:42 Dose: 1 applic - Labs Labs: 01/01/18 05:30 01/01/18 05:30
[2018-01-04] MEDS: Proshield Plus GEL TOP SCH ×2 (06:27→17:19)
[2018-01-04 06:35] LABS: HEMOGLOBIN 9.3 g/dL (12.0-18.0); MEAN CELL VOLUME 87.7 fl (80.0-94.0); MEAN CORPUSCULAR HEMOGLOBIN 28.6 pg (27.0-31.0); MEAN CORPUSCULAR HGB CONC 32.7 g/dL (33.0-37.0); RBC 3.25 Mil/uL (4.40-5.90); RED CELL DISTRIBUTION WIDTH 14.8 % (11.5-14.5)
[2018-01-04 06:46] LABS: BLOOD UREA NITROGEN 19 mg/dl (9-20); GFR AFRICAN-AMERICAN > 60; GFR NON-AFRICAN AMERICAN > 60
[2018-01-04] MEDS: CYANOCOBALAMIN (VITAMIN B-12) 250 MCG TABLET PO SCH (08:24)
[2018-01-04] MEDS: Saccharomyces Boulardi 250 mg Cap PO SCH ×2 (08:25→17:16)
[2018-01-04] MEDS: Pantoprazole 40 mg EC Tab PO SCH (08:25)
[2018-01-04] MEDS: Enoxaparin 40 mg Syringe SC SCH ×2 (08:25→21:30)
[2018-01-04] MEDS: Lidocaine 5% Patch TD SCH ×2 (08:26→08:28)
[2018-01-04] MEDS: Ammonium Lactate 12% Cream (140 g) TOP SCH ×2 (08:27→17:17)
[2018-01-04] MEDS: Vitamin A/D oint 60G TP SCH ×2 (08:27→17:19)
[2018-01-04] MEDS: Bacitracin OINT 15GM TOP SCH ×3 (08:33→17:16)
--- NOTE | 2018-01-04 13:24 | PSY.TMCNF ---
Nursing - Vital Signs Vital Signs (Last 8 hours): Vital Signs 01/04/18 01/04/18 08:41 09:00 Temperature 97.6 F 97.6 F Pulse Rate 63 63 Respiratory 19 19 Rate Blood Pressure 135/74 135/74 O2 Sat by Pulse 97 Oximetry Pain: 0 - Precautions: Precautions: Fall Prevention, Aspiration, Pressure Ulcer - Medications/Other Issues Comment: -Left heel DTI/Blister popped, some liquids inside drained. Covered with combine dressing, wrapped with Kerlix. - Spoke with Dr. Almeida ( GI ) re: possible removal of PEJ. Per MD, PEJ should be kept until pt is eating regular meals, pt could be scheduled outpatient from [facility] for removal when ready. - Mcgarry d/c over the weekend, cont of urine. PVR done <200ml most of the time. Started on Flomax. - - Consults Comment: Dr. Spencer, Dr. Cope - Skin Incision Site: anterior cervical Incision: Healing Well Incision Line Treatment: SHANK RANDER - Wound Upper Buttock Wound Type: Other Wound Stage: STAGE II Wound Shape: Irregular Wound Edges: Closed Tunneling: No Undermining: No Wound Bed Greatest Portion: Pale Pasatiempo Periwound: Intact Wound Drainage Amount: None Wound General Appearance: Asymptomatic Wound Dressing Status: Open to air Dressing Changed: No Wound Primary Dressing Type: Open to air Left Heel Wound Type: Pressure Ulcer Wound Stage: Suspected Deep Tissue Injury Wound Shape: Irregular Wound Edges: Closed Tunneling: No Undermining: No Wound Bed Greatest Portion: Dusky Red Wound Bed Lesser Portion: Pale Pasatiempo Periwound: Intact Wound Drainage Amount: Minimal Wound Drainage Description: Sanguineous Wound Drainage Odor: None/Absent Wound General Appearance: Asymptomatic, Clean/Dry Wound Dressing Status: Dry & Intact, Changed Dressing Changed: Yes Wound Primary Dressing Type: Absorbant Pad Wound Secondary Dressing Type: Gauze Roll/Wrap Comment: Skin prep applied - Toileting Toileting: Dependent - Bladder Management Bladder Pattern: Normal Voiding Method: Urinal Bladder Management: Dependent Frequency of Accidents: - 0. - PVR Bladder Scan done most of the time < 200ml ( 44ml,158ml, 92 ml, 192 ml, 85ml ) - Bowel Management Bowel Pattern: Incontinent Bowel Management: Dependent Frequency of Accidents: >5 - Transfers Transfers: Dependent - ADL's ADL's: Maximal Assistance - Pain Management Comments: Lidoderm patch to both shoulders - Patient/Family Teaching Comments: -Care post Spinal Fusion surgery and safety precautions. - Pressure ulcer prevention and skin care. - Goals/Time Frame Comments: Per multidisciplinary care plans and goals - Provider Provider: Torri MOHRN RN CRRN Physical Therapy - Bed Mobility Bed Mobility: Supervision, Contact Guard, Moderate Assistance, Maximum Assistance Comment: -supine to/from sit: mod/max. -rolling: CG/CS - Transfers Wheelchair to Mat: Verbal Cues, Moderate Assistance, Maximum Assistance Sit to Stand: Verbal Cues, Moderate Assistance, Maximum Assistance Comment: pull: sit to/from stand with B platform waker - Ambulation Level of Assistance: Moderate Assistance, Maximum Assistance Distance (ft.): 15 Assistive Devices: Rolling Walker Orthoses: B dorsiflexion wraps Comment: 15 feet, 20 feet with B platform RW with close Wc follow for safety. - B dorsiflexion wraps in place. -requires mod to max A for core control and stability. -assistance to weight shfit and propel walker anterior. -VCs to increase base of support. -continues to use recurvatum at B knees for stability but able to take a few steps with no hyperextension noted at the R knee - Stair Negotiation Stairs: Level of Assistance: Not Tested - Standing Balance Static Stand: Moderate Assistance Dynamic Stand: Maximal Assistance - Pain Pain (assessed during therapy session): 6 Management Techniques: Massage, Position Change, Relaxation Techniques, Exercise , Inactivity Comment: B shoulders (L>R) - Insight/Carryover Insight/Carryover: Fair - Patient/Family Education Comment: -safety, therapy schedule, therapy goals, pressure relief, importance of mobility in bed, SCI recovery, spinal precautions, importance of OOB - Assessment/Plan Assessment: Mr. Jeffers was originally iritable at start of session but then PT notes patient's mood to improve particulary when he is able to see progress and see himself ambulating with a platform RW. Patient is making good progress in therapy as he has improved tolerance to activity, impaired active participation in tasks and is progressing well with standing and weight bearing tasks. Patient is limited by faitigue and B shoulder discomfort/pain. PT recommends continued skilled therapy services to maximize safety and I with all mobility to reduce burden of care. PT recommends dischareg to [facility] to continue addressing skilled rehabilitation and medical needs s/p SCI. - Goals Timeframe: 7 days Goals: -propel WC x 25 feet with max A. -ambulate w B platform walker x 40 feet with mod A. -sit to/from stand with mod A. -SPT with min A of 1. - rolling with distant supervision. -supine to sit with mod A of 1. -sit to supine with max A of 1. -scooting via bridging with mod A of 1 - Provider Therapist: Ana Lucero PT, DPT License Number: [id number] Occupational Therapy - Arousal/Attention/Orientation Patient Orientation: Person, Place, Time, Appropriate to Age, Appropriate to Situation - ADL/IADL Self Feeding: Supervision, Verbal Cues, Set-up Help, Minimal Assistance Grooming: Verbal Cues, Set-up Help, Moderate Assistance, Maximum Assistance Bathing-Upper Extremity: Dependent Bathing-Lower Extremity: Dependent Dressing-Upper Extremity: Verbal Cues, Set-up Help, Moderate Assistance, Maximum Assistance Dressing-Lower Extremity: Dependent - Sitting Balance Static Sitting: Contact Guard Assist Dynamic Sitting: Reaches across midline, Reaches within base of support, Minimal Assistance, Moderate Assistance Comment: seated at edge of mat - Transfers Wheelchair to Bed Transfers: Verbal Cues, Set-up Help, Moderate Assistance, Maximum Assistance Toilet Transfers: Verbal Cues, Set-up Help, Moderate Assistance, Maximum Assistance - Wheelchair Management Level of Assistance: Dependent - Upper Extremity Status Right Upper Extremity Comment: PROM is WFLS, but AROM limited by impaired strength/gross motor coordination Left Upper Extremity Comment: PROM is WFLS, but AROM limited by impaired strength/gross motor coordination - Pain Pain (assessed during therapy session): 6 Alleviating Techniques: Massage, Position Change, Relaxation Techniques, Exercise, Inactivity Comment: B shoulders (L>R) - Insight/Carryover Insight/Carryover: Fair - Patient/Family Education Comment: -safety, therapy schedule, therapy goals, pressure relief, importance of mobility in bed, SCI recovery, spinal precautions, importance of OOB - Assessment/Plan Assessment: Mr. Jeffers was originally iritable at start of session but then PT notes patient's mood to improve particulary when he is able to see progress and see himself ambulating with a platform RW. Patient is making good progress in therapy as he has improved tolerance to activity, impaired active participation in tasks and is progressing well with standing and weight bearing tasks. Patient is limited by faitigue and B shoulder discomfort/pain. PT recommends continued skilled therapy services to maximize safety and I with all mobility to reduce burden of care. PT recommends dischareg to [facility] to continue addressing skilled rehabilitation and medical needs s/p SCI. - Goals Timeframe: 7 days Goals: -propel WC x 25 feet with max A. -ambulate w B platform walker x 40 feet with mod A. -sit to/from stand with mod A. -SPT with min A of 1. - rolling with distant supervision. -supine to sit with mod A of 1. -sit to supine with max A of 1. 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 Jeffers was originally iritable at start of session but then PT notes patient's mood to improve particulary when he is able to see progress and see himself ambulating with a platform RW. Patient is making good progress in therapy as he has improved tolerance to activity, impaired active participation in tasks and is progressing well with standing and weight bearing tasks. Patient is limited by faitigue and B shoulder discomfort/pain. PT recommends continued skilled therapy services to maximize safety and I with all mobility to reduce burden of care. PT recommends dischareg to [facility] to continue addressing skilled rehabilitation and medical needs s/p SCI. - Provider Therapist: Latasha Jones License Number: [id number] Recreational Therapy - Participation Participation: Participates in Individual and/or Group Sessions - Attendance Attendance: 3-5 times per week - Activities Leisure Activities: Cards and Games - Socialization Level of Socialization: Initiates/interacts freely with care givers and peer - Diversional Time Diversional Time: television - Assessment Assessment/Plan: Mr. Jeffers was originally iritable at start of session but then PT notes patient's mood to improve particulary when he is able to see progress and see himself ambulating with a platform RW. Patient is making good progress in therapy as he has improved tolerance to activity, impaired active participation in tasks and is progressing well with standing and weight bearing tasks. Patient is limited by faitigue and B shoulder discomfort/pain. PT recommends continued skilled therapy services to maximize safety and I with all mobility to reduce burden of care. PT recommends dischareg to [facility] to continue addressing skilled rehabilitation and medical needs s/p SCI. - Provider Therapist: Vickie Ogden, TELECOM COORDINATOR #[id number] Nutrition - Current Diet Current Diet/ Supplement/ Feedings: advanced bite size thin liquids ensure plus 8 ounces 2 per day - Appetite Percent Meal Consumed: 75-100% - Comments Comments: -Care post Spinal Fusion surgery and safety precautions. - Pressure ulcer prevention and skin care. - Assessment/Goals/Time Frame Assessment/Goals/Time Frame: -Left heel DTI/Blister popped, some liquids inside drained. Covered with combine dressing, wrapped with Kerlix. - Spoke with Dr. Almeida ( GI ) re: possible removal of PEJ. Per MD, PEJ should be kept until pt is eating regular meals, pt could be scheduled outpatient from [facility] for removal when ready. - Mcgarry d/c over the weekend, cont of urine. PVR done <200ml most of the time. Started on Flomax. - - Provider Provider: Muriel Melgar RD Case Management - Psychosocial Assessment Support Systems: Emmanuel Zeyad (son)- [phone] Psychological Interventions/Needs: Patient is alert and oriented x3 and able to verbalize needs. Discharge Concerns: Patient currently requiring mod-max A for all functional mobility and on mechanically altered diet with PEG still in place. Patient/Family Meeting: CM met with patient and rehab team Intervention/Goal/Outcome:: 1. Plan: JOHN[facility] > LTC? dependent on progress in acute rehab. 2. Tentative discharge date: 01/14/2018. 3. continued emotional support - Discharge Plan Discharge Plan: Subacute care, [facility] care - Provider Provider: MIKE Funk, WEIGHT ENGINEER License Number: [id number] Rehabilitation Plan - Treatment Plan Treatment Plan: Physical Therapy, Occupational Therapy, Dietary, Patient/Family Education - Discharge Plan Estimated Date of Discharge: 01/14/18 Discharge to: Subacute
--- NOTE | 2018-01-04 13:39 | CP.PCM.PN ---
Subjective - Date & Time of Evaluation Date of Evaluation: 01/04/18 Time of Evaluation: 13:37 - Subjective Subjective: Patient seen in the room, doing ok discussed with OT at length and will get more aggressive with ROM and stretching of fingers continue current care remains excellent acute rehab candidate Objective - Vital Signs/Intake and Output Vital Signs (last 24 hours): Temp Pulse Resp BP Pulse Ox 97.6 F 63 19 135/74 97 01/04/18 13:29 01/04/18 09:00 01/04/18 09:00 01/04/18 09:00 01/04/18 08:41 - Medications Medications: Current Medications Acetaminophen (Tylenol 325mg Tab) 650 mg PO Q6 PRN PRN Reason: Other Last Admin: 01/04/18 13:29 Dose: 650 mg Acetaminophen (Tylenol 325mg Tab) 650 mg PO Q6 PRN PRN Reason: Fever >100 degrees. Artificial Tears (Artificial Tears) 2 drop OU Q2 PRN PRN Reason: Dry eyes Last Admin: 12/31/17 06:25 Dose: 2 drop Bacitracin (Bacitracin Oint) 1 applic TOP TID [facility] Stop: 01/05/18 13:34 Last Admin: 01/04/18 13:26 Dose: 1 applic Ciprofloxacin (Cipro) 250 mg PO Q12 [facility] PRN Reason: Protocol Stop: 01/05/18 21:01 Last Admin: 01/04/18 08:24 Dose: 250 mg Clonidine HCl (Catapres-Tts3 0.3 Mg/24 Hr) 1 patch TD Q7D [facility] Last Admin: 12/30/17 18:23 Dose: 1 patch Dimethicone (Proshield Plus Skin Protectant) 1 applic TOP 0600,1800 [facility] Last Admin: 01/04/18 06:27 Dose: 1 applic Diphenhydramine HCl (Benadryl) 25 mg IVP HS PRN PRN Reason: Insomnia Enalapril Maleate (Vasotec) 10 mg PO BID PRN PRN Reason: FOR SBP > 160/90 Ferrous Sulfate (Feosol) 325 mg PO DAILY [facility] Last Admin: 01/04/18 08:24 Dose: 325 mg Lactic Acid (Lac-Hydrin 12% Cream (140 G)) 2 ea TOP BID [facility] Last Admin: 01/04/18 08:27 Dose: 1 applic Lidocaine (Lidoderm) 1 ea TD DAILY [facility] Last Admin: 01/04/18 08:26 Dose: 1 ea Lidocaine (Lidoderm) 1 ea TD DAILY [facility] Last Admin: 01/04/18 08:28 Dose: 1 ea Nicotine (Nicoderm Cq) 1 patch TD DAILY [facility] Last Admin: 01/04/18 08:25 Dose: 1 patch Oxandrolone (Oxandrin) 5 mg PO BID [facility] Last Admin: 01/04/18 08:32 Dose: 5 mg Pantoprazole Sodium (Protonix Ec Tab) 40 mg PO DAILY [facility] Last Admin: 01/04/18 08:25 Dose: 40 mg Saccharomyces Boulardii (Florastor) 250 mg PO BID [facility] Last Admin: 01/04/18 08:25 Dose: 250 mg Tamsulosin HCl (Flomax) 0.4 mg PO HS [facility] Last Admin: 01/03/18 21:56 Dose: 0.4 mg Vitamin A (Vitamin A&D) 1 applic TP BID [facility] Last Admin: 01/04/18 08:27 Dose: 1 applic - Labs Labs: 01/04/18 05:08 01/04/18 05:08
--- NOTE | 2018-01-04 16:32 | CP.PCM.PN ---
Subjective - Date & Time of Evaluation Date of Evaluation: 01/04/18 Time of Evaluation: 16:28 - Subjective Subjective: Patient seen and examined during physical therapy session. Patient appears in good spirits, singing and doing exercises. Denies any chest pain, SOB, N/V/D Objective - Vital Signs/Intake and Output Vital Signs (last 24 hours): Temp Pulse Resp BP Pulse Ox 97.6 F 63 19 135/74 97 01/04/18 13:29 01/04/18 09:00 01/04/18 09:00 01/04/18 09:00 01/04/18 08:41 - Medications Medications: Current Medications Acetaminophen (Tylenol 325mg Tab) 650 mg PO Q6 PRN PRN Reason: Other Last Admin: 01/04/18 13:29 Dose: 650 mg Acetaminophen (Tylenol 325mg Tab) 650 mg PO Q6 PRN PRN Reason: Fever >100 degrees. Artificial Tears (Artificial Tears) 2 drop OU Q2 PRN PRN Reason: Dry eyes Last Admin: 12/31/17 06:25 Dose: 2 drop Bacitracin (Bacitracin Oint) 1 applic TOP TID [facility] Stop: 01/05/18 13:34 Last Admin: 01/04/18 13:26 Dose: 1 applic Ciprofloxacin (Cipro) 250 mg PO Q12 [facility] PRN Reason: Protocol Stop: 01/05/18 21:01 Last Admin: 01/04/18 08:24 Dose: 250 mg Clonidine HCl (Catapres-Tts3 0.3 Mg/24 Hr) 1 patch TD Q7D [facility] Last Admin: 12/30/17 18:23 Dose: 1 patch Dimethicone (Proshield Plus Skin Protectant) 1 applic TOP 0600,1800 [facility] Last Admin: 01/04/18 06:27 Dose: 1 applic Diphenhydramine HCl (Benadryl) 25 mg IVP HS PRN PRN Reason: Insomnia Enalapril Maleate (Vasotec) 10 mg PO BID PRN PRN Reason: FOR SBP > 160/90 Enoxaparin Sodium (Lovenox) 40 mg SC Q12 [facility] PRN Reason: Protocol Ferrous Sulfate (Feosol) 325 mg PO DAILY [facility] Last Admin: 01/04/18 08:24 Dose: 325 mg Lactic Acid (Lac-Hydrin 12% Cream (140 G)) 2 ea TOP BID [facility] Last Admin: 01/04/18 08:27 Dose: 1 applic Lidocaine (Lidoderm) 1 ea TD DAILY [facility] Last Admin: 01/04/18 08:26 Dose: 1 ea Lidocaine (Lidoderm) 1 ea TD DAILY [facility] Last Admin: 01/04/18 08:28 Dose: 1 ea Nicotine (Nicoderm Cq) 1 patch TD DAILY [facility] Last Admin: 01/04/18 08:25 Dose: 1 patch Oxandrolone (Oxandrin) 5 mg PO BID [facility] Last Admin: 01/04/18 08:32 Dose: 5 mg Pantoprazole Sodium (Protonix Ec Tab) 40 mg PO DAILY [facility] Last Admin: 01/04/18 08:25 Dose: 40 mg Saccharomyces Boulardii (Florastor) 250 mg PO BID [facility] Last Admin: 01/04/18 08:25 Dose: 250 mg Tamsulosin HCl (Flomax) 0.4 mg PO HS [facility] Last Admin: 01/03/18 21:56 Dose: 0.4 mg Vitamin A (Vitamin A&D) 1 applic TP BID [facility] Last Admin: 01/04/18 08:27 Dose: 1 applic - Labs Labs: 01/04/18 05:08 01/04/18 05:08 - Constitutional Appears: No Acute Distress - Eye Exam Eye Exam: Normal appearance - Respiratory Exam Respiratory Exam: Clear to Ausculation Bilateral. absent: Rhonchi, Wheezes - Cardiovascular Exam Cardiovascular Exam: REGULAR RHYTHM, +S1, +S2 - GI/Abdominal Exam GI & Abdominal Exam: Soft. absent: Tenderness - Neurological Exam Neurological Exam: Alert, Awake, CN II-XII Intact, Oriented x3 Assessment and Plan - Assessment and Plan (Free Text) Assessment: -continue current management -Urine culture 12/29/17 positive for enterococcus faecalis -Continue Ciprofloxacin -repeat UA and urine culture - DVT prophylaxis : Enoxaparin
[2018-01-05] MEDS: Proshield Plus GEL TOP SCH ×2 (06:13→17:09)
[2018-01-05] MEDS: Enoxaparin 40 mg Syringe SC SCH ×2 (08:44→21:09)
[2018-01-05] MEDS: Lidocaine 5% Patch TD SCH ×2 (08:45→08:47)
[2018-01-05] MEDS: Bacitracin OINT 15GM TOP SCH (08:48)
[2018-01-05] MEDS: Ammonium Lactate 12% Cream (140 g) TOP SCH ×2 (08:48→17:04)
[2018-01-05] MEDS: Saccharomyces Boulardi 250 mg Cap PO SCH ×2 (08:48→17:04)
[2018-01-05] MEDS: CYANOCOBALAMIN (VITAMIN B-12) 250 MCG TABLET PO SCH (08:49)
[2018-01-05] MEDS: Pantoprazole 40 mg EC Tab PO SCH (08:49)
[2018-01-05] MEDS: Vitamin A/D oint 60G TP SCH ×2 (08:49→17:04)
--- NOTE | 2018-01-05 12:58 | CP.PCM.PN ---
Subjective - Date & Time of Evaluation Date of Evaluation: 01/05/18 Time of Evaluation: 12:57 - Subjective Subjective: Patient seen in room denies sob/cp doing ok needs aggressive treatment with OT and again discussed this with the therapist continue current care Objective - Vital Signs/Intake and Output Vital Signs (last 24 hours): Temp Pulse Resp BP Pulse Ox 97.8 F 64 21 140/59 L 100 01/05/18 08:20 01/05/18 08:20 01/05/18 08:20 01/05/18 08:20 01/05/18 08:20 - Medications Medications: Current Medications Acetaminophen (Tylenol 325mg Tab) 650 mg PO Q6 PRN PRN Reason: Other Last Admin: 01/04/18 13:29 Dose: 650 mg Acetaminophen (Tylenol 325mg Tab) 650 mg PO Q6 PRN PRN Reason: Fever >100 degrees. Artificial Tears (Artificial Tears) 2 drop OU Q2 PRN PRN Reason: Dry eyes Last Admin: 12/31/17 06:25 Dose: 2 drop Ciprofloxacin (Cipro) 250 mg PO Q12 [facility] PRN Reason: Protocol Stop: 01/05/18 21:01 Last Admin: 01/05/18 08:48 Dose: 250 mg Clonidine HCl (Catapres-Tts3 0.3 Mg/24 Hr) 1 patch TD Q7D [facility] Last Admin: 12/30/17 18:23 Dose: 1 patch Dimethicone (Proshield Plus Skin Protectant) 1 applic TOP 0600,1800 [facility] Last Admin: 01/05/18 06:13 Dose: 1 applic Diphenhydramine HCl (Benadryl) 25 mg IVP HS PRN PRN Reason: Insomnia Enalapril Maleate (Vasotec) 10 mg PO BID PRN PRN Reason: FOR SBP > 160/90 Enoxaparin Sodium (Lovenox) 40 mg SC Q12 [facility] PRN Reason: Protocol Last Admin: 01/05/18 08:44 Dose: 40 mg Ferrous Sulfate (Feosol) 325 mg PO DAILY [facility] Last Admin: 01/05/18 08:48 Dose: 325 mg Lactic Acid (Lac-Hydrin 12% Cream (140 G)) 2 ea TOP BID [facility] Last Admin: 01/05/18 08:48 Dose: 1 applic Lidocaine (Lidoderm) 1 ea TD DAILY [facility] Last Admin: 01/05/18 08:45 Dose: 1 ea Lidocaine (Lidoderm) 1 ea TD DAILY [facility] Last Admin: 01/05/18 08:47 Dose: 1 ea Nicotine (Nicoderm Cq) 1 patch TD DAILY [facility] Last Admin: 01/05/18 08:49 Dose: 1 patch Oxandrolone (Oxandrin) 5 mg PO BID [facility] Last Admin: 01/05/18 08:52 Dose: 5 mg Pantoprazole Sodium (Protonix Ec Tab) 40 mg PO DAILY [facility] Last Admin: 01/05/18 08:49 Dose: 40 mg Saccharomyces Boulardii (Florastor) 250 mg PO BID [facility] Last Admin: 01/05/18 08:48 Dose: 250 mg Tamsulosin HCl (Flomax) 0.4 mg PO HS [facility] Last Admin: 01/04/18 21:29 Dose: 0.4 mg Vitamin A (Vitamin A&D) 1 applic TP BID [facility] Last Admin: 01/05/18 08:49 Dose: 1 applic - Labs Labs: 01/04/18 05:08 01/04/18 05:08
--- NOTE | 2018-01-05 17:05 | CP.PCM.PN ---
Subjective - Date & Time of Evaluation Date of Evaluation: 01/05/18 Time of Evaluation: 17:01 - Subjective Subjective: Patient seen and examined at bedside. Appears to be doing well. Has been participating with physical therapy. Denies any chest pain, SOB, N/V/D. Objective - Vital Signs/Intake and Output Vital Signs (last 24 hours): Temp Pulse Resp BP Pulse Ox 97.8 F 64 21 140/59 L 100 01/05/18 08:20 01/05/18 10:55 01/05/18 10:55 01/05/18 10:55 01/05/18 10:55 - Medications Medications: Current Medications Acetaminophen (Tylenol 325mg Tab) 650 mg PO Q6 PRN PRN Reason: Other Last Admin: 01/04/18 13:29 Dose: 650 mg Acetaminophen (Tylenol 325mg Tab) 650 mg PO Q6 PRN PRN Reason: Fever >100 degrees. Artificial Tears (Artificial Tears) 2 drop OU Q2 PRN PRN Reason: Dry eyes Last Admin: 12/31/17 06:25 Dose: 2 drop Ciprofloxacin (Cipro) 250 mg PO Q12 [facility] PRN Reason: Protocol Stop: 01/05/18 21:01 Last Admin: 01/05/18 08:48 Dose: 250 mg Clonidine HCl (Catapres-Tts3 0.3 Mg/24 Hr) 1 patch TD Q7D [facility] Last Admin: 12/30/17 18:23 Dose: 1 patch Dimethicone (Proshield Plus Skin Protectant) 1 applic TOP 0600,1800 [facility] Last Admin: 01/05/18 06:13 Dose: 1 applic Diphenhydramine HCl (Benadryl) 25 mg IVP HS PRN PRN Reason: Insomnia Enalapril Maleate (Vasotec) 10 mg PO BID PRN PRN Reason: FOR SBP > 160/90 Enoxaparin Sodium (Lovenox) 40 mg SC Q12 [facility] PRN Reason: Protocol Last Admin: 01/05/18 08:44 Dose: 40 mg Ferrous Sulfate (Feosol) 325 mg PO DAILY [facility] Last Admin: 01/05/18 08:48 Dose: 325 mg Lactic Acid (Lac-Hydrin 12% Cream (140 G)) 2 ea TOP BID [facility] Last Admin: 01/05/18 08:48 Dose: 1 applic Lidocaine (Lidoderm) 1 ea TD DAILY [facility] Last Admin: 01/05/18 08:45 Dose: 1 ea Lidocaine (Lidoderm) 1 ea TD DAILY [facility] Last Admin: 01/05/18 08:47 Dose: 1 ea Nicotine (Nicoderm Cq) 1 patch TD DAILY [facility] Last Admin: 01/05/18 08:49 Dose: 1 patch Oxandrolone (Oxandrin) 5 mg PO BID [facility] Last Admin: 01/05/18 08:52 Dose: 5 mg Pantoprazole Sodium (Protonix Ec Tab) 40 mg PO DAILY [facility] Last Admin: 01/05/18 08:49 Dose: 40 mg Saccharomyces Boulardii (Florastor) 250 mg PO BID [facility] [place] Last Admin: 01/05/18 08:48 Dose: 250 mg Tamsulosin HCl (Flomax) 0.4 mg PO HS [facility] Last Admin: 01/04/18 21:29 Dose: 0.4 mg Vitamin A (Vitamin A&D) 1 applic TP BID [facility] Last Admin: 01/05/18 08:49 Dose: 1 applic - Labs Labs: 01/04/18 05:08 01/04/18 05:08 - Constitutional Appears: No Acute Distress - Head Exam Head Exam: NORMAL INSPECTION - Respiratory Exam Respiratory Exam: Clear to Ausculation Bilateral, NORMAL BREATHING PATTERN. absent: Rhonchi, Wheezes - Cardiovascular Exam Cardiovascular Exam: REGULAR RHYTHM, +S1, +S2 - GI/Abdominal Exam GI & Abdominal Exam: Soft, Normal Bowel Sounds. absent: Tenderness - Neurological Exam Neurological Exam: Alert, Awake, Oriented x3 Additional comments: Decrease with coordination - Skin Skin Exam: Normal Color, Warm Assessment and Plan - Assessment and Plan (Free Text) Assessment: -continue current management -Urine culture 12/29/17 positive for enterococcus faecalis -IV Ciprofloxacin -repeat UA and urine culture - DVT prophylaxis : Enoxaparin - C/W PT/ OT
--- NOTE | 2018-01-05 23:34 | CP.PCM.PN ---
Subjective - Date & Time of Evaluation Date of Evaluation: 12/31/17 Time of Evaluation: 10:00 - Subjective Subjective: Patient has improved a lot Able to swallow. Has no chest pain or SOB Has fever. Objective - Vital Signs/Intake and Output Vital Signs (last 24 hours): Temp Pulse Resp BP Pulse Ox 98.1 F 69 20 139/62 96 01/05/18 20:26 01/05/18 20:26 01/05/18 20:26 01/05/18 20:26 01/05/18 20:26 - Medications Medications: Current Medications Acetaminophen (Tylenol 325mg Tab) 650 mg PO Q6 PRN PRN Reason: Other Last Admin: 01/04/18 13:29 Dose: 650 mg Acetaminophen (Tylenol 325mg Tab) 650 mg PO Q6 PRN PRN Reason: Fever >100 degrees. Artificial Tears (Artificial Tears) 2 drop OU Q2 PRN PRN Reason: Dry eyes Last Admin: 12/31/17 06:25 Dose: 2 drop Clonidine HCl (Catapres-Tts3 0.3 Mg/24 Hr) 1 patch TD Q7D [facility] Last Admin: 12/30/17 18:23 Dose: 1 patch Dimethicone (Proshield Plus Skin Protectant) 1 applic TOP 0600,1800 [facility] Last Admin: 01/05/18 17:09 Dose: 1 applic Diphenhydramine HCl (Benadryl) 25 mg IVP HS PRN PRN Reason: Insomnia Enalapril Maleate (Vasotec) 10 mg PO BID PRN PRN Reason: FOR SBP > 160/90 Enoxaparin Sodium (Lovenox) 40 mg SC Q12 [facility] PRN Reason: Protocol Last Admin: 01/05/18 21:09 Dose: 40 mg Ferrous Sulfate (Feosol) 325 mg PO DAILY [facility] Last Admin: 01/05/18 08:48 Dose: 325 mg Lactic Acid (Lac-Hydrin 12% Cream (140 G)) 2 ea TOP BID [facility] Last Admin: 01/05/18 17:04 Dose: 1 applic Lidocaine (Lidoderm) 1 ea TD DAILY [facility] Last Admin: 01/05/18 08:45 Dose: 1 ea Lidocaine (Lidoderm) 1 ea TD DAILY [facility] Last Admin: 01/05/18 08:47 Dose: 1 ea Nicotine (Nicoderm Cq) 1 patch TD DAILY [facility] Last Admin: 01/05/18 08:49 Dose: 1 patch Oxandrolone (Oxandrin) 5 mg PO BID [facility] Last Admin: 01/05/18 17:07 Dose: 5 mg Pantoprazole Sodium (Protonix Ec Tab) 40 mg PO DAILY [facility] Last Admin: 01/05/18 08:49 Dose: 40 mg Saccharomyces Boulardii (Florastor) 250 mg PO BID [facility] Last Admin: 01/05/18 17:04 Dose: 250 mg Tamsulosin HCl (Flomax) 0.4 mg PO HS [facility] Last Admin: 01/05/18 21:09 Dose: 0.4 mg Vitamin A (Vitamin A&D) 1 applic TP BID [facility] Last Admin: 01/05/18 17:04 Dose: 1 applic - Labs Labs: 01/04/18 05:08 01/04/18 05:08 - Head Exam Head Exam: NORMAL INSPECTION - Eye Exam Eye Exam: Normal appearance - ENT Exam ENT Exam: Mucous Membranes Moist - Respiratory Exam Respiratory Exam: Clear to Ausculation Bilateral - Cardiovascular Exam Cardiovascular Exam: REGULAR RHYTHM - GI/Abdominal Exam GI & Abdominal Exam: Normal Bowel Sounds - Neurological Exam Neurological Exam: Awake, Oriented x3 - Psychiatric Exam Psychiatric exam: Normal Mood - Skin Skin Exam: Normal Color Assessment and Plan (1) Gait abnormality Status: Acute (2) Dysphagia Status: Acute (3) Physical debility Status: Acute (4) Cord compression syndrome Status: Acute - Assessment and Plan (Free Text) Plan: Cont meds Cont tx phys therapy cont speech tx advance diet
--- NOTE | 2018-01-05 23:37 | CP.PCM.PN ---
Subjective - Date & Time of Evaluation Date of Evaluation: 01/01/18 Time of Evaluation: 10:20 - Subjective Subjective: Patient remains stable Has no chest pain or SOB Afebrile Noted improved motor strength on upper ext. Has slight cough has improved appetite. Objective - Vital Signs/Intake and Output Vital Signs (last 24 hours): Temp Pulse Resp BP Pulse Ox 98.1 F 69 20 139/62 96 01/05/18 20:26 01/05/18 20:26 01/05/18 20:26 01/05/18 20:26 01/05/18 20:26 - Medications Medications: Current Medications Acetaminophen (Tylenol 325mg Tab) 650 mg PO Q6 PRN PRN Reason: Other Last Admin: 01/04/18 13:29 Dose: 650 mg Acetaminophen (Tylenol 325mg Tab) 650 mg PO Q6 PRN PRN Reason: Fever >100 degrees. Artificial Tears (Artificial Tears) 2 drop OU Q2 PRN PRN Reason: Dry eyes Last Admin: 12/31/17 06:25 Dose: 2 drop Clonidine HCl (Catapres-Tts3 0.3 Mg/24 Hr) 1 patch TD Q7D [facility] Last Admin: 12/30/17 18:23 Dose: 1 patch Dimethicone (Proshield Plus Skin Protectant) 1 applic TOP 0600,1800 [facility] Last Admin: 01/05/18 17:09 Dose: 1 applic Diphenhydramine HCl (Benadryl) 25 mg IVP HS PRN PRN Reason: Insomnia Enalapril Maleate (Vasotec) 10 mg PO BID PRN PRN Reason: FOR SBP > 160/90 Enoxaparin Sodium (Lovenox) 40 mg SC Q12 [facility] PRN Reason: Protocol Last Admin: 01/05/18 21:09 Dose: 40 mg Ferrous Sulfate (Feosol) 325 mg PO DAILY [facility] Last Admin: 01/05/18 08:48 Dose: 325 mg Lactic Acid (Lac-Hydrin 12% Cream (140 G)) 2 ea TOP BID [facility] Last Admin: 01/05/18 17:04 Dose: 1 applic Lidocaine (Lidoderm) 1 ea TD DAILY [facility] Last Admin: 01/05/18 08:45 Dose: 1 ea Lidocaine (Lidoderm) 1 ea TD DAILY [facility] Last Admin: 01/05/18 08:47 Dose: 1 ea Nicotine (Nicoderm Cq) 1 patch TD DAILY [facility] Last Admin: 01/05/18 08:49 Dose: 1 patch Oxandrolone (Oxandrin) 5 mg PO BID [facility] Last Admin: 01/05/18 17:07 Dose: 5 mg Pantoprazole Sodium (Protonix Ec Tab) 40 mg PO DAILY [facility] Last Admin: 01/05/18 08:49 Dose: 40 mg Saccharomyces Boulardii (Florastor) 250 mg PO BID [facility] Last Admin: 01/05/18 17:04 Dose: 250 mg Tamsulosin HCl (Flomax) 0.4 mg PO HS [facility] Last Admin: 01/05/18 21:09 Dose: 0.4 mg Vitamin A (Vitamin A&D) 1 applic TP BID [facility] Last Admin: 01/05/18 17:04 Dose: 1 applic - Labs Labs: 01/04/18 05:08 01/04/18 05:08 - Head Exam Head Exam: NORMAL INSPECTION - Eye Exam Eye Exam: Normal appearance - ENT Exam ENT Exam: Mucous Membranes Moist - Respiratory Exam Respiratory Exam: Clear to Ausculation Bilateral, NORMAL BREATHING PATTERN - Cardiovascular Exam Cardiovascular Exam: REGULAR RHYTHM - GI/Abdominal Exam GI & Abdominal Exam: Normal Bowel Sounds Assessment and Plan (1) Gait abnormality Status: Acute (2) Dysphagia Status: Acute (3) Physical debility Status: Acute (4) Cord compression syndrome Status: Acute - Assessment and Plan (Free Text) Plan: Cont meds Cont PT cont speech tx
--- NOTE | 2018-01-05 23:50 | CP.PCM.PN ---
Subjective - Date & Time of Evaluation Date of Evaluation: 01/02/18 Time of Evaluation: 11:00 - Subjective Subjective: Patient continues to do well Has no chest pain or SOB. Afebrile. Objective - Vital Signs/Intake and Output Vital Signs (last 24 hours): Temp Pulse Resp BP Pulse Ox 98.1 F 69 20 139/62 96 01/05/18 20:26 01/05/18 20:26 01/05/18 20:26 01/05/18 20:26 01/05/18 20:26 - Medications Medications: Current Medications Acetaminophen (Tylenol 325mg Tab) 650 mg PO Q6 PRN PRN Reason: Other Last Admin: 01/04/18 13:29 Dose: 650 mg Acetaminophen (Tylenol 325mg Tab) 650 mg PO Q6 PRN PRN Reason: Fever >100 degrees. Artificial Tears (Artificial Tears) 2 drop OU Q2 PRN PRN Reason: Dry eyes Last Admin: 12/31/17 06:25 Dose: 2 drop Clonidine HCl (Catapres-Tts3 0.3 Mg/24 Hr) 1 patch TD Q7D [facility] Last Admin: 12/30/17 18:23 Dose: 1 patch Dimethicone (Proshield Plus Skin Protectant) 1 applic TOP 0600,1800 [facility] Last Admin: 01/05/18 17:09 Dose: 1 applic Diphenhydramine HCl (Benadryl) 25 mg IVP HS PRN PRN Reason: Insomnia Enalapril Maleate (Vasotec) 10 mg PO BID PRN PRN Reason: FOR SBP > 160/90 Enoxaparin Sodium (Lovenox) 40 mg SC Q12 [facility] PRN Reason: Protocol Last Admin: 01/05/18 21:09 Dose: 40 mg Ferrous Sulfate (Feosol) 325 mg PO DAILY [facility] Last Admin: 01/05/18 08:48 Dose: 325 mg Lactic Acid (Lac-Hydrin 12% Cream (140 G)) 2 ea TOP BID [facility] Last Admin: 01/05/18 17:04 Dose: 1 applic Lidocaine (Lidoderm) 1 ea TD DAILY [facility] Last Admin: 01/05/18 08:45 Dose: 1 ea Lidocaine (Lidoderm) 1 ea TD DAILY [facility] Last Admin: 01/05/18 08:47 Dose: 1 ea Nicotine (Nicoderm Cq) 1 patch TD DAILY [facility] Last Admin: 01/05/18 08:49 Dose: 1 patch Oxandrolone (Oxandrin) 5 mg PO BID [facility] Last Admin: 01/05/18 17:07 Dose: 5 mg Pantoprazole Sodium (Protonix Ec Tab) 40 mg PO DAILY [facility] Last Admin: 01/05/18 08:49 Dose: 40 mg Saccharomyces Boulardii (Florastor) 250 mg PO BID [facility] Last Admin: 01/05/18 17:04 Dose: 250 mg Tamsulosin HCl (Flomax) 0.4 mg PO HS [facility] Last Admin: 01/05/18 21:09 Dose: 0.4 mg Vitamin A (Vitamin A&D) 1 applic TP BID [facility] Last Admin: 01/05/18 17:04 Dose: 1 applic - Labs Labs: 01/04/18 05:08 01/04/18 05:08 - Head Exam Head Exam: NORMAL INSPECTION - Eye Exam Eye Exam: Normal appearance - ENT Exam ENT Exam: Mucous Membranes Moist - Respiratory Exam Respiratory Exam: Clear to Ausculation Bilateral, NORMAL BREATHING PATTERN - Cardiovascular Exam Cardiovascular Exam: REGULAR RHYTHM - GI/Abdominal Exam GI & Abdominal Exam: Normal Bowel Sounds - Neurological Exam Neurological Exam: CN II-XII Intact, Oriented x3 Assessment and Plan (1) Gait abnormality Status: Acute (2) Dysphagia Status: Acute (3) Physical debility Status: Acute (4) Cord compression syndrome Status: Acute - Assessment and Plan (Free Text) Plan: Cont meds Cont tx Cont PT Cont speech tx
--- NOTE | 2018-01-05 23:57 | CP.PCM.PN ---
Subjective - Date & Time of Evaluation Date of Evaluation: 01/03/18 Time of Evaluation: 10:45 - Subjective Subjective: Patient remains stable Has no chest pain or SOB Objective - Vital Signs/Intake and Output Vital Signs (last 24 hours): Temp Pulse Resp BP Pulse Ox 98.1 F 69 20 139/62 96 01/05/18 20:26 01/05/18 20:26 01/05/18 20:26 01/05/18 20:26 01/05/18 20:26 - Medications Medications: Current Medications Acetaminophen (Tylenol 325mg Tab) 650 mg PO Q6 PRN PRN Reason: Other Last Admin: 01/04/18 13:29 Dose: 650 mg Acetaminophen (Tylenol 325mg Tab) 650 mg PO Q6 PRN PRN Reason: Fever >100 degrees. Artificial Tears (Artificial Tears) 2 drop OU Q2 PRN PRN Reason: Dry eyes Last Admin: 12/31/17 06:25 Dose: 2 drop Clonidine HCl (Catapres-Tts3 0.3 Mg/24 Hr) 1 patch TD Q7D [facility] Last Admin: 12/30/17 18:23 Dose: 1 patch Dimethicone (Proshield Plus Skin Protectant) 1 applic TOP 0600,1800 [facility] Last Admin: 01/05/18 17:09 Dose: 1 applic Diphenhydramine HCl (Benadryl) 25 mg IVP HS PRN PRN Reason: Insomnia Enalapril Maleate (Vasotec) 10 mg PO BID PRN PRN Reason: FOR SBP > 160/90 Enoxaparin Sodium (Lovenox) 40 mg SC Q12 DAILY PRN Reason: Protocol Last Admin: 01/05/18 21:09 Dose: 40 mg Ferrous Sulfate (Feosol) 325 mg PO DAILY [facility] Last Admin: 01/05/18 08:48 Dose: 325 mg Lactic Acid (Lac-Hydrin 12% Cream (140 G)) 2 ea TOP BID [facility] Last Admin: 01/05/18 17:04 Dose: 1 applic Lidocaine (Lidoderm) 1 ea TD DAILY [facility] Last Admin: 01/05/18 08:45 Dose: 1 ea Lidocaine (Lidoderm) 1 ea TD DAILY [facility] Last Admin: 01/05/18 08:47 Dose: 1 ea Nicotine (Nicoderm Cq) 1 patch TD DAILY [facility] Last Admin: 01/05/18 08:49 Dose: 1 patch Oxandrolone (Oxandrin) 5 mg PO BID [facility] Last Admin: 01/05/18 17:07 Dose: 5 mg Pantoprazole Sodium (Protonix Ec Tab) 40 mg PO DAILY [facility] Last Admin: 01/05/18 08:49 Dose: 40 mg Saccharomyces Boulardii (Florastor) 250 mg PO BID [facility] Last Admin: 01/05/18 17:04 Dose: 250 mg Tamsulosin HCl (Flomax) 0.4 mg PO HS [facility] Last Admin: 01/05/18 21:09 Dose: 0.4 mg Vitamin A (Vitamin A&D) 1 applic TP BID [facility] Last Admin: 01/05/18 17:04 Dose: 1 applic - Labs Labs: 01/04/18 05:08 01/04/18 05:08 Assessment and Plan (1) Gait abnormality Status: Acute (2) Dysphagia Status: Acute (3) Physical debility Status: Acute (4) Cord compression syndrome Status: Acute
[2018-01-06 00:38] LABS: SQUAMOUS EPITHIAL < 1 /hpf (0-5); URINE BACTERIA RARE (<OCC); URINE BILIRUBIN NEGATIVE (NEGATIVE); URINE BLOOD NEGATIVE (NEGATIVE); URINE CLARITY SLIGHTY-CLOUDY (Clear); URINE COLOR YELLOW (YELLOW); URINE GLUCOSE (UA) NEG (Normal); URINE LEUKOCYTE ESTERASE TRACE Leu/uL (Negative); URINE NITRATE NEGATIVE (NEGATIVE); URINE PROTEIN NEGATIVE (NEGATIVE); URINE UROBILINOGEN 0.2-1.0 mg/dL (0.2-1.0)
[2018-01-06] MEDS: Proshield Plus GEL TOP SCH ×2 (05:51→17:15)
[2018-01-06] MEDS: Lidocaine 5% Patch TD SCH ×2 (08:30)
[2018-01-06] MEDS: Saccharomyces Boulardi 250 mg Cap PO SCH ×2 (08:31→17:13)
[2018-01-06] MEDS: Ammonium Lactate 12% Cream (140 g) TOP SCH ×2 (08:32→17:13)
[2018-01-06] MEDS: Enoxaparin 40 mg Syringe SC SCH ×2 (08:32→21:01)
[2018-01-06] MEDS: Pantoprazole 40 mg EC Tab PO SCH (08:33)
[2018-01-06] MEDS: CYANOCOBALAMIN (VITAMIN B-12) 250 MCG TABLET PO SCH (08:33)
[2018-01-06] MEDS: Vitamin A/D oint 60G TP SCH ×2 (08:33→17:15)
--- NOTE | 2018-01-06 15:18 | CP.PCM.PN ---
Subjective - Date & Time of Evaluation Date of Evaluation: 01/06/18 Time of Evaluation: 15:16 - Subjective Subjective: Patient seen participating with PT doing well. Denies any overnight events. Denies chest pain, SOB, N/V/D. Objective - Vital Signs/Intake and Output Vital Signs (last 24 hours): Temp Pulse Resp BP Pulse Ox 97.3 F L 68 18 132/60 99 01/06/18 08:02 01/06/18 08:02 01/06/18 08:02 01/06/18 08:02 01/06/18 08:02 - Medications Medications: Current Medications Acetaminophen (Tylenol 325mg Tab) 650 mg PO Q6 PRN PRN Reason: Other Last Admin: 01/04/18 13:29 Dose: 650 mg Acetaminophen (Tylenol 325mg Tab) 650 mg PO Q6 PRN PRN Reason: Fever >100 degrees. Artificial Tears (Artificial Tears) 2 drop OU Q2 PRN PRN Reason: Dry eyes Last Admin: 12/31/17 06:25 Dose: 2 drop Clonidine HCl (Catapres-Tts3 0.3 Mg/24 Hr) 1 patch TD Q7D [facility] Last Admin: 12/30/17 18:23 Dose: 1 patch Dimethicone (Proshield Plus Skin Protectant) 1 applic TOP 0600,1800 [facility] Last Admin: 01/06/18 05:51 Dose: 1 applic Diphenhydramine HCl (Benadryl) 25 mg IVP HS PRN PRN Reason: Insomnia Enalapril Maleate (Vasotec) 10 mg PO BID PRN PRN Reason: FOR SBP > 160/90 Enoxaparin Sodium (Lovenox) 40 mg SC Q12 DAILY PRN Reason: Protocol Last Admin: 01/06/18 08:32 Dose: 40 mg Ferrous Sulfate (Feosol) 325 mg PO DAILY [facility] Last Admin: 01/06/18 08:31 Dose: 325 mg Lactic Acid (Lac-Hydrin 12% Cream (140 G)) 2 ea TOP BID [facility] Last Admin: 01/06/18 08:32 Dose: 1 applic Lidocaine (Lidoderm) 1 ea TD DAILY [facility] Last Admin: 01/06/18 08:30 Dose: 1 ea Lidocaine (Lidoderm) 1 ea TD DAILY [facility] Last Admin: 01/06/18 08:30 Dose: 1 ea Nicotine (Nicoderm Cq) 1 patch TD DAILY [facility] Last Admin: 01/06/18 08:29 Dose: 1 patch Oxandrolone (Oxandrin) 5 mg PO BID [facility] Last Admin: 01/06/18 08:32 Dose: 5 mg Pantoprazole Sodium (Protonix Ec Tab) 40 mg PO DAILY [facility] Last Admin: 01/06/18 08:33 Dose: 40 mg Saccharomyces Boulardii (Florastor) 250 mg PO BID [facility] Last Admin: 01/06/18 08:31 Dose: 250 mg Tamsulosin HCl (Flomax) 0.4 mg PO HS [facility] Last Admin: 01/05/18 21:09 Dose: 0.4 mg Vitamin A (Vitamin A&D) 1 applic TP BID [facility] Last Admin: 01/06/18 08:33 Dose: 1 applic - Labs Labs: 01/04/18 05:08 01/04/18 05:08 - Constitutional Appears: No Acute Distress - Head Exam Head Exam: NORMAL INSPECTION - Respiratory Exam Respiratory Exam: Clear to Ausculation Bilateral. absent: Rhonchi, Wheezes - Cardiovascular Exam Cardiovascular Exam: REGULAR RHYTHM, +S1, +S2 - GI/Abdominal Exam GI & Abdominal Exam: Soft, Normal Bowel Sounds. absent: Tenderness - Extremities Exam Additional comments: left heal lesion - Neurological Exam Neurological Exam: Alert, Awake, Oriented x3 Assessment and Plan - Assessment and Plan (Free Text) Assessment: -continue current management -Urine culture 12/29/17 positive for enterococcus faecalis - Completed Ciprofloxcin regimen -repeat UA and urine culture - DVT prophylaxis : Enoxaparin
[2018-01-07] MEDS: Proshield Plus GEL TOP SCH ×2 (05:48→18:16)
[2018-01-07 06:29] LABS: HEMOGLOBIN 9.4 g/dL (12.0-18.0); MEAN CELL VOLUME 87.4 fl (80.0-94.0); MEAN CORPUSCULAR HEMOGLOBIN 27.9 pg (27.0-31.0); MEAN CORPUSCULAR HGB CONC 31.9 g/dL (33.0-37.0); RBC 3.38 Mil/uL (4.40-5.90); RED CELL DISTRIBUTION WIDTH 14.6 % (11.5-14.5); WHITE BLOOD COUNT 7.2 K/uL (4.8-10.8)
[2018-01-07 07:17] LABS: BLOOD UREA NITROGEN 19 mg/dl (9-20); CALCIUM 9.2 mg/dL (8.4-10.2); GFR AFRICAN-AMERICAN > 60; GFR NON-AFRICAN AMERICAN > 60
[2018-01-07] MEDS: Ammonium Lactate 12% Cream (140 g) TOP SCH ×2 (08:24→16:01)
[2018-01-07] MEDS: Saccharomyces Boulardi 250 mg Cap PO SCH ×2 (08:25→16:01)
[2018-01-07] MEDS: Lidocaine 5% Patch TD SCH ×2 (08:25)
[2018-01-07] MEDS: Enoxaparin 40 mg Syringe SC SCH ×2 (08:26→20:37)
[2018-01-07] MEDS: CYANOCOBALAMIN (VITAMIN B-12) 250 MCG TABLET PO SCH (08:26)
[2018-01-07] MEDS: Pantoprazole 40 mg EC Tab PO SCH (08:26)
[2018-01-07] MEDS: Vitamin A/D oint 60G TP SCH ×2 (08:28→16:03)
--- NOTE | 2018-01-07 11:46 | CP.PCM.CON ---
History of Present Illness - History of Present Illness History of Present Illness: Pt seen for sup therapy 11:10-11:30. Pt discussed beginning the walking process and perceived improvement in hands. Pt spoke of attempts at optimism, carlos, and attempts at focusing on the positive to reduce distress. Support provided and strategies for coping explored. plan: Continued Sup therapy Past Patient History - Past Medical History & Family History Past Medical History?: Yes - Past Social History Smoking Status: Former Smoker - CARDIAC Hx Congestive Heart Failure: No Hx Hypercholesterolemia: No - PULMONARY Hx Chronic Obstructive Pulmonary Disease (COPD): No Other/Comment: Aspiration Pneumonia - NEUROLOGICAL Hx Neurological Disorder: Yes HX Cerebrovascular Accident: Yes Hx Seizures: Yes Other/Comment: Cervical spine surgery - HEENT Hx HEENT Problems: No (hx unknown) - RENAL Hx Renal Failure: No - ENDOCRINE/METABOLIC Hx Diabetes Mellitus Type 1: No Hx Diabetes Mellitus Type 2: No Hx Hypothyroidism: No - HEMATOLOGICAL/ONCOLOGICAL Hx Blood Disorders: Yes Hx AIDS: (unknown) Hx Anemia: Yes Hx Human Immunodeficiency Virus (HIV): (unknown) - INTEGUMENTARY Hx Dermatological Problems: No - MUSCULOSKELETAL/RHEUMATOLOGICAL Hx Arthritis: No Hx Falls: No Hx Rheumatoid Arthritis: No - GASTROINTESTINAL Hx Ileostomy: Yes Other/Comment: s/p appendectomy - GENITOURINARY/GYNECOLOGICAL Hx Genitourinary Disorders: Yes Other/Comment: urinary retention - PSYCHIATRIC Hx Psychophysiologic Disorder: Yes Hx Depression: Yes Hx Substance Use: Yes (Cocaine, Marijuana) - SURGICAL HISTORY Hx Appendectomy: Yes - ANESTHESIA Hx Anesthesia: Yes Hx Anesthesia Reactions: No Hx Malignant Hyperthermia: No Meds Allergies/Adverse Reactions: Allergies Allergy/AdvReac Type Severity Reaction Status Date / Time No Known Allergies Allergy Verified 12/09/17 18:20 - Medications Medications: Current Medications Acetaminophen (Tylenol 325mg Tab) 650 mg PO Q6 PRN PRN Reason: Other Last Admin: 01/04/18 13:29 Dose: 650 mg Acetaminophen (Tylenol 325mg Tab) 650 mg PO Q6 PRN PRN Reason: Fever >100 degrees. Artificial Tears (Artificial Tears) 2 drop OU Q2 PRN PRN Reason: Dry eyes Last Admin: 12/31/17 06:25 Dose: 2 drop Clonidine HCl (Catapres-Tts3 0.3 Mg/24 Hr) 1 patch TD Q7D [facility] Last Admin: 01/06/18 19:54 Dose: 1 patch Dimethicone (Proshield Plus Skin Protectant) 1 applic TOP 0600,1800 [facility] Last Admin: 01/07/18 05:48 Dose: 1 applic Diphenhydramine HCl (Benadryl) 25 mg IVP HS PRN PRN Reason: Insomnia Enalapril Maleate (Vasotec) 10 mg PO BID PRN PRN Reason: FOR SBP > 160/90 Enoxaparin Sodium (Lovenox) 40 mg SC Q12 DAILY PRN Reason: Protocol Last Admin: 01/07/18 08:26 Dose: 40 mg Ferrous Sulfate (Feosol) 325 mg PO DAILY [facility] Last Admin: 01/07/18 08:27 Dose: 325 mg Lactic Acid (Lac-Hydrin 12% Cream (140 G)) 2 ea TOP BID [facility] Last Admin: 01/07/18 08:24 Dose: 1 applic Lidocaine (Lidoderm) 1 ea TD DAILY [facility] Last Admin: 01/07/18 08:25 Dose: 1 ea Lidocaine (Lidoderm) 1 ea TD DAILY [facility] Last Admin: 01/07/18 08:25 Dose: 1 ea Nicotine (Nicoderm Cq) 1 patch TD DAILY [facility] Last Admin: 01/07/18 08:25 Dose: 1 patch Oxandrolone (Oxandrin) 5 mg PO BID [facility] Last Admin: 01/07/18 08:24 Dose: 5 mg Pantoprazole Sodium (Protonix Ec Tab) 40 mg PO DAILY [facility] Last Admin: 01/07/18 08:26 Dose: 40 mg Saccharomyces Boulardii (Florastor) 250 mg PO BID [facility] Last Admin: 01/07/18 08:25 Dose: 250 mg Tamsulosin HCl (Flomax) 0.4 mg PO HS [facility] Last Admin: 01/06/18 21:00 Dose: 0.4 mg Vitamin A (Vitamin A&D) 1 applic TP BID [facility] Last Admin: 01/07/18 08:28 Dose: 1 applic Results - Vital Signs Recent Vital Signs: Last Vital Signs Temp 97.6 F 01/07/18 08:26 Pulse 73 01/07/18 08:26 Resp 21 01/07/18 08:26 BP 139/71 01/07/18 08:26 Pulse Ox 97 01/07/18 08:26 - Labs Result Diagrams: 01/07/18 06:20 01/07/18 06:20 Labs: Laboratory Results - last 24 hr 01/07/18 01/07/18 06:20 06:20 WBC 7.2 RBC 3.38 L Hgb 9.4 L Hct 29.5 L MCV 87.4 MCH 27.9 MCHC 31.9 L RDW 14.6 H Plt Count 479 H Sodium 141 Potassium 4.4 Chloride 106 Carbon Dioxide 27 Anion Gap 12 BUN 19 Creatinine 1.0 Est GFR ( Amer) > 60 Est GFR (Non-Af Amer) > 60 Random Glucose 89 Calcium 9.2
--- NOTE | 2018-01-07 11:52 | CP.PCM.PN ---
Subjective - Date & Time of Evaluation Date of Evaluation: 01/07/18 Time of Evaluation: 11:51 - Subjective Subjective: Patient seen in PT ambulating with john platform rw working hard to prevent recurvatum doing well continue current care one more week until d/c to [facility] Objective - Vital Signs/Intake and Output Vital Signs (last 24 hours): Temp Pulse Resp BP Pulse Ox 97.6 F 73 21 139/71 97 01/07/18 08:26 01/07/18 08:26 01/07/18 08:26 01/07/18 08:26 01/07/18 08:26 - Medications Medications: Current Medications Acetaminophen (Tylenol 325mg Tab) 650 mg PO Q6 PRN PRN Reason: Other Last Admin: 01/04/18 13:29 Dose: 650 mg Acetaminophen (Tylenol 325mg Tab) 650 mg PO Q6 PRN PRN Reason: Fever >100 degrees. Artificial Tears (Artificial Tears) 2 drop OU Q2 PRN PRN Reason: Dry eyes Last Admin: 12/31/17 06:25 Dose: 2 drop Clonidine HCl (Catapres-Tts3 0.3 Mg/24 Hr) 1 patch TD Q7D [facility] Last Admin: 01/06/18 19:54 Dose: 1 patch Dimethicone (Proshield Plus Skin Protectant) 1 applic TOP 0600,1800 [facility] Last Admin: 01/07/18 05:48 Dose: 1 applic Diphenhydramine HCl (Benadryl) 25 mg IVP HS PRN PRN Reason: Insomnia Enalapril Maleate (Vasotec) 10 mg PO BID PRN PRN Reason: FOR SBP > 160/90 Enoxaparin Sodium (Lovenox) 40 mg SC Q12 DAILY PRN Reason: Protocol Last Admin: 01/07/18 08:26 Dose: 40 mg Ferrous Sulfate (Feosol) 325 mg PO DAILY [facility] Last Admin: 01/07/18 08:27 Dose: 325 mg Lactic Acid (Lac-Hydrin 12% Cream (140 G)) 2 ea TOP BID [facility] Last Admin: 01/07/18 08:24 Dose: 1 applic Lidocaine (Lidoderm) 1 ea TD DAILY [facility] Last Admin: 01/07/18 08:25 Dose: 1 ea Lidocaine (Lidoderm) 1 ea TD DAILY [facility] Last Admin: 01/07/18 08:25 Dose: 1 ea Nicotine (Nicoderm Cq) 1 patch TD DAILY [facility] Last Admin: 01/07/18 08:25 Dose: 1 patch Oxandrolone (Oxandrin) 5 mg PO BID [facility] Last Admin: 01/07/18 08:24 Dose: 5 mg Pantoprazole Sodium (Protonix Ec Tab) 40 mg PO DAILY [facility] Last Admin: 01/07/18 08:26 Dose: 40 mg Saccharomyces Boulardii (Florastor) 250 mg PO BID [facility] Last Admin: 01/07/18 08:25 Dose: 250 mg Tamsulosin HCl (Flomax) 0.4 mg PO HS [facility] Last Admin: 01/06/18 21:00 Dose: 0.4 mg Vitamin A (Vitamin A&D) 1 applic TP BID [facility] Last Admin: 01/07/18 08:28 Dose: 1 applic - Labs Labs: 01/07/18 06:20 01/07/18 06:20
[2018-01-08] MEDS: Proshield Plus GEL TOP SCH ×2 (06:17→17:10)
[2018-01-08] MEDS: Saccharomyces Boulardi 250 mg Cap PO SCH ×2 (08:49→17:10)
[2018-01-08] MEDS: Ammonium Lactate 12% Cream (140 g) TOP SCH ×2 (08:49→17:10)
[2018-01-08] MEDS: Lidocaine 5% Patch TD SCH ×2 (08:50→08:51)
[2018-01-08] MEDS: Pantoprazole 40 mg EC Tab PO SCH (08:52)
[2018-01-08] MEDS: Enoxaparin 40 mg Syringe SC SCH ×2 (08:52→21:30)
[2018-01-08] MEDS: Vitamin A/D oint 60G TP SCH ×2 (08:53→17:14)
[2018-01-08] MEDS: CYANOCOBALAMIN (VITAMIN B-12) 250 MCG TABLET PO SCH (08:53)
[2018-01-09] MEDS: Proshield Plus GEL TOP SCH ×2 (06:19→17:00)
[2018-01-09] MEDS: Saccharomyces Boulardi 250 mg Cap PO SCH (09:28)
[2018-01-09] MEDS: Ammonium Lactate 12% Cream (140 g) TOP SCH ×2 (09:28→16:57)
[2018-01-09] MEDS: Lidocaine 5% Patch TD SCH ×2 (09:29→09:30)
[2018-01-09] MEDS: CYANOCOBALAMIN (VITAMIN B-12) 250 MCG TABLET PO SCH (09:31)
[2018-01-09] MEDS: Pantoprazole 40 mg EC Tab PO SCH (09:31)
[2018-01-09] MEDS: Enoxaparin 40 mg Syringe SC SCH ×2 (09:31→21:11)
[2018-01-09] MEDS: Vitamin A/D oint 60G TP SCH ×2 (09:32→16:57)
--- NOTE | 2018-01-09 13:39 | CP.PCM.PN ---
Subjective - Date & Time of Evaluation Date of Evaluation: 01/08/18 Time of Evaluation: 10:00 - Subjective Subjective: patient is stablke Doing well with PT Has no chest pain or Abd pain. Objective - Vital Signs/Intake and Output Vital Signs (last 24 hours): Temp Pulse Resp BP Pulse Ox 97.5 F L 74 20 134/83 97 01/09/18 09:37 01/09/18 09:37 01/09/18 09:37 01/09/18 09:37 01/09/18 09:37 - Medications Medications: Current Medications Acetaminophen (Tylenol 325mg Tab) 650 mg PO Q6 PRN PRN Reason: Other Last Admin: 01/08/18 17:13 Dose: 650 mg Acetaminophen (Tylenol 325mg Tab) 650 mg PO Q6 PRN PRN Reason: Fever >100 degrees. Artificial Tears (Artificial Tears) 2 drop OU Q2 PRN PRN Reason: Dry eyes Last Admin: 12/31/17 06:25 Dose: 2 drop Clonidine HCl (Catapres-Tts3 0.3 Mg/24 Hr) 1 patch TD Q7D [facility] Last Admin: 01/06/18 19:54 Dose: 1 patch Dimethicone (Proshield Plus Skin Protectant) 1 applic TOP 0600,1800 [facility] Last Admin: 01/09/18 06:19 Dose: 1 applic Diphenhydramine HCl (Benadryl) 25 mg IVP HS PRN PRN Reason: Insomnia Enalapril Maleate (Vasotec) 10 mg PO BID PRN PRN Reason: FOR SBP > 160/90 Enoxaparin Sodium (Lovenox) 40 mg SC Q12 [facility] PRN Reason: Protocol Last Admin: 01/09/18 09:31 Dose: 40 mg Ferrous Sulfate (Feosol) 325 mg PO DAILY [facility] Last Admin: 01/09/18 09:28 Dose: 325 mg Lactic Acid (Lac-Hydrin 12% Cream (140 G)) 2 ea TOP BID [facility] Last Admin: 01/09/18 09:28 Dose: 1 applic Lidocaine (Lidoderm) 1 ea TD DAILY [facility] Last Admin: 01/09/18 09:29 Dose: 1 ea Lidocaine (Lidoderm) 1 ea TD DAILY [facility] Last Admin: 01/09/18 09:30 Dose: 1 ea Nicotine (Nicoderm Cq) 1 patch TD DAILY [facility] Last Admin: 01/09/18 09:31 Dose: 1 patch Oxandrolone (Oxandrin) 5 mg PO BID [facility] Last Admin: 01/09/18 09:34 Dose: 5 mg Pantoprazole Sodium (Protonix Ec Tab) 40 mg PO DAILY [facility] Last Admin: 01/09/18 09:31 Dose: 40 mg Tamsulosin HCl (Flomax) 0.4 mg PO HS [facility] Last Admin: 01/08/18 21:29 Dose: 0.4 mg Vitamin A (Vitamin A&D) 1 applic TP BID [facility] Last Admin: 01/09/18 09:32 Dose: 1 applic - Labs Labs: 01/07/18 06:20 01/07/18 06:20 Assessment and Plan (1) Gait abnormality Status: Acute (2) Dysphagia Status: Acute (3) Physical debility Status: Acute (4) Cord compression syndrome Status: Acute
--- NOTE | 2018-01-09 13:40 | CP.PCM.PN ---
Subjective - Date & Time of Evaluation Date of Evaluation: 01/09/18 Time of Evaluation: 13:40 - Subjective Subjective: patient remains stable Has no chest pain Voids normally Has normal bm. Objective - Vital Signs/Intake and Output Vital Signs (last 24 hours): Temp Pulse Resp BP Pulse Ox 97.5 F L 74 20 134/83 97 01/09/18 09:37 01/09/18 09:37 01/09/18 09:37 01/09/18 09:37 01/09/18 09:37 - Medications Medications: Current Medications Acetaminophen (Tylenol 325mg Tab) 650 mg PO Q6 PRN PRN Reason: Other Last Admin: 01/08/18 17:13 Dose: 650 mg Acetaminophen (Tylenol 325mg Tab) 650 mg PO Q6 PRN PRN Reason: Fever >100 degrees. Artificial Tears (Artificial Tears) 2 drop OU Q2 PRN PRN Reason: Dry eyes Last Admin: 12/31/17 06:25 Dose: 2 drop Clonidine HCl (Catapres-Tts3 0.3 Mg/24 Hr) 1 patch TD Q7D [facility] Last Admin: 01/06/18 19:54 Dose: 1 patch Dimethicone (Proshield Plus Skin Protectant) 1 applic TOP 0600,1800 [facility] Last Admin: 01/09/18 06:19 Dose: 1 applic Diphenhydramine HCl (Benadryl) 25 mg IVP HS PRN PRN Reason: Insomnia Enalapril Maleate (Vasotec) 10 mg PO BID PRN PRN Reason: FOR SBP > 160/90 Enoxaparin Sodium (Lovenox) 40 mg SC Q12 [facility] PRN Reason: Protocol Last Admin: 01/09/18 09:31 Dose: 40 mg Ferrous Sulfate (Feosol) 325 mg PO DAILY [facility] Last Admin: 01/09/18 09:28 Dose: 325 mg Lactic Acid (Lac-Hydrin 12% Cream (140 G)) 2 ea TOP BID [facility] Last Admin: 01/09/18 09:28 Dose: 1 applic Lidocaine (Lidoderm) 1 ea TD DAILY [facility] Last Admin: 01/09/18 09:29 Dose: 1 ea Lidocaine (Lidoderm) 1 ea TD DAILY [facility] Last Admin: 01/09/18 09:30 Dose: 1 ea Nicotine (Nicoderm Cq) 1 patch TD DAILY [facility] Last Admin: 01/09/18 09:31 Dose: 1 patch Oxandrolone (Oxandrin) 5 mg PO BID [facility] Last Admin: 01/09/18 09:34 Dose: 5 mg Pantoprazole Sodium (Protonix Ec Tab) 40 mg PO DAILY [facility] Last Admin: 01/09/18 09:31 Dose: 40 mg Tamsulosin HCl (Flomax) 0.4 mg PO HS [facility] Last Admin: 01/08/18 21:29 Dose: 0.4 mg Vitamin A (Vitamin A&D) 1 applic TP BID [facility] Last Admin: 01/09/18 09:32 Dose: 1 applic - Labs Labs: 01/07/18 06:20 01/07/18 06:20 Assessment and Plan (1) Gait abnormality Status: Acute (2) Dysphagia Status: Acute (3) Physical debility Status: Acute (4) Cord compression syndrome Status: Acute
[2018-01-10] MEDS: Proshield Plus GEL TOP SCH ×2 (06:12→17:08)
[2018-01-10 06:31] LABS: HEMOGLOBIN 9.2 g/dL (12.0-18.0); MEAN CELL VOLUME 86.9 fl (80.0-94.0); MEAN CORPUSCULAR HEMOGLOBIN 28.6 pg (27.0-31.0); MEAN CORPUSCULAR HGB CONC 32.9 g/dL (33.0-37.0); RBC 3.23 Mil/uL (4.40-5.90); WHITE BLOOD COUNT 6.7 K/uL (4.8-10.8)
[2018-01-10 06:39] LABS: BLOOD UREA NITROGEN 19 mg/dl (9-20); CALCIUM 9.1 mg/dL (8.4-10.2); GFR AFRICAN-AMERICAN > 60; GFR NON-AFRICAN AMERICAN > 60
[2018-01-10] MEDS: Enoxaparin 40 mg Syringe SC SCH ×2 (09:00→20:43)
[2018-01-10] MEDS: Lidocaine 5% Patch TD SCH ×2 (09:00→09:01)
[2018-01-10] MEDS: Pantoprazole 40 mg EC Tab PO SCH (09:01)
[2018-01-10] MEDS: CYANOCOBALAMIN (VITAMIN B-12) 250 MCG TABLET PO SCH (09:02)
[2018-01-10] MEDS: Vitamin A/D oint 60G TP SCH ×2 (09:02→16:37)
[2018-01-10] MEDS: Ammonium Lactate 12% Cream (140 g) TOP SCH ×2 (09:05→16:36)
--- NOTE | 2018-01-10 13:38 | CP.PCM.PN ---
Subjective - Date & Time of Evaluation Date of Evaluation: 01/10/18 Time of Evaluation: 13:37 - Subjective Subjective: Patient seen in room resting discussed with PT at length no pain continues to be really motivated working on recurvatum and making progress Objective - Vital Signs/Intake and Output Vital Signs (last 24 hours): Temp Pulse Resp BP Pulse Ox 98.4 F 77 20 125/63 95 01/10/18 09:41 01/10/18 09:41 01/10/18 09:41 01/10/18 09:41 01/10/18 09:41 - Medications Medications: Current Medications Acetaminophen (Tylenol 325mg Tab) 650 mg PO Q6 PRN PRN Reason: Other Last Admin: 01/08/18 17:13 Dose: 650 mg Acetaminophen (Tylenol 325mg Tab) 650 mg PO Q6 PRN PRN Reason: Fever >100 degrees. Artificial Tears (Artificial Tears) 2 drop OU Q2 PRN PRN Reason: Dry eyes Last Admin: 12/31/17 06:25 Dose: 2 drop Clonidine HCl (Catapres-Tts3 0.3 Mg/24 Hr) 1 patch TD Q7D [facility] Last Admin: 01/06/18 19:54 Dose: 1 patch Dimethicone (Proshield Plus Skin Protectant) 1 applic TOP 0600,1800 [facility] Last Admin: 01/10/18 06:12 Dose: 1 applic Diphenhydramine HCl (Benadryl) 25 mg IVP HS PRN PRN Reason: Insomnia Enalapril Maleate (Vasotec) 10 mg PO BID PRN PRN Reason: FOR SBP > 160/90 Enoxaparin Sodium (Lovenox) 40 mg SC Q12 DAILY PRN Reason: Protocol Last Admin: 01/10/18 09:00 Dose: 40 mg Ferrous Sulfate (Feosol) 325 mg PO DAILY [facility] Last Admin: 01/10/18 09:03 Dose: 325 mg Lactic Acid (Lac-Hydrin 12% Cream (140 G)) 2 ea TOP BID [facility] Last Admin: 01/10/18 09:05 Dose: 1 applic Lidocaine (Lidoderm) 1 ea TD DAILY [facility] Last Admin: 01/10/18 09:00 Dose: 1 ea Lidocaine (Lidoderm) 1 ea TD DAILY [facility] Last Admin: 01/10/18 09:01 Dose: 1 ea Nicotine (Nicoderm Cq) 1 patch TD DAILY [facility] Last Admin: 01/10/18 09:00 Dose: 1 patch Oxandrolone (Oxandrin) 5 mg PO BID [facility] Last Admin: 01/10/18 08:59 Dose: 5 mg Pantoprazole Sodium (Protonix Ec Tab) 40 mg PO DAILY [facility] Last Admin: 01/10/18 09:01 Dose: 40 mg Tamsulosin HCl (Flomax) 0.4 mg PO HS [facility] Last Admin: 01/09/18 21:10 Dose: 0.4 mg Vitamin A (Vitamin A&D) 1 applic TP BID [facility] Last Admin: 01/10/18 09:02 Dose: 1 applic - Labs Labs: 01/10/18 06:10 01/10/18 06:10
[2018-01-11] MEDS: Proshield Plus GEL TOP SCH ×2 (06:10→17:21)
[2018-01-11] MEDS: Pantoprazole 40 mg EC Tab PO SCH (08:21)
[2018-01-11] MEDS: CYANOCOBALAMIN (VITAMIN B-12) 250 MCG TABLET PO SCH (08:21)
[2018-01-11] MEDS: Enoxaparin 40 mg Syringe SC SCH ×2 (08:22→20:29)
[2018-01-11] MEDS: Lidocaine 5% Patch TD SCH ×2 (08:22)
[2018-01-11] MEDS: Vitamin A/D oint 60G TP SCH ×2 (08:24→17:21)
[2018-01-11] MEDS: Ammonium Lactate 12% Cream (140 g) TOP SCH ×2 (08:24→17:21)
--- NOTE | 2018-01-11 16:13 | PSY.TMCNF ---
Nursing - Vital Signs Vital Signs (Last 8 hours): Vital Signs 01/11/18 01/11/18 09:00 09:01 Temperature 97.7 F 97.7 F Pulse Rate 61 61 Respiratory 20 20 Rate Blood Pressure 134/71 134/71 O2 Sat by Pulse 97 Oximetry Pain: 0 - Precautions: Precautions: Fall Prevention, Aspiration, Pressure Ulcer - Medications/Other Issues Comment: Wound care. - Consults Comment: Dr. Spencer, Dr. Cope - Skin Incision Site: left heel Dressing Status: Clean, Dry, Intact Incision: No Drainage Noted Incision Line Treatment: Cleanse with NS, then dry dressing applied. - Wound Upper Buttock Wound Type: Other Wound Stage: STAGE II Wound Shape: Irregular Wound Edges: Closed Tunneling: No Undermining: No Wound Bed Greatest Portion: Pale Rankin Periwound: Intact Wound Drainage Amount: None Wound General Appearance: Asymptomatic Wound Dressing Status: Open to air Dressing Changed: No Wound Primary Dressing Type: Open to air Left Heel Wound Type: Other Wound Stage: Suspected Deep Tissue Injury Wound Shape: Irregular Wound Edges: Closed Tunneling: No Undermining: No Wound Bed Greatest Portion: Dusky Red Wound Bed Lesser Portion: Pale Rankin Periwound: Intact Wound Drainage Amount: Minimal Wound Drainage Description: Sanguineous Wound Drainage Odor: None/Absent Wound General Appearance: Open to air, Clean/Dry Wound Dressing Status: Open to air Dressing Changed: Yes Wound Primary Dressing Type: Absorbant Pad Wound Secondary Dressing Type: Gauze Pads Comment: Skin prep applied Sacrum Wound Type: Other Wound Shape: Irregular Wound Bed Greatest Portion: Pale Rankin Wound Bed Lesser Portion: Pale Rankin Periwound: Intact Wound Drainage Amount: None Wound General Appearance: Reddened Wound Primary Dressing Type: Open to air - Toileting Toileting: Dependent - Bladder Management Bladder Pattern: Normal Voiding Method: Urinal, Diaper Bladder Management: Dependent - Bowel Management Bowel Pattern: Incontinent Bowel Management: Dependent - Transfers Transfers: Dependent - ADL's ADL's: Maximal Assistance - Pain Management Comments: Lidoderm patch to both shoulders - Patient/Family Teaching Comments: -Care post Spinal Fusion surgery and safety precautions. - Pressure ulcer prevention and skin care. - Goals/Time Frame Comments: Per multidisciplinary care plans and goals - Provider Provider: Torri MOHRN RN CRRN Physical Therapy - Bed Mobility Bed Mobility: Supervision, Contact Guard, Moderate Assistance, Maximum Assistance Comment: -supine to/from sit: mod/max. -rolling: CG/CS - Transfers Wheelchair to Mat: Verbal Cues, Moderate Assistance, Maximum Assistance Sit to Stand: Verbal Cues, Moderate Assistance Comment: -B platform walker for sit to/from stand. -stand pivot without device - Ambulation Level of Assistance: Moderate Assistance, Maximum Assistance Distance (ft.): 18 Assistive Devices: Rolling Walker - Stair Negotiation Stairs: Level of Assistance: Not Tested - Standing Balance Static Stand: Moderate Assistance Dynamic Stand: Maximal Assistance - Pain Pain (assessed during therapy session): 7 Management Techniques: Medication, Massage, Position Change, Exercise, Inactivity Comment: B shoulders - Insight/Carryover Insight/Carryover: Fair - Patient/Family Education Comment: -safety, therapy schedule, therapy goals, pressure relief, importance of mobility in bed, SCI recovery, spinal precautions, importance of OOB - Assessment/Plan Assessment: Mr. Jeffers continues to make great progress in therapy. Patient has much improved stance control with platform walker but continues to require cues and assistance to improve dynamic gait postural control and the knees. Patient remains motivated and continues to demonstrate improving active participation in tasks. PT recommends continued skilled therapies to maximize safety and independence with all mobility s/p SCI. PT continues to recommend discharge to [facility] to continue addressing skilled needs both medical and rehabilitative. - Goals Timeframe: 7 days Goals: -propel WC x 75 feet with mod A. -ambulate w B platform walker x 40 feet with mod A. -sit to/from stand with mod A. -SPT with min A of 1. - rolling with distant supervision. -supine to sit with mod A of 1. -sit to supine with max A of 1. -scooting via bridging with mod A of 1 - Provider Therapist: Ana Lucero, PT, DPT License Number: [id number] Occupational Therapy - Arousal/Attention/Orientation Patient Orientation: Person, Place, Time, Appropriate to Age, Appropriate to Situation - ADL/IADL Self Feeding: Independent, Supervision, Verbal Cues, Set-up Help Grooming: Verbal Cues, Set-up Help, Moderate Assistance Bathing-Upper Extremity: Verbal Cues, Set-up Help, Moderate Assistance, Maximum Assistance Bathing-Lower Extremity: Verbal Cues, Set-up Help, Maximum Assistance Dressing-Upper Extremity: Verbal Cues, Set-up Help, Moderate Assistance Dressing-Lower Extremity: Verbal Cues, Set-up Help, Maximum Assistance Homemaking: Not Applicable Comment: Pt completes shower seated on bench and use of hand held shower - Sitting Balance Static Sitting: Supervision Dynamic Sitting: Reaches across midline, Reaches within base of support, Minimal Assistance Comment: seated at edge of bed - Transfers Wheelchair to Bed Transfers: Verbal Cues, Set-up Help, Moderate Assistance Toilet Transfers: Verbal Cues, Set-up Help, Moderate Assistance Comment: shower transfers: moderate assist and verbal cues w/c<->transfer bench , pivot, step/ - Wheelchair Management Level of Assistance: Minimal Assistance Distance (ft.): 30 - Upper Extremity Status Right Upper Extremity Comment: PROM is WFLS, but AROM limited by impaired strength/gross motor coordination Left Upper Extremity Comment: PROM is WFLS, but AROM limited by impaired strength/gross motor coordination - Pain Pain (assessed during therapy session): 7 Alleviating Techniques: Medication, Massage, Position Change, Exercise, Inactivity Comment: B shoulders - Insight/Carryover Insight/Carryover: Fair - Patient/Family Education Comment: -safety, therapy schedule, therapy goals, pressure relief, importance of mobility in bed, SCI recovery, spinal precautions, importance of OOB - Assessment/Plan Assessment: Mr. Jeffers continues to make great progress in therapy. Patient has much improved stance control with platform walker but continues to require cues and assistance to improve dynamic gait postural control and the knees. Patient remains motivated and continues to demonstrate improving active participation in tasks. PT recommends continued skilled therapies to maximize safety and independence with all mobility s/p SCI. PT continues to recommend discharge to [facility] to continue addressing skilled needs both medical and rehabilitative. - Goals Timeframe: 7 days Goals: -propel WC x 75 feet with mod A. -ambulate w B platform walker x 40 feet with mod A. -sit to/from stand with mod A. -SPT with min A of 1. - rolling with distant supervision. -supine to sit with mod A of 1. -sit to supine with max A of 1. 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 Jeffers continues to make great progress in therapy. Patient has much improved stance control with platform walker but continues to require cues and assistance to improve dynamic gait postural control and the knees. Patient remains motivated and continues to demonstrate improving active participation in tasks. PT recommends continued skilled therapies to maximize safety and independence with all mobility s/p SCI. PT continues to recommend discharge to [facility] to continue addressing skilled needs both medical and rehabilitative. - Provider Therapist: Latasha Jones License Number: [id number] Recreational Therapy - Participation Participation: Participates in Individual and/or Group Sessions - Attendance Attendance: 3-5 times per week - Activities Leisure Activities: Television - Socialization Level of Socialization: Initiates/interacts freely with care givers and peer - Diversional Time Diversional Time: television - Assessment Assessment/Plan: Mr. Jeffers continues to make great progress in therapy. Patient has much improved stance control with platform walker but continues to require cues and assistance to improve dynamic gait postural control and the knees. Patient remains motivated and continues to demonstrate improving active participation in tasks. PT recommends continued skilled therapies to maximize safety and independence with all mobility s/p SCI. PT continues to recommend discharge to [facility] to continue addressing skilled needs both medical and rehabilitative. - Provider Therapist: Vickie Ogden, [facility] #[id number] Nutrition - Current Diet Current Diet/ Supplement/ Feedings: advanced bite size thin liquids ensure plus 8 ounces 2 per day - Appetite Percent Meal Consumed: 75-100% - Comments Comments: -Care post Spinal Fusion surgery and safety precautions. - Pressure ulcer prevention and skin care. - Assessment/Goals/Time Frame Assessment/Goals/Time Frame: Wound care. - Provider Provider: Muriel Melgar RD Case Management - Psychosocial Assessment Support Systems: Emmanuel Jeffers (son)- [phone] Psychological Interventions/Needs: Patient is alert and oriented x3 and able to verbalize needs. Discharge Concerns: Patient currently requiring mod-max A for all functional mobility Patient/Family Meeting: CM met with patient and rehab team Intervention/Goal/Outcome:: 1. Plan: [facility] > LTC? dependent on progress in acute rehab- [facility]. 2. Tentative discharge date: 01/14/2018. 3. continued emotional support - Discharge Plan Discharge Plan: Subacute care - Provider Provider: MIKE Funk, [employer] License Number: [id number] Rehabilitation Plan - Discharge Plan Estimated Date of Discharge: 01/14/18 Discharge to: Subacute
--- NOTE | 2018-01-11 16:23 | CP.PCM.PN ---
Subjective - Date & Time of Evaluation Date of Evaluation: 01/11/18 Time of Evaluation: 16:22 - Subjective Subjective: Patient seen in the room doing well discussed importance of staying motivated wearing isotoner gloves and less swelling present continue current care Objective - Vital Signs/Intake and Output Vital Signs (last 24 hours): Temp Pulse Resp BP Pulse Ox 97.7 F 61 20 134/71 97 01/11/18 09:01 01/11/18 09:01 01/11/18 09:01 01/11/18 09:01 01/11/18 09:01 - Medications Medications: Current Medications Acetaminophen (Tylenol 325mg Tab) 650 mg PO Q6 PRN PRN Reason: Other Last Admin: 01/10/18 21:17 Dose: 650 mg Acetaminophen (Tylenol 325mg Tab) 650 mg PO Q6 PRN PRN Reason: Fever >100 degrees. Artificial Tears (Artificial Tears) 2 drop OU Q2 PRN PRN Reason: Dry eyes Last Admin: 12/31/17 06:25 Dose: 2 drop Clonidine HCl (Catapres-Tts3 0.3 Mg/24 Hr) 1 patch TD Q7D [facility] Last Admin: 01/06/18 19:54 Dose: 1 patch Dimethicone (Proshield Plus Skin Protectant) 1 applic TOP 0600,1800 [facility] Last Admin: 01/11/18 06:10 Dose: 1 applic Diphenhydramine HCl (Benadryl) 25 mg IVP HS PRN PRN Reason: Insomnia Enalapril Maleate (Vasotec) 10 mg PO BID PRN PRN Reason: FOR SBP > 160/90 Enoxaparin Sodium (Lovenox) 40 mg SC Q12 DAILY PRN Reason: Protocol Last Admin: 01/11/18 08:22 Dose: 40 mg Ferrous Sulfate (Feosol) 325 mg PO DAILY [facility] Last Admin: 01/11/18 08:21 Dose: 325 mg Lactic Acid (Lac-Hydrin 12% Cream (140 G)) 2 ea TOP BID [facility] Last Admin: 01/11/18 08:24 Dose: 1 applic Lidocaine (Lidoderm) 1 ea TD DAILY [facility] Last Admin: 01/11/18 08:22 Dose: 1 ea Lidocaine (Lidoderm) 1 ea TD DAILY [facility] Last Admin: 01/11/18 08:22 Dose: 1 ea Nicotine (Nicoderm Cq) 1 patch TD DAILY [facility] Last Admin: 01/11/18 08:22 Dose: 1 patch Oxandrolone (Oxandrin) 5 mg PO BID [facility] Last Admin: 01/11/18 08:21 Dose: 5 mg Pantoprazole Sodium (Protonix Ec Tab) 40 mg PO DAILY [facility] Last Admin: 01/11/18 08:21 Dose: 40 mg Tamsulosin HCl (Flomax) 0.4 mg PO HS [facility] Last Admin: 01/10/18 21:16 Dose: 0.4 mg Vitamin A (Vitamin A&D) 1 applic TP BID [facility] Last Admin: 01/11/18 08:24 Dose: 1 applic - Labs Labs: 01/10/18 06:10 01/10/18 06:10
[2018-01-12] MEDS: Proshield Plus GEL TOP SCH ×2 (06:26→17:17)
[2018-01-12] MEDS: Enoxaparin 40 mg Syringe SC SCH ×2 (09:12→21:10)
[2018-01-12] MEDS: Vitamin A/D oint 60G TP SCH ×2 (09:12→17:17)
[2018-01-12] MEDS: Ammonium Lactate 12% Cream (140 g) TOP SCH ×2 (09:12→17:17)
[2018-01-12] MEDS: CYANOCOBALAMIN (VITAMIN B-12) 250 MCG TABLET PO SCH (09:13)
[2018-01-12] MEDS: Lidocaine 5% Patch TD SCH ×2 (09:13)
[2018-01-12] MEDS: Pantoprazole 40 mg EC Tab PO SCH (09:13)
--- NOTE | 2018-01-12 17:04 | CP.PCM.PN ---
Subjective - Date & Time of Evaluation Date of Evaluation: 01/12/18 Time of Evaluation: 17:03 - Subjective Subjective: Patient seen resting comfortably has been participating in physical therapy. Has been voiding well no dysuria. Denies any chest pain, SOB, N/V/D Objective - Vital Signs/Intake and Output Vital Signs (last 24 hours): Temp Pulse Resp BP Pulse Ox 97.2 F L 67 19 146/73 98 01/12/18 07:47 01/12/18 07:47 01/12/18 07:47 01/12/18 07:47 01/12/18 07:47 - Medications Medications: Current Medications Acetaminophen (Tylenol 325mg Tab) 650 mg PO Q6 PRN PRN Reason: Other Last Admin: 01/10/18 21:17 Dose: 650 mg Acetaminophen (Tylenol 325mg Tab) 650 mg PO Q6 PRN PRN Reason: Fever >100 degrees. Artificial Tears (Artificial Tears) 2 drop OU Q2 PRN PRN Reason: Dry eyes Last Admin: 12/31/17 06:25 Dose: 2 drop Clonidine HCl (Catapres-Tts3 0.3 Mg/24 Hr) 1 patch TD Q7D [facility] Last Admin: 01/06/18 19:54 Dose: 1 patch Cyanocobalamin (Vitamin B-12) 250 mcg PO DAILY [facility] Last Admin: 01/12/18 09:13 Dose: 250 mcg Dimethicone (Proshield Plus Skin Protectant) 1 applic TOP 0600,1800 [facility] Last Admin: 01/12/18 06:26 Dose: 1 applic Diphenhydramine HCl (Benadryl) 25 mg IVP HS PRN PRN Reason: Insomnia Enalapril Maleate (Vasotec) 10 mg PO BID PRN PRN Reason: FOR SBP > 160/90 Enoxaparin Sodium (Lovenox) 40 mg SC Q12 DAILY PRN Reason: Protocol Ferrous Sulfate (Feosol) 325 mg PO DAILY [facility] Last Admin: 01/12/18 09:13 Dose: 325 mg Lactic Acid (Lac-Hydrin 12% Cream (140 G)) 2 ea TOP BID [facility] Last Admin: 01/12/18 09:12 Dose: 1 applic Lidocaine (Lidoderm) 1 ea TD DAILY [facility] Last Admin: 01/12/18 09:13 Dose: 1 ea Lidocaine (Lidoderm) 1 ea TD DAILY [facility] Last Admin: 01/12/18 09:13 Dose: 1 ea Nicotine (Nicoderm Cq) 1 patch TD DAILY [facility] Last Admin: 01/12/18 09:14 Dose: 1 patch Oxandrolone (Oxandrin) 5 mg PO BID [facility] Last Admin: 01/12/18 09:16 Dose: 5 mg Pantoprazole Sodium (Protonix Ec Tab) 40 mg PO DAILY [facility] Last Admin: 01/12/18 09:13 Dose: 40 mg Silver Sulfadiazine (Silvadene 1% 20 Gm) 1 ea TOP 0600 [facility] Tamsulosin HCl (Flomax) 0.4 mg PO HS [facility] Last Admin: 01/11/18 21:09 Dose: 0.4 mg Vitamin A (Vitamin A&D) 1 applic TP BID [facility] Last Admin: 01/12/18 09:12 Dose: 1 applic - Labs Labs: 01/10/18 06:10 01/10/18 06:10 - Constitutional Appears: No Acute Distress - Head Exam Head Exam: NORMAL INSPECTION - Eye Exam Eye Exam: Normal appearance - Respiratory Exam Respiratory Exam: Clear to Ausculation Bilateral, NORMAL BREATHING PATTERN. absent: Rhonchi, Wheezes - Cardiovascular Exam Cardiovascular Exam: REGULAR RHYTHM, +S1, +S2 - GI/Abdominal Exam GI & Abdominal Exam: Soft. absent: Tenderness - Back Exam Back Exam: NORMAL INSPECTION - Neurological Exam Neurological Exam: Alert, Awake, Oriented x3 Assessment and Plan - Assessment and Plan (Free Text) Assessment: -continue current management - C/W physical therapy
[2018-01-13] MEDS: Proshield Plus GEL TOP SCH ×2 (06:15→17:06)
[2018-01-13] MEDS: Silver Sulfadiazine 1% Cream (20 gm) TOP SCH (06:15)
[2018-01-13 06:53] LABS: BLOOD UREA NITROGEN 17 mg/dl (9-20); CALCIUM 8.8 mg/dL (8.4-10.2); GFR AFRICAN-AMERICAN > 60; GFR NON-AFRICAN AMERICAN > 60
[2018-01-13 07:02] LABS: HEMOGLOBIN 9.4 g/dL (12.0-18.0); MEAN CELL VOLUME 86.6 fl (80.0-94.0); MEAN CORPUSCULAR HEMOGLOBIN 28.5 pg (27.0-31.0); RBC 3.3 Mil/uL (4.40-5.90); RED CELL DISTRIBUTION WIDTH 15.3 % (11.5-14.5); WHITE BLOOD COUNT 6.4 K/uL (4.8-10.8)
[2018-01-13] MEDS: Enoxaparin 40 mg Syringe SC SCH ×2 (08:32→21:29)
[2018-01-13] MEDS: Pantoprazole 40 mg EC Tab PO SCH (08:33)
[2018-01-13] MEDS: Vitamin A/D oint 60G TP SCH ×2 (08:34→17:06)
[2018-01-13] MEDS: CYANOCOBALAMIN (VITAMIN B-12) 250 MCG TABLET PO SCH (08:34)
[2018-01-13] MEDS: Lidocaine 5% Patch TD SCH ×2 (08:35)
[2018-01-13] MEDS: Ammonium Lactate 12% Cream (140 g) TOP SCH ×2 (08:36→17:06)
--- NOTE | 2018-01-13 15:48 | CP.PCM.PN ---
Subjective - Date & Time of Evaluation Date of Evaluation: 01/13/18 Time of Evaluation: 15:45 - Subjective Subjective: 72 YO M seen at bedside appears to be doing well. Just finished eating. No overnight events reported. - PICC line removed with sanitary precaution. Entire Picc line was removed and safely discarded. Patient tolerated procedure well. Pressure was applied to region and hemostasis was achieved. Objective - Vital Signs/Intake and Output Vital Signs (last 24 hours): Temp Pulse Resp BP Pulse Ox 97.5 F L 83 20 134/63 97 01/13/18 08:41 01/13/18 08:41 01/13/18 08:41 01/13/18 08:41 01/13/18 08:41 - Medications Medications: Current Medications Acetaminophen (Tylenol 325mg Tab) 650 mg PO Q6 PRN PRN Reason: Other Last Admin: 01/13/18 05:32 Dose: 650 mg Acetaminophen (Tylenol 325mg Tab) 650 mg PO Q6 PRN PRN Reason: Fever >100 degrees. Artificial Tears (Artificial Tears) 2 drop OU Q2 PRN PRN Reason: Dry eyes Last Admin: 12/31/17 06:25 Dose: 2 drop Clonidine HCl (Catapres-Tts3 0.3 Mg/24 Hr) 1 patch TD Q7D [facility] Last Admin: 01/06/18 19:54 Dose: 1 patch Cyanocobalamin (Vitamin B-12) 250 mcg PO DAILY [facility] Last Admin: 01/13/18 08:34 Dose: 250 mcg Dimethicone (Proshield Plus Skin Protectant) 1 applic TOP 0600,1800 [facility] Last Admin: 01/13/18 06:15 Dose: 1 applic Diphenhydramine HCl (Benadryl) 25 mg IVP HS PRN PRN Reason: Insomnia Enalapril Maleate (Vasotec) 10 mg PO BID PRN PRN Reason: FOR SBP > 160/90 Enoxaparin Sodium (Lovenox) 40 mg SC Q12 [facility] PRN Reason: Protocol Last Admin: 01/13/18 08:32 Dose: 40 mg Ferrous Sulfate (Feosol) 325 mg PO DAILY [facility] Last Admin: 01/13/18 08:34 Dose: 325 mg Lactic Acid (Lac-Hydrin 12% Cream (140 G)) 2 ea TOP BID [facility] Last Admin: 02/15/18 08:36 Dose: 1 applic Lidocaine (Lidoderm) 1 ea TD DAILY [facility] Last Admin: 01/13/18 08:35 Dose: 1 ea Lidocaine (Lidoderm) 1 ea TD DAILY [facility] Last Admin: 01/13/18 08:35 Dose: 1 ea Nicotine (Nicoderm Cq) 1 patch TD DAILY [facility] Last Admin: 01/13/18 08:34 Dose: 1 patch Oxandrolone (Oxandrin) 5 mg PO BID [facility] Last Admin: 01/13/18 08:32 Dose: 5 mg Pantoprazole Sodium (Protonix Ec Tab) 40 mg PO DAILY [facility] Last Admin: 01/13/18 08:33 Dose: 40 mg Silver Sulfadiazine (Silvadene 1% 20 Gm) 1 ea TOP 0600 [facility] Last Admin: 01/13/18 06:15 Dose: 1 applic Tamsulosin HCl (Flomax) 0.4 mg PO HS [facility] Last Admin: 01/12/18 21:10 Dose: 0.4 mg Vitamin A (Vitamin A&D) 1 applic TP BID [facility] Last Admin: 01/13/18 08:34 Dose: 1 applic - Labs Labs: 01/13/18 06:20 01/13/18 06:20 - Constitutional Appears: No Acute Distress - Head Exam Head Exam: NORMAL INSPECTION - Eye Exam Eye Exam: Normal appearance - Respiratory Exam Respiratory Exam: Clear to Ausculation Bilateral. absent: Rhonchi, Wheezes - Cardiovascular Exam Cardiovascular Exam: REGULAR RHYTHM, +S1, +S2 - GI/Abdominal Exam GI & Abdominal Exam: Soft, Normal Bowel Sounds. absent: Tenderness - Extremities Exam Extremities Exam: absent: Calf Tenderness - Neurological Exam Neurological Exam: Alert, Awake, Oriented x3 - Skin Skin Exam: Normal Color, Warm Assessment and Plan - Assessment and Plan (Free Text) Assessment: -continue current management - C/W physical therapy - Patient will be d/c tomorrow
[2018-01-14] MEDS: Proshield Plus GEL TOP SCH (06:03)
[2018-01-14] MEDS: Silver Sulfadiazine 1% Cream (20 gm) TOP SCH (06:04)
[2018-01-14] MEDS: Enoxaparin 40 mg Syringe SC SCH (08:39)
[2018-01-14] MEDS: Lidocaine 5% Patch TD SCH ×2 (08:39)
[2018-01-14] MEDS: CYANOCOBALAMIN (VITAMIN B-12) 250 MCG TABLET PO SCH (08:40)
[2018-01-14] MEDS: Vitamin A/D oint 60G TP SCH (08:40)
[2018-01-14] MEDS: Pantoprazole 40 mg EC Tab PO SCH (08:40)
[2018-01-14] MEDS: Ammonium Lactate 12% Cream (140 g) TOP SCH (08:40)
[2018-01-14 09:02] VITALS: BP 122/58; PULSE 80; RESP 22; TEMP 97.6; O2SAT 96
--- NOTE | 2018-01-14 09:30 | CP.PCM.CON ---
History of Present Illness - History of Present Illness History of Present Illness: Pt seen for supportive therapy 9:10-9:27. Pt spoke of gains made over the last week. Mood remains dysphoric over current status, decline in functioning since his fall, affect constricted, and fears of dependency expressed. Support provided and coping strategies explored and reiterated. plan: Continued Sup therapy Past Patient History - Past Medical History & Family History Past Medical History?: Yes - Past Social History Smoking Status: Former Smoker - CARDIAC Hx Congestive Heart Failure: No Hx Hypercholesterolemia: No - PULMONARY Hx Chronic Obstructive Pulmonary Disease (COPD): No Other/Comment: Aspiration Pneumonia - NEUROLOGICAL Hx Neurological Disorder: Yes HX Cerebrovascular Accident: Yes Hx Seizures: Yes Other/Comment: Cervical spine surgery - HEENT Hx HEENT Problems: No (hx unknown) - RENAL Hx Renal Failure: No - ENDOCRINE/METABOLIC Hx Diabetes Mellitus Type 1: No Hx Diabetes Mellitus Type 2: No Hx Hypothyroidism: No - HEMATOLOGICAL/ONCOLOGICAL Hx Blood Disorders: Yes Hx AIDS: (unknown) Hx Anemia: Yes Hx Human Immunodeficiency Virus (HIV): (unknown) - INTEGUMENTARY Hx Dermatological Problems: No - MUSCULOSKELETAL/RHEUMATOLOGICAL Hx Arthritis: No Hx Falls: No Hx Rheumatoid Arthritis: No - GASTROINTESTINAL Hx Ileostomy: Yes Other/Comment: s/p appendectomy - GENITOURINARY/GYNECOLOGICAL Hx Genitourinary Disorders: Yes Other/Comment: urinary retention - PSYCHIATRIC Hx Psychophysiologic Disorder: Yes Hx Depression: Yes Hx Substance Use: Yes (Cocaine, Marijuana) - SURGICAL HISTORY Hx Appendectomy: Yes - ANESTHESIA Hx Anesthesia: Yes Hx Anesthesia Reactions: No Hx Malignant Hyperthermia: No Meds Allergies/Adverse Reactions: Allergies Allergy/AdvReac Type Severity Reaction Status Date / Time No Known Allergies Allergy Verified 12/09/17 18:20 - Medications Medications: Current Medications Acetaminophen (Tylenol 325mg Tab) 650 mg PO Q6 PRN PRN Reason: Other Last Admin: 01/13/18 05:32 Dose: 650 mg Acetaminophen (Tylenol 325mg Tab) 650 mg PO Q6 PRN PRN Reason: Fever >100 degrees. Artificial Tears (Artificial Tears) 2 drop OU Q2 PRN PRN Reason: Dry eyes Last Admin: 12/31/17 06:25 Dose: 2 drop Clonidine HCl (Catapres-Tts3 0.3 Mg/24 Hr) 1 patch TD Q7D DAILY Last Admin: 01/13/18 20:02 Dose: 1 patch Cyanocobalamin (Vitamin B-12) 250 mcg PO DAILY [facility] Last Admin: 01/14/18 08:40 Dose: 250 mcg Dimethicone (Proshield Plus Skin Protectant) 1 applic TOP 0600,1800 [facility] Last Admin: 01/14/18 06:03 Dose: 1 applic Diphenhydramine HCl (Benadryl) 25 mg IVP HS PRN PRN Reason: Insomnia Enalapril Maleate (Vasotec) 10 mg PO BID PRN PRN Reason: FOR SBP > 160/90 Enoxaparin Sodium (Lovenox) 40 mg SC Q12 DAILY PRN Reason: Protocol Last Admin: 01/14/18 08:39 Dose: 40 mg Ferrous Sulfate (Feosol) 325 mg PO DAILY [facility] Last Admin: 01/14/18 08:39 Dose: 325 mg Lactic Acid (Lac-Hydrin 12% Cream (140 G)) 2 ea TOP BID [facility] Last Admin: 01/14/18 08:40 Dose: 1 applic Lidocaine (Lidoderm) 1 ea TD DAILY [facility] Last Admin: 01/14/18 08:39 Dose: 1 ea Lidocaine (Lidoderm) 1 ea TD DAILY [facility] Last Admin: 01/14/18 08:39 Dose: 1 ea Nicotine (Nicoderm Cq) 1 patch TD DAILY [facility] Last Admin: 01/14/18 08:40 Dose: 1 patch Oxandrolone (Oxandrin) 5 mg PO BID [facility] Last Admin: 01/14/18 08:37 Dose: 5 mg Pantoprazole Sodium (Protonix Ec Tab) 40 mg PO DAILY [facility] Last Admin: 01/14/18 08:40 Dose: 40 mg Silver Sulfadiazine (Silvadene 1% 20 Gm) 1 ea TOP 0600 [facility] Last Admin: 01/14/18 06:04 Dose: 1 applic Tamsulosin HCl (Flomax) 0.4 mg PO HS [facility] Last Admin: 01/13/18 21:30 Dose: 0.4 mg Vitamin A (Vitamin A&D) 1 applic TP BID [facility] Last Admin: 01/14/18 08:40 Dose: 1 applic Results - Vital Signs Recent Vital Signs: Last Vital Signs Temp 97.6 F 01/14/18 09:01 Pulse 80 01/14/18 09:01 Resp 22 01/14/18 09:01 BP 122/58 L 01/14/18 09:01 Pulse Ox 96 01/14/18 09:01 - Labs Result Diagrams: 01/13/18 06:20 01/13/18 06:20
--- NOTE | 2018-01-14 11:22 | CP.PCM.DIS ---
Provider - Provider Date of Admission: 12/09/17 18:17 Attending physician: Aren Dolan MD Time Spent in preparation of Discharge (in minutes): 30 Diagnosis - Discharge Diagnosis (1) Gait abnormality Status: Acute (2) Physical debility Status: Acute (3) Cord compression syndrome Status: Acute Comment: S/p C4 cordectomy and C3-4 spinal fusion with instrumentation/ cervical decompression Hospital Course - Lab Results Lab Results: Micro Results 01/06/18 00:13 Urine,Clean Catch Urine Culture - Final <10,000 CFU/ML. MULTIPLE SPECIES. PROBABLE CONTAMINATION. 12/29/17 18:45 Urine,Mcgarry Urine Culture - Final Enterococcus Faecalis 12/27/17 09:37 Urine,Mcgarry Urine Culture - Final Enterococcus Faecalis Most Recent Lab Values WBC 6.4 K/uL (4.8-10.8) 01/13/18 06:20 RBC 3.30 Mil/uL (4.40-5.90) L 01/13/18 06:20 Hgb 9.4 g/dL (12.0-18.0) L 01/13/18 06:20 Hct 28.5 % (35.0-51.0) L 01/13/18 06:20 MCV 86.6 fl (80.0-94.0) 01/13/18 06:20 MCH 28.5 pg (27.0-31.0) 01/13/18 06:20 MCHC 33.0 g/dL (33.0-37.0) 01/13/18 06:20 RDW 15.3 % (11.5-14.5) H 01/13/18 06:20 Plt Count 424 K/uL (130-400) H 01/13/18 06:20 Sodium 140 mmol/l (132-148) 01/13/18 06:20 Potassium 4.2 MMOL/L (3.6-5.0) 01/13/18 06:20 Chloride 105 mmol/L (98-107) 01/13/18 06:20 Carbon Dioxide 25 mmol/L (22-30) 01/13/18 06:20 Anion Gap 14 (10-20) 01/13/18 06:20 BUN 17 mg/dl (9-20) 01/13/18 06:20 Creatinine 0.9 mg/dl (0.8-1.5) 01/13/18 06:20 Est GFR ( Amer) > 60 01/13/18 06:20 Est GFR (Non-Af Amer) > 60 01/13/18 06:20 Random Glucose 86 mg/dL (75-110) 01/13/18 06:20 Calcium 8.8 mg/dL (8.4-10.2) 01/13/18 06:20 Total Bilirubin 0.3 mg/dl (0.2-1.3) 12/27/17 05:30 AST 25 U/L (17-59) 12/27/17 05:30 ALT 40 U/L (21-72) 12/27/17 05:30 Alkaline Phosphatase 67 U/L (38-126) 12/27/17 05:30 Total Protein 6.2 G/DL (6.3-8.2) L 12/27/17 05:30 Albumin 2.9 g/dL (3.5-5.0) L 12/27/17 05:30 Globulin 3.3 gm/dL (2.2-3.9) 12/27/17 05:30 Albumin/Globulin Ratio 0.9 (1.0-2.1) L 12/27/17 05:30 Urine Color Yellow (YELLOW) 01/06/18 00:13 Urine Clarity Slighty-cloudy (Clear) 01/06/18 00:13 Urine pH 6.0 (5.0-8.0) 01/06/18 00:13 Ur Specific [place] 1.020 (1.003-1.030) 01/06/18 00:13 Urine Protein Negative mg/dL (NEGATIVE) 01/06/18 00:13 Urine Glucose (UA) Neg mg/dL (Normal) 01/06/18 00:13 Urine Ketones Negative mg/dL (NEGATIVE) 01/06/18 00:13 Urine Blood Negative (NEGATIVE) 01/06/18 00:13 Urine Nitrate Negative (NEGATIVE) 01/06/18 00:13 Urine Bilirubin Negative (NEGATIVE) 01/06/18 00:13 Urine Urobilinogen 0.2-1.0 mg/dL (0.2-1.0) 01/06/18 00:13 Ur Leukocyte Esterase Trace [place]/uL (Negative) 01/06/18 00:13 Urine RBC (Auto) 3 /hpf (0-3) 01/06/18 00:13 Urine Microscopic WBC 6 /hpf (0-5) H 01/06/18 00:13 Ur Squamous Epith Cells < 1 /hpf (0-5) 01/06/18 00:13 Urine Bacteria Rare (<OCC) 01/06/18 00:13 - Hospital Course Hospital Course: 72 yr old M s/p C4 cordectomy and C3-4 spinal fusion with instrumentation/ cervical decompression secondary to posttraumatic cervical myelopathy with quadriparesis and seizure disorder and drug abuse was admitted to acute rehab for PT/OT and deconditioning [facility] will stay under the care of Dr Isma Wang while in [facility]. Discharge Exam - Head Exam Head Exam: NORMAL INSPECTION - Eye Exam Eye Exam: EOMI, PERRL - Respiratory Exam Respiratory Exam: Clear to PA & Lateral, NORMAL BREATHING PATTERN - Cardiovascular Exam Cardiovascular Exam: REGULAR RHYTHM, +S1, +S2 - Neurological Exam Neurological exam: Alert, Oriented x3 - Psychiatric Exam Psychiatric exam: Normal Affect, Normal Mood - Skin Skin Exam: Normal Color, Warm Discharge Plan - Follow Up Plan Condition: STABLE Disposition: REHAB FACILITY/REHAB UNIT Instructions: Iron Supplements (By mouth), Nicotine (Absorbed through the skin) , Clonidine (Absorbed through the skin), Enoxaparin (By injection), Pantoprazole (By mouth), Oxandrolone (By mouth), How to Use and Care for Your PEG Tube (DC), Anterior Posterior Spinal Fusion (DC), Neurogenic Bladder After Spinal Cord Injury (DC), Neurogenic Bowel After Spinal Cord Injury (DC), Quadriplegia (DC), Skin Care After Spinal Cord Injury (DC)
== END 2018-01-14 14:20 | DRG 559 ==
PROVIDERS: ADMIT Family Medicine; ATTEND Family Medicine
PROC: F07Z9FZ Gait Training/Functional Ambulation Treatment using Assistive, Adaptive, Supportive or Protective Equipment (ICD-10-PCS; principal; 2017-12-09)
PROC: F08Z4FZ Home Management Treatment using Assistive, Adaptive, Supportive or Protective Equipment (ICD-10-PCS; 2017-12-09)
PROC: F07L6FZ Therapeutic Exercise Treatment of Musculoskeletal System - Lower Back / Lower Extremity using Assistive, Adaptive, Supportive or Protective Equipment (ICD-10-PCS; 2017-12-10)
DX: Z47.89 Encounter for other orthopedic aftercare (principal); R53.2 Functional quadriplegia; L89.152 Pressure ulcer of sacral region, stage 2; L89.621 Pressure ulcer of left heel, stage 1; G40.909 Epilepsy, unspecified, not intractable, without status epilepticus; G95.20 Unspecified cord compression; I82.612 Acute embolism and thrombosis of superficial veins of left upper extremity; R26.89 Other abnormalities of gait and mobility; R13.19 Other dysphagia; I69.391 Dysphagia following cerebral infarction; I10 Essential (primary) hypertension; F32.9 Major depressive disorder, single episode, unspecified; Z98.1 Arthrodesis status; Z87.891 Personal history of nicotine dependence; Z86.718 Personal history of other venous thrombosis and embolism; Z87.01 Personal history of pneumonia (recurrent); Z91.81 History of falling